=== PATIENT | male | born 1970 | race Caucasian/White ===

== ENCOUNTER 2017-08-27 03:18 | Emergency (ER) | payer MEDICARE, MEDICAID, SELFPAY ==
[2017-08-27 03:19] VITALS: BP 133/90; PULSE 65; RESP 16; TEMP 36.6; O2SAT 95; BMI 33.0
[2017-08-27] MEDS: 0.9% Normal Saline 1,000 ML 1000 ML IV (03:51)
[2017-08-27] MEDS: Ondansetron 4 MG/2 ML Vial IV (03:51)
[2017-08-27] MEDS: Ketorolac 30 MG/ML Syringe IV (03:51)
[2017-08-27 04:05] LABS: Absolute Neutrophil Count 4.9 X10^3/uL (2.0-7.7); Basophil# 0.02 X10^3/uL; Basophil% 0.3 % (0-1); Eosinophil# 0.06 X10^3/uL; Eosinophils% 0.8 % (0-5); Hemoglobin 14.8 g/dl (13.0-16.5); Lymphocyte % 24.6 % (19-41); Mean Corp Hgb Conc 34.4 g/gl (32-36); Mean Corpuscular Volume 81.4 fL (80-94); Mean Platelet Vol. 8.3 fl (6.2-12.0); Monocyte# 0.49 X10^3/uL; Monocyte% 6.7 % (0-10); Neutrophil # 4.94 X10^3/uL (2.7-7.7); Neutrophil % 67.5 % (47-70); Platelet Count 218 K/mm3 (150-450); RBC Distribution Width CV 13.8 % (11.6-14.6); RBC Distribution Width SD 40.5 fl (35.1-43.9); Red Blood Count 5.28 M/mm3 (4.6-6.2); White Blood Count 7.3 K/mm3 (4.4-11.0)
[2017-08-27 04:11] LABS: POSITIVE COUNT NO; POSITIVE DIFFERENTIAL NO; POSITIVE MORPHOLOGY NO
[2017-08-27 04:17] LABS: Anion Gap 9 (5-15); BUN 12 mg/dL (7-18); BUN/Creat Ratio 13.1 RATIO (10-20); Calcium,Total 8.2 mg/dL (8.5-10.1); Chloride 98 mmol/L (98-107); Creatinine, Serum 0.92 mg/dL (0.70-1.30); EST Glomerular Filtration Rate 95 mL/min (>60); Est Glom Filt Rate - Afr Amer 115 mL/min (>60); Estimated Creatinine Clearance 117.89 ml/min; Glucose 129 mg/dL (74-106); Potassium 3.3 mmol/L (3.5-5.1); Sodium Level 135 mmol/L (136-145)
--- NOTE | 2017-08-27 04:17 | ED.VISSUMM ---
- ER Visit Summary Date of Service: 08/27/17 Chief Complaint: Vomiting and diarrhea History of Present Illness: The patient is a [address] Palm. He reports he has vomiting and diarrhea that began 3 days ago. He is vomited approximately 10 times altogether. No blood in his emesis. He has had 6 episodes of diarrhea day. No blood in stools or black tarry stools. He complains of diffuse aching abdominal pain is 8 out of 10 at worst and 3-10 currently. Worsened by nothing, relieved by nothing. Patient denies sick contacts. Has not been camping out of the country. No possible bad food exposure. Does not drink well water. No recent antibiotic use. Physical Examination: Vitals: Stable. Afebrile. General: Well-nourished and well-developed. Head: Normocephalic atraumatic. Neck: Supple, no lymphadenopathy. No JVD. Nontender. Cardiovascular: Regular rate and rhythm. No murmurs. Respiratory: No respiratory distress. Clear to auscultation bilaterally. Abdominal: Soft, mild diffuse tenderness to palpation, nondistended, normal bowel sounds. No guarding, rebound, or peritoneal signs. Back: Nontender. Extremities: Nontender, no edema. Skin: Normal color, no rash. Neurologic: Alert and oriented ?3. Cranial nerves II through XII are intact. Normal strength and sensation. Psych: Normal affect. Test Results: CBC is normal. Chem-7 is remarkable for a sodium of 135, potassium 3.3, glucose of 129, calcium of 8.2. Emergency Department Course and Treatment: Patient had an IV placed. He was given a liter of normal saline. Is given Toradol and Zofran IV. He is rested comfortably while here. He has had no vomiting or diarrhea. Treatment Plan: He will be discharged with Zofran and instructed to follow-up with Dr. Palm in 1-2 days if not improving. Return to the emergency department for any worsening symptoms. Disposition: To home in improved and stable condition. Impression: 1. Vomiting/diarrhea. This note was generated with [employer] dictation software. It may contain incorrect words, spelling, and punctuation that were not noted in review of the chart prior to signing ED Disposition - Plan for ED Patient: Chief Complaint: Nausea/Vomiting/Diarrhea Instructions: ED Vomiting Diarrhea Nonspecific Ad Prescriptions: Ondansetron [Zofran Odt] 4 mg PO Q8H PRN PRN #10 tablet PRN Reason: Nausea Referrals: Fabian Palm MD [Primary Care Provider] - 1-2 Days if not improving
[2017-08-27 04:45] VITALS: BP 120/73; PULSE 73; RESP 16; O2SAT 95
[2017-08-27] MEDS: Ondansetron ODT 4 MG Tablet PO (04:45)
== END 2017-08-27 04:45 | disposition home or self-care (01) ==
LOC: ED 03:43
PROVIDERS: Emergency Provider Emergency Medicine; Family Provider Family Medicine; PCP Family Medicine
DX: R11.10 Vomiting, unspecified (principal); R19.7 Diarrhea, unspecified; I10 Essential (primary) hypertension; E78.00 Pure hypercholesterolemia, unspecified; J44.9 Chronic obstructive pulmonary disease, unspecified; E11.40 Type 2 diabetes mellitus with diabetic neuropathy, unspecified; Z79.84 Long term (current) use of oral hypoglycemic drugs; Z79.899 Other long term (current) drug therapy; Z72.0 Tobacco use
CPT/HCPCS: 80048; 85025; 96361; 96374; 96375; 99284; J7030; A4216; J2405

== ENCOUNTER 2017-09-24 19:37 | Emergency (ER) | payer MEDICARE, MEDICAID, SELFPAY ==
[2017-09-24 19:39] VITALS: BP 122/79; PULSE 73; RESP 18; TEMP 37.2; O2SAT 96; BMI 32.3
--- NOTE | 2017-09-24 22:23 | ED.DCSUM_ITS ---
- ER Visit Summary Date of Service: 09/24/17 Chief Complaint: Epigastric pain History of Present Illness: The patient is a 47 M 2 day history intermittent epigastric pain. Nausea. No vomiting. No diarrhea. No melena or hematochezia. He is on Prilosec for history of GERD had an EGD 4-6 years ago with unclear findings per patient. No urinary symptoms. No fever, chills, sweats. Denies chest pains or shortness of breath. States he has not eaten much due to the symptoms over the past week. Cannot tell me food worsens the symptoms. Saw PCP office 5 days ago was put on Zofran. States it does help his nausea but not his pain. No other complaints. Physical Examination: General: Alert and oriented ?3, no acute distress HEENT: Normocephalic, atraumatic. Moist mucosa membranes Neck: supple, nontender. Cardiovascular: Regular rate and rhythm, no murmurs Respiratory: Normal breath sounds, symmetric, no distress Abdomen: Soft, mild epigastric tenderness, nondistended. Negative Bailey's or McBurney's tenderness. No guarding or rebound Extremities: Nontender, no edema, pulses intact ?4 Neuro: no focal neurological deficits. Test Results: [] Emergency Department Course and Treatment: Patient's vital signs stable, nonsurgical abdomen. History concerns for gastritis. He has no GI bleed symptoms. He was given a GI cocktail with moderate improvement of symptoms. Discussed monitoring for rectal bleeding. He increase his Prilosec to 40 mg twice a day. Carafate will be added. He will call his PCP for follow-up reevaluation. All questions were answered. Return if any worsening symptoms. Treatment Plan: [] Disposition: Discharge Impression: 1. Gastritis This note was generated with [employer] dictation software. It may contain incorrect words, spelling, and punctuation that were not noted in review of the chart prior to signing ED Disposition - Plan for ED Patient: Disposition: Home or Assisted Living Chief Complaint: Chest Other Diagnosis: Gastritis Instructions: ED Gastritis Prescriptions: Sucralfate [Carafate] 1 gm PO 4X/DAY #60 tablet Referrals: Fabian Palm MD [Primary Care Provider] - 3-5 Days Additional Instructions: Increase her Prilosec to 40 mg twice a day. Take Carafate as prescribed. Call your PCP for follow-up reevaluation.
[2017-09-25 00:36] VITALS: BP 137/82; PULSE 77; RESP 18; O2SAT 100
== END 2017-09-25 00:37 | disposition home or self-care (01) ==
PROVIDERS: Emergency Provider Emergency Medicine; Family Provider Family Medicine; PCP Family Medicine
DX: K29.70 Gastritis, unspecified, without bleeding (principal); K21.9 Gastro-esophageal reflux disease without esophagitis; Z72.0 Tobacco use
CPT/HCPCS: 99283

== ENCOUNTER 2018-01-28 19:06 | Emergency (ER) | payer MEDICARE, SELFPAY ==
[2018-01-28 19:06] VITALS: BP 141/75; PULSE 88; RESP 18; TEMP 37; O2SAT 99; BMI 31.6
--- NOTE | 2018-01-28 20:20 | ED.VISSUMM ---
- ER Visit Summary Date of Service: 01/28/18 Chief Complaint: Head injury History of Present Illness: The patient is a 47 M who has a scalp laceration. 2 hours ago he hit his head on a car port. He has sharp pain around that area. No LOC. His tetanus is up-to-date. Physical Examination: Vital signs reviewed. Head exam reveals a 3.5 cm zigzag laceration to the scalp. Bleeding is controlled. His GCS is 15. Neurologic exam normal. Test Results: None performed Emergency Department Course and Treatment: Patient had lidocaine used to anesthetize the area. 6 alie were placed. He will have these out in 7-10 days. Treatment Plan: [] Disposition: Discharge Impression: Scalp laceration, 3.5 cm Table by ED physician This note was generated with [employer] dictation software. It may contain incorrect words, spelling, and punctuation that were not noted in review of the chart prior to signing ED Disposition - Plan for ED Patient: Chief Complaint: Laceration Referrals: Fabian Palm MD [Primary Care Provider] -
--- NOTE | 2018-01-28 20:21 | ED.DEP ---
ED Disposition - Plan for ED Patient: Disposition: Home or Assisted Living Chief Complaint: Laceration Instructions: ED Laceration All Referrals: Fabian Palm MD [Primary Care Provider] -
[2018-01-28 20:56] VITALS: BP 132/60; PULSE 78; RESP 18; O2SAT 99
== END 2018-01-28 20:57 | disposition home or self-care (01) ==
PROVIDERS: Emergency Provider Emergency Medicine; Family Provider Family Medicine; PCP Family Medicine
DX: S01.01XA Laceration without foreign body of scalp, initial encounter (principal); W22.8XXA Striking against or struck by other objects, initial encounter; Y93.9 Activity, unspecified; Y92.9 Unspecified place or not applicable; I10 Essential (primary) hypertension; M10.9 Gout, unspecified; Z79.899 Other long term (current) drug therapy; Z72.0 Tobacco use
CPT/HCPCS: 12002; 99283

== ENCOUNTER 2018-03-16 00:07 | Emergency (ER) | payer MEDICARE, MEDICAID, SELFPAY ==
[2018-03-16 00:10] VITALS: BP 134/95; PULSE 89; RESP 17; TEMP 36.8; O2SAT 95; BMI 31.5
--- NOTE | 2018-03-16 01:22 | ED.DCSUM_ITS ---
- ER Visit Summary Date of Service: 03/16/18 Chief Complaint: Rash lower extremity and face History of Present Illness: The patient is a 47 M presents with rash lower extremity and face starting today. He states he was helping his brother with window insulation. There were plans. Also admits to detergent that were changed recently. No lip or tongue swelling. States mild burning sensation. Denies fever. Denies dyspnea or chest pain. Denies previous similar symptoms in the past. He is a diabetic. No medications taken. Physical Examination: General: Alert and oriented ?3, no acute distress HEENT: Normocephalic, atraumatic. Moist mucosa membranes Neck: supple, nontender. Cardiovascular: Regular rate and rhythm, no murmurs Respiratory: Normal breath sounds, symmetric, no distress Abdomen: Soft, nontender, nondistended Extremities: Nontender, no edema, pulses intact ?4 Neuro: no focal neurological deficits. Skin: Scattered papules lower extremities bilaterally. There is erythema to the face. There is no lip or tongue swelling. No indurations. No drainage. Test Results: [] Emergency Department Course and Treatment: Patient vitals stable, nontoxic. Discussed nonspecific rash at this time however likely allergic reaction. Discussed not contact dermatitis due to symptoms occurring with exposures today from plants. He did change his detergent. Discussed changing back. He started on Benadryl. He has this at home. Continue every 6 hours. Steroids will be held due to history diabetes. He will follow-up with PCP. He will return if any worsening symptoms. Treatment Plan: [] Disposition: Discharge Impression: Allergic dermatitis This note was generated with [employer] dictation software. It may contain incorrect words, spelling, and punctuation that were not noted in review of the chart prior to signing ED Disposition - Plan for ED Patient: Disposition: Home or Assisted Living Chief Complaint: Rash Diagnosis: Allergic dermatitis Instructions: ED Dermatitis Nonspecific Ch Referrals: Fabian Palm MD [Primary Care Provider] - 3-5 Days Additional Instructions: Change your detergent back to previous. Take Benadryl every 6 hours as needed.
[2018-03-16] MEDS: DiphenhydrAMINE 25 MG Capsule 50 MG PO (01:27)
[2018-03-16 01:32] VITALS: PULSE 61; RESP 17; O2SAT 95
== END 2018-03-16 01:37 | disposition home or self-care (01) ==
LOC: ED 01:36
PROVIDERS: Emergency Provider Emergency Medicine; Family Provider Family Medicine; PCP Family Medicine
DX: L23.7 Allergic contact dermatitis due to plants, except food (principal); L23.9 Allergic contact dermatitis, unspecified cause; E11.9 Type 2 diabetes mellitus without complications; I10 Essential (primary) hypertension; J44.9 Chronic obstructive pulmonary disease, unspecified; K21.9 Gastro-esophageal reflux disease without esophagitis; Z79.84 Long term (current) use of oral hypoglycemic drugs; Z79.899 Other long term (current) drug therapy; Z72.0 Tobacco use
CPT/HCPCS: 99283

== ENCOUNTER 2018-03-19 15:35 | Emergency (ER) | payer MEDICARE, MEDICAID, SELFPAY ==
[2018-03-19 15:36] VITALS: BP 125/70; PULSE 83; RESP 18; TEMP 37.1; O2SAT 98; BMI 31.1
[2018-03-19 15:56] LABS: Bacteria 0 SEEN /hpf (None Seen); Mucous, Urine 0 SEEN /hpf (<or=2+); Red Blood Cells-Urine 0 SEEN /hpf (0-5)
[2018-03-19 16:14] LABS: Color, Urine Amber (Yellow); Glucose, Dipstick Normal (Normal); Ketone-Dipstick 5 mg/dl (Negative); Leukocyte Esterase-Dipstick 500 /ul (Negative); Nitrite-Dipstick Negative (Negative); Occult Blood-Urine 10 /ul (Negative); Protein-Dipstick 30 mg/dl (Negative); Urine Clarity Clear (Clear); Urine Urobilinogen 8 mg/dl (Normal)
[2018-03-19 16:24] LABS: Urine Bilirubin Dipstick 3 mg/dL (Negative)
[2018-03-19 16:30] LABS: Squamous Epithelial Cells - UA 0-5 SEEN /hpf (0-5); White Blood Cells 10-25 SEEN /hpf (0-5)
[2018-03-19 20:34] VITALS: BP 111/78; PULSE 64; RESP 18; O2SAT 97
--- NOTE | 2018-03-19 21:00 | ED.VISSUMM ---
- ER Visit Summary Date of Service: 03/19/18 Chief Complaint: Urinary retention History of Present Illness: The patient is a 47 M here for a urinary retention from BPH. Also known uor-[id number] diabetic. Patient states he has had difficulty urinating for last 2 days. Denies gross hematuria. He has had similar symptoms like this before and it is some type of prostate procedure done. Physical Examination: Well-appearing middle-age male. Vital signs are stable afebrile. H EENT exam unremarkable. Neck nontender. Lungs clear to auscultation bilaterally. Heart regular rhythm no murmur. Abdomen soft nondistended normal bowel sounds. No peritoneal signs. Moving all 4 extremities. No edema. Neurologically intact. Test Results: UA showed 10-25 white cells no bacteria no nitrates. A culture will be sent. He will be started on Keflex for possible UTI. Emergency Department Course and Treatment: Nurses placed a 16 [place] Fisher catheter patient had 550 cc of urine out. Treatment Plan: DC with Fisher catheter. Treated with Keflex for possible UTI. Follow-up with either his urologist or local urologist. Disposition: Discharge Impression: Acute urinary retention History of BPH. Rule out UTI This note was generated with [employer] dictation software. It may contain incorrect words, spelling, and punctuation that were not noted in review of the chart prior to signing ED Disposition - Plan for ED Patient: Chief Complaint: Complaint Referrals: Fabian Palm MD [Primary Care Provider] -
--- NOTE | 2018-03-19 21:02 | ED.DEP ---
ED Disposition - Plan for ED Patient: Disposition: Home or Assisted Living Chief Complaint: Complaint Instructions: ED Retention Urinary Male Prescriptions: Cephalexin [Keflex] 500 mg PO Q6 #40 cap Referrals: Hamilton Hidalgo MD [STAFF PHYSICIAN] - As soon as possible Additional Instructions: Follow-up with your clinical clinic urologist or Dr. Maxwell Hidalgo Plenty of water. Keflex for possible UTI but a urine culture was sent and the results should return in 2 days.
[2018-03-19] MEDS: Cephalexin 250 MG Capsule 500 MG PO (21:10)
[2018-03-19 21:16] VITALS: BP 118/63; PULSE 71; RESP 18; O2SAT 99
--- NOTE | 2018-03-19 21:17 | NURSING ---
LEG BAGG APPLIED TO RT LEG. PT VERBALIZE INSTRUCTIONS
== END 2018-03-19 21:17 | disposition home or self-care (01) ==
PROVIDERS: Emergency Provider Emergency Medicine; Family Provider Family Medicine; PCP Family Medicine
DX: N40.1 Benign prostatic hyperplasia with lower urinary tract symptoms (principal); R33.8 Other retention of urine; E11.9 Type 2 diabetes mellitus without complications; Z79.84 Long term (current) use of oral hypoglycemic drugs; Z79.899 Other long term (current) drug therapy; Z72.0 Tobacco use
CPT/HCPCS: 51702; 81001; 87086; 99282

== ENCOUNTER 2018-10-04 15:36 | Emergency (ER) | payer MEDICARE, MEDICAID, SELFPAY ==
[2018-10-04 15:36] VITALS: BP 126/81; PULSE 111; RESP 18; TEMP 36.9; O2SAT 96; BMI 31.9
--- NOTE | 2018-10-04 16:01 | ED.DCSUM_ITS ---
History of Present Illness Chief Complaint: Complaint Detail of Chief Complaint: Dysuria, frequency and suprapubic/LLQ discomfort pain Informant: Patient Onset: Yesterday Context: Sudden Onset Timing: Intermittent Quality: Burning at the end of urination and discomfort lower abdomen Location: Suprapubic/LLQ Current Severity: Mild Maximum Severity: Moderate Worsened by: Urination Relieved by: Nothing Associated Symptoms: Nothing Narrative: Patient is a middle-aged male who presents with incontinence, frequency, urgency since last evening. He also reports discomfort is localized to the suprapubic and left lower quadrant. At one episode that radiated to left flank. He has no history of renal ureterolithiasis. He denies testicular pain. Denies history of hernia. He denies family history of renal/ureterolithiasis. Patient was unaware that there was blood in his urine. Patient has no prior history of blood in his urine. Prior similar symptoms: No Recent Illness/Hospitalization: No - Past Medical History (1) Borderline diabetes mellitus Status: Chronic (2) Chronic back pain Status: Chronic (3) GERD (gastroesophageal reflux disease) Status: Chronic (4) Hypertension Status: Chronic (5) Obesity (BMI 30.0-34.9) Status: Chronic Past Medical History - Allergies and Home Meds Allergies/Adverse Reactions: Allergies cyclobenzaprine HCl [From Flexeril] Allergy (Verified 10/04/18 15:39) Hives dicyclomine HCl [From Bentyl] Allergy (Verified 10/04/18 15:39) Rash duloxetine HCl [From Cymbalta] Allergy (Verified 10/04/18 15:39) Hives naproxen Allergy (Verified 10/04/18 15:39) Hives tramadol HCl [From Ultram] Allergy (Verified 10/04/18 15:39) Rash Primary Care Physician: Fabian Palm MD [Primary Care Provider] - Prior records reviewed: Yes Surgical History: no surgical history Lives: Alone Smoking Status: Light Smoker (<10/day) Alcohol: None - Family History Maternal Family History: Reports: Diabetes, Stroke Paternal Family History: Reports: Unknown Review of Systems General: Denies: Chills, Fever, Malaise, Sweats Eyes: Denies: Visual changes - bilaterally, Diplopia ENT: Denies: Rhinorrhea, Sore throat Cardiovascular: Denies: Chest pain, Palpitations Respiratory: Denies: Dyspnea, Cough, Dyspnea on exertion Gastrointestinal: Denies: Abdominal pain, Nausea, Vomiting, Diarrhea, Melena, Hematochezia Genitourinary: Reports: Dysuria, Frequency Musculoskeletal: Reports: Back pain. Denies: Myalgias, Arthralgias, Neck pain, Swelling, Extremity Pain Skin: Denies: Rash, Wounds Neurological: Denies: Headache, Weakness, Numbness Endocrine: Denies: Polyuria, Polydipsia Allergy: Denies: Uticaria Physical Exam Vital Signs/Narrative: Vital Signs Temp Pulse Resp BP Pulse Ox 10/04/18 15:36 98.5 F 111 H 18 126/81 H 96 Abdomen: Soft, Nondistended, No masses, Tender, Hypoactive bowel sounds, - - [place] suprapubic and left lower quadrant.. Negative for: Normal bowel sounds, Guarding, Rebound tenderness, Hyperactive bowel sounds, Hepatomegaly, Splenomegaly, Mass, Pulsatile mass, Ventral hernia, Inguinal hernia, Umbilical hernia : - - Testes descended bilaterally. No testicular tenderness. There is one shotty left inguinal node noted. There is no evidence of inguinal hernia. Back: Nontender, Normal Inspection. Negative for: CVA tenderness Extremities: Nontender, No edema Skin: Normal color, No rash. Negative for: Cyanosis, Jaundice Neurological: Alert, Oriented x3, Cranial nerves II-XII grossly intact, Normal Strength, Normal Sensation Psychological: - - Affect is flat Diagnostic/Tx/Re-eval Chest X-Ray - ED: 2 View, Read by ED Physician, Normal, Heart, Mediastinum, Bony Structures, No Acute Disease, Chronic Changes Impressions Abdomen/Pelvis CT 10/04/18 16:34 IMPRESSION: The bladder is distended. There is a mildly distended appearance of the urethra at the base of the bladder. Recommend pre and post void imaging with ultrasound when appropriate. There is moderate enlargement of the prostate. Findings are highly suspicious for cystitis. Diverticulosis without radiographic evidence of diverticulitis. There is mild distention of the left upper quadrant small bowel with mild thickening cannot entirely exclude mild enteritis. There is moderate to severe degenerative change of the thoracolumbar spine with multilevel neural foramina narrowing multilevel moderate to severe central stenosis. Electronically Signed: Cristal Fitch MD at 17:28 EDT Tel , Service support , Chest X-Ray 10/04/18 17:29 IMPRESSION: Stable lung markings no visible focal infiltrate. Electronically Signed: Cristal Fitch MD at 17:49 EDT Tel , Service support , 10/04/18 16:34 Abdomen/Pelvis without Cont [CT] Stat 10/04/18 17:29 Chest PA and Lateral [RAD] Stat Laboratory Results 10/04/18 10/04/18 10/04/18 15:45 16:15 16:15 WBC 21.1 H RBC 5.31 Hgb 15.4 Hct 45.0 MCV 84.7 MCH 29.0 MCHC 34.2 RDW 14.1 RDW Differential 43.0 Plt Count 184 MPV 8.7 Immature Gran % (Auto) 0.400 Neut % (Auto) 86.0 H Lymph % (Auto) 7.8 L [place] % (Auto) 5.5 Eos % (Auto) 0.2 Baso % (Auto) 0.1 Absolute Neuts (auto) 18.2 H Absolute Lymphs (auto) 1.65 Total Counted Not Reportable Sodium 136 Potassium 3.4 L Chloride 101 Carbon Dioxide 29.0 Anion Gap 6 BUN 7 Creatinine 0.98 Estim Creat Clear Calc 109.51 Est GFR (MDRD) Af Amer 106 Est GFR (MDRD) Non-Af 88 BUN/Creatinine Ratio 7.2 L Glucose 203 H Calcium 8.5 Urine Color Yellow Urine Clarity Cloudy Urine pH 7.0 Ur Specific Quail 1.005 Urine Protein 30 H Urine Glucose (UA) Normal Urine Ketones Negative Urine Occult Blood 250 H Urine Nitrite Negative Urine Bilirubin Negative Urine Urobilinogen Normal Ur Leukocyte Esterase 500 H Urine RBC 0-5 SEEN Urine WBC >100 SEEN Ur Squamous Epith Cells 0 SEEN Urine Bacteria RARE Urine Mucus 0 SEEN - Medical Decision Making Differential includes urinary tract infection, ureteral stone, diverticular disease. To evaluate patient's symptoms and findings UA, CBC and basic metabolic panel were obtained. Bladder scan was ordered to determine if patient has urinary retention which may cause hematuria. He reports history of benign prostatic hypertrophy even though there is no documentation on prior records. Bladder scan revealed 17 cc after voiding. Suspect patient's symptoms are secondary to obstructing ureteral stone. Will medicate with Zofran and Toradol since there is no contraindication. Chest x-ray was added because I was informed at 1720 the patient had a pulse ox of 88% with good waveform. Chest x-ray was unremarkable. Suspect pulse ox 90% is normal for this patient who has lung problems related to his smoking. Fisher was placed and there is greater than 600 cc of urine. This would explain his frequency and hematuria. He was discharged with leg bag and referred to urology. ED Disposition - Plan for ED Patient: Disposition: Home or Assisted Living Diagnosis: Acute urinary retention, Acute left flank pain, Gross hematuria, Borderline diabetes mellitus, GERD (gastroesophageal reflux disease), Hypertension, Obesity (BMI 30.0-34.9) Instructions: ED Retention Urinary Male Referrals: Fabian Palm MD [Primary Care Provider] - Hamilton Hidalgo MD [STAFF PHYSICIAN] - 3-5 Days
[2018-10-04 16:11] LABS: Mucous, Urine 0 SEEN /hpf (<or=2+); Squamous Epithelial Cells - UA 0 SEEN /hpf (0-5)
[2018-10-04 16:19] LABS: Color, Urine Yellow (Yellow); Glucose, Dipstick Normal (Normal); Ketone-Dipstick Negative (Negative); Leukocyte Esterase-Dipstick 500 /ul (Negative); Nitrite-Dipstick Negative (Negative); Occult Blood-Urine 250 /ul (Negative); Protein-Dipstick 30 mg/dl (Negative); Specific Gravity, Urine 1.005 (1.002-1.030); Urine Bilirubin Dipstick Negative (Negative); Urine Clarity Cloudy (Clear); Urine Urobilinogen Normal (Normal)
[2018-10-04 16:23] LABS: Bacteria RARE /hpf (None Seen); Red Blood Cells-Urine 0-5 SEEN /hpf (0-5); White Blood Cells >100 SEEN /hpf (0-5)
[2018-10-04 16:30] LABS: Absolute Lymphocyte Count 1.65 X10^3/ul (0.83-4.51); Absolute Neutrophil Count 18.2 X10^3/uL (2.0-7.7); Basophil# 0.02 X10^3/uL; Basophil% 0.1 % (0-1); Eosinophil# 0.04 X10^3/uL; Eosinophils% 0.2 % (0-5); Hemoglobin 15.4 g/dl (13.0-16.5); Lymphocyte # 1.65 X10^3/ul (4.0); Lymphocyte % 7.8 % (19-41); Mean Corp Hgb Conc 34.2 g/gl (32-36); Mean Corpuscular Volume 84.7 fL (80-94); Mean Platelet Vol. 8.7 fl (6.2-12.0); Monocyte# 1.17 X10^3/uL; Monocyte% 5.5 % (0-10); Neutrophil # 18.16 X10^3/uL (2.7-7.7); POSITIVE COUNT NO; POSITIVE DIFFERENTIAL NO; POSITIVE MORPHOLOGY NO; Platelet Count 184 K/mm3 (150-450); RBC Distribution Width CV 14.1 % (11.6-14.6); Red Blood Count 5.31 M/mm3 (4.6-6.2); White Blood Count 21.1 K/mm3 (4.4-11.0)
[2018-10-04] MEDS: Morphine 4 MG/ML Syringe IV (16:30)
[2018-10-04] MEDS: Ondansetron 4 MG/2 ML Vial IV (16:30)
--- NOTE | 2018-10-04 16:34 | CT_ITS ---
STUDY: CT ABDOMEN AND PELVIS WITHOUT CONTRAST REASON FOR EXAM: Male, 48 years old. Incontinence, hematuria, flank pain groin pain RADIATION DOSAGE (If Supplied By Facility): CTDIvol = ( 15.24 ) mGy, DLP = ( 818.64 ) mGycm TECHNIQUE: Transaxial images were obtained from the dome of the diaphragm to the symphysis pubis without oral contrast, and without intravenous contrast. Sagittal and coronal images were reconstructed. Individualized dose optimization techniques were used for this CT. COMPARISON: CT scan abdomen and pelvis March 11, 2016 FINDINGS: The visualized lung bases are unremarkable. The visualized portions of the heart are within normal limits. Normal liver. Normal gallbladder and extrahepatic biliary system. Normal spleen. Normal pancreas. Normal bilateral adrenal glands. Normal right kidney. Normal left kidney. There is a small hiatal hernia. Is mildly thick walled appearance of the small bowel in the left upper quadrant. There is moderate stool in the colon. There is diverticulosis without visualized diverticulitis. There is a coiled inflamed stable caliber appearance of the appendix. Normal abdominal aorta. Normal inferior vena cava. There multiple shotty appearing retroperitoneal lymph nodes measuring up to 1.1 cm. The bladder is distended the wall is thickened and mildly hyperdense measuring up to 6 to 7 mm. There is an enlarged appearance of the prostate measuring up to 5 x 5 x 4 cm. There is a small umbilical hernia containing fat. There is multilevel spondylosis. There is a broad disc bulge L4-L5. There is moderate neural foramina narrowing. At L3-L4 there is a broad disc osteophyte protrusion extending over the right side of the neural foramen with severe neural foramina narrowing and moderate central stenosis. At L4-L5 there is a left lateral disc osteophyte protrusion severe neural foramina narrowing moderate to severe central stenosis. At L5-S1 there is disc space narrowing and broad disc osteophyte mild neural foramina narrowing. There is degenerative change of the SI joints. There is ostial right formation in the left hip joint CT/Abdomen/Pelvis without Cont IMPRESSION: The bladder is distended. There is a mildly distended appearance of the urethra at the base of the bladder. Recommend pre and post void imaging with ultrasound when appropriate. There is moderate enlargement of the prostate. Findings are highly suspicious for cystitis. Diverticulosis without radiographic evidence of diverticulitis. There is mild distention of the left upper quadrant small bowel with mild thickening cannot entirely exclude mild enteritis. There is moderate to severe degenerative change of the thoracolumbar spine with multilevel neural foramina narrowing multilevel moderate to severe central stenosis. Electronically Signed: Cristal Fitch MD at 17:28 EDT Tel , Service support ,
[2018-10-04 16:35] LABS: Anion Gap 6 (5-15); BUN 7 mg/dL (7-18); BUN/Creat Ratio 7.2 RATIO (10-20); Calcium,Total 8.5 mg/dL (8.5-10.1); Chloride 101 mmol/L (98-107); Creatinine, Serum 0.98 mg/dL (0.70-1.30); EST Glomerular Filtration Rate 88 mL/min (>60); Est Glom Filt Rate - Afr Amer 106 mL/min (>60); Estimated Creatinine Clearance 109.51 ml/min; Glucose 203 mg/dL (74-106); Potassium 3.4 mmol/L (3.5-5.1); Sodium Level 136 mmol/L (136-145)
[2018-10-04 17:20] VITALS: BP 118/71; PULSE 100; RESP 18; TEMP 36.9; O2SAT 90
[2018-10-04 17:22] VITALS: O2SAT 94
--- NOTE | 2018-10-04 17:29 | RAD_ITS ---
STUDY: X-RAY CHEST REASON FOR EXAM: Male, 48 years old. Hypoxia TECHNIQUE: PA and lateral views of the chest. COMPARISON: Chest x-ray December 30, 2016 FINDINGS: The lung markings appears stable there is no visible focal consolidation. There is no demonstrated pleural abnormality. Normal size heart. Normal mediastinum and arjun. Normal visualized pulmonary arteries. Normal visualized aortic arch and descending thoracic aorta. Normal visualized thoracic spine. Normal visualized ribs, clavicles, and shoulders. There is no demonstrated abnormality of the visualized soft tissue structures of the upper abdomen. There is a coiled catheter overlying the right neck soft tissue. There is a cervical spine fusion. RAD/Chest PA and Lateral IMPRESSION: Stable lung markings no visible focal infiltrate. Electronically Signed: Cristal Fitch MD at 17:49 EDT Tel , Service support ,
[2018-10-04 18:11] VITALS: BP 131/71; PULSE 93; RESP 18; TEMP 37.2; O2SAT 94
[2018-10-04 19:47] VITALS: BP 124/73; PULSE 94; RESP 15; O2SAT 97
== END 2018-10-04 19:49 | disposition home or self-care (01) ==
PROVIDERS: Emergency Provider Emergency Medicine; Family Provider Family Medicine; PCP Family Medicine
DX: R33.9 Retention of urine, unspecified (principal); R10.32 Left lower quadrant pain; R31.0 Gross hematuria; R73.03 Prediabetes; K21.9 Gastro-esophageal reflux disease without esophagitis; I10 Essential (primary) hypertension; E66.9 Obesity, unspecified; F17.200 Nicotine dependence, unspecified, uncomplicated; Z79.84 Long term (current) use of oral hypoglycemic drugs; Z79.899 Other long term (current) drug therapy
CPT/HCPCS: 71046; 74176; 80048; 81001; 85025; 96374; 96375; 99283; A4216; J2405

== ENCOUNTER 2018-10-20 14:46 | Emergency (ER) | payer MEDICARE, MEDICAID, SELFPAY ==
[2018-10-20 14:46] VITALS: BP 126/76; PULSE 72; RESP 16; TEMP 36.6; O2SAT 95; BMI 30.7
--- NOTE | 2018-10-20 15:49 | EKG12_ITS ---
Test Reason : DIZZINESS Blood Pressure : / mmHG Vent. Rate : 059 BPM Atrial Rate : 059 BPM P-R Int : 180 ms QRS Dur : 106 ms QT Int : 424 ms P-R-T Axes : 066 007 016 degrees QTc Int : 419 ms Sinus bradycardia Otherwise normal ECG Confirmed by ROBERTO HOROWITZ, ALEK ([id number]), editor news JUANCHO MARTIN ([id number]) on 10/22/2018 8:01:20 AM Referred By: Confirmed By:ALEK MEJIA MD
--- NOTE | 2018-10-20 15:49 | RAD_ITS ---
STUDY: X-RAY CHEST REASON FOR EXAM: Male, 48 years old. Intermittent dizziness since Sunday TECHNIQUE: Single AP portable view of the chest. COMPARISON: 10/04/2018 FINDINGS: The lungs are clear and expanded. There is no demonstrated pleural abnormality. Normal size heart. Normal mediastinum and arjun. Normal visualized pulmonary arteries. Normal visualized aortic arch and descending thoracic aorta. Fusion hardware of the lower cervical spine partially visualized. Normal visualized ribs, clavicles, and shoulders. There is no demonstrated abnormality of the visualized soft tissue structures of the upper abdomen. RAD/Chest 1 View (Portable) IMPRESSION: Stable, nonacute portable x-ray examination of the chest. Electronically Signed: Jaylon Pederson MD at 16:05 EDT , Service support ,
--- NOTE | 2018-10-20 15:51 | ED.VISSUMM ---
- ER Visit Summary Date of Service: 10/20/18 Chief Complaint: Dizziness History of Present Illness: The patient is a 48 M presenting with dizziness. He states this has been intermittent since Sunday. He states it is worse with standing. He describes as lightheadedness. He denies vertigo. He states 4 days ago he started having diarrhea. No blood in the stool. He states his diarrhea is now starting to improve. He denies fever, chest pain, shortness of breath. Denies syncope. He has had similar episodes in the past. He states at that time he was taken off his amlodipine. He denies other complaints. Physical Examination: Vitals are stable. Patient is afebrile. Alert no acute distress. HEENT exam is unremarkable. Neck is supple. Lungs are clear and equal bilaterally. Heart is regular rate and rhythm. Abdomen is soft nontender nondistended. Extremities are unremarkable. Skin is warm and dry. No focal neurologic deficit. Remainder of exam is unremarkable. Emergency Department Course and Treatment: Patient was given IV fluids. EKG is sinus rate of 59 with no acute ischemic changes. Chest x-ray shows no acute process. With orthostatic vital signs his blood pressure did decrease with standing, his heart rate increased with standing, he was asymptomatic. CBC, chemistries unremarkable other than glucose 71. Patient is tolerating p.o. in the emergency department. He is feeling improved. Advised follow-up with his primary care physician. Advised return to ED if worsening complaints. Disposition: Discharge home Impression: Dizziness, resolved This note was generated with [employer] dictation software. It may contain incorrect words, spelling, and punctuation that were not noted in review of the chart prior to signing ED Disposition - Plan for ED Patient: Referrals: Fabian Palm MD [Primary Care Provider] -
[2018-10-20 16:04] VITALS: BP 110/81; BP 125/86; BP 126/86; PULSE 63; PULSE 65; PULSE 86
[2018-10-20] MEDS: 0.9% Normal Saline 1,000 ML 1000 ML IV (16:12)
[2018-10-20 16:26] LABS: Absolute Lymphocyte Count 1.49 X10^3/ul (0.83-4.51); Absolute Neutrophil Count 5.7 X10^3/uL (2.0-7.7); Basophil# 0.01 X10^3/uL; Basophil% 0.1 % (0-1); Eosinophil# 0.03 X10^3/uL; Eosinophils% 0.4 % (0-5); Hematocrit 45.5 % (40-54); Hemoglobin 15.7 g/dl (13.0-16.5); Lymphocyte # 1.49 X10^3/ul (4.0); Lymphocyte % 19.1 % (19-41); Mean Corp Hgb Conc 34.5 g/gl (32-36); Mean Corpuscular Hgb 28.8 pg (27.0-32.0); Mean Corpuscular Volume 83.3 fL (80-94); Mean Platelet Vol. 8.9 fl (6.2-12.0); Monocyte% 7.7 % (0-10); Neutrophil # 5.65 X10^3/uL (2.7-7.7); Neutrophil % 72.6 % (47-70); POSITIVE COUNT NO; POSITIVE DIFFERENTIAL NO; POSITIVE MORPHOLOGY NO; Platelet Count 224 K/mm3 (150-450); RBC Distribution Width CV 14.6 % (11.6-14.6); Red Blood Count 5.46 M/mm3 (4.6-6.2); White Blood Count 7.8 K/mm3 (4.4-11.0)
[2018-10-20 16:33] LABS: Anion Gap 8 (5-15); BUN 9 mg/dL (7-18); BUN/Creat Ratio 11.6 RATIO (10-20); Chloride 105 mmol/L (98-107); Creatinine, Serum 0.77 mg/dL (0.70-1.30); EST Glomerular Filtration Rate 115 mL/min (>60); Est Glom Filt Rate - Afr Amer 139 mL/min (>60); Estimated Creatinine Clearance 139.37 ml/min; Glucose 71 mg/dL (74-106); Sodium Level 141 mmol/L (136-145)
--- NOTE | 2018-10-20 17:19 | ED.DEP ---
ED Disposition - Plan for ED Patient: Instructions: ED Dizziness [facility] Referrals: Fabian Palm MD [Primary Care Provider] -
[2018-10-20 17:23] VITALS: BP 130/91; PULSE 85; RESP 16; O2SAT 96
== END 2018-10-20 17:33 | disposition home or self-care (01) ==
PROVIDERS: Emergency Provider Emergency Medicine; Family Provider Family Medicine; PCP Family Medicine
DX: R42 Dizziness and giddiness (principal); I10 Essential (primary) hypertension; E11.9 Type 2 diabetes mellitus without complications; M10.9 Gout, unspecified; Z79.84 Long term (current) use of oral hypoglycemic drugs; Z79.899 Other long term (current) drug therapy; Z72.0 Tobacco use
CPT/HCPCS: 71045; 80048; 85025; 93005; 99283

== ENCOUNTER 2019-08-04 09:46 | Day surgery (SDC) | payer MEDICARE, MEDICAID, SELFPAY ==
--- NOTE | 2019-08-03 13:14 | HP.PCM_ITS ---
History and Physical Date of Admission: 08/04/19 Fahad Brock a 48 year old male who presents today to set up surveillance colonoscopy. His PCP is Dr. Palm. ? The patient has COPD and LAKSHMI. He uses CPAP. He also has type 2 diabetes, with peripheral neuropathy. He has HTN. He has a history of anxiety and depression, as well as a history of alcohol and drug abuse. ? The patient was seen by Dr. Gtz for colonoscopy (with MAC) on 04/14/15 for reported clinically significant diarrhea. The procedure report has been reviewed and findings as follows: Impression: ? ? - Diverticulosis in the sigmoid colon. ? - The entire examined colon is normal. Biopsied. ? - One 9 mm polyp in the ascending colon. Resected and ? retrieved. ? - One 8 mm polyp in the sigmoid colon. Resected and ? retrieved. ? - One 6 mm polyp in the rectum. Resected and retrieved. ? FINAL DIAGNOSIS 1. ?Random colon, biopsy (A) - Colonic mucosa without diagnostic abnormality. - No evidence of colitis. 2. ?Ascending colon polyp, biopsy (B) - Multiple fragments of sessile serrated polyp. 3. ?Sigmoid colon polyp, biopsy (C) - Tubular adenoma. 4. ?Rectal polyp, biopsy (D) - Hyperplastic polyp. ? Three year surveillance was recommended by Dr. Gtz. ? ? ? Presenting complaint: The patient reporting a change in bowel habits. He tells me that he can go a week between bowel movements. Vary from hard to soft. He reports rectal bleeding in the form of small clots sometimes as well as on the paper with wiping. ? Reports central abdominal pain. Comes and goes on it's own. haven't pain attention to what causes it. It can awaken him from sleep. ? Taking 40mg omeprazole daily. Reports nausea quite a few times. Smokes cannabis,so we discussed that it can lead to nausea in some patients. No vomiting. No choking on food. ? ? REVIEW OF SYSTEMS: GENERAL: No weight loss, malaise or fevers RESPIRATORY: LAKSHMI - using CPAP. No SOB. CARDIOVASCULAR: Hypertension - fairly good control. No chest pain or TORRES. GI: The patient states that his appetite has been good. He does get hungry. There has been occasionally been nausea, no vomiting. He denies dysphagia and denies odynophagia. There has not been indigestion or heartburn. There has not been regurgitation. Bowel habits have been regular. There has not been diarrhea. There has been constipation. The patient admits to rectal bleeding. There has not been melena. Intermittent generalized abdominal discomfort. MUSCULOSKELETAL: No new or worsening joint pain or swelling, back pain or muscle pain SKIN: No lesions, rash, and itching. Multiple tattoos. PSYCH: Positive for depression and anxiety. On prescriptions and sees counselor. HEMATOLOGY/LYMPHOLOGY Negative for prolonged bleeding, bruising easily or swollen nodes ENDOCRINE: NIDDM. A1C 5.5 09/16/18 NEURO: Positive peripheral neuropathy. No headaches, syncope, paralysis, seizures or tremors All other reviewed and negative other than HPI. ? ? PAST MEDICAL HISTORY PAST MEDICAL HISTORY Diagnosis Date ? Alcohol abuse, in remission ? ? Anxiety ? ? BPH (benign prostatic hyperplasia) ? ? self cath 1 X per day ? Carpal tunnel syndrome, right ? ? Collar bone fracture ? ? 1989 ? COPD (chronic obstructive pulmonary disease) (HCC) ? ? Depression ? ? Gout ? ? H/O drug abuse (HCC) ? ? HTN (hypertension) ? ? LAKSHMI (obstructive sleep apnea) ? ? using CPAP ? Type 2 diabetes mellitus (HCC) ? ? ? PAST SURGICAL HISTORY PAST SURGICAL HISTORY Procedure Laterality Date ? CARPAL TUNNEL ? 2014 ? trigger finger release ? COLONOSCOP W/ OR W/O [facility] SPEC ? 04/14/2015 ? Colonoscopy ? EGD W/O OR W/BRUSH/WASH ? 07/28/2015 ? EGD ? NECK ? 07/16/2014 ? PAST SURGICAL HISTORY OF N/A 08/14/2014 ? Bone spurs removed from neck ? ? FAMILY HISTORY FAMILY HISTORY Problem Relation Age of Onset ? COPD Mother ? ? other (unknown) Father ? ? None Sister ? ? None Brother ? ? Heart Maternal Grandfather ? ? [place] -60's ? Hypertension Maternal Grandfather ? ? Heart Maternal Grandmother ? ? [place] - 60's ? ? CURRENT MEDICATIONS Current Outpatient Medications Medication Sig Dispense Refill ? gabapentin (NEURONTIN) 100 mg capsule Take 1 capsule by mouth four times daily for 180 days. 120 capsule 11 ? albuterol HFA (VENTOLIN HFA) 90 mcg/actuation inhaler INHALE 2 PUFFS BY MOUTH EVERY 4 HOURS NEEDED FOR WHEEZING OR FOR SHORTNESS OF BREATH INSTRUCTED 18 g 10 ? omeprazole (PRILOSEC) 20 mg capsule Take 2 capsules by mouth once daily. 60 capsule 6 ? gabapentin (NEURONTIN) 800 mg tablet Take 1 tablet by mouth four times daily for 90 days. 120 tablet 2 ? tiZANidine (ZANAFLEX) 4 mg tablet TAKE (1) TABLET BY MOUTH EVERY 8 HOURS NEEDED FOR MUSCLE SPASMS 90 tablet 10 ? diphenhydrAMINE (BENADRYL) 25 mg tablet Take 1 tablet by mouth every 6 hours as needed for Itching/Rash. 60 tablet 6 ? sildenafil (VIAGRA) 100 mg tablet Take 1 tablet by mouth as needed. 6 tablet 2 ? tamsulosin ER (FLOMAX) 0.4 mg cap TAKE ONE (1) CAPSULE BY MOUTH EVERY NIGHT AT BEDTIME 90 capsule 3 ? allopurinol (ZYLOPRIM) 100 mg tablet TAKE TWO (2) TABLETS BY MOUTH ONCE DAILY 180 tablet 3 ? metFORMIN (GLUCOPHAGE) 1,000 mg tablet TAKE ONE (1) TABLET BY MOUTH TWICE DAILY WITH MEALS 180 tablet 3 ? buPROPion SR (WELLBUTRIN SR) 150 mg 12 hr tablet Take 1 tablet by mouth once daily. 90 tablet 1 ? atorvastatin (LIPITOR) 40 mg tablet Take 1 tablet by mouth once daily. 30 tablet 11 ? fluticasone (FLONASE) 50 mcg/actuation nasal spray Use 2 Sprays in each nostril once daily. Rinse mouth after use. 16 g 11 ? COMPOUNDED PRESCRIPTION 1 pair Diabetic Shoes ICD-10: E11.9 1 Each 0 ? traZODone (DESYREL) 100 mg tablet Take 1 tablet by mouth three times daily as needed. ? ? ? ondansetron orally disintegrating (ZOFRAN ODT) 4 mg disintegrating tablet TAKE (1) TABLET BY MOUTH EVERY 6 HOURS NEEDED FOR NAUSEA & VOMITING 20 tablet 11 ? atenolol (TENORMIN) 25 mg tablet TAKE 1 TABLET BY MOUTH ONCE DAILY 90 tablet 3 ? blood sugar diagnostic (FREESTYLE LITE STRIPS) test strip Use to test blood sugar daily E11.9 100 Strip 3 ? lancets (FREESTYLE LANCETS) 28 gauge misc Use to test blood sugar one time daily E11.9 100 Each 3 ? ARIPiprazole (ABILIFY) 5 mg tablet Take 1 tablet by mouth once daily. ? 0 ? Blood Pressure Monitor kit Use as directed 1 Kit 0 ? COMPOUNDED PRESCRIPTION Wrist BP cuff DX: Hypertension I10 Use as directed to monitor blood pressure 1 Each 0 ? hydrOXYzine pamoate (VISTARIL) 50 mg capsule Take 50 mg by mouth four times daily as needed. ? ? ? CPAP 1 Each every evening. ? ? ? No current facility-administered medications for this visit. ? ? ? SOCIAL HISTORY: Patient is single. He smokes few cigarretes per day. He reports his alcohol use as none. He smokes cannabis. ? ? PHYSICAL EXAMINATION: Blood pressure 135/88, pulse 94, height 190.5 cm (6' 3), weight 116.6 kg (257 lb). General Appearance: Well appearing, alert, in no acute distress, well-hydrated, well nourished. Skin: Skin color, texture, turgor normal, no suspicious rashes or lesions. Multiple tattoos. Head: Normocephalic, no masses, lesions or abnormalities. Eyes: Anicteric sclera. Oropharynx: Lips, mucosa, and tongue normal, oropharynx normal. Stud in tongue. Neck: Supple, no adenopathy; thyroid symmetric, normal size.. Lungs: lungs clear to auscultation. No wheezing, rhonchi, rales. Heart: RRR without murmur.. Abdomen: Abdomen rotund, non-tender. Bowel sounds normal. No masses, organomegaly. Extremities: No deformities, edema. Peripheral Pulses: Normal. Neurologic: Gait normal. Sensation grossly intact. ? ? Impression: history of polyps 2)diverticulosis ? ? Plan: This patient will be scheduled for a colonoscopy using GoLytely as the prep. This will be with Dr. Villeda, at [facility], with MAC. ? The preparation, as well as the procedure, has been explained in detail. The risks, benefits, anticipated outcomes and possible complications, including failure to complete the endoscopy and perforation, were mentioned. ?I explained the procedure in understandable terms and the patient was given printed material concerning the planned procedure. The patient had the opportunity to ask questions concerning the planned procedure. The patient freely consents to the planned procedure. ? The patient is asked to call with any questions for concerns, or should there be any change in health status between now and the scheduled procedure. ? I have personally interviewed and examined this patient. I have read the information the MA documented in this encounter. I spent 30 minutes in the visit, with more than 50% of the total [id number] time of the visit in counseling / coordination of care. ? Josefa Stone RN DRESSAGE INSTRUCTOR.BILINGUAL RESEARCH INTERVIEWER
[2019-08-04 10:20] VITALS: BP 134/89; PULSE 59; RESP 16; TEMP 37.1; O2SAT 90; BMI 32.1
[2019-08-04] MEDS: Lactated Ringers 1,000 ML 100 ML IV (10:38)
[2019-08-04 10:56] LABS: Bedside Glucose 118 mg/dL (70-110)
[2019-08-04 13:00] VITALS: BP 117/65; BP 134/89; PULSE 68; RESP 16; TEMP 35.9; O2SAT 97
[2019-08-04 13:05] VITALS: BP 111/74; BP 134/89; PULSE 62; RESP 16; O2SAT 99
[2019-08-04 13:10] VITALS: BP 127/78; BP 134/89; PULSE 54; RESP 16; O2SAT 99
[2019-08-04 13:15] VITALS: BP 118/92; BP 134/89; PULSE 57; RESP 16; TEMP 35.9; O2SAT 99
[2019-08-04 13:41] VITALS: BP 134/89
--- NOTE | 2019-08-04 14:19 | OP.COLON_ITS ---
Patient Name: Fahad Brock Procedure Date: 08/04/2019 11:51 AM Date of : 1970 Age: 49 Procedure: Colonoscopy Indications: High risk colon cancer surveillance: Personal history of colonic polyps Providers: Dulec Villeda MD Referring MD: Fabian Palm Medicines: See the Anesthesia note for documentation of the administered medications Patient Profile: Refer to note in patient chart for documentation of history and physical. Last Colonoscopy: 5 years ago. Complications: No immediate complications. Procedure: Pre-Anesthesia Assessment: - see anesthesia note After I obtained informed consent, the scope was passed under direct vision. Throughout the procedure, the patient's blood pressure, pulse, and oxygen saturations were monitored continuously. The colonoscope was introduced through the anus and advanced to the cecum, identified by the appendiceal orifice, IC valve and transillumination. The colonoscopy was performed without difficulty. The patient tolerated the procedure well. The quality of the bowel preparation was poor. Scope In: 12:04:57 PM Scope Withdrawal Time 0 hours 7 minutes 6 seconds Scope Out: 12:55:15 PM Total Procedure Duration Time 0 hours 50 minutes 18 seconds Findings: The perianal and digital rectal examinations were normal. Pertinent negatives include normal sphincter tone. Non-bleeding internal hemorrhoids were found. Impression: - Preparation of the colon was poor. No obvious masses greater than 2 cm seen - Non-bleeding internal hemorrhoids. - No specimens collected. Recommendation: - Repeat colonoscopy within 1 year because the bowel preparation was suboptimal. - Return to primary care physician PRN. - Continue present medications. Procedure Code(s): --- Professional --- G0105, Colorectal cancer screening; colonoscopy on individual at high risk Diagnosis Code(s): --- Professional --- K64.8, Other hemorrhoids Z86.010, Personal history of colonic polyps CPT copyright 2017 [employer]. All rights reserved. The codes documented in this report are preliminary and upon senior maintenance mechanic review may be revised to meet current compliance requirements. MD Dulce Hair MD 08/04/2019 1:00:04 PM This report has been signed electronically. Number of Addenda: 0 Note Initiated On: 08/04/2019 11:51 AM
--- NOTE | 2019-08-04 14:19 | OP.CCLET_ITS ---
08/04/2019 Fabian Palm [address] [place] [address] Re : Colonoscopy procedure for Fahad Mcclellandson Dear Dr. Palm This procedure was performed on Sunday, August 04, 2019. My impressions and recommendations are as follows: Impressions : - Preparation of the colon was poor. No obvious masses greater than 2 cm seen - Non-bleeding internal hemorrhoids. - No specimens collected. Recommendations : - Repeat colonoscopy within 1 year because the bowel preparation was suboptimal. - Return to primary care physician PRN. - Continue present medications. My findings are described in the full procedure note, which is enclosed. If I can be of further assistance, please feel free to contact me at Doctor phone number(s): , Work: . Sincerely, MD Dulce Hair MD 08/04/2019 1:00:04 PM This report has been signed electronically.
== END 2019-08-04 13:43 | disposition home or self-care (01) ==
LOC: EN 09:48 → AC 09:51
PROVIDERS: Family Provider Family Medicine; PCP Family Medicine; Referring Provider Surgery; Visit Provider Surgery
PROC: 0DJD8ZZ Inspection of Lower Intestinal Tract, Via Natural or Artificial Opening Endoscopic (ICD-10-PCS; CPT 45378; principal; 2019-08-04 11:55)
DX: Z12.11 Encounter for screening for malignant neoplasm of colon (principal); Z86.010 Personal history of colon polyps; K64.8 Other hemorrhoids; E11.42 Type 2 diabetes mellitus with diabetic polyneuropathy; I10 Essential (primary) hypertension; G47.33 Obstructive sleep apnea (adult) (pediatric); J44.9 Chronic obstructive pulmonary disease, unspecified; F32.9 Major depressive disorder, single episode, unspecified; F41.9 Anxiety disorder, unspecified; N40.0 Benign prostatic hyperplasia without lower urinary tract symptoms; M10.9 Gout, unspecified; F17.219 Nicotine dependence, cigarettes, with unspecified nicotine-induced disorders; Z79.899 Other long term (current) drug therapy
CPT/HCPCS: G0105; 82962; J7050; J7120; J2405

== ENCOUNTER → 2020-01-01 12:06 | Outpatient (CLI) | payer MEDICARE, MEDICAID, SELFPAY ==
[2020-01-01 13:20] LABS: PSA,Total - Annual Screen 0.29 ng/mL (0.00-4.00)
== END ==
PROVIDERS: PCP Family Medicine; Referring Provider Urology; Visit Provider Urology
DX: Z12.5 Encounter for screening for malignant neoplasm of prostate (principal)
CPT/HCPCS: 36415; 84153; G0103

== ENCOUNTER 2020-08-30 17:28 | Emergency (ER) | payer MEDICARE, MEDICAID, SELFPAY ==
[2020-08-30 17:28] VITALS: BP 149/99; PULSE 98; RESP 14; TEMP 35.5; O2SAT 97; BMI 33.0
--- NOTE | 2020-08-30 17:43 | ED.DCSUM_ITS ---
- ER Visit Summary Date of Service: 08/30/20 Chief Complaint: Upper back pain History of Present Illness: The patient is a [address] Talha Ellsworth. He reports he has left upper back pain that began yesterday. Is a sharp pain is 1010 worsening to 10 currently. Is worsened by bending over or twisting. Taken ibuprofen and aspirin without relief. He denies any radiation to his arm. No numbness or weakness. No chest pain or shortness of breath. Patient denies any trauma. No fall, MVA, or change in activity. Physical Examination: Vitals: Stable. Afebrile. General: Well-nourished and well-developed. Head: Normocephalic atraumatic. Neck: Supple, no lymphadenopathy. No JVD. Nontender. Cardiovascular: Regular rate and rhythm. No murmurs. Respiratory: No respiratory distress. Clear to auscultation bilaterally. Abdominal: Soft, nontender, nondistended, normal bowel sounds. No guarding, rebound, or peritoneal signs. Back: No vertebral tenderness. He has moderate tenderness to palpation just medial to the left scapula. 2+ radial pulse bilaterally. Extremities: Nontender, no edema. Skin: Normal color, no rash. Neurologic: Alert and oriented ?3. Cranial nerves II through XII are intact. Normal strength and sensation. Psych: Normal affect. Emergency Department Course and Treatment: An [facility] report was obtained which was negative. He was given a dose of [place] here. Treatment Plan: Patient will be discharged with symptomatic care. He is instructed to use moist heat to the area. Continue ibuprofen. Use [place] for severe pain. Follow-up his primary care physician in 3 to 5 days if not i mproving. Return to the emergency department for any worsening symptoms. Disposition: To home in improved and stable condition. Impression: 1. Left upper back pain. This note was generated with [employer] dictation software. It may contain incorrect words, spelling, and punctuation that were not noted in review of the chart prior to signing ED Disposition - Plan for ED Patient: Instructions: ED Back Pain (Acute or Chronic) Prescriptions: Hydrocodone Bitart/Apap 5-325 [[place] 5MG-325MG] 1 tablet PO Q4H PRN PRN 2 Days #10 tablet PRN Reason: Pain Referrals: Fabian Palm MD [Primary Care Provider] - 3-5 Days if not improving
[2020-08-30] MEDS: HYDROcodone Bitartrate/Apap 5/325 Tablet PO (17:58)
== END 2020-08-30 18:03 | disposition home or self-care (01) ==
LOC: ED 17:55
PROVIDERS: Emergency Provider Emergency Medicine; PCP Family Medicine
DX: M54.6 Pain in thoracic spine (principal); F17.200 Nicotine dependence, unspecified, uncomplicated; E11.9 Type 2 diabetes mellitus without complications; Z79.84 Long term (current) use of oral hypoglycemic drugs
CPT/HCPCS: 99283

== ENCOUNTER 2020-10-20 10:52 | Day surgery (SDC) | payer MEDICARE, MEDICAID, SELFPAY ==
--- NOTE | 2020-10-17 14:10 | HP.PCM_ITS ---
History and Physical Date of Admission: 10/20/20 HISTORY AND PHYSICAL ? Fahad Brock 1970 ? REFERRING PHYSICIAN: Fabian Palm MD ? CHIEF COMPLAINT: Colonoscopy consult ? HPI: The patient is a 50 year old male referred for surveillance endoscopy due to a personal history of colon polyps. Fahad notes no colon complaints currently. Patient denies any change in bowel habits, weight changes, blood in stools, black tarry stools or abdominal pain. Denies family history of colon issues. He NOTES reflux and heartburn which occur on a regular basis. ? Fahad has undergone prior endoscopy. Most recent colonoscopy 08/04/[address] Dulce Villeda at [facility], scanned records reviewed. He was found to have non-bleeding internal hemorrhoids at that time. Preparation of the colon was poor, limiting visualization. Repeat colonoscopy was recommended in 1 year due to suboptimal bowel prep. ? Patient's past medical history is significant for anxiety, depression, BPH, COPD, past history of alcohol and drug abuse, hypertension, obstructive sleep apnea, type II diabetes mellitus. Patient follows with Dr. Palm for his chronic medical conditions. ? Of note, patient was recently evaluated in primary care for complaints of chest pressure and dyspnea on exertion. He had a stress test completed earlier this week which showed no ischemia, and LVEF was 67%. He still notes same complaints of the pressure and TORRES, has not had further follow-up since testing completed. ? ? PAST MEDICAL HISTORY PAST MEDICAL HISTORY Diagnosis Date ? Alcohol abuse, in remission ? ? Anxiety ? ? BPH (benign prostatic hyperplasia) ? ? self cath 1 X per day ? Carpal tunnel syndrome, right ? ? Collar bone fracture ? ? 1989 ? COPD (chronic obstructive pulmonary disease) (HCC) ? ? Depression ? ? Gout ? ? H/O drug abuse (HCC) ? ? HTN (hypertension) ? ? LAKSHMI (obstructive sleep apnea) ? ? using CPAP ? Type 2 diabetes mellitus (HCC) ? ? ? PAST SURGICAL HISTORY PAST SURGICAL HISTORY Procedure Laterality Date ? CARPAL TUNNEL Bilateral 2014 ? trigger finger release ? COLONOSCOP W/ OR W/O BRSH SPEC ? 04/14/2015 ? Colonoscopy ? COLONOSCOPY SCRN NOT HIGH RISK ? 08/04/2019 ? 1 year recall ? EGD W/O OR W/BRUSH/WASH ? 07/28/2015 ? EGD ? NECK ? 07/16/2014 ? PAST SURGICAL HISTORY OF N/A 08/14/2014 ? Bone spurs removed from neck ? ? ? CURRENT MEDICATIONS Current Outpatient Medications Medication Sig ? diphenhydrAMINE (BENADRYL) 25 mg tablet Take 1 tablet by mouth every 6 hours as needed for Itching/Rash. ? omega-3 acid ethyl esters (LOVAZA) 1 gram capsule Take 2 capsules by mouth twice daily. ? diclofenac sodium (VOLTAREN) 1 % topical gel Apply 2 g to affected area four times daily. ? gabapentin (NEURONTIN) 800 mg tablet Take 1 tablet by mouth four times daily for 180 days. ? gabapentin (NEURONTIN) 100 mg capsule Take 1 capsule by mouth four times daily for 180 days. ? fluticasone (FLONASE) 50 mcg/actuation nasal spray Use 2 Sprays in each nostril once daily. Rinse mouth after use. ? etodolac (LODINE) 400 mg tablet Take 1 tablet by mouth twice daily. ? metFORMIN (GLUCOPHAGE) 1,000 mg tablet TAKE ONE (1) TABLET BY MOUTH TWICE DAILY WITH MEALS ? allopurinol (ZYLOPRIM) 100 mg tablet TAKE TWO (2) TABLETS BY MOUTH ONCE DAILY ? omeprazole (PRILOSEC) 40 mg capsule Take 1 capsule by mouth once daily. ? buPROPion SR (WELLBUTRIN SR) 150 mg 12 hr tablet Take 1 tablet by mouth once daily. ? COMPOUNDED PRESCRIPTION 1 pair Diabetic Shoes ICD-10: E11.9 ? atenolol (TENORMIN) 25 mg tablet TAKE 1 TABLET BY MOUTH ONCE DAILY ? blood sugar diagnostic (FREESTYLE LITE STRIPS) test strip Use to test blood sugar daily E11.9 ? lancets (FREESTYLE LANCETS) 28 gauge misc Use to test blood sugar one time daily E11.9 ? ARIPiprazole (ABILIFY) 5 mg tablet Take 1 tablet by mouth once daily. ? Blood Pressure Monitor kit Use as directed ? COMPOUNDED PRESCRIPTION Wrist BP cuff DX: Hypertension I10 Use as directed to monitor blood pressure ? hydrOXYzine pamoate (VISTARIL) 50 mg capsule Take 50 mg by mouth four times daily as needed. ? tiZANidine (ZANAFLEX) 4 mg tablet TAKE (1) TABLET BY MOUTH EVERY 8 HOURS NEEDED FOR MUSCLE SPASMS ? Vardenafil HCl (LEVITRA) 20 mg tablet Take 1 tablet by mouth as needed. ? tamsulosin ER (FLOMAX) 0.4 mg TAKE ONE (1) CAPSULE BY MOUTH EVERY NIGHT AT BEDTIME ? atorvastatin (LIPITOR) 40 mg tablet Take 1 tablet by mouth once daily. ? albuterol HFA (VENTOLIN HFA) 90 mcg/actuation inhaler INHALE 2 PUFFS BY MOUTH EVERY 4 HOURS NEEDED FOR WHEEZING OR FOR SHORTNESS OF BREATH INSTRUCTED ? traZODone (DESYREL) 100 mg tablet Take 1 tablet by mouth three times daily as needed. ? ondansetron orally disintegrating (ZOFRAN ODT) 4 mg disintegrating tablet TAKE (1) TABLET BY MOUTH EVERY 6 HOURS NEEDED FOR NAUSEA & VOMITING ? CPAP 1 Each every evening. ? No current facility-administered medications for this visit. ? ? ALLERGIES: Bentyl [Dicyclomine Hcl], Cymbalta [Duloxetine], Flexeril [Cyclobe nzaprine Hcl], Mobic [Meloxicam], Naproxen, Seroquel [Quetiapine Fumarate], and Tramadol ? PERSONAL HISTORY: SOCIAL HISTORY Social History ? Tobacco Use ? Smoking status: Current Every Day Smoker ? ? Packs/day: 0.50 ? ? Years: 25.00 ? ? Pack years: 12.50 ? ? Start date: 08/08/1989 ? ? Last attempt to quit: 07/16/2016 ? ? Years since quittin.2 ? Smokeless tobacco: Never Used ? Tobacco comment: trying to quit himself, slowed down Substance Use Topics ? Alcohol use: No ? ? Comment: h/o ETOH abuse, sober past few years as of 04/09/15 ? Drug use: Yes ? ? Frequency: 2.0 times per week ? ? Types: Marijuana ? ? Comment: past. Marijuana, cocaine, crack, meth ? FAMILY HISTORY: FAMILY HISTORY FAMILY HISTORY Problem Relation Age of Onset ? COPD Mother ? ? other (unknown) Father ? ? None Sister ? ? None Brother ? ? Heart Maternal Grandfather ? ? MT -60's ? Hypertension Maternal Grandfather ? ? Heart Maternal Grandmother ? ? MT - 60's ? REVIEW OF SYSTEMS: General: The patient denies fatigue, denies weight loss, NOTES weight gain, denies feeling hot, and denies feelings of cold. Eyes: The patient denies glaucoma, denies eye injury/surgery, wears glasses or contacts. Ear/Nose/Throat: The patient NOTES allergies, denies hayfever, denies ear infections, and denies bloody noses. Cardiovascular: The patient NOTES chest pain, denies heart disease, NOTES high blood pressure,denies cardiac stent, denies prior heart attack, denies irregular heart beat, denies high cholesterol, denies poor circulation, denies heart failure, other cardiac issues, NOTES claudication, denies cold feet, denies peripheral arterial stent. Respiratory: The patient denies tuberculosis, denies pneumonia, denies frequent cough, denies pulmonary embolism, denies shortness of breath, and denies coughing up blood. Gastrointestinal: The patient denies difficulty swallowing, NOTES acid reflux, denies ulcers, denies vomiting, denies jaundice/hepatitis, denies gallbladder problems, denies black or tarry stools, denies hemorrhoids, denies bleeding from rectum, denies diverticulitis, denies constipation, denies diarrhea, denies loss of stool control, and denies hernias. Kidney/Bladder: The patient denies kidney stones, denies urine infections, and denies bloody urine. Skin: The patient denies a history of skin cancer, denies bleeding/changing moles, and NOTES a history of skin rash. Neurologic: The patient denies a history of epilepsy/convulsions, denies headaches, NOTES head/spinal injuries, and denies stroke/TIA. Psychiatric: The patient NOTES psychiatric medications, NOTES depression, and denies voices, NOTES substance abuse. Endocrine: The patient denies thyroid disorders, NOTES diabetes, and denies hormonal problems. Hematologic: The patient denies a history of bruising, denies bleeding, and denies anemia, denies blood clots. Infections: The patient denies a history of measles and mumps, denies rheumatic fever, and denies sexually transmitted diseases. Musculoskeletal: The patient denies back pain/injury, NOTES back problems, NOTES sciatica, NOTES knee/foot trouble, NOTES arthritis, or NOTES gout. ? ? When was patient's last Mammogram screening? N/A ? Last Colonoscopy: 03/30 ? Neftali Walton LPN I have confirmed and edited as necessary, the PFSH and ROS obtained by others. ? PHYSICAL EXAMINATION: ? General: The patient is 50 year old male, well nourished, well hydrated in no acute distress. The patient is oriented to time, place, and person. ? VITALS: Blood pressure 136/82, pulse 89, temperature (!) 35.1 ?C (95.1 ?F), height 188 cm (6' 2), weight 127.3 kg (280 lb 9.6 oz), SpO2 95 %. Body mass index is 36.03 kg/m?. ? HEENT: Normal cephalic, ataumatic, pupils are equally round, sclera are anicteric, mucous membranes are moist, oropharynx is clear. Neck has no masses, asymmetry or lymphadenopathy. ? Respiratory: Clear to auscultation and percussion. Normal respiratory exc ursion and pattern. ? Cardiac: Examination is regular rate and rhythm. Normal S1/S2 ? Abdominal exam: Soft, nontender, with no palpable masses. No hepatosplenomegaly. No palpable hernias. ? Extremities: no clubbing, cyanosis or edema. No adenopathy. ? LABORATORY VALUES: As Noted ? RADIOLOGIC STUDIES: As Noted ? ? Assessment IMPRESSION: encounter for screening colonoscopy, history of colon polyps. History of poor colon prep. Heartburn and GERD complaints-recommend EGD in addition to colonoscopy. Recent cardiac cath ? PLAN: I have reviewed my findings with the surgeon. Will plan for upper and lower endoscopy, pending medical clearance. We discussed the risks and benefits of the planned endoscopy. I have informed the patient that complications can occur including failure to complete the endoscopy and perforation. The patient had the opportunity to ask questions concerning the planned endoscopy. My staff has also explained the procedure to the patient in understandable terms and has given the patient printed material concerning the procedure. The patient freely consents to surgery. ? The patient was offered a surgery/procedure at a [facility] facility. Maldonado sun counseled the patient regarding the risk of exposure to and/or potential harm posed by the COVID-19 virus with having a surgery/procedure at this time versus the risk of? delaying the surgery/procedure. It is not possible to know either the risk of delaying the surgery or procedure or chance of getting an infection with perfect accuracy, but a joint decision was made between the patient and myself?to proceed at this time with endoscopy. ? ? I plan to use Golytely bowel preparation, OK to substitute miralax/dulcolax if this is unavailable. Recommend 2 full days of clear liquid diet, and low residue diet 3 days prior due to history of poor prep at last colonoscopy ? Patient instructed to contact PCP for instructions regarding diabetic medication, which may require adjustment during bowel preparation and/or day of procedure ? ? The patient has medical comorbidities for which we will plan for the procedure to be performed under Monitored Anesthetic Care. ?? ? Diagnoses: (Z12.11) Encounter for screening for malignant neoplasm of colon (primary encounter diagnosis) (Z86.010) History of colonic polyps (F19.11) H/O drug abuse (HCC) (E11.40) Type 2 diabetes mellitus with diabetic neuropathy, without long-term current use of insulin (HCC) (R06.00) Dyspnea on exertion (Z87.898) History of chest pain ? ? Kaylie Isaac PA-C
[2020-10-20] VITALS (7 sets, daily range): BP systolic 102–125; BP diastolic 63–89; PULSE 68–85; RESP 16–20; TEMP 36.1–36.9; O2SAT 94–97; BMI 33.7
--- NOTE | 2020-10-20 | COLBX_PTH ---
PATIENT: ROBER GILMAN LOC: [facility] U#:[id number] AGE/SX: 50/M ROOM: RE10/20/[address]: Dr. Dulce Villeda MD : 1970 BED: DIS: 10/20/2020 SPEC #: [id number] RECD: 10/20/20 14:16 STATUS: MICHAEL REJuanita #: [id number] JASVIR: 10/20/20 00:[address]: Dulce Villeda DEPT: SURGICAL PATHOLOGY RECD BY: Vinod Horan ENTERED: 10/21/20 07:45 SP TYPE: COLON BX OTHR DR: Dr. Fabian Palm MD Tissues: A - Duodenum, NOS B - Gastric mucous membrane C - Gastric mucous membrane Procedures: Special Stain Group II Surgery Specimen Level IV Alcian Blue/PAS (control) HEADER OPERATION: Colonoscopy, EGD ([facility]) PRE-OP DIAGNOSIS: GERD, history of colon polyps TISSUE SUBMITTED: A - Duodenal bulb biopsy, B - Antral biopsy H. pylori and path, C - Biopsy GE junction MICROSCOPIC DIAGNOSIS A. Duodenal bulb, biopsy: Fragments of duodenal mucosa, no pathologic diagnosis. B. Antral biopsy: Mild gastritis. See microscopic description and comment. C. GE junction, biopsy: Fragments of gastroesophageal mucosa with focal intestinal metaplasia (goblet cell metaplasia) consistent with Carey's esophagus. Focal mild chronic inflammation. Negative for dysplasia. See comment. SJ:rg 10/22/2020 COMMENT B. The results of immunohistochemistry for Helicobacter pylori will be reported separately ([id number]). C. Alcian blue/PAS stain with matched control is used in the evaluation of the specimen. MICROSCOPIC DESCRIPTION Slides are reviewed. B. The specimen shows fragments of gastric mucosa with chronic inflammatory cell infiltrates in the lamina propria consisting of lymphocytes and plasma cells, consistent with mild chronic gastritis. Focal mucosal congestion is also noted. GROSS DESCRIPTION A - Received in fixative is one container labeled with the patient's name and designated duodenal bulb. The specimen consists of two irregular fragments of light laguna soft tissue that in aggregate measure 0.5 x 0.3 x 0.1 cm. The specimen is totally submitted in one cassette. B - Received in fixative is one container labeled with the patient's name and designated antral biopsy. The specimen consists of two irregular fragments of light laguna soft tissue that in aggregate measure 0.3 x 0.2 x 0.1 cm. The specimen is totally submitted in one cassette. C - Received in fixative is one container labeled with the patient's name and designated GE junction biopsy. The specimen consists of multiple irregular fragments of light laguna soft tissue that in aggregate measure 1 x 0.3 x 0.1 cm. The specimen is totally submitted in one cassette. / SJ:rg 10/21/20 TC:3 CPT: 76909 x3, 04200
[2020-10-20] MEDS: Lactated Ringers 1,000 ML 100 ML IV (11:25)
--- NOTE | 2020-10-20 12:00 | IMM_PTH ---
PATIENT: ROBER GILMAN LOC: [facility] U#:[id number] AGE/SX: 50/M ROOM: RE10/20/[address]: Dr. Dulce Villeda MD : 1970 BED: DIS: 10/20/2020 SPEC #: [id number] RECD: 10/21/20 09:17 STATUS: MICHAEL REQ #: [id number] JASVIR: 10/20/20 12:[address]: Dulce Villeda DEPT: IMMUNOHISTOCHEMISTRY RECD BY: Allison Gooden ENTERED: 10/21/20 09:18 SP TYPE: IMMUNO OTHR DR: Dr. Fabian Palm MD Tissues: B - Stomach, NOS Procedures: H Pylori (initial) PHYSICIAN & INSTITUTION [place] [id number] SPECIMEN INFORMATION: Tissue Source: B - Antral biopsy Clinical Info: GERD, history of colon polyps Specimen Number: [id number] CPT code: 62767 METHODOLOGY: Deparaffinized sections of prefer/formalin-fixed tissue or PAP/DQ stained slides are incubated with monoclonal/polyclonal antibodies/oligonucleotide probes. Localization is made via biotin free immunoperoxidase method. Appropriate controls are performed and reacted as expected. Results on target cell population are indicated in the following table: RESULTS: ANTIBODY / CLONE RESULT Block B H Pylori (polyclonal) negative These tests were developed and their performance characteristics determined by [facility]. They may not have been cleared or approved by the U.S. Food and Drug Administration. The FDA has determined that such clearance or approval is not necessary. INTERPRETATION: B. Antral biopsy: Negative for Helicobacter pylori organisms. ELIDA:nba 10/22/2020
[2020-10-20 12:35] LABS: Bedside Glucose 148 mg/dL (70-110)
--- NOTE | 2020-10-20 12:47 | OP.CCLET_ITS ---
10/20/2020 Fabian Palm [address] [place] [address] Re : Upper GI endoscopy procedure for Fahad Brock Dear Dr. Palm This procedure was performed on Tuesday, October 20, 2020. My impressions and recommendations are as follows: Impressions : - Normal second portion of the duodenum. Biopsied. - Erythematous mucosa in the antrum. Biopsied. - Z-line irregular. Biopsied. Recommendations : - Await pathology results. - My office will telephone with pathology results in 1-2 weeks - Follow up visit via telemedicine with Kaylie Isaac PA-C to discuss results. Call to set this up, thank you - Continue present medications. My findings are described in the full procedure note, which is enclosed. If I can be of further assistance, please feel free to contact me at Doctor phone number(s): , Work: . Sincerely, MD Dulce Hair MD 10/20/2020 12:47:20 PM This report has been signed electronically.
--- NOTE | 2020-10-20 12:47 | OP.EGD_ITS ---
Patient Name: Fahad Brock Procedure Date: 10/20/2020 11:33 AM Date of : 1970 Age: 50 Procedure: Upper GI endoscopy Indications: Heartburn, Esophageal reflux symptoms that persist despite appropriate therapy Providers: Dulce Villeda MD Medicines: See the Anesthesia note for documentation of the administered medications Patient Profile: Refer to note in patient chart for documentation of history and physical. Complications: No immediate complications. Procedure: Pre-Anesthesia Assessment: - see anesthesia note After obtaining informed consent, the endoscope was passed under direct vision. Throughout the procedure, the patient's blood pressure, pulse, and oxygen saturations were monitored continuously. The Endoscope was introduced through the mouth, and advanced to the second part of duodenum. The upper GI endoscopy was accomplished without difficulty. The patient tolerated the procedure well. Moderate Sedation: The administration of moderate sedation was initiated [Sedation Initiated Time stamp]. Scope In: 11:59:45 AM Scope Out: 12:13:06 PM Total Procedure Duration Time 0 hours 13 minutes 21 seconds Findings: The second portion of the duodenum was normal. Biopsies were taken with a cold forceps for histology. Estimated blood loss was minimal. Diffuse moderately erythematous mucosa without bleeding was found in the gastric antrum. Biopsies were taken with a cold forceps for histology. Estimated blood loss was minimal. The Z-line was irregular. Biopsies were taken with a cold forceps for histology. Verification of patient identification for the specimen was done by the nurse. Impression: - Normal second portion of the duodenum. Biopsied. - Erythematous mucosa in the antrum. Biopsied. - Z-line irregular. Biopsied. Recommendation: - Await pathology results. - My office will telephone with pathology results in 1-2 weeks - Follow up visit via telemedicine with Kaylie Isaac PA-C to discuss results. Call to set this up, thank you - Continue present medications. Procedure Code(s): --- Professional --- 82173, Esophagogastroduodenoscopy, flexible, transoral; with biopsy, single or multiple Diagnosis Code(s): --- Professional --- K31.89, Other diseases of stomach and duodenum K22.8, Other specified diseases of esophagus R12, Heartburn K21.9, Gastro-esophageal reflux disease without esophagitis CPT copyright 2017 [employer]. All rights reserved. The codes documented in this report are preliminary and upon clinical coder review may be revised to meet current compliance requirements. MD Dulce Hair MD 10/20/2020 12:47:20 PM This report has been signed electronically. Number of Addenda: 0 Note Initiated On: 10/20/2020 11:33 AM
--- NOTE | 2020-10-20 12:51 | OP.CCLET_ITS ---
10/20/2020 Fabian Palm [address] [place] [address] Re : Colonoscopy procedure for Fahad Brock Dear Dr. Palm This procedure was performed on Tuesday, October 20, 2020. My impressions and recommendations are as follows: Impressions : - Diverticulosis in the sigmoid colon. - Non-bleeding internal hemorrhoids. - No specimens collected. Recommendations : - Repeat colonoscopy in 5 years for surveillance for history of colon polyps - needs MAC anesthesia. - Return to primary care physician PRN. - Continue present medications. My findings are described in the full procedure note, which is enclosed. If I can be of further assistance, please feel free to contact me at Doctor phone number(s): , Work: . Sincerely, MD Dulce Hair MD 10/20/2020 12:50:54 PM This report has been signed electronically.
--- NOTE | 2020-10-20 12:51 | OP.COLON_ITS ---
Patient Name: Fahad Brock Procedure Date: 10/20/2020 12:14 PM Date of : 1970 Age: 50 Procedure: Colonoscopy Indications: High risk colon cancer surveillance: Personal history of colonic polyps Providers: Dulce Villeda MD Medicines: See the Anesthesia note for documentation of the administered medications Patient Profile: Refer to note in patient chart for documentation of history and physical. Last Colonoscopy: 1 year ago. Complications: No immediate complications. Procedure: Pre-Anesthesia Assessment: - see anesthesia note After I obtained informed consent, the scope was passed under direct vision. Throughout the procedure, the patient's blood pressure, pulse, and oxygen saturations were monitored continuously. The Colonoscope was introduced through the anus and advanced to the cecum, identified by the appendiceal orifice, IC valve and transillumination. The colonoscopy was performed without difficulty. The patient tolerated the procedure well. The quality of the bowel preparation was poor, there was still retained fecal material. Therefore lavage and aspiration was done to clear the fecal material. This took some time. The rios were cleared adequately. Scope In: 12:15:23 PM Scope Withdrawal Time 0 hours 15 minutes 7 seconds Scope Out: 12:41:24 PM Total Procedure Duration Time 0 hours 26 minutes 1 second Findings: The perianal and digital rectal examinations were normal. Multiple small and large-mouthed diverticula were found in the sigmoid colon. Non-bleeding internal hemorrhoids were found. Impression: - Diverticulosis in the sigmoid colon. - Non-bleeding internal hemorrhoids. - No specimens collected. Recommendation: - Repeat colonoscopy in 5 years for surveillance for history of colon polyps - needs MAC anesthesia. - Return to primary care physician PRN. - Continue present medications. Procedure Code(s): --- Professional --- G0105, Colorectal cancer screening; colonoscopy on individual at high risk Diagnosis Code(s): --- Professional --- Z86.010, Personal history of colonic polyps K64.8, Other hemorrhoids K57.30, Diverticulosis of large intestine without perforation or abscess without bleeding CPT copyright 2017 [employer]. All rights reserved. The codes documented in this report are preliminary and upon bar pilot review may be revised to meet current compliance requirements. MD Dulce Hair MD 10/20/2020 12:50:54 PM This report has been signed electronically. Number of Addenda: 0 Note Initiated On: 10/20/2020 12:14 PM
== END 2020-10-20 13:49 | disposition home or self-care (01) ==
LOC: EN 10:54 → AC 10:54
PROVIDERS: PCP Family Medicine; Referring Provider Family Medicine; Visit Provider Surgery
PROC: 0DJD8ZZ Inspection of Lower Intestinal Tract, Via Natural or Artificial Opening Endoscopic (ICD-10-PCS; CPT 45378; principal; 2020-10-20 11:55)
DX: Z12.11 Encounter for screening for malignant neoplasm of colon (principal); K21.9 Gastro-esophageal reflux disease without esophagitis; Z87.19 Personal history of other diseases of the digestive system; N40.0 Benign prostatic hyperplasia without lower urinary tract symptoms; F10.11 Alcohol abuse, in remission; G47.33 Obstructive sleep apnea (adult) (pediatric); J44.9 Chronic obstructive pulmonary disease, unspecified; M10.9 Gout, unspecified; E11.9 Type 2 diabetes mellitus without complications; I10 Essential (primary) hypertension; F41.9 Anxiety disorder, unspecified; F32.9 Major depressive disorder, single episode, unspecified; Z79.899 Other long term (current) drug therapy; Z79.84 Long term (current) use of oral hypoglycemic drugs; F17.200 Nicotine dependence, unspecified, uncomplicated; K22.8 Other specified diseases of esophagus; K31.89 Other diseases of stomach and duodenum
CPT/HCPCS: 43239; G0105; 82962; 87426; 88305; 88313; 88342; C9803; J7120; J2405

== ENCOUNTER 2020-11-30 11:41 | Emergency (ER) | payer MEDICARE, MEDICAID, SELFPAY ==
[2020-10-20 11:33] VITALS: BMI 33.7
[2020-11-30 11:42] VITALS: BP 148/97; PULSE 77; RESP 18; TEMP 36.1; O2SAT 97; BMI 34.7
--- NOTE | 2020-11-30 12:04 | EDS_ITS ---
HPI History of Present Illness Chief Complaint: Upper Extremity Injury Informant: patient Narrative Narrative: Patient is a 50-year-old male with history of GERD, hypertension and diabetes mellitus presenting with right wrist pain. States he is right-hand dominant. The pain has been present for the past 3 days. Is been worsening. It is worse when he tries to lift things or move his wrist/thumb. He feels a slightly swollen. The pain was worsening so he came to emergency room. Patient not tried anything at home for the pain including ibuprofen or Tylenol. He denies any numbness or tingling. He denies any difficulty bending his fingers. No fever or chills. No other complaints at this time. [facility] Medical History Anxiety Depression Diabetes Gout Hyperlipidemia Hypertension Home Medications allopurinol 100 mg PO BIDCM 11/02/14 [History Last Taken 08/03/19] gabapentin 900 mg PO 4X/DAY 11/02/14 [History Last Taken 08/03/19] tamsulosin 0.4 mg PO DAILY 01/01/15 [History Last Taken 08/03/19] albuterol sulfate [Ventolin HFA] 2 puff INHALATION Q4H PRN PRN 06/18/15 [History Last Taken 08/03/19] metformin 1,000 mg PO BID 11/21/15 [History Last Taken 08/03/19] aripiprazole 5 mg PO DAILY 04/09/16 [History Last Taken 08/03/19] trazodone 300 mg PO QHS 03/16/18 [History Last Taken 08/03/19] diphenhydramine HCl 25 mg PO PRN PRN 08/01/19 [History Last Taken 08/03/19] atorvastatin 40 mg PO DAILY 11/30/20 [History Last Taken Unknown] bupropion HCl mg PO DAILY 11/30/20 [History Last Taken Unknown] ibuprofen 600 mg PO Q6H PRN PRN #20 tab 11/30/20 [Rx Last Taken Unknown] pantoprazole [Protonix] 40 mg PO DAILY 11/30/20 [History Last Taken Unknown] Allergy/AdvReac Type Severity Reaction Status Date / Time cyclobenzaprine HCl Allergy Hives Verified 11/30/20 11:43 [From Flexeril] dicyclomine HCl [From Bentyl] Allergy Rash Verified 11/30/20 11:43 duloxetine HCl Allergy Hives Verified 11/30/20 11:43 [From Cymbalta] meloxicam [From Mobic] Allergy Rash Verified 11/30/20 11:43 naproxen Allergy Hives Verified 11/30/20 11:43 tramadol HCl [From Ultram] Allergy Rash Verified 11/30/20 11:43 Surgical History History of neck surgery Social History Smoking Status: Current every day smoker ROS ROS ED Constitutional Constitutional ED: Denies chills, fever(s) or malaise Eyes Eyes: Denies blurry vision or loss of vision ENT ENT ED: Denies rhinorrhea or sore throat Cardiovascular Cardiovascular: Denies chest pain or dizziness Respiratory/Chest Respiratory/Chest: Denies cough or dyspnea Gastrointestinal Gastrointestinal: Denies nausea or vomiting Genitourinary Genitourinary ED: Denies dysuria or hematuria Musculoskeletal Musculoskeletal: Reports other Details: Right wrist and thumb pain ; Denies ar thralgias or myalgias Integumentary Denies abscess, rash or wounds Neurologic Neurologic: Denies focal weakness or headache(s) Psychiatric Psychiatric: Denies anxiety or behavioral changes EXAM Physical Exam Const Vital Signs: 11/30/20 11:42 Temperature 97 F L Temperature Source Temporal Pulse Rate 77 Respiratory Rate 18 Blood Pressure 148/97 H Blood Pressure Mean 114 Pulse Ox 97 Oxygen Delivery Method Room Air Positive well nourished, well developed and no apparent distress General Appearance ED: well developed HEENT Reports normocephalic atraumatic Nose: no nasal discharge General Ear: hearing grossly impaired External Ear: external ears normal Mouth ED: Yes moist mucous membranes abnormal Mouth: moist mucous membranes abnormal Eyes PERRL and EOMs intact bilaterally Neck full ROM and no meningeal signs Chest Wall inspection of chest normal Resp normal respiratory effort and normal air movement Cardio regular rate and regular rhythm GI normal to inspection, nondistended, normoactive bowel sounds Extremity normal capillary refill and no joint enlargement Extremity Narrative: No significant edema noted. No abnormal warmth of the right wrist. Patient does have pain with direct palpation of the base of the thumb and over the dorsal wrist diffusely. Pain with thumbs up motion as well as flexion of the wrist. No swelling or tenderness with range of motion of the fingers. No pinpoint bony tenderness of the distal radius or ulna. Neuro oriented x3 and no focal motor deficits Psych mental status grossly normal and thought process normal Skin no rashes or lesions noted and no wounds MDM MDM MDM Narrative Medical decision making narrative: Patient is evaluated for atraumatic right wrist pain. Is been present for 3 days. His exam is consistent with DeQuervain's tendinitis. Patient initially denied any repetitive movements but after further questioning states he has been lifting up water buckets right before the pain started. As patient is a diabetic and states his blood sugar normally runs around 200 I do not want to use steroids at this time. He does not have any overlying warmth or erythema to have a lower suspicion for gout. Patient be treated with NSAIDs. He states he tolerates ibuprofen even though he is allergic to Naprosyn and meloxicam. He is given first dose in the emergency room. He is referred to orthopedics for further follow-up. Discharge Plan Triage Chief Complaint: Upper Extremity Injury ED Provider: Zoila Wallace Dx/Rx/DC Orders Clinical Impression: Right wrist tendinitis Instructions: ED Tendonitis, ED De Quervain Tenosynovitis Prescriptions: New ibuprofen 600 mg tablet 600 mg PO Q6H PRN PRN (Reason: fever or pain) Qty: 20 RF: 0 No Action gabapentin 400 MG capsule 900 mg PO 4X/DAY RF: 0 allopurinol 100 MG tablet 100 mg PO BIDCM RF: 0 tamsulosin 0.4 MG capsule 0.4 mg PO DAILY RF: 0 albuterol sulfate [Ventolin HFA] 1 INHALER inhaler 2 puff inhalation Q4H PRN PRN (Reason: Wheezing) RF: 0 metformin 500 MG tablet 1,000 mg PO BID RF: 0 aripiprazole 5 MG tablet 5 mg PO DAILY RF: 0 trazodone 300 MG tablet 300 mg PO QHS RF: 0 diphenhydramine HCl 25 MG tablet 25 mg PO PRN PRN (Reason: Allergies) RF: 0 pantoprazole [Protonix] 40 mg Tablet,Delayed Release (Dr/Ec) 40 mg PO DAILY RF: 0 atorvastatin 40 mg Tablet 40 mg PO DAILY RF: 0 bupropion HCl 150 mg Tablet Extended Release 24 Hr PO DAILY RF: 0 Primary Care Provider: Fabian Palm Referrals: Fabian Palm MD [Primary Care Provider] - Bry Uribe DO [STAFF PHYSICIAN] - Disposition Disposition: Home, self care Discharge Date/Time: 11/30/20 12:34
[2020-11-30] MEDS: Ibuprofen 600 MG Tablet PO (12:12)
== END 2020-11-30 12:34 | disposition home or self-care (01) ==
LOC: ED 12:25
PROVIDERS: Emergency Provider Emergency Medicine; PCP Family Medicine
DX: M77.8 Other enthesopathies, not elsewhere classified (principal); F41.9 Anxiety disorder, unspecified; F32.9 Major depressive disorder, single episode, unspecified; E11.9 Type 2 diabetes mellitus without complications; E78.5 Hyperlipidemia, unspecified; I10 Essential (primary) hypertension; F17.200 Nicotine dependence, unspecified, uncomplicated; Z79.84 Long term (current) use of oral hypoglycemic drugs; Z79.899 Other long term (current) drug therapy
CPT/HCPCS: 99283

== ENCOUNTER 2021-07-10 17:23 | Emergency (ER) | payer MEDICARE, MEDICAID, SELFPAY ==
[2021-07-10 17:24] VITALS: BP 153/98; PULSE 97; RESP 16; TEMP 36.3; O2SAT 96; BMI 33.2
--- NOTE | 2021-07-10 17:39 | EDS_ITS ---
HPI History of Present Illness Chief Complaint: General Illness Informant: patient Onset/Context/Timing Onset: Days Context: Gradual Onset Timing: Continuous Current Severity: Mild Maximum Severity: Mild Narrative Narrative: 51-year-old male history of anxiety, depression, diabetes, gout and hypertension. His brother and sister both Covid positive. He states he had rhinorrhea, cough subjective fever and diarrhea last 3 to 4 days. No vomiting. No severe shortness of breath. Prior similar symptoms: No Recent Illness/Hospitalization: No PFSH PFSH Medical History Anxiety Depression Diabetes Gout Hyperlipidemia Hypertension Home Medications allopurinol 100 mg PO BIDCM 11/02/14 [History Last Taken 08/03/19] gabapentin 900 mg PO 4X/DAY 11/02/14 [History Last Taken 08/03/19] tamsulosin 0.4 mg PO DAILY 01/01/15 [History Last Taken 08/03/19] albuterol sulfate [Ventolin HFA] 2 puff INHALATION Q4H PRN PRN 06/18/15 [History Last Taken 08/03/19] metformin 1,000 mg PO BID 11/21/15 [History Last Taken 08/03/19] aripiprazole 5 mg PO DAILY 04/09/16 [History Last Taken 08/03/19] trazodone 300 mg PO QHS 03/16/18 [History Last Taken 08/03/19] diphenhydramine HCl 25 mg PO PRN PRN 08/01/19 [History Last Taken 08/03/19] atorvastatin 40 mg PO DAILY 11/30/20 [History Last Taken Unknown] bupropion HCl mg PO DAILY 11/30/20 [History Last Taken Unknown] ibuprofen 600 mg PO Q6H PRN PRN #20 tab 11/30/20 [Rx Last Taken Unknown] pantoprazole [Protonix] 40 mg PO DAILY 11/30/20 [History Last Taken Unknown] dexamethasone [Decadron] 6 mg PO DAILY 7 Days #7 tab 07/10/21 [Rx Last Taken Unknown] Allergy/AdvReac Type Severity Reaction Status Date / Time cyclobenzaprine HCl Allergy Hives Verified 11/30/20 11:43 [From Flexeril] dicyclomine HCl [From Bentyl] Allergy Rash Verified 11/30/20 11:43 duloxetine HCl Allergy Hives Verified 11/30/20 11:43 [From Cymbalta] meloxicam [From Mobic] Allergy Rash Verified 11/30/20 11:43 naproxen Allergy Hives Verified 11/30/20 11:43 tramadol HCl [From Ultram] Allergy Rash Verified 11/30/20 11:43 Surgical History History of neck surgery Social History Smoking Status: Current every day smoker tobacco type: cigarettes ROS ROS ED ROS Narrative Cough, nausea, diarrhea. Review of Systems ROS Unobtainable: Denies due to encephalopathy Constitutional Constitutional ED: Reports chills, fever(s) and subjective Eyes Eyes: Denies change in vision ENT ENT ED: Denies ear pain Cardiovascular Cardiovascular: Denies chest pain Respiratory/Chest Respiratory/Chest: Reports cough; Denies dyspnea Gastrointestinal Gastrointestinal: Reports diarrhea and nausea; Denies abdominal pain or vomiting Genitourinary Genitourinary ED: Denies dysuria Musculoskeletal Musculoskeletal: Denies myalgias Integumentary Denies rash Neurologic Neurologic: Denies headache(s) Psychiatric Psychiatric: Denies depression Endocrine Endocrinology: Denies polyuria Allergic/Immunologic Allergic/Immunologic ED: Denies urticaria EXAM Physical Exam Narrative Exam Narrative: Right male no acute distress vital signs stable afebrile. Pulse ox 96% on room air no signs of hypoxia. Exam benign. Lungs are clear. He does not look septic or toxic. Const Vital Signs: 07/10/21 17:24 Temperature 97.3 F L Temperature Source Temporal Pulse Rate 97 Respiratory Rate 16 Blood Pressure 153/98 H Blood Pressure Mean 116 Pulse Ox 96 Oxygen Delivery Method Room Air Positive well nourished, well developed and obese; Negative for cachectic, contractures or unkempt General Appearance ED: well developed and NAD; Negative for unkempt, cachectic, contractures, cyanotic, diaphoretic or pallor Nutritional Appearance: obese; Negative for cachectic HEENT Reports moist mucous membranes Negative for trauma or tenderness Eyes PERRL and EOMs intact bilaterally Neck no lymphadenopathy and supple Chest Wall inspection of chest normal and palpation of chest normal Resp normal respiratory effort and clear to auscultation bilaterally Auscultation: Negative for rales, rhonchi or wheezes Cardio regular rate, regular rhythm, S1 normal heart sound, S2 normal heart sound and no murmurs GI normal to inspection, nondistended, normoactive bowel sounds, non-tender, non- distended and no masses Inspection: Negative for abdominal distention Auscultation: normoactive bowel sounds Palpation: soft; Negative for tender, guarding or rebound tenderness present Back/Spine no CVA tenderness General Back: Negative for CVA tenderness Cervical Spine: Negative for cervical spine tenderness Thoracic Spine / Upper Back: Negative for thoracic spinal tenderness Extremity normal to inspection General Extremety ED: Negative for edema or tenderness General Extremity: Negative for edema Neuro oriented x3 Sensorium / Orientation: alert; Negative for orientation impaired, lethargic or stuporous Motor Exam: strength 5/5 throughout Psych mental status grossly normal Appearance: Negative for unkempt Mood & Affect: Negative for depressed or tearful Skin no rashes or lesions noted and no wounds General Skin Exam: Negative for jaundice or pallor MDM MDM MDM Narrative Medical decision making narrative: 51 male with URI symptoms consider Covid versus other etiologies. Chest x-ray and labs are pending. Treated with IV fluids. Repeat exam patient is feeling improved at 7:53 PM. He had I went over his test results. He will be discharged home. Started on Decadron. Watch his blood sugars closely. Referred for outpatient monoclonal therapy. Lab Data Attestation: I reviewed the patient's lab results. Lab results narrative: CBC shows a white count of 4. Hemoglobin 14.9. Electrolytes potassium 3.3 gap is 7 normal BUN and creatinine. Glucose of 149. Chest x-ray unremarkable. Covid rapid antigen positive. Labs: Laboratory Results - last 24 hr 07/10/21 07/10/21 18:03 18:03 WBC 4.8 RBC 5.16 Hgb 14.9 Hct 43.9 MCV 85.1 MCH 28.9 MCHC 33.9 RDW Std Deviation 41.1 RDW Coeff of Maddy 13.1 Plt Count 157 MPV 8.0 Immature Gran % (Auto) 0.400 Neut % (Auto) 71.1 H Lymph % (Auto) 14.9 L [place] % (Auto) 12.8 H Eos % (Auto) 0.4 Baso % (Auto) 0.4 Absolute Neuts (auto) 3.4 Absolute Lymphs (auto) 0.71 L Nucleated RBC % 0 Sodium 136 Potassium 3.3 L Chloride 101 Carbon Dioxide 28.0 Anion Gap 7 BUN 8 Creatinine 0.85 Estim Creat Clear Calc 125.65 Est GFR (MDRD) Af Amer 123 Est GFR (MDRD) Non-Af 101 BUN/Creatinine Ratio 9.4 L Glucose 149 H Calcium 8.8 Radiography Chest X-Ray - ED: 1 View, Read by ED Physician, Read by Radiologist, Normal, Heart, Lungs, Mediastinum, Bony Structures and No Acute Disease Diagnostic Testing: Clinical Impression(s) from Imaging Studies Chest X-Ray 07/10/21 18:02 IMPRESSION: Normal x-ray examination of the chest. Electronically Signed: Enrique Castañeda DO at 19:02 EST Tel [phone], Service support , Discharge Plan Triage Chief Complaint: General Illness ED Provider: Quang Maciel Dx/Rx/DC Orders Clinical Impression: COVID-19, History of diabetes mellitus, Obesity, History of hypertension Instructions: Human Coronaviruses Prescriptions: New dexamethasone [Decadron] 6 mg tablet 6 mg PO DAILY 7 Days Qty: 7 RF: 0 No Action gabapentin 400 MG capsule 900 mg PO 4X/DAY RF: 0 allopurinol 100 MG tablet 100 mg PO BIDCM RF: 0 tamsulosin 0.4 MG capsule 0.4 mg PO DAILY RF: 0 albuterol sulfate [Ventolin HFA] 1 INHALER inhaler 2 puff inhalation Q4H PRN PRN (Reason: Wheezing) RF: 0 metformin 500 MG tablet 1,000 mg PO BID RF: 0 aripiprazole 5 MG tablet 5 mg PO DAILY RF: 0 trazodone 300 MG tablet 300 mg PO QHS RF: 0 diphenhydramine HCl 25 MG tablet 25 mg PO PRN PRN (Reason: Allergies) RF: 0 pantoprazole [Protonix] 40 mg Tablet,Delayed Release (Dr/Ec) 40 mg PO DAILY RF: 0 atorvastatin 40 mg Tablet 40 mg PO DAILY RF: 0 bupropion HCl 150 mg Tablet Extended Release 24 Hr PO DAILY RF: 0 ibuprofen 600 mg tablet 600 mg PO Q6H PRN PRN (Reason: fever or pain) Qty: 20 RF: 0 Primary Care Provider: Fabian Palm Referrals: Fabian Palm MD [Primary Care Provider] - 1 Week if not improving Activity Restrictions/Additional Instructions: Plenty of fluids and rest. Alternate Tylenol and Motrin for fever. And body aches. Daily Decadron. Which is a steroid. Watch your blood sugars closely. I referred you to for outpatient monoclonal antibody therapy. They should call you in the next 1 to 2 days to get that set up and done. Needs to be done within the first 10 days of your symptoms. Disposition Disposition: Home, Self Care
--- NOTE | 2021-07-10 18:02 | RAD_ITS ---
STUDY: X-RAY CHEST REASON FOR EXAM: Male, 51 years old. Cough TECHNIQUE: Frontal view COMPARISON: 10/20/2018. FINDINGS: The lungs are clear and expanded. There is no demonstrated pleural abnormality. Normal size heart. Normal mediastinum and arjun. Normal visualized pulmonary arteries. Normal visualized aortic arch and descending thoracic aorta. Degenerative changes thoracic spine. Surgical fusion at the lower cervical levels. Normal visualized ribs, clavicles, and shoulders. There is no demonstrated abnormality of the visualized soft tissue structures of the upper abdomen. RAD/Chest 1 View (Portable) IMPRESSION: Normal x-ray examination of the chest. Electronically Signed: Enrique Castañeda DO at 19:02 EST Tel [phone], Service support ,
[2021-07-10 18:10] LABS: Absolute Lymphocyte Count 0.71 X10^3/uL (0.83-4.51); Absolute Neutrophil Count 3.4 X10^3/uL (2.0-7.7); Basophil# 0.02 X10^3/uL; Basophil% 0.4 % (0-1); Eosinophil# 0.02 X10^3/uL; Eosinophils% 0.4 % (0-5); Hematocrit 43.9 % (40-54); Hemoglobin 14.9 g/dL (13.0-16.5); Lymphocyte # 0.71 X10^3/ul (0.83-4.51); Lymphocyte % 14.9 % (19-41); Mean Corp Hgb Conc 33.9 g/dL (32-36); Mean Corpuscular Hgb 28.9 pg (27.0-32.0); Mean Corpuscular Volume 85.1 fL (80-94); Monocyte# 0.61 X10^3/uL; Monocyte% 12.8 % (0-10); NRBC Flagged by Analyzer 0 % (0-5); Neutrophil % 71.1 % (47-70); Platelet Count 157 K/mm3 (150-450); RBC Distribution Width CV 13.1 % (11.6-14.6); RBC Distribution Width SD 41.1 fl (35.1-43.9); Red Blood Count 5.16 M/mm3 (4.6-6.2); White Blood Count 4.8 K/mm3 (4.4-11.0)
[2021-07-10] MEDS: 0.9% Normal Saline 1,000 ML 1000 ML IV (18:10)
[2021-07-10 18:23] LABS: Anion Gap 7 (5-15); BUN 8 mg/dL (7-18); BUN/Creat Ratio 9.4 RATIO (10-20); Calcium,Total 8.8 mg/dL (8.5-10.1); Chloride 101 mmol/L (98-107); Creatinine, Serum 0.85 mg/dL (0.70-1.30); EST Glomerular Filtration Rate 101 mL/min (>60); Est Glom Filt Rate - Afr Amer 123 mL/min (>60); Estimated Creatinine Clearance 125.65 ml/min; Glucose 149 mg/dL (74-106); Potassium 3.3 mmol/L (3.5-5.1); Sodium Level 136 mmol/L (136-145)
== END 2021-07-10 20:47 | disposition home or self-care (01) ==
PROVIDERS: Emergency Provider Emergency Medicine; PCP Family Medicine
DX: U07.1 COVID-19 (principal); E66.9 Obesity, unspecified; F17.210 Nicotine dependence, cigarettes, uncomplicated
CPT/HCPCS: 71045; 80048; 85025; 87426; 99282; J7030; A4216

== ENCOUNTER 2021-07-11 12:17 | Outpatient (CLI) | payer MEDICARE, MEDICAID, SELFPAY ==
[2021-07-11 12:32] VITALS: BP 133/93; PULSE 77; RESP 18; TEMP 37; O2SAT 96; BMI 33.2
[2021-07-11] MEDS: 0.9% Saline Lock 10 ML Syringe IV (12:45)
[2021-07-11 13:59] VITALS: BP 131/83; PULSE 76; RESP 16; TEMP 36.9; O2SAT 94
--- NOTE | 2021-07-11 14:10 | NURSING ---
Note that IV was not placed in Left Ankel. It was placed in Left AC.
[2021-07-11 14:55] VITALS: BP 132/92; PULSE 67; RESP 18; TEMP 37.1; O2SAT 96
== END 2021-07-11 15:00 | disposition home or self-care (01) ==
LOC: MS3OUT 12:17 → MS3 12:18
PROVIDERS: PCP Family Medicine; Referring Provider Emergency Medicine; Visit Provider Emergency Medicine
DX: Z23 Encounter for immunization (principal); U07.1 COVID-19
CPT/HCPCS: J7050; M0245; Q0245; A4216

== ENCOUNTER 2021-08-23 22:25 | Emergency (ER) | payer MEDICARE, SELFPAY ==
[2021-08-23 22:25] VITALS: BP 155/99; PULSE 96; RESP 18; TEMP 35.5; O2SAT 100; BMI 33.3
--- NOTE | 2021-08-23 22:42 | ED.VIS.DENTA ---
HPI History of Present Illness Chief Complaint: Dental Informant: patient Onset/Context/Timing Onset: Today Context: Gradual Onset Timing: Continuous Quality: sore Location: left mandibular posterior gum Current Severity: Moderate Maximum Severity: Moderate Worsened by: eating/chewing Associated Symptoms Assocated Symptom - Dental: Negative for fever, jaw swelling or face swelling Narrative Narrative: Gradual onset dental pain that started today. Denies any injury, fevers, other systemic symptoms. [facility] Medical History Anxiety Depression Diabetes Gout Hyperlipidemia Hypertension Home Medications allopurinol 100 mg PO BIDCM 11/02/14 [History Last Taken 08/03/19] gabapentin 900 mg PO 4X/DAY 11/02/14 [History Last Taken 08/03/19] tamsulosin 0.4 mg PO DAILY 01/01/15 [History Last Taken 08/03/19] albuterol sulfate [Ventolin HFA] 2 puff INHALATION Q4H PRN PRN 06/18/15 [History Last Taken 08/03/19] metformin 1,000 mg PO BID 11/21/15 [History Last Taken 08/03/19] aripiprazole 5 mg PO DAILY 04/09/16 [History Last Taken 08/03/19] trazodone 300 mg PO QHS 03/16/18 [History Last Taken 08/03/19] diphenhydramine HCl 25 mg PO PRN PRN 08/01/19 [History Last Taken 08/03/19] atorvastatin 40 mg PO DAILY 11/30/20 [History Last Taken Unknown] bupropion HCl 150 mg PO DAILY 11/30/20 [History Last Taken Unknown] ibuprofen 600 mg PO Q6H PRN PRN #20 tab 11/30/20 [Rx Last Taken Unknown] pantoprazole [Protonix] 40 mg PO DAILY 11/30/20 [History Last Taken Unknown] dexamethasone [Decadron] 6 mg PO DAILY 7 Days #7 tab 07/10/21 [Rx Last Taken Unknown] benztropine 0.5 mg PO BID PRN PRN 07/11/21 [History Last Taken Unknown] amoxicillin 500 mg PO TID #21 tab 08/23/21 [Rx Last Taken Unknown] Allergy/AdvReac Type Severity Reaction Status Date / Time cyclobenzaprine HCl Allergy Hives Verified 11/30/20 11:43 [From Flexeril] dicyclomine HCl [From Bentyl] Allergy Rash Verified 11/30/20 11:43 duloxetine HCl Allergy Hives Verified 11/30/20 11:43 [From Cymbalta] meloxicam [From Mobic] Allergy Rash Verified 11/30/20 11:43 naproxen Allergy Hives Verified 11/30/20 11:43 quetiapine [From Seroquel] Allergy Rash Verified 07/11/21 12:30 tramadol HCl [From Ultram] Allergy Rash Verified 11/30/20 11:43 Surgical History History of neck surgery Social History Smoking Status: Current every day smoker tobacco type: cigarettes ROS ROS ED Constitutional Constitutional ED: Denies chills or fever(s) Eyes Eyes: Denies change in vision or double vision ENT ENT ED: Reports dental pain; Denies sinus pain or throat swelling Cardiovascular Cardiovascular: Denies chest pain or palpitations Respiratory/Chest Respiratory/Chest: Denies cough or dyspnea Integumentary Denies abscess or rash Neurologic Neurologic: Denies headache(s), paresthesias or weakness EXAM Physical Exam Const Vital Signs: 08/23/21 22:25 Temperature 96 F L Temperature Source Temporal Pulse Rate 96 Respiratory Rate 18 Blood Pressure 155/99 H Blood Pressure Mean 117 Pulse Ox 100 Oxygen Delivery Method Room Air Positive well nourished and well developed General Appearance ED: well developed and NAD HEENT HEENT Narrative: Tender medial aspect of the left mandibular gingiva. No palpable abscess or any visible abnormality although this is limited due to patient's tongue which is normal and nontender and not elevated. No trismus. Edentulous along the mandibular row. Face and Sinus: sinuses nontender Throat: posterior oropharynx normal Eyes PERRL and EOMs intact bilaterally Neck no lymphadenopathy and supple Resp normal respiratory effort Neuro oriented x3 and CN's II-XII intact bilaterally Sensorium / Orientation: alert Gait (Neuro): normal gait Psych mental status grossly normal and thought process normal Skin no rashes or lesions noted and no wounds MDM MDM MDM Narrative Medical decision making narrative: Very benign exam. Could be early onset infection, will prescribe him amoxicillin and give him a single ibuprofen here, which she has been prescribed before. Advise follow-up with dentistry. Discharge Plan Triage Chief Complaint: Dental ED Provider: Kobi Kaiser Dx/Rx/DC Orders Clinical Impression: Pain, dental Instructions: ED Dental Pain Prescriptions: New amoxicillin 500 MG tablet 500 mg PO TID Qty: 21 RF: 0 No Action gabapentin 400 MG capsule 900 mg PO 4X/DAY RF: 0 allopurinol 100 MG tablet 100 mg PO BIDCM RF: 0 tamsulosin 0.4 MG capsule 0.4 mg PO DAILY RF: 0 albuterol sulfate [Ventolin HFA] 1 INHALER inhaler 2 puff inhalation Q4H PRN PRN (Reason: Wheezing) RF: 0 metformin 500 MG tablet 1,000 mg PO BID RF: 0 aripiprazole 5 MG tablet 5 mg PO DAILY RF: 0 trazodone 300 MG tablet 300 mg PO QHS RF: 0 diphenhydramine HCl 25 MG tablet 25 mg PO PRN PRN (Reason: Allergies) RF: 0 pantoprazole [Protonix] 40 mg Tablet,Delayed Release (Dr/Ec) 40 mg PO DAILY RF: 0 atorvastatin 40 mg Tablet 40 mg PO DAILY RF: 0 bupropion HCl 150 mg Tablet Extended Release 24 Hr 150 mg PO DAILY RF: 0 ibuprofen 600 mg tablet 600 mg PO Q6H PRN PRN (Reason: fever or pain) Qty: 20 RF: 0 dexamethasone [Decadron] 6 mg tablet 6 mg PO DAILY 7 Days Qty: 7 RF: 0 benztropine 0.5 mg tablet 0.5 mg PO BID PRN PRN (Reason: tremors) RF: 0 Primary Care Provider: Fabian Palm Referrals: Fabian Palm MD [Primary Care Provider] - Dentist,Your [STAFF PHYSICIAN] - 5-7 Days Disposition Disposition: Home, Self Care
[2021-08-23] MEDS: Amoxicillin 250 MG Capsule PO (22:51)
[2021-08-23] MEDS: Ibuprofen 600 MG Tablet PO (22:51)
[2021-08-23] MEDS: AMOXICILLIN 500 MG CAPSULE PO (22:51)
== END 2021-08-23 23:27 | disposition home or self-care (01) ==
PROVIDERS: Emergency Provider Emergency Medicine; PCP Family Medicine; Visit Provider Emergency Medicine
DX: K08.89 Other specified disorders of teeth and supporting structures (principal); F17.210 Nicotine dependence, cigarettes, uncomplicated
CPT/HCPCS: 99283

== ENCOUNTER 2021-09-04 12:44 | Emergency (ER) | payer MEDICARE, SELFPAY ==
[2021-09-04 12:45] VITALS: BP 133/84; PULSE 77; RESP 15; TEMP 36.3; O2SAT 98; BMI 35.5
--- NOTE | 2021-09-04 14:04 | EX.ED.UPPERE ---
HPI History of Present Illness Chief Complaint: Upper Extremity Injury Narrative Narrative: Patient presenting with right wrist and hand pain. He states he was previously diagnosed with de Quervain's tenosynovitis. Patient was previously referred to orthopedics for this. He was prescribed ibuprofen and given a wrist splint. He states he cannot find his splints and could not afford any ibuprofen because he is on disability. He denies any trauma. He does state that he was helping his brother install windows prior to this starting. [facility] Medical History Anxiety Depression Diabetes Gout Hyperlipidemia Hypertension Home Medications allopurinol 100 mg PO BIDCM 11/02/14 [History Last Taken 08/03/19] gabapentin 900 mg PO 4X/DAY 11/02/14 [History Last Taken 08/03/19] tamsulosin 0.4 mg PO DAILY 01/01/15 [History Last Taken 08/03/19] albuterol sulfate [Ventolin HFA] 2 puff INHALATION Q4H PRN PRN 06/18/15 [History Last Taken 08/03/19] metformin 1,000 mg PO BID 11/21/15 [History Last Taken 08/03/19] aripiprazole 5 mg PO DAILY 04/09/16 [History Last Taken 08/03/19] trazodone 300 mg PO QHS 03/16/18 [History Last Taken 08/03/19] diphenhydramine HCl 25 mg PO PRN PRN 08/01/19 [History Last Taken 08/03/19] atorvastatin 40 mg PO DAILY 11/30/20 [History Last Taken Unknown] bupropion HCl 150 mg PO DAILY 11/30/20 [History Last Taken Unknown] ibuprofen 600 mg PO Q6H PRN PRN #20 tab 11/30/20 [Rx Last Taken Unknown] pantoprazole [Protonix] 40 mg PO DAILY 11/30/20 [History Last Taken Unknown] dexamethasone [Decadron] 6 mg PO DAILY 7 Days #7 tab 07/10/21 [Rx Last Taken Unknown] benztropine 0.5 mg PO BID PRN PRN 07/11/21 [History Last Taken Unknown] amoxicillin 500 mg PO TID #21 tab 08/23/21 [Rx Last Taken Unknown] ibuprofen 600 mg PO Q6H PRN PRN #20 tab 09/04/21 [Rx Last Taken Unknown] Allergy/AdvReac Type Severity Reaction Status Date / Time cyclobenzaprine HCl Allergy Hives Verified 09/04/21 12:45 [From Flexeril] dicyclomine HCl [From Bentyl] Allergy Rash Verified 09/04/21 12:45 duloxetine HCl Allergy Hives Verified 09/04/21 12:45 [From Cymbalta] meloxicam [From Mobic] Allergy Rash Verified 09/04/21 12:45 naproxen Allergy Hives Verified 09/04/21 12:45 quetiapine [From Seroquel] Allergy Rash Verified 09/04/21 12:45 tramadol HCl [From Ultram] Allergy Rash Verified 09/04/21 12:45 Family History no significant family his no significant family history Surgical History History of neck surgery Social History Smoking Status: Current every day smoker tobacco type: cigarettes ROS ROS ED Constitutional Constitutional ED: Denies chills or fever(s) Eyes Eyes: Denies blurry vision or change in vision ENT ENT ED: Denies rhinorrhea Cardiovascular Cardiovascular: Denies chest pain or palpitations Respiratory/Chest Respiratory/Chest: Denies cough or dyspnea Gastrointestinal Gastrointestinal: Denies abdominal pain, nausea or vomiting Genitourinary Genitourinary ED: Denies dysuria or hematuria Musculoskeletal Musculoskeletal: Reports other Details: Right wrist pain Neurologic Neurologic: Denies headache(s) or weakness EXAM Physical Exam Const Vital Signs: 09/04/21 12:45 Temperature 97.4 F L Temperature Source Temporal Pulse Rate 77 Respiratory Rate 15 Blood Pressure 133/84 H Blood Pressure Mean 100 Pulse Ox 98 Oxygen Delivery Method Room Air Positive well nourished General Appearance ED: NAD HEENT Reports moist mucous membranes normocephalic Eyes PERRL and EOMs intact bilaterally Resp normal respiratory effort and clear to auscultation bilaterally Cardio regular rate and regular rhythm Extremity Extremity Narrative: Tenderness to palpation to the right wrist. There is limited range of motion. I doubt that this currently is septic. He does have a positive Brian's. No bony tenderness. Neuro oriented x3 and CN's II-XII intact bilaterally Sensorium / Orientation: alert Psych mental status grossly normal Skin Lesions: no lesions Rashes: no rashes MDM MDM MDM Narrative Medical decision making narrative: Patient likely has return of his de Quervain's. He has exact same symptoms and he admits to this. He states he came for a splint and ibuprofen because he cannot afford ibuprofen or splint at home. He is on disability. This was provided for him and he was given a prescription. Patient discharged in stable condition. Impression: 1. De Quervain's tenosynovitis Discharge Plan Triage Chief Complaint: Upper Extremity Injury ED Provider: Justo Rojas Dx/Rx/DC Orders Instructions: De Quervain Tenosynovitis Prescriptions: New ibuprofen 600 mg tablet 600 mg PO Q6H PRN PRN (Reason: pain) Qty: 20 RF: 0 No Action gabapentin 400 MG capsule 900 mg PO 4X/DAY RF: 0 allopurinol 100 MG tablet 100 mg PO BIDCM RF: 0 tamsulosin 0.4 MG capsule 0.4 mg PO DAILY RF: 0 albuterol sulfate [Ventolin HFA] 1 INHALER inhaler 2 puff inhalation Q4H PRN PRN (Reason: Wheezing) RF: 0 metformin 500 MG tablet 1,000 mg PO BID RF: 0 aripiprazole 5 MG tablet 5 mg PO DAILY RF: 0 trazodone 300 MG tablet 300 mg PO QHS RF: 0 diphenhydramine HCl 25 MG tablet 25 mg PO PRN PRN (Reason: Allergies) RF: 0 pantoprazole [Protonix] 40 mg Tablet,Delayed Release (Dr/Ec) 40 mg PO DAILY RF: 0 atorvastatin 40 mg Tablet 40 mg PO DAILY RF: 0 bupropion HCl 150 mg Tablet Extended Release 24 Hr 150 mg PO DAILY RF: 0 ibuprofen 600 mg tablet 600 mg PO Q6H PRN PRN (Reason: fever or pain) Qty: 20 RF: 0 dexamethasone [Decadron] 6 mg tablet 6 mg PO DAILY 7 Days Qty: 7 RF: 0 benztropine 0.5 mg tablet 0.5 mg PO BID PRN PRN (Reason: tremors) RF: 0 amoxicillin 500 MG tablet 500 mg PO TID Qty: 21 RF: 0 Primary Care Provider: Fabian Palm Referrals: Fabian Palm MD [Primary Care Provider] - Disposition Disposition: Home, Self Care Discharge Date/Time: 09/04/21 14:29
== END 2021-09-04 14:29 | disposition home or self-care (01) ==
PROVIDERS: Emergency Provider Student in an Organized Health Care Education/Training Program; PCP Family Medicine; Visit Provider Student in an Organized Health Care Education/Training Program
DX: M65.4 Radial styloid tenosynovitis [de Quervain] (principal); F17.210 Nicotine dependence, cigarettes, uncomplicated
CPT/HCPCS: 99282

== ENCOUNTER 2021-09-07 17:57 | Emergency (ER) | payer MEDICARE, MEDICAID, SELFPAY ==
[2021-09-07 17:57] VITALS: BP 151/96; PULSE 72; RESP 24; TEMP 35.7; O2SAT 98; BMI 35.3
--- NOTE | 2021-09-07 18:35 | EDS_ITS ---
HPI History of Present Illness HPI Narrative: Patient presents with right shoulder pain that began last night. Patient states the pain radiates down his right upper extremity. Patient states his pain is worse with certain movements. Patient admits to some pain into his neck. Patient describes the pain as sharp. Patient admits to some numbness and tingling in his right upper extremity. Patient denies any weakness. Patient states nothing seems to help his pain. Patient states he took ibuprofen last night with no improvement. Chief Complaint: Upper Extremity Injury Informant: patient Onset/Context/Timing Onset: Yesterday Context: Sudden Onset Quality of Pain: Sharp Location: Right shoulder Worsened by: Movements Relieved by: Nothing Associated Symptoms Associated Symptoms: Positive for Parasthesia; Negative for Weakness and Loss of Funtion PFSH [facility] Medical History Anxiety Depression Diabetes Gout Hyperlipidemia Hypertension Home Medications allopurinol 100 mg PO BIDCM 11/02/14 [History Last Taken 08/03/19] gabapentin 900 mg PO 4X/DAY 11/02/14 [History Last Taken 08/03/19] tamsulosin 0.4 mg PO DAILY 01/01/15 [History Last Taken 08/03/19] albuterol sulfate [Ventolin HFA] 2 puff INHALATION Q4H PRN PRN 06/18/15 [History Last Taken 08/03/19] metformin 1,000 mg PO BID 11/21/15 [History Last Taken 08/03/19] aripiprazole 5 mg PO DAILY 04/09/16 [History Last Taken 08/03/19] trazodone 300 mg PO QHS 03/16/18 [History Last Taken 08/03/19] diphenhydramine HCl 25 mg PO PRN PRN 08/01/19 [History Last Taken 08/03/19] atorvastatin 40 mg PO DAILY 11/30/20 [History Last Taken Unknown] bupropion HCl 150 mg PO DAILY 11/30/20 [History Last Taken Unknown] ibuprofen 600 mg PO Q6H PRN PRN #20 tab 11/30/20 [Rx Last Taken Unknown] pantoprazole [Protonix] 40 mg PO DAILY 11/30/20 [History Last Taken Unknown] dexamethasone [Decadron] 6 mg PO DAILY 7 Days #7 tab 07/10/21 [Rx Last Taken Unknown] benztropine 0.5 mg PO BID PRN PRN 07/11/21 [History Last Taken Unknown] amoxicillin 500 mg PO TID #21 tab 08/23/21 [Rx Last Taken Unknown] ibuprofen 600 mg PO Q6H PRN PRN #20 tab 09/04/21 [Rx Last Taken Unknown] hydrocodone-acetaminophen 1 tab PO Q6H PRN PRN 3 Days #10 tablet 09/07/21 [Rx Last Taken Unknown] prednisone 60 mg PO DAILY #15 tablet 09/07/21 [Rx Last Taken Unknown] Allergy/AdvReac Type Severity Reaction Status Date / Time cyclobenzaprine HCl Allergy Hives Verified 09/04/21 12:45 [From Flexeril] dicyclomine HCl [From Bentyl] Allergy Rash Verified 09/04/21 12:45 duloxetine HCl Allergy Hives Verified 09/04/21 12:45 [From Cymbalta] meloxicam [From Mobic] Allergy Rash Verified 09/04/21 12:45 naproxen Allergy Hives Verified 09/04/21 12:45 quetiapine [From Seroquel] Allergy Rash Verified 09/04/21 12:45 tramadol HCl [From Ultram] Allergy Rash Verified 09/04/21 12:45 Family History no significant family his Surgical History History of neck surgery Social History Smoking Status: Current every day smoker tobacco type: cigarettes ROS ROS ED Constitutional Constitutional ED: Denies chills or fever(s) Eyes Eyes: Denies blurry vision or change in vision ENT ENT ED: Denies rhinorrhea or sore throat Cardiovascular Cardiovascular: Denies chest pain or palpitations Respiratory/Chest Respiratory/Chest: Denies cough or dyspnea Gastrointestinal Gastrointestinal: Denies nausea or vomiting Genitourinary Genitourinary ED: Denies dysuria or hematuria Musculoskeletal Musculoskeletal: Reports neck pain; Denies back pain Integumentary Denies abscess or rash Neurologic Neurologic: Reports headache(s); Denies weakness Allergic/Immunologic Allergic/Immunologic ED: Denies mouth swelling or urticaria EXAM Physical Exam Const Vital Signs: 09/07/21 17:57 Temperature 96.2 F L Temperature Source Temporal Pulse Rate 72 Respiratory Rate 24 H Blood Pressure 151/96 H Blood Pressure Mean 114 Pulse Ox 98 Oxygen Delivery Method Room Air Positive well nourished and well developed General Appearance ED: well developed and NAD Neck full ROM Neck Narrative: There is some mild tenderness of the right cervical paraspinal muscles. There is no midline tenderness. There is no bony crepitance or step- off. General: tenderness Extremity Extremity Narrative: There is diffuse tenderness over the right shoulder. Range of motion was limited in all motions of the right shoulder secondary to pain. There is no laxity appreciated. There is no deformity. There is no edema or ecchymosis. Radial pulses are equal bilaterally. Strength is 5/5 in the radial, median, and ulnar areas. There are no sensory deficits noted. Neuro oriented x3, CN's II-XII intact bilaterally, moves all extremities, no focal motor deficits and no sensory deficits noted Sensorium / Orientation: alert Psych mental status grossly normal MDM MDM MDM Narrative Medical decision making narrative: CT scan of the cervical spine was obtained. There is no acute fracture or spondylolisthesis. The cervical fusion is intact. There are some degenerative changes noted. This was interpreted by the radiologist and reviewed by myself. X-rays of the right shoulder were obtained. There are 4 views. On my interpretation, there is no acute fracture or dislocation. There is no soft tissue swelling. Radiologist also interpreted the x-rays and agrees. Patient was advised that this could be neuropathic pain. Patient was given a prescription for a short course of prednisone and a short course of [place]. Patient was instructed use ice to the area. Patient was instructed to follow-up with his primary care physician in 3-5 days. Patient understood and was agreeable with the plan. All questions were answered. Discharge Plan Triage Chief Complaint: Upper Extremity Injury ED Provider: Jose Antonio Cordero Dx/Rx/DC Orders Clinical Impression: Pain in right shoulder Instructions: ED Shoulder Pain, Uncertain Cause Prescriptions: New hydrocodone-acetaminophen [hydrocodone-acetaminophen] 1 TABLET tablet 1 tab PO Q6H PRN PRN (Reason: Pain) 3 Days Qty: 10 RF: 0 prednisone 20 MG tablet 60 mg PO DAILY Qty: 15 RF: 0 No Action gabapentin 400 MG capsule 900 mg PO 4X/DAY RF: 0 allopurinol 100 MG tablet 100 mg PO BIDCM RF: 0 tamsulosin 0.4 MG capsule 0.4 mg PO DAILY RF: 0 albuterol sulfate [Ventolin HFA] 1 INHALER inhaler 2 puff inhalation Q4H PRN PRN (Reason: Wheezing) RF: 0 metformin 500 MG tablet 1,000 mg PO BID RF: 0 aripiprazole 5 MG tablet 5 mg PO DAILY RF: 0 trazodone 300 MG tablet 300 mg PO QHS RF: 0 diphenhydramine HCl 25 MG tablet 25 mg PO PRN PRN (Reason: Allergies) RF: 0 pantoprazole [Protonix] 40 mg Tablet,Delayed Release (Dr/Ec) 40 mg PO DAILY RF: 0 atorvastatin 40 mg Tablet 40 mg PO DAILY RF: 0 bupropion HCl 150 mg Tablet Extended Release 24 Hr 150 mg PO DAILY RF: 0 ibuprofen 600 mg tablet 600 mg PO Q6H PRN PRN (Reason: fever or pain) Qty: 20 RF: 0 dexamethasone [Decadron] 6 mg tablet 6 mg PO DAILY 7 Days Qty: 7 RF: 0 benztropine 0.5 mg tablet 0.5 mg PO BID PRN PRN (Reason: tremors) RF: 0 amoxicillin 500 MG tablet 500 mg PO TID Qty: 21 RF: 0 ibuprofen 600 mg tablet 600 mg PO Q6H PRN PRN (Reason: pain) Qty: 20 RF: 0 Primary Care Provider: Fabian Palm Referrals: Fabian Palm MD [Primary Care Provider] - 3-5 Days Disposition Disposition: Home, Self Care
--- NOTE | 2021-09-07 18:41 | CT_ITS ---
EXAM: CT SPINE - CERVICAL WITHOUT IV REASON FOR EXAM: Male, 51 years old. NECK PAIN Injury Individualized dose optimization techniques were used for this CT. TECHNIQUE: Multiplanar images were obtained of the cervical spine. IV contrast was not utilized. COMPARISON: None. FINDINGS: The vertebral bodies do maintain their height. The odontoid process is intact. There is no anterolisthesis or fracture. No pre-vertebral soft tissue swelling is seen. The intravertebral disc height is lost. There are scattered lymph nodes in the neck. There are degenerative changes of the osseous structures. There is bilateral facet arthropathy. There are scattered levels of foraminal stenosis. There are vascular calcifications. There is mild straightening of the normal cervical lordosis. This can suggest neck strain. Anterior fusion plate at C5-6 and C6-7. Interbody fusion material noted. CT/Spine Cervical without Contras IMPRESSION: Degenerative changes of the cervical spine. There is mild straightening of the normal cervical lordosis. This can suggest neck strain. Electronically Signed: Stephan Dean MD at 19:58 EST ,
--- NOTE | 2021-09-07 18:50 | RAD_ITS ---
STUDY: XR Shoulder Min 2 Views REASON FOR EXAM: Male, 51 years old. PAIN TECHNIQUE: XR Shoulder Min 2 Views COMPARISON: None. FINDINGS: Normal glenohumeral articulation. Normal acromioclavicular joint. Normal acromion. Normal humeral head and visualized proximal humerus. The soft tissue structures are unremarkable. Normal visualized pulmonary apex. RAD/Shoulder min 2 Views IMPRESSION: There are no acute findings of the shoulder. Electronically Signed: Stephan Dean MD at 19:35 EST ,
[2021-09-07 21:26] VITALS: PULSE 82; RESP 15; O2SAT 98
== END 2021-09-07 21:44 | disposition home or self-care (01) ==
PROVIDERS: Emergency Provider Emergency Medicine; PCP Family Medicine; Visit Provider Emergency Medicine
DX: M25.511 Pain in right shoulder (principal); F17.210 Nicotine dependence, cigarettes, uncomplicated
CPT/HCPCS: 72125; 73030; 99282

== ENCOUNTER 2021-10-30 20:55 | Emergency (ER) | payer MEDICARE, MEDICAID, SELFPAY ==
[2021-10-30 20:57] VITALS: BP 131/88; PULSE 97; RESP 18; TEMP 37; O2SAT 98; BMI 34.5
--- NOTE | 2021-10-30 21:28 | ED.VIS.LOWEX ---
HPI History of Present Illness HPI Narrative: Patient presents with left foot redness and swelling that has been getting worse since yesterday. Patient noted a small blister on the medial aspect of his left great toe. Patient states he used toenail clippers to remove this. Patient states that last night he noted some redness in his left great toe. Patient states that today when he woke up he noted redness going over the dorsum of his left foot into his ankle. Patient states it is now starting to spread up his left lower leg. Patient denies any fevers or chills. Patient describes his pain as sharp. Patient states nothing makes it better nothing makes it worse. Patient admits to some tingling in his left foot. Patient is unsure of his last tetanus. Chief Complaint: Wound Informant: patient Onset/Context/Timing Onset: Yesterday Context: Gradual Onset Timing: Continuous Quality of Pain: Sharp Location: Left foot Worsened by: Nothing Relieved by: Nothing Associated Symptoms Associated Symptoms: Positive for Parasthesia; Negative for Weakness and Loss of Funtion Narrative Tetanus Immunization: Unknown PFSH [facility] Medical History Anxiety Depression Diabetes Gout Hyperlipidemia Hypertension Home Medications allopurinol 100 mg PO BIDCM 11/02/14 [History Last Taken 08/03/19] gabapentin 900 mg PO 4X/DAY 11/02/14 [History Last Taken 08/03/19] tamsulosin 0.4 mg PO DAILY 01/01/15 [History Last Taken 08/03/19] albuterol sulfate [Ventolin HFA] 2 puff INHALATION Q4H PRN PRN 06/18/15 [History Last Taken 08/03/19] metformin 1,000 mg PO BID 11/21/15 [History Last Taken 08/03/19] aripiprazole 5 mg PO DAILY 04/09/16 [History Last Taken 08/03/19] trazodone 300 mg PO QHS 03/16/18 [History Last Taken 08/03/19] diphenhydramine HCl 25 mg PO PRN PRN 08/01/19 [History Last Taken 08/03/19] atorvastatin 40 mg PO DAILY 11/30/20 [History Last Taken Unknown] bupropion HCl 150 mg PO DAILY 11/30/20 [History Last Taken Unknown] benztropine 0.5 mg PO BID PRN PRN 07/11/21 [History Last Taken Unknown] ibuprofen 600 mg PO Q6H PRN PRN #20 tab 09/04/21 [Rx Last Taken Unknown] cephalexin 500 mg PO Q6 #40 capsule 10/30/21 [Rx Last Taken Unknown] sulfamethoxazole-trimethoprim 1 tab PO BID #20 tablet 10/30/21 [Rx Last Taken Unknown] Allergy/AdvReac Type Severity Reaction Status Date / Time cyclobenzaprine HCl Allergy Hives Verified 10/30/21 21:00 [From Flexeril] dicyclomine HCl [From Bentyl] Allergy Rash Verified 10/30/21 21:00 duloxetine HCl Allergy Hives Verified 10/30/21 21:00 [From Cymbalta] meloxicam [From Mobic] Allergy Rash Verified 10/30/21 21:00 naproxen Allergy Hives Verified 10/30/21 21:00 quetiapine [From Seroquel] Allergy Rash Verified 10/30/21 21:00 tramadol HCl [From Ultram] Allergy Rash Verified 10/30/21 21:00 Family History no significant family his Surgical History History of neck surgery Social History Smoking Status: Current every day smoker tobacco type: cigarettes ROS ROS ED Constitutional Constitutional ED: Denies chills or fever(s) Eyes Eyes: Denies blurry vision or change in vision ENT ENT ED: Denies rhinorrhea or sore throat Cardiovascular Cardiovascular: Denies chest pain or palpitations Respiratory/Chest Respiratory/Chest: Denies cough or dyspnea Gastrointestinal Gastrointestinal: Denies nausea or vomiting Genitourinary Genitourinary ED: Denies dysuria or hematuria Musculoskeletal Musculoskeletal: Denies back pain or neck pain Integumentary Denies abscess or rash Neurologic Neurologic: Denies headache(s) or weakness Allergic/Immunologic Allergic/Immunologic ED: Denies mouth swelling or urticaria EXAM Physical Exam Const Vital Signs: 10/30/21 20:57 Temperature 98.6 F Temperature Source Temporal Pulse Rate 97 Respiratory Rate 18 Blood Pressure 131/88 H Blood Pressure Mean 102 Pulse Ox 98 Oxygen Delivery Method Room Air Positive well nourished and well developed General Appearance ED: well developed and NAD HEENT Reports moist mucous membranes Neck full ROM Extremity Extremity Narrative: There is tenderness with mild erythema and warmth over the dorsal aspect of the left great toe and left foot. There is lymphangitic streaking in the left lower leg. There is no abscess formation. There is no discharge or drainage. There is a superficial ulceration over the tip of the distal phalanx of the left great toe. There is no bleeding noted. Sensation to refill was less than 2 seconds in all digits. Neuro oriented x3, CN's II-XII intact bilaterally, moves all extremities and no sensory deficits noted Sensorium / Orientation: alert Motor Exam: strength 5/5 throughout MDM MDM MDM Narrative Medical decision making narrative: Patient was given IV fluids. Patient was given a dose of Unasyn here. CBC was within normal limits. Basic metabolic profile shows a slightly elevated glucose of 177. Lactate was slightly elevated 2.5. Patient is on Metformin which may falsely elevate this. X-rays of the left foot were obtained. There are 3 views. On my interpretation, there is no acute fracture or dislocation. There is no evidence of osteomyelitis or gas formation. Patient feels better on reevaluation. With normal vital signs and no other criteria for sepsis, I do not feel the patient needs to be admitted to the hospital. Patient was given a prescription for Keflex and Bactrim. Patient was instructed to follow-up with his primary care physician in 3 to 5 days. Patient was instructed to return if the red streaking goes up to his thigh. Patient understands and is agreeable with the plan. All questions were answered. Lab Data Labs: Laboratory Results - last 24 hr 10/30/21 10/30/21 10/30/21 21:45 21:45 21:45 WBC 9.1 RBC 4.90 Hgb 14.8 Hct 42.7 MCV 87.1 MCH 30.2 MCHC 34.7 RDW Std Deviation 44.2 H RDW Coeff of Maddy 13.8 Plt Count 195 MPV 8.9 Immature Gran % (Auto) 0.400 Neut % (Auto) 64.1 Lymph % (Auto) 26.8 [place] % (Auto) 6.9 Eos % (Auto) 1.5 Baso % (Auto) 0.3 Absolute Neuts (auto) 5.8 Absolute Lymphs (auto) 2.43 Nucleated RBC % 0 Sodium 140 Potassium 3.4 L Chloride 108 H Carbon Dioxide 25.0 Anion Gap 7 BUN 7 Creatinine 1.12 Estim Creat Clear Calc 95.36 Est GFR (MDRD) Af Amer 90 Est GFR (MDRD) Non-Af 74 BUN/Creatinine Ratio 6.2 L Glucose 177 H Lactic Acid 2.5 H* Calcium 8.5 Discharge Plan Triage Chief Complaint: Wound ED Provider: Jose Antonio Cordero Dx/Rx/DC Orders Clinical Impression: Cellulitis of left foot, Lymphangitis of lower extremity Instructions: ED Cellulitis, ED Lymphangitis Prescriptions: New sulfamethoxazole-trimethoprim [sulfamethoxazole-trimethoprim] 1 TABLET tablet 1 tab PO BID Qty: 20 RF: 0 cephalexin [cephalexin] 500 MG capsule 500 mg PO Q6 Qty: 40 RF: 0 No Action gabapentin 400 MG capsule 900 mg PO 4X/DAY RF: 0 allopurinol 100 MG tablet 100 mg PO BIDCM RF: 0 tamsulosin 0.4 MG capsule 0.4 mg PO DAILY RF: 0 albuterol sulfate [Ventolin HFA] 1 INHALER inhaler 2 puff inhalation Q4H PRN PRN (Reason: Wheezing) RF: 0 metformin 500 MG tablet 1,000 mg PO BID RF: 0 aripiprazole 5 MG tablet 5 mg PO DAILY RF: 0 trazodone 300 MG tablet 300 mg PO QHS RF: 0 diphenhydramine HCl 25 MG tablet 25 mg PO PRN PRN (Reason: Allergies) RF: 0 atorvastatin 40 mg Tablet 40 mg PO DAILY RF: 0 bupropion HCl 150 mg Tablet Extended Release 24 Hr 150 mg PO DAILY RF: 0 benztropine 0.5 mg tablet 0.5 mg PO BID PRN PRN (Reason: tremors) RF: 0 ibuprofen 600 mg tablet 600 mg PO Q6H PRN PRN (Reason: pain) Qty: 20 RF: 0 Primary Care Provider: Fabian Palm Referrals: Fabian Palm MD [Primary Care Provider] - 3-5 Days Disposition Disposition: Home, Self Care
--- NOTE | 2021-10-30 21:32 | RAD_ITS ---
STUDY: X-RAY - LEFT FOOT CLINICAL: Male, 51 years old. Injury/Pain TECHNIQUE: 3 view(s) of the foot. COMPARISON: None. FINDINGS: Normal talus, calcaneus, and tarsal bones. Normal visualized subtalar, talonavicular, calcaneocuboid, tarsal and tarsometatarsal articulations. Normal metatarsi. Normal metatarsophalangeal joint of the great toe. Normal tibial and fibular sesamoid bones. Normal interphalangeal joint of the great toe. Normal phalanges of the great toe. Normal second through fifth metatarsophalangeal joints. Normal interphalangeal joints and phalanges of the lesser toes. The soft tissue structures are unremarkable. RAD/Foot min 3 Views IMPRESSION: Normal x-ray examination of the foot. Electronically Signed: Enrique Castañeda DO at 23:41 EDT Reading Location ID and State: [facility] / [place] Tel [phone], Service support ,
[2021-10-30 22:04] LABS: Absolute Lymphocyte Count 2.43 X10^3/uL (0.83-4.51); Absolute Neutrophil Count 5.8 X10^3/uL (2.0-7.7); Basophil# 0.03 X10^3/uL; Basophil% 0.3 % (0-1); Eosinophil# 0.14 X10^3/uL; Eosinophils% 1.5 % (0-5); Hematocrit 42.7 % (40-54); Hemoglobin 14.8 g/dL (13.0-16.5); Lymphocyte # 2.43 X10^3/ul (0.83-4.51); Lymphocyte % 26.8 % (19-41); Mean Corp Hgb Conc 34.7 g/dL (32-36); Mean Corpuscular Hgb 30.2 pg (27.0-32.0); Mean Corpuscular Volume 87.1 fL (80-94); Mean Platelet Vol. 8.9 fl (6.2-12.0); Monocyte# 0.63 X10^3/uL; Monocyte% 6.9 % (0-10); NRBC Flagged by Analyzer 0 % (0-5); Neutrophil % 64.1 % (47-70); Platelet Count 195 K/mm3 (150-450); RBC Distribution Width CV 13.8 % (11.6-14.6); RBC Distribution Width SD 44.2 fl (35.1-43.9); White Blood Count 9.1 K/mm3 (4.4-11.0)
[2021-10-30 22:12] LABS: Anion Gap 7 (5-15); BUN 7 mg/dL (7-18); BUN/Creat Ratio 6.2 RATIO (10-20); Calcium,Total 8.5 mg/dL (8.5-10.1); Chloride 108 mmol/L (98-107); Creatinine, Serum 1.12 mg/dL (0.70-1.30); EST Glomerular Filtration Rate 74 mL/min (>60); Est Glom Filt Rate - Afr Amer 90 mL/min (>60); Estimated Creatinine Clearance 95.36 ml/min; Glucose 177 mg/dL (74-106); Potassium 3.4 mmol/L (3.5-5.1); Sodium Level 140 mmol/L (136-145)
[2021-10-30 22:37] LABS: Lactic Acid 2.5 mmol/L (0.4-1.9)
[2021-10-30] MEDS: 0.9% Normal Saline 1,000 ML 1000 ML IV (23:34)
[2021-10-31 00:35] VITALS: BP 123/79; PULSE 82; RESP 16; TEMP 37.1; O2SAT 95
[2021-10-31 01:54] LABS: Reflex Lactate? Y
== END 2021-10-31 00:36 | disposition home or self-care (01) ==
PROVIDERS: Emergency Provider Emergency Medicine; PCP Family Medicine; Visit Provider Emergency Medicine
DX: L03.116 Cellulitis of left lower limb (principal); E11.9 Type 2 diabetes mellitus without complications; Z79.84 Long term (current) use of oral hypoglycemic drugs; E78.5 Hyperlipidemia, unspecified; F17.210 Nicotine dependence, cigarettes, uncomplicated; I10 Essential (primary) hypertension; F41.9 Anxiety disorder, unspecified; F32.A Depression, unspecified; Z79.899 Other long term (current) drug therapy
CPT/HCPCS: 73630; 80048; 83605; 85025; 87040; 96365; 99283; J7030; A4216; J0295

== ENCOUNTER 2021-11-28 22:21 | Emergency (ER) | payer MEDICARE, MEDICAID, SELFPAY ==
[2021-11-28 22:21] VITALS: BP 150/87; PULSE 81; RESP 15; TEMP 36.3; O2SAT 97; BMI 33.7
--- NOTE | 2021-11-28 22:49 | EKG12_ITS ---
Test Reason : SOB Blood Pressure : / mmHG Vent. Rate : 072 BPM Atrial Rate : 072 BPM P-R Int : 192 ms QRS Dur : 116 ms QT Int : 384 ms P-R-T Axes : 002 001 031 degrees QTc Int : 420 ms Normal sinus rhythm Normal ECG Confirmed by SHU HOROWITZ, SCOT ([id number]), editorial writer JUANCHO MARTIN ([id number]) on 11/30/2021 10:41:38 AM Referred By: VANDANA Confirmed By:SCOT IRELAND MD
--- NOTE | 2021-11-28 22:50 | EX.ED.VIS.UR ---
HPI HPI - URI History of Present Illness Chief Complaint: Cough Informant: patient Narrative Narrative: Patient is a 51-year-old male with history of tobacco use and COPD as well as obstructive sleep apnea presenting with upper respiratory symptoms as well as cough. Patient states he has had nasal congestion, headache, sore throat, cough and chest tightness for the past 3 days. He states he has chest pain when he coughs and points to his bottom anterior ribs on both sides. He notes his brothers had similar symptoms and was diagnosed with viral bronchitis. Patient denies any history of hospitalizations due to his breathing or pneumonia. States today he had an episode of vomiting after is particularly severe coughing fit. He does have an inhaler at home that he uses as needed. ROS ROS ED Constitutional Constitutional ED: Denies chills, fever(s) or sweats ENT ENT ED: Reports rhinorrhea and sore throat; Denies ear pain Cardiovascular Cardiovascular: Reports chest pain; Denies palpitations Respiratory/Chest Respiratory/Chest: Reports cough; Denies dyspnea or dyspnea on exertion Gastrointestinal Gastrointestinal: Reports vomiting; Denies abdominal pain, diarrhea or nausea Genitourinary Genitourinary ED: Denies dysuria Musculoskeletal Musculoskeletal: Denies arthralgias or myalgias Integumentary Denies rash Neurologic Neurologic: Reports headache(s); Denies paresthesias or weakness Psychiatric Psychiatric: Denies depression [facility] Medical History Anxiety Depression Diabetes Gout Hyperlipidemia Hypertension Home Medications allopurinol 100 mg PO BIDCM 11/02/14 [History Last Taken 08/03/19] gabapentin 900 mg PO 4X/DAY 11/02/14 [History Last Taken 08/03/19] tamsulosin 0.4 mg PO DAILY 01/01/15 [History Last Taken 08/03/19] albuterol sulfate [Ventolin HFA] 2 puff INHALATION Q4H PRN PRN 06/18/15 [History Last Taken 08/03/19] metformin 1,000 mg PO BID 11/21/15 [History Last Taken 08/03/19] aripiprazole 5 mg PO DAILY 04/09/16 [History Last Taken 08/03/19] trazodone 300 mg PO QHS 03/16/18 [History Last Taken 08/03/19] diphenhydramine HCl 25 mg PO PRN PRN 08/01/19 [History Last Taken 08/03/19] atorvastatin 40 mg PO DAILY 11/30/20 [History Last Taken Unknown] bupropion HCl 150 mg PO DAILY 11/30/20 [History Last Taken Unknown] benztropine 0.5 mg PO BID PRN PRN 07/11/21 [History Last Taken Unknown] ibuprofen 600 mg PO Q6H PRN PRN #20 tab 09/04/21 [Rx Last Taken Unknown] cephalexin 500 mg PO Q6 #40 capsule 10/30/21 [Rx Last Taken Unknown] sulfamethoxazole-trimethoprim 1 tab PO BID #20 tablet 10/30/21 [Rx Last Taken Unknown] codeine-guaifenesin [Guaifenesin AC] 5 ml PO Q6H PRN #118 ml 11/29/21 [Rx Last Taken Unknown] Allergy/AdvReac Type Severity Reaction Status Date / Time cyclobenzaprine HCl Allergy Hives Verified 10/30/21 21:00 [From Flexeril] dicyclomine HCl [From Bentyl] Allergy Rash Verified 10/30/21 21:00 duloxetine HCl Allergy Hives Verified 10/30/21 21:00 [From Cymbalta] meloxicam [From Mobic] Allergy Rash Verified 10/30/21 21:00 naproxen Allergy Hives Verified 10/30/21 21:00 quetiapine [From Seroquel] Allergy Rash Verified 10/30/21 21:00 tramadol HCl [From Ultram] Allergy Rash Verified 10/30/21 21:00 Surgical History History of neck surgery Social History Smoking Status: Current every day smoker tobacco type: cigarettes EXAM Physical Exam Const Vital Signs: 11/28/21 22:21 11/28/21 22:39 Temperature 97.4 F L Temperature Source Temporal Pulse Rate 81 Respiratory Rate 15 Respiratory Effort Short of Breath Respiratory Depth Normal Blood Pressure 150/87 H Blood Pressure Mean 108 Pulse Ox 97 Oxygen Delivery Method Room Air Positive well nourished and well developed General Appearance ED: well developed and NAD HEENT Reports moist mucous membranes normocephalic and atraumatic External Ear: external ears normal Tympanic Membrane ED: Yes TM's normal bilaterally Throat: posterior oropharynx normal Eyes PERRL and EOMs intact bilaterally Neck supple and no meningeal signs General: lymphadenopathy posterior cervical (right) Resp normal respiratory effort and clear to auscultation bilaterally Auscultation: Negative for rhonchi, wheezes or diminished lung sounds Cardio no murmurs Rate: regular rate Rhythm: regular rhythm GI non-tender and non-distended Palpation: soft Back/Spine no CVA tenderness Neuro oriented x3 and CN's II-XII intact bilaterally Sensorium / Orientation: alert Motor Exam: Negative for general weakness Psych mental status grossly normal Skin Lesions: no lesions Rashes: no rashes MDM MDM MDM Narrative Medical decision making narrative: Patient evaluated for 3 days of cough, congestion, sore throat and other viral symptoms. He appears nontoxic and in no acute distress. He is not hypoxic. Vital signs are significant for mild hypertension which she does have a history of. He is not having any wheezing or significant cough while I evaluate him and on reevaluation. Given that he is complaining of some chest discomfort that is been constant for 3 days I did obtain an EKG which was normal. I suspect his discomfort is associated with coughing and muscle skeletal in nature and not ACS. Chest x-ray does not show any acute infiltrate. COVID/flu swab are negative. Patient will be discharged home to follow-up with primary care doctor. Is given a prescription for Robitussin-AC to help with his cough. Counseled on return precautions. Patient verbalizes agreement and understanding with this plan. Radiography Chest X-Ray - ED: 2 View, Read by ED Physician, Read by Radiologist and No Acute Disease Diagnostic Testing: Clinical Impression(s) from Imaging Studies Chest X-Ray 11/28/21 23:00 IMPRESSION: Normal x-ray examination of the chest. Electronically Signed: Gilbert Kinney MD at 23:24 EDT , Rhythm Strip Rhythm Strip: Sinus Rhythm Rate: 72 Ectopy: None EKG Initial EKG: Attestation: I personally reviewed and interpreted this EKG as follows: Interpretation: Sinus Rhythm Comments: Normal sinus rhythm rate 72 Normal axis Normal intervals Normal ST segments Discharge Plan Triage Chief Complaint: Cough ED Provider: Zoila Wallace Dx/Rx/DC Orders Clinical Impression: Bronchitis, URI (upper respiratory infection) Instructions: ED Bronchitis, No Antibiotic (Adult) Prescriptions: New codeine-guaifenesin [Guaifenesin AC] 10-100 mg/5 mL liquid 5 ml PO Q6H PRN (Reason: cough) Qty: 118 RF: 0 No Action gabapentin 400 MG capsule 900 mg PO 4X/DAY RF: 0 allopurinol 100 MG tablet 100 mg PO BIDCM RF: 0 tamsulosin 0.4 MG capsule 0.4 mg PO DAILY RF: 0 albuterol sulfate [Ventolin HFA] 1 INHALER inhaler 2 puff inhalation Q4H PRN PRN (Reason: Wheezing) RF: 0 metformin 500 MG tablet 1,000 mg PO BID RF: 0 aripiprazole 5 MG tablet 5 mg PO DAILY RF: 0 trazodone 300 MG tablet 300 mg PO QHS RF: 0 diphenhydramine HCl 25 MG tablet 25 mg PO PRN PRN (Reason: Allergies) RF: 0 atorvastatin 40 mg Tablet 40 mg PO DAILY RF: 0 bupropion HCl 150 mg Tablet Extended Release 24 Hr 150 mg PO DAILY RF: 0 benztropine 0.5 mg tablet 0.5 mg PO BID PRN PRN (Reason: tremors) RF: 0 ibuprofen 600 mg tablet 600 mg PO Q6H PRN PRN (Reason: pain) Qty: 20 RF: 0 sulfamethoxazole-trimethoprim [sulfamethoxazole-trimethoprim] 1 TABLET tablet 1 tab PO BID Qty: 20 RF: 0 cephalexin [cephalexin] 500 MG capsule 500 mg PO Q6 Qty: 40 RF: 0 Primary Care Provider: Franklin Rodríguez Referrals: Franklin Rodríguez MD [Primary Care Provider] - Disposition Disposition: Home, Self Care
--- NOTE | 2021-11-28 23:00 | RAD_ITS ---
STUDY: X-RAY CHEST REASON FOR EXAM: Male, 51 years old. cough TECHNIQUE: PA and lateral COMPARISON: None. FINDINGS: The lungs are clear and expanded. There is no demonstrated pleural abnormality. Normal size heart. Normal mediastinum and arjun. Normal visualized pulmonary arteries. Normal visualized aortic arch and descending thoracic aorta. Normal visualized thoracic spine. Normal visualized ribs, clavicles, and shoulders. There is no demonstrated abnormality of the visualized soft tissue structures of the upper abdomen. RAD/Chest PA and Lateral IMPRESSION: Normal x-ray examination of the chest. Electronically Signed: Gilbert Kinney MD at 23:24 EDT ,
== END 2021-11-29 00:13 | disposition home or self-care (01) ==
PROVIDERS: Emergency Provider Emergency Medicine; PCP Family Medicine; Visit Provider Emergency Medicine
DX: J40 Bronchitis, not specified as acute or chronic (principal); J06.9 Acute upper respiratory infection, unspecified; G47.33 Obstructive sleep apnea (adult) (pediatric); F17.210 Nicotine dependence, cigarettes, uncomplicated
CPT/HCPCS: 71046; 87428; 93005; 99282

== ENCOUNTER 2022-01-16 17:37 | Emergency (ER) | payer MEDICARE, MEDICAID, SELFPAY ==
[2022-01-16 17:37] VITALS: BP 163/102; PULSE 87; RESP 16; TEMP 36.8; O2SAT 95; BMI 33.7
--- NOTE | 2022-01-16 17:45 | EX.ED.VIS.EY ---
HPI History of Present Illness Chief Complaint: Eye Problem Detail of Chief Complaint: Drainage from eyes Informant: patient Onset/Context/Timing Location: Bilateral Eyes Onset: Today Context: Sudden Onset Timing: Continuous Current Severity: Moderate Maximum Severity: Moderate Worsened by: Photophobia Relieved by: Nothing Associated Symptoms Associated Symptoms - Eyes: Burning, Crusting, Drainage, Foreign body sensation, Itching, Matting, Photophobia and Redness History of injury: No Visual correction: None Narrative Narrative: Patient is a 51-year-old male who presents because this morning he noted drainage from both eyes. His eyelashes were matted shut on the left. There is a large glob of drainage noted laterally. He does report photophobia. He denies history of glaucoma. He denies history of diabetes. He denies history of ill contact. He denies change in vision. He denies double vision. He has no other complaints Prior similar symptoms: No Recent Illness/Hospitalization: No PFSH PFSH Medical History Anxiety Depression Diabetes Gout Hyperlipidemia Hypertension Home Medications allopurinol 100 mg tablet 100 mg PO BIDCM 11/02/14 [History Last Taken 08/03/19] gabapentin 400 mg capsule 900 mg PO 4X/DAY 11/02/14 [History Last Taken 08/03/19] tamsulosin 0.4 mg capsule 0.4 mg PO DAILY 01/01/15 [History Last Taken 08/03/19] albuterol sulfate 90 mcg/actuation aerosol inhaler (Ventolin HFA) 2 puff inhalation Q4H PRN PRN Wheezing 06/18/15 [History Last Taken 08/03/19] metformin 500 mg tablet 1,000 mg PO BID 11/21/15 [History Last Taken 08/03/19] aripiprazole 5 mg tablet 5 mg PO DAILY 04/09/16 [History Last Taken 08/03/19] trazodone 300 mg tablet 300 mg PO QHS 03/16/18 [History Last Taken 08/03/19] diphenhydramine HCl 25 mg tablet 25 mg PO PRN PRN Allergies 08/01/19 [History Last Taken 08/03/19] atorvastatin 40 mg tablet 40 mg PO DAILY 11/30/20 [History Last Taken Unknown] bupropion HCl 150 mg 24 hr tablet, extended release 150 mg PO DAILY 11/30/20 [History Last Taken Unknown] benztropine 0.5 mg tablet 0.5 mg PO BID PRN PRN tremors 07/11/21 [History Last Taken Unknown] ibuprofen 600 mg tablet 600 mg PO Q6H PRN PRN pain #20 tabs 09/04/21 [Rx Last Taken Unknown] cephalexin 500 mg capsule 500 mg PO Q6 #40 CAPSULES 10/30/21 [Rx Last Taken Unknown] sulfamethoxazole 800 mg-trimethoprim 160 mg tablet 1 tab PO BID #20 TABLETS 10/30/21 [Rx Last Taken Unknown] codeine 10 mg-guaifenesin 100 mg/5 mL oral liquid (Guaifenesin AC) 5 ml PO Q6H PRN cough #118 mL 11/29/21 [Rx Last Taken Unknown] Allergy/AdvReac Type Severity Reaction Status Date / Time cyclobenzaprine HCl Allergy Hives Verified 10/30/21 21:00 [From Flexeril] dicyclomine HCl [From Bentyl] Allergy Rash Verified 10/30/21 21:00 duloxetine HCl Allergy Hives Verified 10/30/21 21:00 [From Cymbalta] meloxicam [From Mobic] Allergy Rash Verified 10/30/21 21:00 naproxen Allergy Hives Verified 10/30/21 21:00 quetiapine [From Seroquel] Allergy Rash Verified 10/30/21 21:00 tramadol HCl [From Ultram] Allergy Rash Verified 10/30/21 21:00 Surgical History History of neck surgery Social History (Updated 01/16/22 @ 17:[address] Samuel Johnson MD) household members: none Smoking Status: Current every day smoker tobacco type: cigarettes substance use type: does not use ROS ROS ED Constitutional Constitutional ED: Denies chills, fever(s), subjective, sweats or weight loss Eyes Eyes: Reports other Details: Per HPI ; Denies blurry vision, change in vision or diplopia ENT ENT ED: Reports other Details: Denies facial redness or swelling. ; Denies ear pain, rhinorrhea or sore throat Neurologic Neurologic: Denies headache(s), paresthesias or weakness Allergic/Immunologic Allergic/Immunologic ED: Denies mouth swelling, tongue swelling or urticaria EXAM Physical Exam Const Vital Signs: 01/16/22 17:37 01/16/22 17:37 Temperature 98.3 F 98.3 F Temperature Source Temporal Temporal Pulse Rate 87 87 Respiratory Rate 16 16 Blood Pressure 163/102 H 163/102 H Blood Pressure Mean 122 122 Pulse Ox 95 95 Oxygen Delivery Method Room Air Room Air Positive well nourished, well developed and obese; Negative for cachectic, contractures or unkempt General Appearance ED: well developed and NAD; Negative for unkempt, cachectic or contractures Nutritional Appearance: obese; Negative for cachectic HEENT HEENT Narrative: Ears normal. There is no facial cellulitis. atraumatic Nose: external nose normal and nares normal Eyes Eyes Narrative: Patient has swelling of the upper lids bilateral. There is no dry of the lash, lacrimal apparatus or lower lid. Conjunctive is injected bilaterally. Conjunctive is more injected on the left. There is thick purulent drainage noted on the left. Pupils equal round reactive to light. Extraocular muscles are intact. There is no pain with movement. There is no nystagmus. There is no APD. There is no preauricular lymphadenopathy. There is no evidence of preseptal cellulitis. Neck no lymphadenopathy, supple and no JVD Resp normal respiratory effort Cardio regular rate and regular rhythm Neuro oriented x3, CN's II-XII intact bilaterally and moves all extremities Psych Psych Narrative: Affect is flat Appearance: Negative for unkempt Skin no wounds Lesions: no lesions Rashes: no rashes MDM MDM MDM Narrative Medical decision making narrative: Patient has bilateral conjunctivitis with purulent drainage. He was treated with ciprofloxacin. Drops were placed in both eyes prior to discharge and Bille was dispensed. History and physical consistent with conjunctivitis. There is no concern for preseptal cellulitis, glaucoma etc. Discharge Plan Triage Chief Complaint: Eye Problem ED Provider: Samuel Johnson Dx/Rx/DC Orders Clinical Impression: Acute conjunctivitis of both eyes Instructions: ED Conjunctivitis, Bacterial Prescriptions: No Action gabapentin 400 MG capsule 900 mg PO 4X/DAY Label Comments: Neuropathy/pinched nerve allopurinol 100 MG tablet 100 mg PO BIDCM Label Comments: gout tamsulosin 0.4 MG capsule 0.4 mg PO DAILY Label Comments: urine flow albuterol sulfate [Ventolin HFA] 1 INHALER inhaler 2 puff inhalation Q4H PRN PRN (Reason: Wheezing) Label Comments: sob,wheezing metformin 500 MG tablet 1,000 mg PO BID Label Comments: Take 1 tablet by mouth twice daily with meals. DIABETES aripiprazole 5 MG tablet 5 mg PO DAILY trazodone 300 MG tablet 300 mg PO QHS diphenhydramine HCl 25 MG tablet 25 mg PO PRN PRN (Reason: Allergies) atorvastatin 40 mg Tablet 40 mg PO DAILY bupropion HCl 150 mg Tablet Extended Release 24 Hr 150 mg PO DAILY benztropine 0.5 mg tablet 0.5 mg PO BID PRN PRN (Reason: tremors) Label Comments: Take 1 (ONE) Tablet By Oral Route 2 (TWO) times per day NEEDED ibuprofen 600 mg tablet 600 mg PO Q6H PRN PRN (Reason: pain) Qty: 20 0RF sulfamethoxazole-trimethoprim [sulfamethoxazole-trimethoprim] 1 TABLET tablet 1 tab PO BID Qty: 20 0RF cephalexin [cephalexin] 500 MG capsule 500 mg PO Q6 Qty: 40 0RF codeine-guaifenesin [Guaifenesin AC] 10-100 mg/5 mL liquid 5 ml PO Q6H PRN (Reason: cough) Qty: 118 0RF Primary Care Provider: Franklin Rodríguez Referrals: Glenn Arnett MD [STAFF PHYSICIAN] - 3-5 Days Franklin Rodríguez MD [Primary Care Provider] - Activity Restrictions/Additional Instructions: Instill 1 drop every 2-4 hours for the next 5 to 7 days. Disposition Disposition: Home, Self Care
[2022-01-16] MEDS: Ciprofloxacin 0.3% 2.5ml Bottle 2 DRP EACH EYE (17:55)
== END 2022-01-16 18:02 | disposition home or self-care (01) ==
LOC: ED 17:58
PROVIDERS: Emergency Provider Emergency Medicine; PCP Family Medicine; Visit Provider Emergency Medicine
DX: H10.33 Unspecified acute conjunctivitis, bilateral (principal); F17.210 Nicotine dependence, cigarettes, uncomplicated
CPT/HCPCS: 99283

== ENCOUNTER 2022-07-23 14:49 | Emergency (ER) | payer MEDICARE, MEDICAID, SELFPAY ==
[2022-07-23 14:50] VITALS: BP 135/88; PULSE 81; RESP 18; TEMP 36.6; O2SAT 98; BMI 31.5
--- NOTE | 2022-07-23 15:16 | CT_ITS ---
EXAM: CT ABDOMEN AND PELVIS WITH INTRAVENOUS CONTRAST CLINICAL INDICATION: abd and left flank pain TECHNIQUE: Helically acquired images were obtained of the abdomen and pelvis with intravenous contrast. This CT exam was performed using one or more of the following dose reduction techniques: automated exposure control, adjustment of the mA and/or kV according to patient size, and/or use of iterative reconstruction technique. This report was created using [employer] report generation technology. CONTRAST: IV 100mL Isovue-300 COMPARISON: CT Abdomen Pelvis dated 10/04/2018 FINDINGS: LOWER THORAX: Mild patchy airspace opacification within the lingula and right middle and lower lobes atelectasis or pneumonia. Minimal right pleural effusion. ABDOMEN: LIVER: Normal. Homogeneous. No focal mass. GALLBLADDER AND BILE DUCTS: There is mild pericholecystic fluid or edema raises possibility of acute cholecystitis. No intra- or extrahepatic biliary ductal dilation. PANCREAS: Normal. No focal cystic or solid mass. SPLEEN: Stable mild splenomegaly. ADRENALS: Normal. No nodules. KIDNEYS AND URETERS: No evidence of urinary tract stone disease. Normal renal size and position. No hydronephrosis. STOMACH AND BOWEL: Diverticulosis of the colon noted without evidence of acute diverticulitis. PELVIS: APPENDIX: Appendix is visualized and normal in appearance. BLADDER: Normal. REPRODUCTIVE: Unremarkable as visualized. No mass. ABDOMEN and PELVIS: INTRAPERITONEAL SPACE: Normal. No ascites or other fluid collection. No free air. BONES/JOINTS: Hypertrophic changes noted along the margins of both hips raises the possibility of impingement. Multilevel vertebral body osteophytosis. No suspicious lytic or blastic abnormality. SOFT TISSUES: Normal. No discrete abdominal or pelvic wall hernia. VASCULATURE: Normal. Abdominal aorta is non-dilated. LYMPH NODES: Normal. No enlarged lymph nodes. CT/Abdomen/Pelvis W IV Cont ONLY IMPRESSION: 1. Bibasilar parenchymal densities consistent with focal pneumonia and/or atelectasis. 2. Pericholecystic fluid of uncertain significance. 3. Stable mild splenomegaly. 4. Diverticulosis coli. Electronically Signed: Raymundo Pyle MD at 16:49 EST Reading Location ID and State: [address] [place] [address] Tel , Service support ,
--- NOTE | 2022-07-23 15:17 | EDS_ITS ---
HPI History of Present Illness Chief Complaint: General Illness Detail of Chief Complaint: Bleeding from right ear. Abdominal and left flank pain Informant: patient Onset/Context/Timing Onset: Days Context: Gradual Onset Timing: Continuous Current Severity: Mild Maximum Severity: Mild Narrative Narrative: 52-year-old male history of anxiety, depression, diabetes and hypertension. He is on no blood thinners. He has she has 2 complaints first complaint he was cleaning his ear today and noticed blood from his right ear canal. Denies any fever. Denies any recent ear discomfort. Denies any change in his hearing. He has never had this happen before. Next complaint is left flank and diffuse abdominal pain. Been since . He denies any nausea or vomiting. He had 1 episode of loose stools today. He has had no prior abdominal surgeries. Denies any dysuria or hematuria. No abdominal trauma. Prior similar symptoms: No Recent Illness/Hospitalization: No PFSH PFSH Medical History Anxiety Depression Diabetes Gout Hyperlipidemia Hypertension Smoker Home Medications allopurinol 100 mg tablet 100 mg PO BIDCM 11/02/14 [History Last Taken 08/03/19] gabapentin 400 mg capsule 900 mg PO 4X/DAY 11/02/14 [History Last Taken 08/03/19] tamsulosin 0.4 mg capsule 0.4 mg PO DAILY 01/01/15 [History Last Taken 08/03/19] albuterol sulfate 90 mcg/actuation aerosol inhaler (Ventolin HFA) 2 puff inhalation Q4H PRN PRN Wheezing 06/18/15 [History Last Taken 08/03/19] metformin 500 mg tablet 1,000 mg PO BID 11/21/15 [History Last Taken 08/03/19] aripiprazole 5 mg tablet 5 mg PO DAILY 04/09/16 [History Last Taken 08/03/19] trazodone 300 mg tablet 300 mg PO QHS 03/16/18 [History Last Taken 08/03/19] diphenhydramine HCl 25 mg tablet 25 mg PO PRN PRN Allergies 08/01/19 [History Last Taken 08/03/19] atorvastatin 40 mg tablet 40 mg PO DAILY 11/30/20 [History Last Taken Unknown] bupropion HCl 150 mg 24 hr tablet, extended release 150 mg PO DAILY 11/30/20 [History Last Taken Unknown] benztropine 0.5 mg tablet 0.5 mg PO BID PRN PRN tremors 07/11/21 [History Last Taken Unknown] ibuprofen 600 mg tablet 600 mg PO Q6H PRN PRN pain #20 tabs 09/04/21 [Rx Last Taken Unknown] cephalexin 500 mg capsule 500 mg PO Q6 #40 CAPSULES 10/30/21 [Rx Last Taken Unknown] sulfamethoxazole 800 mg-trimethoprim 160 mg tablet 1 tab PO BID #20 TABLETS 10/30/21 [Rx Last Taken Unknown] codeine 10 mg-guaifenesin 100 mg/5 mL oral liquid (Guaifenesin AC) 5 ml PO Q6H PRN cough #118 mL 11/29/21 [Rx Last Taken Unknown] Allergy/AdvReac Type Severity Reaction Status Date / Time cyclobenzaprine HCl Allergy Hives Verified 07/23/22 14:51 [From Flexeril] dicyclomine HCl [From Bentyl] Allergy Rash Verified 07/23/22 14:51 duloxetine HCl Allergy Hives Verified 07/23/22 14:51 [From Cymbalta] meloxicam [From Mobic] Allergy Rash Verified 07/23/22 14:51 naproxen Allergy Hives Verified 07/23/22 14:51 quetiapine [From Seroquel] Allergy Rash Verified 07/23/22 14:51 tramadol HCl [From Ultram] Allergy Rash Verified 07/23/22 14:51 Surgical History History of neck surgery Social History household members: none Smoking Status: Current every day smoker tobacco type: cigarettes substance use type: does not use ROS ROS ED ROS Narrative Bleeding from right ear canal. Left flank and abdominal pain. Constitutional Constitutional ED: Denies chills or fever(s) Eyes Eyes: Denies blurry vision ENT ENT ED: Denies ear pain, rhinorrhea or sore throat Cardiovascular Cardiovascular: Denies chest pain Respiratory/Chest Respiratory/Chest: Denies cough or dyspnea Gastrointestinal Gastrointestinal: Reports abdominal pain; Denies constipation, diarrhea, melena, nausea or vomiting Genitourinary Genitourinary ED: Denies dysuria or hematuria Musculoskeletal Musculoskeletal: Reports other Details: Left flank pain ; Denies arthralgias Integumentary Denies abscess Neurologic Neurologic: Denies headache(s) Psychiatric Psychiatric: Denies anxiety Endocrine Endocrinology: Denies cold intolerance or heat intolerance Hematologic/Lymphatic Hematologic/Lymphatic: Reports none Allergic/Immunologic Allergic/Immunologic ED: Denies mouth swelling or tongue swelling EXAM Physical Exam Narrative Exam Narrative: 52-year-old old male. No acute distress. Vital signs stable afebrile. H EENT exam unremarkable except right ear canal there is blood at 6:00. The eardrum appears normal there is no obvious perforation or hemotympanum. I do not see where the blood is coming from along the bottom of the canal. No infection. Posterior pharynx normal. Pierced tongue. Neck nontender no lymphadenopathy. Lungs clear to auscultation. Heart regular rhythm rate about 80 no murmur. Chest were nontender. Abdomen soft minimal tenderness. No rebound, guarding rigidity. No hernia or mass. No pulsatile mass. No specific right upper or right lower quadrant tenderness. No signs of trauma. Back nontender. No flank tenderness. Moving all 4 extremities. Neurovascular intact. Neurologically is awake and alert with no focal motor deficits. Const Vital Signs: 07/23/22 14:50 07/23/22 15:00 07/23/22 16:21 Temperature 97.8 F Temperature Source Temporal Pulse Rate 81 79 Respiratory Rate 18 15 Respiratory Effort Normal Respiratory Pattern Normal Blood Pressure 135/88 H 142/85 H Blood Pressure Mean 103 104 Pulse Ox 98 99 Oxygen Delivery Method Room Air Room Air Positive well nourished, well developed and obese; Negative for cachectic, contractures or unkempt General Appearance ED: well developed and NAD; Negative for unkempt, cachectic, contractures, cyanotic or diaphoretic Nutritional Appearance: obese; Negative for cachectic HEENT Reports moist mucous membranes; Denies dry mucous membranes Negative for trauma or tenderness Mouth ED: No dry mucous membranes Mouth: No dry mucous membranes Eyes PERRL and EOMs intact bilaterally General Eye ED: Negative for pale conjunctiva, scleral icterus or other Neck no lymphadenopathy, supple and no JVD Chest Wall inspection of chest normal and palpation of chest normal Chest: Negative for other Resp normal respiratory effort and clear to auscultation bilaterally Effort and Inspection: Negative for retractions Auscultation: Negative for rales, rhonchi or wheezes Cardio regular rate, regular rhythm, S1 normal heart sound, S2 normal heart sound and no murmurs Rate: Negative for bradycardia or tachycardic Rhythm: Negative for abnormal rhythm GI normal to inspection, nondistended, normoactive bowel sounds, non-distended and no masses; Negative for non-tender Inspection: Negative for abdominal distention Auscultation: normoactive bowel sounds Palpation: soft and tender; Negative for guarding, splenomegaly, mass or rebound tenderness present Back/Spine no CVA tenderness General Back: Negative for CVA tenderness Cervical Spine: Negative for cervical spine tenderness Thoracic Spine / Upper Back: Negative for thoracic spinal tenderness Lumbar Spine / Lower Back: Negative for lumbar spinal tenderness Extremity normal to inspection General Extremety ED: Negative for edema or tenderness General Extremity: Negative for edema Neuro oriented x3 and CN's II-XII intact bilaterally Sensorium / Orientation: alert; Negative for orientation impaired, lethargic or stuporous Motor Exam: strength 5/5 throughout Psych mental status grossly normal Appearance: Negative for unkempt Attitude: No agitated Mood & Affect: Negative for depressed, anxious or tearful Skin no rashes or lesions noted and no wounds Lesions: No lesion noted Rashes: No rashes noted Trauma: Negative for abrasion Wounds: Negative for wounds noted MDM MDM MDM Narrative Medical decision making narrative: 52-year-old male with 2 complaints pain from his right ear most likely from trauma from a Q-tip. The TM appears normal without infection or perforation. Second plane is left flank and abdominal pain. He is got no history of kidney stones clinically does not look like he has a kidney stone. Said very minimal abdominal pain. CAT scan labs and urinalysis are being obtained. He did not need anything for pain. He is having no nausea or vomiting. Repeat exam at 5:27 PM patient doing well. We went over his lab results and CAT scan. I explained he may have a specific cause for his flank pain. It may be musculoskeletal. I rechecked his right ear there is no worsening of the bleeding. I think it is from an abrasion to the canal that he caused with the Q-tip. There is no signs of infection or eardrum rupture. Lab Data Attestation: I reviewed the patient's lab results. Lab results narrative: CBC normal. White count of 6.5. H&H of 14.6 and 43. Platelets 201. Electrolytes normal. Gap of 5. Normal BUN and creatinine at 10 and 0.8. Liver enzymes are normal. Lipase is normal at 250. Glucose is 278 he is diabetic. Urinalysis negative except for positive nitrites. Rare bacteria. Labs: Laboratory Results - last 24 hr 07/23/22 07/23/22 07/23/22 15:25 15:25 16:50 WBC 6.5 RBC 4.96 Hgb 14.6 Hct 43.5 MCV 87.7 MCH 29.4 MCHC 33.6 RDW Std Deviation 45.3 H RDW Coeff of Maddy 14.0 Plt Count 201 MPV 8.2 Immature Gran % (Auto) 0.500 Neut % (Auto) 70.1 H Lymph % (Auto) 18.9 L [place] % (Auto) 8.8 Eos % (Auto) 1.4 Baso % (Auto) 0.3 Absolute Neuts (auto) 4.6 Absolute Lymphs (auto) 1.23 Nucleated RBC % 0 Sodium 136 Potassium 3.9 Chloride 103 Carbon Dioxide 28.0 Anion Gap 5 BUN 10 Creatinine 0.88 Estim Creat Clear Calc 120.03 Est GFR (MDRD) Af Amer 117 Est GFR (MDRD) Non-Af 97 BUN/Creatinine Ratio 11.3 Glucose 278 H Calcium 9.0 Total Bilirubin 0.50 AST 14 L ALT 29 Alkaline Phosphatase 84 Total Protein 7.2 Albumin 3.5 Globulin 3.7 Albumin/Globulin Ratio 0.9 Lipase 250 Urine Color Yellow Urine Clarity Sl. Cloudy Urine pH 7.0 Ur Specific [place] 1.010 Urine Protein 30 H Urine Glucose (UA) 250 H Urine Ketones Negative Urine Occult Blood Negative Urine Nitrite Positive H Urine Bilirubin 3 H Urine Urobilinogen 8 H Ur Leukocyte Esterase 500 H Urine RBC 0-5 SEEN Urine WBC 0-5 SEEN Ur Squamous Epith Cells 0-5 SEEN Urine Bacteria RARE Urine Mucus 0 SEEN Radiography Diagnostic Testing: Clinical Impression(s) from Imaging Studies Abdomen/Pelvis CT 07/23/22 15:16 IMPRESSION: 1. Bibasilar parenchymal densities consistent with focal pneumonia and/or atelectasis. 2. Pericholecystic fluid of uncertain significance. 3. Stable mild splenomegaly. 4. Diverticulosis coli. Electronically Signed: Raymundo Pyle MD at 16:49 EST Reading Location ID and State: [facility] / [place] Tel , Service support , Discharge Plan Triage Chief Complaint: General Illness ED Provider: Quang Maciel Dx/Rx/DC Orders Clinical Impression: Acute left flank pain, Bleeding from right ear, History of diabetes mellitus Instructions: Abdominal Pain Prescriptions: No Action gabapentin 400 MG capsule 900 mg PO 4X/DAY Label Comments: Neuropathy/pinched nerve allopurinol 100 MG tablet 100 mg PO BIDCM Label Comments: gout tamsulosin 0.4 MG capsule 0.4 mg PO DAILY Label Comments: urine flow albuterol sulfate [Ventolin HFA] 1 INHALER inhaler 2 puff inhalation Q4H PRN PRN (Reason: Wheezing) Label Comments: sob,wheezing metformin 500 MG tablet 1,000 mg PO BID Label Comments: Take 1 tablet by mouth twice daily with meals. DIABETES aripiprazole 5 MG tablet 5 mg PO DAILY trazodone 300 MG tablet 300 mg PO QHS diphenhydramine HCl 25 MG tablet 25 mg PO PRN PRN (Reason: Allergies) atorvastatin 40 mg Tablet 40 mg PO DAILY bupropion HCl 150 mg Tablet Extended Release 24 Hr 150 mg PO DAILY benztropine 0.5 mg tablet 0.5 mg PO BID PRN PRN (Reason: tremors) Label Comments: Take 1 (ONE) Tablet By Oral Route 2 (TWO) times per day NEEDED ibuprofen 600 mg tablet 600 mg PO Q6H PRN PRN (Reason: pain) Qty: 20 0RF sulfamethoxazole-trimethoprim [sulfamethoxazole-trimethoprim] 1 TABLET tablet 1 tab PO BID Qty: 20 0RF cephalexin [cephalexin] 500 MG capsule 500 mg PO Q6 Qty: 40 0RF codeine-guaifenesin [Guaifenesin AC] 10-100 mg/5 mL liquid 5 ml PO Q6H PRN (Reason: cough) Qty: 118 0RF Primary Care Provider: Franklin Rodríguez Referrals: Franklin Rodríguez MD [Primary Care Provider] - 3-5 Days if not improving Activity Restrictions/Additional Instructions: No cause for your left flank pain. Your CAT scan and labs are unremarkable. The bleeding from your right ear is probably from an abrasion you cause in the ear canal from the Q-tip. Leave it alone the next few days that should improve. Disposition Disposition: Home, Self Care
[2022-07-23 15:38] LABS: Absolute Lymphocyte Count 1.23 X10^3/uL (0.83-4.51); Absolute Neutrophil Count 4.6 X10^3/uL (2.0-7.7); Basophil# 0.02 X10^3/uL; Basophil% 0.3 % (0-1); Eosinophil# 0.09 X10^3/uL; Eosinophils% 1.4 % (0-5); Hematocrit 43.5 % (40-54); Hemoglobin 14.6 g/dL (13.0-16.5); Lymphocyte # 1.23 X10^3/ul (0.83-4.51); Lymphocyte % 18.9 % (19-41); Mean Corp Hgb Conc 33.6 g/dL (32-36); Mean Corpuscular Hgb 29.4 pg (27.0-32.0); Mean Corpuscular Volume 87.7 fL (80-94); Mean Platelet Vol. 8.2 fl (6.2-12.0); Monocyte# 0.57 X10^3/uL; Monocyte% 8.8 % (0-10); NRBC Flagged by Analyzer 0 % (0-5); Neutrophil # 4.56 X10^3/uL (2.7-7.7); Neutrophil % 70.1 % (47-70); Platelet Count 201 K/mm3 (150-450); RBC Distribution Width SD 45.3 fl (35.1-43.9); Red Blood Count 4.96 M/mm3 (4.6-6.2); White Blood Count 6.5 K/mm3 (4.4-11.0)
[2022-07-23 15:56] LABS: ALB/GLOB Ratio 0.9 RATIO (0.9-2.4); AST(SGOT) 14 U/L (15-37); Alanine Aminotransfer ALT/SGPT 29 U/L (16-61); Albumin, Serum 3.5 g/dL (3.2-5.0); Alkaline Phosphatase 84 U/L (45-117); Anion Gap 5 (5-15); BUN 10 mg/dL (7-18); BUN/Creat Ratio 11.3 RATIO (10-20); Chloride 103 mmol/L (98-107); Creatinine, Serum 0.88 mg/dL (0.70-1.30); EST Glomerular Filtration Rate 97 mL/min (>60); Est Glom Filt Rate - Afr Amer 117 mL/min (>60); Estimated Creatinine Clearance 120.03 ml/min; Globulin 3.7 g/dL (2.2-4.2); Glucose 278 mg/dL (74-106); Lipase 250 U/L (73-393); Potassium 3.9 mmol/L (3.5-5.1); Protein, Total 7.2 g/dL (6.4-8.2); Sodium Level 136 mmol/L (136-145)
[2022-07-23 16:21] VITALS: BP 142/85; PULSE 79; RESP 15; O2SAT 99
[2022-07-23 16:57] LABS: Mucous, Urine 0 SEEN /hpf (<or=2+)
[2022-07-23 17:03] LABS: Color, Urine Yellow (Yellow); Glucose, Dipstick 250 mg/dl (Normal); Ketone-Dipstick Negative (Negative); Leukocyte Esterase-Dipstick 500 /ul (Negative); Nitrite-Dipstick Positive (Negative); Occult Blood-Urine Negative /ul (Negative); Protein-Dipstick 30 mg/dl (Negative); Urine Clarity Sl. Cloudy (Clear); Urine Urobilinogen 8 mg/dl (Normal)
[2022-07-23 17:05] LABS: Urine Bilirubin Dipstick 3 mg/dL (Negative)
[2022-07-23 17:16] LABS: Red Blood Cells-Urine 0-5 SEEN /hpf (0-5); Squamous Epithelial Cells - UA 0-5 SEEN /hpf (0-5); White Blood Cells 0-5 SEEN /hpf (0-5)
[2022-07-23 17:17] LABS: Bacteria RARE /hpf (None Seen)
[2022-07-23 17:38] VITALS: BP 157/81; PULSE 84; RESP 15; O2SAT 99
== END 2022-07-23 17:39 | disposition home or self-care (01) ==
PROVIDERS: Emergency Provider Emergency Medicine; PCP Family Medicine; Visit Provider Emergency Medicine
DX: R10.9 Unspecified abdominal pain (principal); H92.21 Otorrhagia, right ear; F17.210 Nicotine dependence, cigarettes, uncomplicated; E66.9 Obesity, unspecified
CPT/HCPCS: 74177; 80053; 81001; 83690; 85025; 99283; Q9967; A4216

== ENCOUNTER 2022-08-15 19:00 | Emergency (ER) | payer MEDICARE, MEDICAID, SELFPAY ==
[2022-08-15 19:01] VITALS: BP 134/86; PULSE 88; RESP 16; TEMP 36; O2SAT 98; BMI 31.8
--- NOTE | 2022-08-15 19:10 | RAD_ITS ---
EXAM: XR LEFT SHOULDER COMPLETE, 2 OR MORE VIEWS CLINICAL INDICATION: pain TECHNIQUE: Two or more views of the left shoulder. This report was created using [employer] report generation technology. COMPARISON: 05/18/2014 FINDINGS: BONES/JOINTS: There is chronic elevation of the distal clavicle above the acromion which may represent an acromial clavicular joint separation. There is also a bony fragment inferior to the distal clavicle that measures 2.6 x 1.5 cm possibly representing sequela from old trauma. No acute fracture. Normal alignment. No sclerotic or destructive changes observed. SOFT TISSUES: Unremarkable. No soft tissue swelling or gas. No radiopaque foreign body. 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 There is also a bony fragment inferior to the distal clavicle possibly the sequela from old trauma. There has been no change from the reference exam. If indicated further evaluation with MRI may be beneficial. Electronically Signed: Tam Grubbs MD at 19:25 EST ,
--- NOTE | 2022-08-15 21:21 | EDS_ITS ---
HPI History of Present Illness Chief Complaint: Upper Extremity Injury Detail of Chief Complaint: Posterior left neck pain, shoulder pain and upper back pain Informant: patient Occured/Mechanism Comment: There is no history of trauma. There is no history of lifting pushing anything heavy. Onset/Context/Timing Onset: Days Context: Sudden Onset Timing: Intermittent Quality of Pain: Aching Location: Posterior left neck, trapezius, scapula and shoulder Current Severity: Mild Maximum Severity: Moderate Worsened by: Certain movements and palpation Relieved by: Nothing Associated Symptoms Associated Symptoms: Negative for Parasthesia, Weakness or Loss of Funtion Narrative Narrative: Stephani is a 52-year-old male with history of GERD, hypertension, diabetes not know what his last A1c level is. He states he does not believe he has kidney dysfunction. He denies paresthesia, anesthesia or motor weakness. He denies headache. He denies cardiac or respiratory symptoms. He denies rash. Tetanus Immunization: Unknown Prior similar symptoms: No Recent Illness/Hospitalization: No PFSH PFSH Medical History Anxiety Depression Diabetes Gout Hyperlipidemia Hypertension Smoker Home Medications allopurinol 100 mg tablet 100 mg PO BIDCM 11/02/14 [History Last Taken 08/03/19] gabapentin 400 mg capsule 900 mg PO 4X/DAY 11/02/14 [History Last Taken 08/03/19] tamsulosin 0.4 mg capsule 0.4 mg PO DAILY 01/01/15 [History Last Taken 08/03/19] albuterol sulfate 90 mcg/actuation aerosol inhaler (Ventolin HFA) 2 puff inhalation Q4H PRN PRN Wheezing 06/18/15 [History Last Taken 08/03/19] metformin 500 mg tablet 1,000 mg PO BID 11/21/15 [History Last Taken 08/03/19] aripiprazole 5 mg tablet 5 mg PO DAILY 04/09/16 [History Last Taken 08/03/19] trazodone 300 mg tablet 300 mg PO QHS 03/16/18 [History Last Taken 08/03/19] diphenhydramine HCl 25 mg tablet 25 mg PO PRN PRN Allergies 08/01/19 [History Last Taken 08/03/19] atorvastatin 40 mg tablet 40 mg PO DAILY 11/30/20 [History Last Taken Unknown] bupropion HCl 150 mg 24 hr tablet, extended release 150 mg PO DAILY 11/30/20 [History Last Taken Unknown] benztropine 0.5 mg tablet 0.5 mg PO BID PRN PRN tremors 07/11/21 [History Last Taken Unknown] ibuprofen 600 mg tablet 600 mg PO Q6H PRN PRN pain #20 tabs 09/04/21 [Rx Last Taken Unknown] cephalexin 500 mg capsule 500 mg PO Q6 #40 CAPSULES 10/30/21 [Rx Last Taken Unknown] sulfamethoxazole 800 mg-trimethoprim 160 mg tablet 1 tab PO BID #20 TABLETS 10/30/21 [Rx Last Taken Unknown] codeine 10 mg-guaifenesin 100 mg/5 mL oral liquid (Guaifenesin AC) 5 ml PO Q6H PRN cough #118 mL 11/29/21 [Rx Last Taken Unknown] Allergy/AdvReac Type Severity Reaction Status Date / Time cyclobenzaprine HCl Allergy Hives Verified 08/15/22 19:01 [From Flexeril] dicyclomine HCl [From Bentyl] Allergy Rash Verified 08/15/22 19:01 duloxetine HCl Allergy Hives Verified 08/15/22 19:01 [From Cymbalta] meloxicam [From Mobic] Allergy Rash Verified 08/15/22 19:01 naproxen Allergy Hives Verified 08/15/22 19:01 quetiapine [From Seroquel] Allergy Rash Verified 08/15/22 19:01 tramadol HCl [From Ultram] Allergy Rash Verified 08/15/22 19:01 Surgical History History of neck surgery Social History household members: none Smoking Status: Current every day smoker tobacco type: cigarettes substance use type: does not use ROS ROS ED Constitutional Constitutional ED: Denies chills, fever(s), subjective, sweats or weight loss Eyes Eyes: Denies blurry vision, change in vision or diplopia ENT ENT ED: Denies ear pain, rhinorrhea or sore throat Cardiovascular Cardiovascular: Denies chest pain, orthopnea, palpitations, paroxysmal nocturnal dyspnea or racing heartbeat Respiratory/Chest Respiratory/Chest: Denies cough, dyspnea, dyspnea on exertion, orthopnea or paroxysmal nocturnal dyspnea Musculoskeletal Musculoskeletal: Reports back pain and neck pain; Denies myalgias Integumentary Denies rash Neurologic Neurologic: Denies paresthesias or weakness Hematologic/Lymphatic Hematologic/Lymphatic: Denies easy bleeding or easy bruising EXAM Physical Exam Const Vital Signs: 08/15/22 19:01 Temperature 96.8 F L Temperature Source Temporal Pulse Rate 88 Respiratory Rate 16 Blood Pressure 134/86 H Blood Pressure Mean 102 Pulse Ox 98 Oxygen Delivery Method Room Air Positive well nourished, well developed, obese and unkempt Constitutional Narrative: I entered the room patient was typing something onto his smart phone. General Appearance ED: unkempt, well developed and NAD; Negative for cyanotic or diaphoretic Nutritional Appearance: obese HEENT Reports moist mucous membranes normocephalic and atraumatic Eyes PERRL and EOMs intact bilaterally Neck full ROM and supple Neck Narrative: There is pain palpation left paracervical area. There is pain ovation over the left trapezius, left shoulder and left scapular region. Certain movement causes him pain as well. He has limited range of motion because of discomfort of his neck and left shoulder. Chest Wall inspection of chest normal and palpation of chest normal Resp normal respiratory effort and clear to auscultation bilaterally Cardio regular rate, regular rhythm, S1 normal heart sound, S2 normal heart sound and no murmurs Back/Spine no CVA tenderness Back/Spine Narrative: He has pain over the left paracervical, trapezius and shoulder region. Cervical Spine: Negative for cervical spine tenderness Thoracic Spine / Upper Back: Negative for thoracic spinal tenderness Extremity normal to inspection and full ROM Extremity Narrative: Axillary, median, radial and ulnar function intact. Radial pulses palpable and symmetric. Neuro oriented x3, CN's II-XII intact bilaterally, moves all extremities, no focal motor deficits and no sensory deficits noted Sensorium / Orientation: alert Psych Appearance: unkempt Skin Skin Narrative: Patient has no dermatologic lesions. He has no hypersensitivity. There is no concern for herpes varicella-zoster. General Skin Exam: Negative for petechiae Lesions: no lesions Rashes: no rashes Trauma: no lacerations or abrasions MDM MDM MDM Narrative Medical decision making narrative: X-ray was obtained per protocol. Patient's history and physicals consistent with musculoskeletal pain. Prior records indicates that patient has fairly good control of his diabetes. He has normal renal function as of basic metabolic panel obtained 1 to 2 weeks ago. There is no history of ulcers. Therefore we will treat with ice, short course of NSAIDs and follow-up with his primary care physician. Three-view x-ray of the shoulder reveals a prior injury to the left AC joint. There is arthritic changes. There is no other abnormalities noted. Patient does not have point tenderness over his AC joint. 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 There is also a bony fragment inferior to the distal clavicle possibly the sequela from old trauma. There has been no change from the reference exam. If indicated further evaluation with MRI may be beneficial. Electronically Signed: Tam Grubbs MD at 19:25 EST Reading Location ID and State: [address] [place] [address] Tel , Service support , Discharge Plan Triage Chief Complaint: Upper Extremity Injury ED Provider: Samuel Johnson Dx/Rx/DC Orders Clinical Impression: Pain of left shoulder region, GERD (gastroesophageal reflux disease), Hypertension, Posterior neck pain, Type 2 diabetes mellitus Instructions: ED Myalgias Prescriptions: No Action gabapentin 400 MG capsule 900 mg PO 4X/DAY Label Comments: Neuropathy/pinched nerve allopurinol 100 MG tablet 100 mg PO BIDCM Label Comments: gout tamsulosin 0.4 MG capsule 0.4 mg PO DAILY Label Comments: urine flow albuterol sulfate [Ventolin HFA] 1 INHALER inhaler 2 puff inhalation Q4H PRN PRN (Reason: Wheezing) Label Comments: sob,wheezing metformin 500 MG tablet 1,000 mg PO BID Label Comments: Take 1 tablet by mouth twice daily with meals. DIABETES aripiprazole 5 MG tablet 5 mg PO DAILY trazodone 300 MG tablet 300 mg PO QHS diphenhydramine HCl 25 MG tablet 25 mg PO PRN PRN (Reason: Allergies) atorvastatin 40 mg Tablet 40 mg PO DAILY bupropion HCl 150 mg Tablet Extended Release 24 Hr 150 mg PO DAILY benztropine 0.5 mg tablet 0.5 mg PO BID PRN PRN (Reason: tremors) Label Comments: Take 1 (ONE) Tablet By Oral Route 2 (TWO) times per day NEEDED ibuprofen 600 mg tablet 600 mg PO Q6H PRN PRN (Reason: pain) Qty: 20 0RF sulfamethoxazole-trimethoprim [sulfamethoxazole-trimethoprim] 1 TABLET tablet 1 tab PO BID Qty: 20 0RF cephalexin [cephalexin] 500 MG capsule 500 mg PO Q6 Qty: 40 0RF codeine-guaifenesin [Guaifenesin AC] 10-100 mg/5 mL liquid 5 ml PO Q6H PRN (Reason: cough) Qty: 118 0RF Primary Care Provider: Fabian Palm Referrals: Fabian Palm MD [Primary Care Provider] - 3-5 Days if not improving Activity Restrictions/Additional Instructions: Take your meloxicam as prescribed. Apply ice 6-10 times a day Avoid activity that causes you pain If you are not better in 3 to [address] Palm Disposition Disposition: Home, Self Care
== END 2022-08-15 21:38 | disposition home or self-care (01) ==
PROVIDERS: Emergency Provider Emergency Medicine; PCP Family Medicine; Visit Provider Emergency Medicine
DX: M25.512 Pain in left shoulder (principal); E11.9 Type 2 diabetes mellitus without complications; K21.9 Gastro-esophageal reflux disease without esophagitis; I10 Essential (primary) hypertension; M54.2 Cervicalgia; F17.210 Nicotine dependence, cigarettes, uncomplicated
CPT/HCPCS: 73030; 99282

== ENCOUNTER 2022-10-12 17:34 | Emergency (ER) | payer MEDICARE, MEDICAID, SELFPAY ==
[2022-10-12 17:36] VITALS: BP 120/88; PULSE 75; RESP 14; TEMP 36.6; O2SAT 96; BMI 32.2
--- NOTE | 2022-10-12 18:32 | EX.ED.DYSGE1 ---
HPI History of Present Illness Chief Complaint: Diarrhea Detail of Chief Complaint: Cough and diarrhea Informant: patient Narrative Narrative: Patient presents the emergency department with complaint of a cough that started several days ago. Patient also states that he had 1 day of diarrhea but that that is now resolved. Cough is mostly nonproductive. He denies fever. He denies sick contacts. He denies sore throat or body aches. Patient denies abdominal pain. Patient does have his sleep apnea and uses a sleep apnea machine. PFSH PFSH Medical History Anxiety Barretts esophagus Depression Diabetes Gout Hyperlipidemia Hypertension Sleep apnea Smoker Home Medications allopurinol 100 mg tablet 100 mg PO BIDCM 11/02/14 [History Last Taken 08/03/19] gabapentin 400 mg capsule 900 mg PO 4X/DAY 11/02/14 [History Last Taken 08/03/19] tamsulosin 0.4 mg capsule 0.4 mg PO DAILY 01/01/15 [History Last Taken 08/03/19] albuterol sulfate 90 mcg/actuation aerosol inhaler (Ventolin HFA) 2 puff inhalation Q4H PRN PRN Wheezing 06/18/15 [History Last Taken 08/03/19] metformin 500 mg tablet 1,000 mg PO BID 11/21/15 [History Last Taken 08/03/19] aripiprazole 5 mg tablet 5 mg PO DAILY 04/09/16 [History Last Taken 08/03/19] trazodone 300 mg tablet 300 mg PO QHS 03/16/18 [History Last Taken 08/03/19] diphenhydramine HCl 25 mg tablet 25 mg PO PRN PRN Allergies 08/01/19 [History Last Taken 08/03/19] atorvastatin 40 mg tablet 40 mg PO DAILY 11/30/20 [History Last Taken Unknown] bupropion HCl 150 mg 24 hr tablet, extended release 150 mg PO DAILY 11/30/20 [History Last Taken Unknown] benztropine 0.5 mg tablet 0.5 mg PO BID PRN PRN tremors 07/11/21 [History Last Taken Unknown] ibuprofen 600 mg tablet 600 mg PO Q6H PRN PRN pain #20 tabs 09/04/21 [Rx Last Taken Unknown] cephalexin 500 mg capsule 500 mg PO Q6 #40 CAPSULES 10/30/21 [Rx Last Taken Unknown] sulfamethoxazole 800 mg-trimethoprim 160 mg tablet 1 tab PO BID #20 TABLETS 10/30/21 [Rx Last Taken Unknown] codeine 10 mg-guaifenesin 100 mg/5 mL oral liquid (Guaifenesin AC) 5 ml PO Q6H PRN cough #118 mL 11/29/21 [Rx Last Taken Unknown] benzonatate 200 mg capsule 200 mg PO TID PRN cough #20 caps 10/12/22 [Rx Last Taken Unknown] Allergy/AdvReac Type Severity Reaction Status Date / Time cyclobenzaprine HCl Allergy Hives Verified 10/12/22 17:36 [From Flexeril] dicyclomine HCl [From Bentyl] Allergy Rash Verified 10/12/22 17:36 duloxetine HCl Allergy Hives Verified 10/12/22 17:36 [From Cymbalta] meloxicam [From Mobic] Allergy Rash Verified 10/12/22 17:36 naproxen Allergy Hives Verified 10/12/22 17:36 quetiapine [From Seroquel] Allergy Rash Verified 10/12/22 17:36 tramadol HCl [From Ultram] Allergy Rash Verified 10/12/22 17:36 Surgical History (Updated 10/12/22 @ 18:34 by Claudia Angel) History of eyelid surgery History of neck surgery Social History household members: none Smoking Status: Current every day smoker tobacco type: cigarettes substance use type: does not use ROS ROS ED Review of Systems ROS Unobtainable: other Constitutional Constitutional ED: Reports lethargy; Denies chills, fever(s), sweats or weight loss Eyes Eyes: Denies blurry vision, change in vision or diplopia ENT ENT ED: Denies rhinorrhea or sore throat Cardiovascular Cardiovascular: Denies chest pain, orthopnea or racing heartbeat Respiratory/Chest Respiratory/Chest: Reports cough; Denies dyspnea, dyspnea on exertion, orthopnea or sputum Gastrointestinal Gastrointestinal: Reports diarrhea; Denies abdominal pain, nausea or vomiting Genitourinary Genitourinary ED: Denies dysuria, hematuria or urinary frequency Musculoskeletal Musculoskeletal: Denies arthralgias, back pain, myalgias or neck pain Integumentary Denies abscess, Abrasions or rash Neurologic Neurologic: Denies headache(s) or weakness Psychiatric Psychiatric: Denies anxiety, depression or suicidal thoughts Endocrine Endocrinology: Denies polydipsia, polyphagia or polyuria Hematologic/Lymphatic Hematologic/Lymphatic: Denies easy bleeding, easy bruising or lymphadenopathy Allergic/Immunologic Allergic/Immunologic ED: Denies mouth swelling, tongue swelling or urticaria EXAM Physical Exam Const Vital Signs: 10/12/22 17:36 10/12/22 18:36 Temperature 98 F Temperature Source Temporal Pulse Rate 75 77 Respiratory Rate 14 18 Blood Pressure 120/88 H 127/73 H Blood Pressure Mean 98 91 Pulse Ox 96 95 Oxygen Delivery Method Room Air Room Air Positive well nourished and well developed General Appearance ED: well developed and NAD HEENT Reports TM's clear and moist mucous membranes normocephalic and atraumatic; Negative for trauma or tenderness Tympanic Membrane ED: Yes TM's clear Eyes PERRL and EOMs intact bilaterally General Eye ED: Negative for pale conjunctiva or scleral icterus Neck no lymphadenopathy, supple and no JVD General: Negative for tenderness Chest Wall inspection of chest normal and palpation of chest normal Chest: Negative for tenderness Resp normal respiratory effort and clear to auscultation bilaterally Effort and Inspection: Negative for respiratory distress or pain with movement Auscultation: Negative for rhonchi, wheezes or diminished lung sounds Cardio regular rate, regular rhythm, S1 normal heart sound, S2 normal heart sound and no murmurs Peripheral Pulses: pulses 2+ throughout GI normal to inspection, nondistended, normoactive bowel sounds, soft to palpation, non-tender, non-distended and no masses Back/Spine no CVA tenderness and no thoracic nor lumbar tenderness Extremity normal to inspection General Extremety ED: Negative for edema General Extremity: Negative for edema Neuro oriented x3, CN's II-XII intact bilaterally, no sensory deficits noted and gait normal Sensorium / Orientation: awake, alert, oriented to person, oriented to place and oriented to time Motor Exam: strength 5/5 throughout and strength abnormal Psych mental status grossly normal Skin no rashes or lesions noted and no wounds MDM MDM MDM Narrative Medical decision making narrative: Patient had a rapid COVID test and flu test that were both negative. 1 view chest x-ray obtained was negative for acute disease process. Given his symptomatology I suspect likely viral etiology. Patient looks well. Not hypoxic. Will treat symptomatically and write a prescription for Tessalon Perles. Patient to follow-up with primary care physician within next 5 to 7 days. He is advised to return if increasing shortness of breath or condition should worsen anyway. Radiography Diagnostic Testing: Clinical Impression(s) from Imaging Studies Chest X-Ray 10/12/22 18:48 IMPRESSION: 1. No evidence of acute cardiopulmonary process Electronically Signed: Kip Marroquin MD at 18:59 EDT , 1 view chest x-ray obtained interpreted by myself showed no evidence of infiltrate or pneumothorax or acute disease process. Radiology in agreement. Discharge Plan Triage Chief Complaint: Diarrhea ED Provider: Opal Singh Dx/Rx/DC Orders Clinical Impression: Viral URI Instructions: ED URI, Viral, No Abx (Adult) Prescriptions: New benzonatate 200 mg capsule 200 mg PO TID PRN (Reason: cough) Qty: 20 0RF No Action gabapentin 400 MG capsule 900 mg PO 4X/DAY Label Comments: Neuropathy/pinched nerve allopurinol 100 MG tablet 100 mg PO BIDCM Label Comments: gout tamsulosin 0.4 MG capsule 0.4 mg PO DAILY Label Comments: urine flow albuterol sulfate [Ventolin HFA] 1 INHALER inhaler 2 puff inhalation Q4H PRN PRN (Reason: Wheezing) Label Comments: sob,wheezing metformin 500 MG tablet 1,000 mg PO BID Label Comments: Take 1 tablet by mouth twice daily with meals. DIABETES aripiprazole 5 MG tablet 5 mg PO DAILY trazodone 300 MG tablet 300 mg PO QHS diphenhydramine HCl 25 MG tablet 25 mg PO PRN PRN (Reason: Allergies) atorvastatin 40 mg Tablet 40 mg PO DAILY bupropion HCl 150 mg Tablet Extended Release 24 Hr 150 mg PO DAILY benztropine 0.5 mg tablet 0.5 mg PO BID PRN PRN (Reason: tremors) Label Comments: Take 1 (ONE) Tablet By Oral Route 2 (TWO) times per day NEEDED ibuprofen 600 mg tablet 600 mg PO Q6H PRN PRN (Reason: pain) Qty: 20 0RF sulfamethoxazole-trimethoprim [sulfamethoxazole-trimethoprim] 1 TABLET tablet 1 tab PO BID Qty: 20 0RF cephalexin [cephalexin] 500 MG capsule 500 mg PO Q6 Qty: 40 0RF codeine-guaifenesin [Guaifenesin AC] 10-100 mg/5 mL liquid 5 ml PO Q6H PRN (Reason: cough) Qty: 118 0RF Primary Care Provider: Fabian Palm Referrals: Fabian Palm MD [[facility]] - 5-7 Days Disposition Disposition: Home, Self Care
[2022-10-12 18:36] VITALS: BP 127/73; PULSE 77; RESP 18; O2SAT 95
--- NOTE | 2022-10-12 18:48 | RAD_ITS ---
INDICATION: dyspnea EXAMINATION/TECHNIQUE: X-RAY - XR Chest 1 View COMPARISON: 06/30/2021, lateral chest radiograph of 11/28/2021, PA view not available on the day. FINDINGS: LIFE-SUPPORT AND LINES: 1. None HEART AND VESSELS: The cardiac silhouette, pulmonary vasculature have normal appearance. No evidence of congestive failure. LUNGS AND PLEURAL SPACES: Lungs are clear. No focal infiltrate, consolidation or effusions. No evidence of pneumothorax. No pulmonary mass is noted. MEDIASTINUM AND HILAR REGIONS: No masses adenopathy noted. No areas of calcification. Visualized upper airway is normal in position. BONY ELEMENTS: No acute bony changes noted. Postoperative changes involving the lower cervical spine. RAD/Chest 1 View (Portable) IMPRESSION: 1. No evidence of acute cardiopulmonary process Electronically Signed: Kip Marroquin MD at 18:59 EDT ,
[2022-10-12 19:59] VITALS: BP 108/67; PULSE 77; RESP 16; O2SAT 94
== END 2022-10-12 20:00 | disposition home or self-care (01) ==
PROVIDERS: Emergency Provider Emergency Medicine; PCP Family Medicine; Visit Provider Emergency Medicine
DX: J06.9 Acute upper respiratory infection, unspecified (principal); G47.30 Sleep apnea, unspecified; F17.210 Nicotine dependence, cigarettes, uncomplicated
CPT/HCPCS: 71045; 87428; 99282

== ENCOUNTER 2022-12-25 09:55 | Emergency (ER) | payer MEDICARE, MEDICAID, SELFPAY ==
[2022-12-25 09:56] VITALS: BP 124/86; PULSE 78; RESP 14; TEMP 36.3; O2SAT 100; BMI 32.1
--- NOTE | 2022-12-25 10:24 | EDS_ITS ---
HPI History of Present Illness Chief Complaint: Wound Narrative Narrative: 52-year-old male past medical history of diabetes presents with blister on his right foot between his first and second digit that ruptured. He states that he went fishing the other day, almost 2 days ago and was walking, and when he took off his shoe and sock, noticed a blister on the bottom of his foot between his first and second digit on his right foot. He denies any fevers or chills, no nausea or vomiting, no previous diabetic foot ulcers. He states he does not get his feet checked regularly. This morning, the blister popped, and was draining clear fluid. He presents for evaluation of the blister on his right foot. PFSH PFSH Medical History Anxiety Barretts esophagus Depression Diabetes Gout Hyperlipidemia Hypertension Sleep apnea Smoker Home Medications allopurinol 100 mg tablet 100 mg PO BIDCM 11/02/14 [History Last Taken 08/03/19] gabapentin 400 mg capsule 900 mg PO 4X/DAY 11/02/14 [History Last Taken 08/03/19] tamsulosin 0.4 mg capsule 0.4 mg PO DAILY 01/01/15 [History Last Taken 08/03/19] albuterol sulfate 90 mcg/actuation aerosol inhaler (Ventolin HFA) 2 puff inh alation Q4H PRN PRN Wheezing 06/18/15 [History Last Taken 08/03/19] metformin 500 mg tablet 1,000 mg PO BID 11/21/15 [History Last Taken 08/03/19] aripiprazole 5 mg tablet 5 mg PO DAILY 04/09/16 [History Last Taken 08/03/19] trazodone 300 mg tablet 300 mg PO QHS 03/16/18 [History Last Taken 08/03/19] diphenhydramine HCl 25 mg tablet 25 mg PO PRN PRN Allergies 08/01/19 [History Last Taken 08/03/19] atorvastatin 40 mg tablet 40 mg PO DAILY 11/30/20 [History Last Taken Unknown] bupropion HCl 150 mg 24 hr tablet, extended release 150 mg PO DAILY 11/30/20 [History Last Taken Unknown] benztropine 0.5 mg tablet 0.5 mg PO BID PRN PRN tremors 07/11/21 [History Last Taken Unknown] ibuprofen 600 mg tablet 600 mg PO Q6H PRN PRN pain #20 tabs 09/04/21 [Rx Last Taken Unknown] cephalexin 500 mg capsule 500 mg PO Q6 #40 CAPSULES 10/30/21 [Rx Last Taken Unknown] sulfamethoxazole 800 mg-trimethoprim 160 mg tablet 1 tab PO BID #20 TABLETS 10/30/21 [Rx Last Taken Unknown] codeine 10 mg-guaifenesin 100 mg/5 mL oral liquid (Guaifenesin AC) 5 ml PO Q6H PRN cough #118 mL 11/29/21 [Rx Last Taken Unknown] benzonatate 200 mg capsule 200 mg PO TID PRN cough #20 caps 10/12/22 [Rx Last Taken Unknown] amoxicillin 875 mg-potassium clavulanate 125 mg tablet 1 tab PO BID #14 tabs 12/25/22 [Rx Last Taken Unknown] Allergy/AdvReac Type Severity Reaction Status Date / Time cyclobenzaprine HCl Allergy Hives Verified 12/25/22 09:57 [From Flexeril] dicyclomine HCl [From Bentyl] Allergy Rash Verified 12/25/22 09:57 duloxetine HCl Allergy Hives Verified 12/25/22 09:57 [From Cymbalta] meloxicam [From Mobic] Allergy Rash Verified 12/25/22 09:57 naproxen Allergy Hives Verified 12/25/22 09:57 quetiapine [From Seroquel] Allergy Rash Verified 12/25/22 09:57 tramadol HCl [From Ultram] Allergy Rash Verified 12/25/22 09:57 Surgical History History of eyelid surgery History of neck surgery Social History household members: none Smoking Status: Current every day smoker tobacco type: cigarettes substance use type: does not use ROS ROS ED ROS Narrative Constitutional: No fever, no chills. HEENT: No sore throat. No neck pain. No loss of vision. No rhinorrhea. Cardiovascular: No chest pain. No palpitations. No pedal edema. Respiratory: No cough, no shortness of breath. Abdominal: No abdominal pain. No nausea. No vomiting. Genitourinary: No dysuria. No hematuria. Musculoskeletal: No myalgias. No arthralgias. Neurologic: No headaches. No dizziness. No lightheadedness. Skin: No rash. No change in color. Blister on plantar aspect of right foot between first and second digit. Now draining clear fluid. Psychiatric: No depression. No anxiety. EXAM Physical Exam Narrative Exam Narrative: Afebrile. Vital signs noted. HEENT: Normocephalic. Atraumatic. PERRL, EOMI. Neck soft and supple. No point tenderness or step off. Cardiovascular: Regular rate and rhythm. No murmurs, rubs, or gallops appreciated. Respiratory: No tachypnea. Lungs clear to auscultation bilaterally. Gastrointestinal: Abdomen soft, nontender, with normoactive bowel sounds. No rebound or guarding. Neurological: Awake. Alert. Nonfocal, nonlateralizing. Skin: No rash. Normal color. No pallor. Positive blister on plantar aspect between first and second digit of right foot, no purulent drainage, no erythema, no lymphangitis. Palpable dorsalis pedis pulse. Musculoskeletal: No pedal edema. Full range of motion extremities. Const Vital Signs: 12/25/22 09:56 Temperature 97.4 F L Temperature Source Temporal Pulse Rate 78 Respiratory Rate 14 Blood Pressure 124/86 H Blood Pressure Mean 98 Pulse Ox 100 Oxygen Delivery Method Room Air MDM MDM MDM Narrative Medical decision making narrative: Patient is afebrile here. He is not tachycardic. I do not have concern for sepsis. Additionally, I do feel that this is a simple blister that has ruptured, that is not infected. I do not feel that laboratory work or imaging is indicated. I will put him on antibiotics for prophylaxis as he is a diabetic. He will follow-up with his primary care provider, but he states he does not get diabetic foot checks regularly by podiatry so he was referred to the on-call physician, Dr. Bry Dupont for a wound check in the next 2 days. I wrote a prescription for Augmentin to take over the next week, twice a day, and he was given his first dose here in the emergency department. He was to return with signs of infection including fever, increased redness or purulent drainage, new or worsening symptoms. I feel he can be discharged safely home and that he does not require observation or admission at this time. Disposition is discharged home in stable condition. Discharge Plan Triage Chief Complaint: Wound ED Provider: Nick Gage Dx/Rx/DC Orders Clinical Impression: Blister of right foot without infection, History of diabetes mellitus Instructions: ED Blister (Adult) Prescriptions: New amoxicillin-pot clavulanate 875-125 mg tablet 1 tab PO BID Qty: 14 0RF No Action gabapentin 400 MG capsule 900 mg PO 4X/DAY Label Comments: Neuropathy/pinched nerve allopurinol 100 MG tablet 100 mg PO BIDCM Label Comments: gout tamsulosin 0.4 MG capsule 0.4 mg PO DAILY Label Comments: urine flow albuterol sulfate [Ventolin HFA] 1 INHALER inhaler 2 puff inhalation Q4H PRN PRN (Reason: Wheezing) Label Comments: sob,wheezing metformin 500 MG tablet 1,000 mg PO BID Label Comments: Take 1 tablet by mouth twice daily with meals. DIABETES aripiprazole 5 MG tablet 5 mg PO DAILY trazodone 300 MG tablet 300 mg PO QHS diphenhydramine HCl 25 MG tablet 25 mg PO PRN PRN (Reason: Allergies) atorvastatin 40 mg Tablet 40 mg PO DAILY bupropion HCl 150 mg Tablet Extended Release 24 Hr 150 mg PO DAILY benztropine 0.5 mg tablet 0.5 mg PO BID PRN PRN (Reason: tremors) Label Comments: Take 1 (ONE) Tablet By Oral Route 2 (TWO) times per day NEEDED ibuprofen 600 mg tablet 600 mg PO Q6H PRN PRN (Reason: pain) Qty: 20 0RF sulfamethoxazole-trimethoprim [sulfamethoxazole-trimethoprim] 1 TABLET tablet 1 tab PO BID Qty: 20 0RF cephalexin [cephalexin] 500 MG capsule 500 mg PO Q6 Qty: 40 0RF codeine-guaifenesin [Guaifenesin AC] 10-100 mg/5 mL liquid 5 ml PO Q6H PRN (Reason: cough) Qty: 118 0RF benzonatate 200 mg capsule 200 mg PO TID PRN (Reason: cough) Qty: 20 0RF Primary Care Provider: Fabian Palm Referrals: Fabian Palm MD [Primary Care Provider] - As soon as possible Bry Dupont DPM [Med Staff - Active Staff] - 2 Days for wound check Disposition Disposition: Home, Self Care
[2022-12-25] MEDS: Amox/Clavulanate 875 MG Tablet PO (10:27)
== END 2022-12-25 10:32 | disposition home or self-care (01) ==
PROVIDERS: Emergency Provider Emergency Medicine; PCP Family Medicine; Visit Provider Emergency Medicine
DX: S90.829A Blister (nonthermal), unspecified foot, initial encounter (principal); F17.210 Nicotine dependence, cigarettes, uncomplicated; G47.30 Sleep apnea, unspecified; Y93.01 Activity, walking, marching and hiking
CPT/HCPCS: 99283

== ENCOUNTER 2023-01-27 11:41 | Emergency (ER) | payer MEDICARE, MEDICAID, SELFPAY ==
[2023-01-27 11:42] VITALS: BP 133/87; PULSE 87; RESP 14; TEMP 36.5; O2SAT 98; BMI 32.5
--- NOTE | 2023-01-27 11:52 | EDS_ITS ---
HPI <DEVEN Cummings - Last Filed: 01/27/23 13:43> History of Present Illness Chief Complaint: Chest Other Narrative Narrative: 52-year-old male presents with a lump on his left lower rib cage that he noticed 2 days ago. It is uncomfortable but not painful. He denies injury. He has no chest pain, shortness of breath, or upper respiratory symptoms. He also wants evaluated for blisters on his right foot. He states that occurred a month ago and he was on a week of antibiotics and is scheduled to see a field crops harvest machine operator, Dr. Dupont on 02/09. The blisters popped a while ago but the skin has not gone back to normal which concerned him. No drainage. He has type 2 diabetes. PFS <DEVEN Cummings - Last Filed: 01/27/23 13:43> [facility] Medical History Anxiety Barretts esophagus Depression Diabetes Gout Hyperlipidemia Hypertension Sleep apnea Smoker Home Medications allopurinol 100 mg tablet 100 mg PO BIDCM 11/02/14 [History Last Taken 08/03/19] gabapentin 400 mg capsule 900 mg PO 4X/DAY 11/02/14 [History Last Taken 08/03/19] tamsulosin 0.4 mg capsule 0.4 mg PO DAILY 01/01/15 [History Last Taken 08/03/19] albuterol sulfate 90 mcg/actuation aerosol inhaler (Ventolin HFA) 2 puff inhalation Q4H PRN PRN Wheezing 06/18/15 [History Last Taken 08/03/19] metformin 500 mg tablet 1,000 mg PO BID 11/21/15 [History Last Taken 08/03/19] aripiprazole 5 mg tablet 5 mg PO DAILY 04/09/16 [History Last Taken 08/03/19] trazodone 300 mg tablet 300 mg PO QHS 03/16/18 [History Last Taken 08/03/19] diphenhydramine HCl 25 mg tablet 25 mg PO PRN PRN Allergies 08/01/19 [History Last Taken 08/03/19] atorvastatin 40 mg tablet 40 mg PO DAILY 11/30/20 [History Last Taken Unknown] bupropion HCl 150 mg 24 hr tablet, extended release 150 mg PO DAILY 11/30/20 [History Last Taken Unknown] benztropine 0.5 mg tablet 0.5 mg PO BID PRN PRN tremors 07/11/21 [History Last Taken Unknown] ibuprofen 600 mg tablet 600 mg PO Q6H PRN PRN pain #20 tabs 09/04/21 [Rx Last Taken Unknown] cephalexin 500 mg capsule 500 mg PO Q6 #40 CAPSULES 10/30/21 [Rx Last Taken Unknown] sulfamethoxazole 800 mg-trimethoprim 160 mg tablet 1 tab PO BID #20 TABLETS 10/30/21 [Rx Last Taken Unknown] codeine 10 mg-guaifenesin 100 mg/5 mL oral liquid (Guaifenesin AC) 5 ml PO Q6H PRN cough #118 mL 11/29/21 [Rx Last Taken Unknown] benzonatate 200 mg capsule 200 mg PO TID PRN cough #20 caps 10/12/22 [Rx Last Taken Unknown] amoxicillin 875 mg-potassium clavulanate 125 mg tablet 1 tab PO BID #14 tabs 12/25/22 [Rx Last Taken Unknown] Allergy/AdvReac Type Severity Reaction Status Date / Time cyclobenzaprine HCl Allergy Hives Verified 01/27/23 11:43 [From Flexeril] dicyclomine HCl [From Bentyl] Allergy Rash Verified 01/27/23 11:43 duloxetine HCl Allergy Hives Verified 01/27/23 11:43 [From Cymbalta] meloxicam [From Mobic] Allergy Rash Verified 01/27/23 11:43 naproxen Allergy Hives Verified 01/27/23 11:43 quetiapine [From Seroquel] Allergy Rash Verified 01/27/23 11:43 tramadol HCl [From Ultram] Allergy Rash Verified 01/27/23 11:43 Surgical History History of eyelid surgery History of neck surgery Social History household members: none Smoking Status: Current every day smoker tobacco type: cigarettes substance use type: does not use ROS <DEVEN Cummings - Last Filed: 01/27/23 13:43> ROS ED ROS Narrative Constitutional: Negative for fever, chills, malaise. CVS: Negative for palpitations, chest pain, syncope. Respiratory: Negative for shortness of breath, cough. GI: Negative for abdominal pain, nausea, vomiting. Skin: Negative for rash, abscess, or wound. Musc: Negative for joint pain, swelling, trauma. EXAM <DEVEN Cummings - Last Filed: 01/27/23 13:43> Physical Exam Narrative Exam Narrative: CONST: Patient sitting in no acute distress. EYES: Normal inspection. NECK: Normal inspection. RESP: No respiratory distress, CTAB. Patient indicates left lower anterior rib cage is area of discomfort but I cannot feel any palpable lump or deformity. Skin appears normal. CVS: Regular rate and rhythm, no murmur, no gallop. ABD: Soft and nontender, no guarding or rebound, nondistended, no hepatosplenomegaly. SKIN: Color normal, no rash, warm, dry, intact. EXTREMITIES: Normal appearance, no pedal edema. NEURO: Oriented x4. PSYCH: Normal affect. Const Vital Signs: 01/27/23 11:42 01/27/23 12:41 Temperature 97.7 F L Temperature Source Temporal Pulse Rate 87 Respiratory Rate 14 Respiratory Pattern Normal Blood Pressure 133/87 H Blood Pressure Mean 102 Pulse Ox 98 Oxygen Delivery Method Room Air <Dr. Quang Maciel MD - Last Filed: 01/27/23 14:05> Physical Exam Const Vital Signs: 01/27/23 11:42 01/27/23 12:41 Temperature 97.7 F L Temperature Source Temporal Pulse Rate 87 Respiratory Rate 14 Respiratory Pattern Normal Blood Pressure 133/87 H Blood Pressure Mean 102 Pulse Ox 98 Oxygen Delivery Method Room Air MDM <DEVEN Cummings - Last Filed: 01/27/23 13:43> [facility] Narrative Medical decision making narrative: Patient felt a lump in his left lower rib cage. I cannot appreciate this on exam and he has normal heart and lung sounds and no abdominal tenderness. No signs of zoster or skin changes. CXR shows no acute process. He also wanted me to evaluate the blisters on the sole of his right foot. The skin is dry and callused and there is no active blisters. No redness or signs of infection. Neurovascularly intact. He has follow-up with podiatry in 1 week you can reevaluate and at this point there is no indication for antibiotics. He was discharged in stable condition. Radiography Diagnostic Testing: Clinical Impression(s) from Imaging Studies Chest X-Ray 01/27/23 12:39 IMPRESSION: No radiographic evidence of acute cardiopulmonary disease. Electronically Signed: Miller Dubose MD at 12:56 EDT , ED attending interpretation of 2-view chest x-ray shows normal heart size, no acute infiltrate, edema, or effusion. <Dr. Quang Maciel MD - Last Filed: 01/27/23 14:05> MDM MDM Narrative Medical decision making narrative: Patient felt a lump in his left lower rib cage. I cannot appreciate this on exam and he has normal heart and lung sounds and no abdominal tenderness. No signs of zoster or skin changes. CXR shows no acute process. He also wanted me to evaluate the blisters on the sole of his right foot. The skin is dry and callused and there is no active blisters. No redness or signs of infection. Neurovascularly intact. He has follow-up with podiatry in 1 week you can reevaluate and at this point there is no indication for antibiotics. He was discharged in stable condition. I have personally performed a face to face assessment of the patient and have reviewed the RAMIRO Note. I performed a substantive portion of the visit including all aspects of the following. My rodriguez findings include: History is 52-year-old male says he feels a lump in his left lower rib cage. Denies any fall or trauma. No pain. Also has recurrent blisters on his feet. Exam is [well-appearing 52-year-old. Vital signs stable afebrile. Pulse ox 90% on room air. HEENT exam unremarkable. Lungs clear. Heart regular rhythm no murmur. Chest wall shows me the left lower rib cage is nontender. There is no crepitance or subcu air. There is no bruising. I do not feel any abnormality in his rib cage. There is no lump. No mass. Abdomen soft nontender. Moving all 4 extremities. Nontender no edema. Dried blisters that have ruptured on the bottom of his feet.] Medical Decision Making [chest x-ray was obtained was unremarkable. No abnormality seen on the rib cage.] Other additions or changes: [None] Radiography Chest X-Ray - ED: 2 View, Read by ED Physician, Read by Radiologist, Heart, Lungs, Mediastinum, Bony Structures, No Acute Disease and Chronic Changes Diagnostic Testing: Clinical Impression(s) from Imaging Studies Chest X-Ray 01/27/23 12:39 IMPRESSION: No radiographic evidence of acute cardiopulmonary disease. Electronically Signed: Miller Dubose MD at 12:56 EDT , Discharge Plan Triage Chief Complaint: Chest Other ED Midlevel Provider: Dayana Minaya ED Provider: Quang Maciel Dx/Rx/DC Orders Clinical Impression: Callus of foot Prescriptions: No Action gabapentin 400 MG capsule 900 mg PO 4X/DAY Patient Comments: Neuropathy/pinched nerve allopurinol 100 MG tablet 100 mg PO BIDCM Patient Comments: gout tamsulosin 0.4 MG capsule 0.4 mg PO DAILY Patient Comments: urine flow albuterol sulfate [Ventolin HFA] 1 INHALER inhaler 2 puff inhalation Q4H PRN PRN (Reason: Wheezing) Patient Comments: sob,wheezing metformin 500 MG tablet 1,000 mg PO BID Patient Comments: Take 1 tablet by mouth twice daily with meals. DIABETES aripiprazole 5 MG tablet 5 mg PO DAILY trazodone 300 MG tablet 300 mg PO QHS diphenhydramine HCl 25 MG tablet 25 mg PO PRN PRN (Reason: Allergies) atorvastatin 40 mg Tablet 40 mg PO DAILY bupropion HCl 150 mg Tablet Extended Release 24 Hr 150 mg PO DAILY benztropine 0.5 mg tablet 0.5 mg PO BID PRN PRN (Reason: tremors) Patient Comments: Take 1 (ONE) Tablet By Oral Route 2 (TWO) times per day NEEDED ibuprofen 600 mg tablet 600 mg PO Q6H PRN PRN (Reason: pain) Qty: 20 0RF sulfamethoxazole-trimethoprim [sulfamethoxazole-trimethoprim] 1 TABLET tablet 1 tab PO BID Qty: 20 0RF cephalexin [cephalexin] 500 MG capsule 500 mg PO Q6 Qty: 40 0RF codeine-guaifenesin [Guaifenesin AC] 10-100 mg/5 mL liquid 5 ml PO Q6H PRN (Reason: cough) Qty: 118 0RF benzonatate 200 mg capsule 200 mg PO TID PRN (Reason: cough) Qty: 20 0RF amoxicillin-pot clavulanate 875-125 mg tablet 1 tab PO BID Qty: 14 0RF Primary Care Provider: Fabian Palm Referrals: Fabian Palm MD [Primary Care Provider] - Activity Restrictions/Additional Instructions: Please follow-up with the field crops harvest machine operator for your foot but the dry skin and blisters do not look infected Disposition Disposition: Home, Self Care Discharge Date/Time: 01/27/23 13:47
--- NOTE | 2023-01-27 12:39 | RAD_ITS ---
INDICATION: rib pain EXAMINATION/TECHNIQUE: X-RAY - XR Chest 2 Views COMPARISON: 10/02/2022. FINDINGS: LINES/DEVICES: None. LUNGS: No consolidation, edema or effusion. No pneumothorax. MEDIASTINUM AND CARDIOVASCULAR STRUCTURES: Cardiac silhouette not enlarged. Central airways and mediastinal contour are unremarkable. BONES AND SOFT TISSUES: Unremarkable. RAD/Chest PA and Lateral IMPRESSION: No radiographic evidence of acute cardiopulmonary disease. Electronically Signed: Miller Dubose MD at 12:56 EDT ,
== END 2023-01-27 13:47 | disposition home or self-care (01) ==
PROVIDERS: Emergency Provider Emergency Medicine; PCP Family Medicine; Visit Provider Emergency Medicine
DX: L84 Corns and callosities (principal); F17.210 Nicotine dependence, cigarettes, uncomplicated; G47.30 Sleep apnea, unspecified
CPT/HCPCS: 71046; 99282

== ENCOUNTER 2023-05-06 19:07 | Emergency (ER) | payer MEDICARE, MEDICAID, SELFPAY ==
[2023-05-06 19:07] VITALS: BP 147/89; PULSE 101; RESP 15; TEMP 36.1; O2SAT 99; BMI 33.1
--- NOTE | 2023-05-06 19:28 | EDS_ITS ---
HPI History of Present Illness Chief Complaint: Rash Detail of Chief Complaint: Rash today. Itching. Informant: patient Onset/Context/Timing Onset: Today Context: Gradual Onset Timing: Continuous Current Severity: Mild Maximum Severity: Mild Narrative Narrative: 52-year-old male history of diabetes and hypertension. States developed rash today after fishing. Says on his arms chest and face. It does itch. He denies any trouble breathing. No wheezing. No tongue or lip swelling. He is on no new medications nor has he been on any recent antibiotics. He denies any recent illness. Prior similar symptoms: No Recent Illness/Hospitalization: No PFSH PFSH Medical History Anxiety Barretts esophagus Depression Diabetes Gout Hyperlipidemia Hypertension Sleep apnea Smoker Home Medications allopurinol 100 mg tablet 100 mg PO BIDCM 11/02/14 [History Last Taken 08/03/19] gabapentin 400 mg capsule 900 mg PO 4X/DAY 11/02/14 [History Last Taken 08/03/19] tamsulosin 0.4 mg capsule 0.4 mg PO DAILY 01/01/15 [History Last Taken 08/03/19] albuterol sulfate 90 mcg/actuation aerosol inhaler (Ventolin HFA) 2 puff inhalation Q4H PRN PRN Wheezing 06/18/15 [History Last Taken 08/03/19] metformin 500 mg tablet 1,000 mg PO BID 11/21/15 [History Last Taken 08/03/19] aripiprazole 5 mg tablet 5 mg PO DAILY 04/09/16 [History Last Taken 08/03/19] trazodone 300 mg tablet 300 mg PO QHS 03/16/18 [History Last Taken 08/03/19] diphenhydramine HCl 25 mg tablet 25 mg PO PRN PRN Allergies 08/01/19 [History Last Taken 08/03/19] atorvastatin 40 mg tablet 40 mg PO DAILY 11/30/20 [History Last Taken Unknown] bupropion HCl 150 mg 24 hr tablet, extended release 150 mg PO DAILY 11/30/20 [History Last Taken Unknown] benztropine 0.5 mg tablet 0.5 mg PO BID PRN PRN tremors 07/11/21 [History Last Taken Unknown] prednisone 20 mg tablet 40 mg (2 x 20 mg) PO DAILY 7 days #14 tabs 05/06/23 [Rx Last Taken Unknown] Allergy/AdvReac Type Severity Reaction Status Date / Time cyclobenzaprine HCl Allergy Hives Verified 05/06/23 19:10 [From Flexeril] dicyclomine HCl [From Bentyl] Allergy Rash Verified 05/06/23 19:10 duloxetine HCl Allergy Hives Verified 05/06/23 19:10 [From Cymbalta] meloxicam [From Mobic] Allergy Rash Verified 05/06/23 19:10 naproxen Allergy Hives Verified 05/06/23 19:10 quetiapine [From Seroquel] Allergy Rash Verified 05/06/23 19:10 tramadol HCl [From Ultram] Allergy Rash Verified 05/06/23 19:10 Surgical History History of eyelid surgery History of neck surgery Social History household members: none Smoking Status: Current every day smoker tobacco type: cigarettes substance use type: does not use ROS ROS ED ROS Narrative No recent illness. Review of Systems ROS Unobtainable: Denies due to encephalopathy Constitutional Constitutional ED: Denies chills or fever(s) Eyes Eyes: Denies blurry vision ENT ENT ED: Denies ear pain Cardiovascular Cardiovascular: Denies chest pain Respiratory/Chest Respiratory/Chest: Reports cough; Denies dyspnea Gastrointestinal Gastrointestinal: Denies abdominal pain, constipation, nausea or vomiting Genitourinary Genitourinary ED: Denies dysuria or hematuria Musculoskeletal Musculoskeletal: Denies arthralgias Integumentary Reports rash; Denies abscess Neurologic Neurologic: Denies headache(s) Psychiatric Psychiatric: Denies anxiety Endocrine Endocrinology: Denies cold intolerance Hematologic/Lymphatic Hematologic/Lymphatic: Reports none Allergic/Immunologic Allergic/Immunologic ED: Denies mouth swelling, tongue swelling, urticaria or other EXAM Physical Exam Narrative Exam Narrative: 52-year-old male no acute distress. Vital signs stable afebrile. H EENT exam unremarkable except he does have a rash on his face it is red and blanches. There is no bruising. There is no sloughing of skin. Neck nontender. Lungs are clear. Heart regular rhythm. Chest wall is a mild red rash again that blan ches. Abdomen soft nontender. Moving all 4 extremities. Both upper extremities he has the same red rash. Back nontender. Neurologically is awake and alert with no focal motor deficits. Rashes consistent with allergic reaction. Const Vital Signs: 05/06/23 19:07 Temperature 96.9 F L Temperature Source Temporal Pulse Rate 101 H Respiratory Rate 15 Blood Pressure 147/89 H Blood Pressure Mean 108 Pulse Ox 99 Oxygen Delivery Method Room Air Positive well nourished and well developed; Negative for cachectic, contractures or unkempt General Appearance ED: well developed and NAD; Negative for unkempt, cachectic, contractures, cyanotic or diaphoretic Nutritional Appearance: Negative for cachectic HEENT Reports moist mucous membranes Negative for trauma or tenderness Eyes PERRL and EOMs intact bilaterally General Eye ED: Negative for pale conjunctiva or scleral icterus Neck no lymphadenopathy, supple and no JVD General: Negative for tenderness Lymph Lymphatic: Negative for other Chest Wall inspection of chest normal and palpation of chest normal Chest: Negative for other Resp normal respiratory effort and clear to auscultation bilaterally Effort and Inspection: Negative for retractions Auscultation: Negative for rales, rhonchi or wheezes Cardio regular rate, regular rhythm, S1 normal heart sound, S2 normal heart sound and no murmurs Rate: Negative for bradycardia or tachycardic Rhythm: Negative for abnormal rhythm GI normal to inspection, nondistended, normoactive bowel sounds, non-tender, non- distended and no masses Inspection: Negative for abdominal distention Auscultation: normoactive bowel sounds Palpation: soft; Negative for tender or guarding Back/Spine no CVA tenderness General Back: Negative for CVA tenderness Cervical Spine: Negative for cervical spine tenderness Thoracic Spine / Upper Back: Negative for thoracic spinal tenderness or paraspinal muscle tenderness Lumbar Spine / Lower Back: Negative for lumbar spinal tenderness Extremity normal to inspection General Extremety ED: Negative for edema or tenderness General Extremity: Negative for edema Neuro oriented x3 and CN's II-XII intact bilaterally Sensorium / Orientation: alert; Negative for orientation impaired, lethargic or stuporous Motor Exam: strength 5/5 throughout Psych mental status grossly normal Appearance: Negative for unkempt Attitude: No agitated Mood & Affect: Negative for depressed, anxious or tearful Skin No no rashes or lesions noted, no wounds and skin turgor normal Rashes: rashes noted Trauma: Negative for abrasion Wounds: Negative for wounds noted MDM MDM MDM Narrative Medical decision making narrative: 52-year-old diabetic male with a rash is consistent with allergic reaction. It is red, it blanches. He has itching with it. He will be started on prednisone 40 mg a day for the next 7 days. He may stop it early if the rash resolves. We did check his blood sugar and is 198. He was instructed to watch his sugars closely. Discharge Plan Triage Chief Complaint: Rash ED Provider: Quang Maciel Dx/Rx/DC Orders Clinical Impression: Rash, Allergic reaction Instructions: ED General Allergic Reactions Prescriptions: New prednisone 20 mg tablet 40 mg PO DAILY 7 Days Qty: 14 0RF No Action gabapentin 400 MG capsule 900 mg PO 4X/DAY Patient Comments: Neuropathy/pinched nerve allopurinol 100 MG tablet 100 mg PO BIDCM Patient Comments: gout tamsulosin 0.4 MG capsule 0.4 mg PO DAILY Patient Comments: urine flow albuterol sulfate [Ventolin HFA] 1 INHALER inhaler 2 puff inhalation Q4H PRN PRN (Reason: Wheezing) Patient Comments: sob,wheezing metformin 500 MG tablet 1,000 mg PO BID Patient Comments: Take 1 tablet by mouth twice daily with meals. DIABETES aripiprazole 5 MG tablet 5 mg PO DAILY trazodone 300 MG tablet 300 mg PO QHS diphenhydramine HCl 25 MG tablet 25 mg PO PRN PRN (Reason: Allergies) atorvastatin 40 mg Tablet 40 mg PO DAILY bupropion HCl 150 mg Tablet Extended Release 24 Hr 150 mg PO DAILY benztropine 0.5 mg tablet 0.5 mg PO BID PRN PRN (Reason: tremors) Patient Comments: Take 1 (ONE) Tablet By Oral Route 2 (TWO) times per day NEEDED Primary Care Provider: Fabian Palm Referrals: Fabian Palm MD [Primary Care Provider] - 1 Week if not improving Activity Restrictions/Additional Instructions: The rash appears to be allergic reaction. The prednisone should resolve the rash. You may see difference in 48 hours. If not improving or getting worse this needs to be reevaluated. Take the prednisone 40 mg once a day around lunch for the next 7 days. If the rash completely goes away you can stop the prednisone early. The prednisone may increase your blood sugars watch them closely. Disposition Disposition: Home, Self Care
[2023-05-06] MEDS: predniSONE 20 MG Tablet 40 MG PO (19:32)
[2023-05-06 19:41] LABS: Bedside Glucose 198 mg/dL (74-106)
== END 2023-05-06 19:35 | disposition home or self-care (01) ==
PROVIDERS: Emergency Provider Emergency Medicine; PCP Family Medicine; Visit Provider Emergency Medicine
DX: R21 Rash and other nonspecific skin eruption (principal); E11.9 Type 2 diabetes mellitus without complications; T78.40XA Allergy, unspecified, initial encounter; I10 Essential (primary) hypertension; E78.5 Hyperlipidemia, unspecified; F17.210 Nicotine dependence, cigarettes, uncomplicated; G47.30 Sleep apnea, unspecified; F32.A Depression, unspecified; F41.9 Anxiety disorder, unspecified; Z79.899 Other long term (current) drug therapy; Z79.84 Long term (current) use of oral hypoglycemic drugs; X58.XXXA Exposure to other specified factors, initial encounter
CPT/HCPCS: 82962; 99282

== ENCOUNTER 2023-05-08 04:59 | Emergency (ER) | payer MEDICARE, MEDICAID, SELFPAY ==
[2023-05-08 05:01] VITALS: BP 143/86; PULSE 87; RESP 18; TEMP 37.2; O2SAT 94; BMI 32.4
[2023-05-08 05:05] VITALS: BP 143/86; PULSE 88; RESP 16; TEMP 37.2; O2SAT 94
--- NOTE | 2023-05-08 05:21 | CT_ITS ---
EXAM: CT ABDOMEN AND PELVIS WITH INTRAVENOUS CONTRAST CLINICAL INDICATION: abdominal pain bleeding TECHNIQUE: Helically acquired images were obtained of the abdomen and pelvis with intravenous contrast. This CT exam was performed using one or more of the following dose reduction techniques: automated exposure control, adjustment of the mA and/or kV according to patient size, and/or use of iterative reconstruction technique. CONTRAST: IV 100mL Isovue-370 RADIATION DOSE: CTDIvol = 16.27 mGy, DLP = 1194.02 mGy-cm. COMPARISON: July 23, 2022. FINDINGS: LOWER THORAX: Unremarkable. Lung bases are clear. No cardiomegaly. No significant pericardial effusion. ABDOMEN: LIVER: Mild low-attenuation liver, elongated at 22 cm craniocaudal. GALLBLADDER AND BILE DUCTS: Slightly prominent 9 mm proximal common duct, tapering to 6 mm distally, similar. No calcified gallstones. No gallbladder distention or wall edema. PANCREAS: Unremarkable. No focal cystic or solid mass. SPLEEN: Mild-moderate splenomegaly, 18 cm craniocaudal. ADRENALS: Unremarkable. No nodules. KIDNEYS AND URETERS: Unremarkable. Normal renal size and position. No hydronephrosis. STOMACH AND BOWEL: Mild intense mucosal enhancement in the distal body of the stomach and antrum, possibly due to gastritis. Mildly thick-walled duodenum. Mildly prominent gas small bowel loops. Moderate gas and stool in much of the colon. Moderate diverticulosis, especially in the proximal to mid sigmoid colon. No evidence of significant acute diverticulitis. No evidence of active GI bleeding on portal venous phase exam. Patent but prominently distended main portal vein, roughly 2.3 cm. PELVIS: APPENDIX: No evidence of acute appendicitis. BLADDER: Minimally distended urinary bladder. REPRODUCTIVE: Unremarkable as visualized. No mass. ABDOMEN and PELVIS: INTRAPERITONEAL SPACE: Unremarkable. No ascites or other fluid collection. No free air. BONES/JOINTS: Mild multilevel spondylosis of the thoracic and lumbar spine, vacuum disc at L5-S1, annular disc bulges. Degenerative changes of the hips, mildly greater on the left. No suspicious lytic or blastic abnormality. SOFT TISSUES: Mild fat-containing inguinal hernias, greater on the left. VASCULATURE: See above. LYMPH NODES: Similar appearance of mildly prominent retroperitoneal lymph nodes at the level of the upper abdomen and posterior mediastinum. CT/Abdomen/Pelvis W IV Cont ONLY IMPRESSION: 1. Hepatosplenomegaly and fatty liver. Prominent but patent main portal vein, correlate with risk factors for portal hypertension. Small suspected recanalized left umbilical vein, presumably due to portal hypertension. 2. Prominent mucosal enhancement of distal stomach and duodenum, suspected gastroduodenitis. No perforated ulcer. 3. Similar appearance of multiple mildly prominent retroperitoneal and posterior mediastinal nodes. 4. Mildly prominent gas filled small bowel. Diverticulosis without evidence of significant acute diverticulitis. Normal appendix. Cannot completely exclude minimal colitis or diverticular inflammation of proximal to mid sigmoid, it is incompletely distended. Electronically Signed: Lachelle Gupta MD at 6:32 EDT ,
--- NOTE | 2023-05-08 05:22 | EX.ED.DYSGE1 ---
HPI History of Present Illness Chief Complaint: GI Bleed Informant: patient and EMS Narrative Narrative: 52-year-old male presenting to the emergency room with abdominal pain and rectal bleeding. Patient states that around 4:00 this morning he was awoken from sleep with a sudden urge to defecate. In the span of 1 hour he had 3 episodes of a small amount of stool with bright red blood and clots. Patient states he had a normal bowel movement yesterday. In 2020 I see he had a colonoscopy with Dr. Villeda. This demonstrated internal hemorrhoids that were not bleeding as well as sigmoid diverticulosis.He states that this morning it felt like he was having a severe cramp prior to the bowel movement. No history of AAA repair. He denies any black or tarry stools recently. He is not on any blood thinners. No fever. He states this is not happened to him before. PFSH PFSH Medical History Anxiety Barretts esophagus Depression Diabetes Gout Hyperlipidemia Hypertension Sleep apnea Smoker Home Medications allopurinol 100 mg tablet 100 mg PO BIDCM 11/02/14 [History Last Taken 08/03/19] gabapentin 400 mg capsule 900 mg PO 4X/DAY 11/02/14 [History Last Taken 08/03/19] tamsulosin 0.4 mg capsule 0.4 mg PO DAILY 01/01/15 [History Last Taken 08/03/19] albuterol sulfate 90 mcg/actuation aerosol inhaler (Ventolin HFA) 2 puff inhalation Q4H PRN PRN Wheezing 06/18/15 [History Last Taken 08/03/19] metformin 500 mg tablet 1,000 mg PO BID 11/21/15 [History Last Taken 08/03/19] aripiprazole 5 mg tablet 5 mg PO DAILY 04/09/16 [History Last Taken 08/03/19] trazodone 300 mg tablet 300 mg PO QHS 03/16/18 [History Last Taken 08/03/19] diphenhydramine HCl 25 mg tablet 25 mg PO PRN PRN Allergies 08/01/19 [History Last Taken 08/03/19] atorvastatin 40 mg tablet 40 mg PO DAILY 11/30/20 [History Last Taken Unknown] bupropion HCl 150 mg 24 hr tablet, extended release 150 mg PO DAILY 11/30/20 [History Last Taken Unknown] benztropine 0.5 mg tablet 0.5 mg PO BID PRN PRN tremors 07/11/21 [History Last Taken Unknown] prednisone 20 mg tablet 40 mg (2 x 20 mg) PO DAILY 7 days #14 tabs 05/06/23 [Rx Last Taken Unknown] pantoprazole 40 mg tablet,delayed release (Protonix) 40 mg PO DAILY #14 tabs 05/08/23 [Rx Last Taken Unknown] Allergy/AdvReac Type Severity Reaction Status Date / Time cyclobenzaprine HCl Allergy Hives Verified 05/08/23 05:04 [From Flexeril] dicyclomine HCl [From Bentyl] Allergy Rash Verified 05/08/23 05:04 duloxetine HCl Allergy Hives Verified 05/08/23 05:04 [From Cymbalta] meloxicam [From Mobic] Allergy Rash Verified 05/08/23 05:04 naproxen Allergy Hives Verified 05/08/23 05:04 quetiapine [From Seroquel] Allergy Rash Verified 05/08/23 05:04 tramadol HCl [From Ultram] Allergy Rash Verified 05/08/23 05:04 Surgical History History of eyelid surgery History of neck surgery Social History household members: none Smoking Status: Current every day smoker tobacco type: cigarettes substance use type: does not use ROS ROS ED ROS Narrative No syncope Constitutional Constitutional ED: Denies chills, fever(s) or weight loss Eyes Eyes: Denies change in vision or diplopia ENT ENT ED: Denies ear pain, rhinorrhea or sore throat Cardiovascular Cardiovascular: Denies chest pain, orthopnea, palpitations or racing heartbeat Respiratory/Chest Respiratory/Chest: Denies cough, dyspnea or orthopnea Gastrointestinal Gastrointestinal: Reports abdominal pain and other Details: Bright red blood per rectum ; Denies diarrhea, melena, nausea or vomiting Genitourinary Genitourinary ED: Denies dysuria, hematuria or urinary frequency Musculoskeletal Musculoskeletal: Denies arthralgias or myalgias Integumentary Denies abscess or rash Neurologic Neurologic: Denies headache(s) or weakness Psychiatric Psychiatric: Denies anxiety, depression, suicidal ideation or suicidal thoughts Endocrine Endocrinology: Denies polydipsia, polyphagia or polyuria Allergic/Immunologic Allergic/Immunologic ED: Denies mouth swelling, tongue swelling or urticaria EXAM Physical Exam Const Vital Signs: 05/08/23 05:01 05/08/23 05:05 Temperature 98.9 F 98.9 F Temperature Source Temporal Temporal Pulse Rate 87 88 Respiratory Rate 18 16 Blood Pressure 143/86 H 143/86 H Blood Pressure Mean 105 105 Pulse Ox 94 94 Oxygen Delivery Method Room Air Room Air Positive well nourished and well developed General Appearance ED: well developed HEENT Reports normocephalic, head/scalp atraumatic and moist mucous membranes Eyes PERRL and EOMs intact bilaterally Neck no lymphadenopathy, supple and no JVD Resp normal respiratory effort and clear to auscultation bilaterally Cardio regular rate, regular rhythm and no murmurs GI normal to inspection, nondistended, normoactive bowel sounds and non-tender Palpation: soft Back/Spine no CVA tenderness and normal ROM Extremity normal to inspection General Extremety ED: Negative for edema General Extremity: Negative for edema Neuro oriented x3 and CN's II-XII intact bilaterally Sensorium / Orientation: alert Motor Exam: strength 5/5 throughout Psych mental status grossly normal Mood & Affect: Negative for depressed or tearful Skin no rashes or lesions noted and no wounds MDM MDM MDM Narrative Medical decision making narrative: Patient white count is 11.1 with a hemoglobin of 14.9. BMP showed a glucose of 191. CT of the abdomen pelvis was obtained which showed diverticulosis. Please see the radiologist read for additional details. Patient was observed. He did have a small bowel movement with some bright red blood during his ED course of 2 hours. This was mild in nature. Patient's abdominal exam continues to be nonsurgical. He appears clinically stable. He was advised that while we cannot determine the exact source of his bleeding he appears stable not needed transfusion with normal vital signs. I am going place him on Protonix. This from the CT findings of the stomach and duodenum in addition to his upper abdominal symptoms with eating/EGD findings from a few years ago. Patient was advised that his bleeding may return and get worse and he would require admission. He was advised that if it does not get worse that he will most likely need to follow-up with his primary care doctor to talk about repeat EGD and colonoscopy. Lab Data Attestation: I reviewed the patient's lab results. Labs: Laboratory Results - last 24 hr 05/08/23 05:05 WBC 11.1 H RBC 5.18 Hgb 14.9 Hct 43.8 MCV 84.6 MCH 28.8 MCHC 34.0 RDW Std Deviation 41.2 RDW Coeff of Maddy 13.3 Plt Count 179 MPV 8.7 Immature Gran % (Auto) 0.500 Neut % (Auto) 81.9 H Lymph % (Auto) 12.6 L [place] % (Auto) 4.8 Eos % (Auto) 0.0 Baso % (Auto) 0.2 Absolute Neuts (auto) 9.1 H Absolute Lymphs (auto) 1.40 Nucleated RBC % 0 Sodium 137 Potassium 3.6 Chloride 103 Carbon Dioxide 28.0 Anion Gap 6 BUN 18 Creatinine 0.99 Estim Creat Clear Calc 106.69 Est GFR (MDRD) Af Amer 103 Est GFR (MDRD) Non-Af 85 BUN/Creatinine Ratio 18.2 Glucose 191 H Calcium 8.9 Radiography Diagnostic Testing: Clinical Impression(s) from Imaging Studies Abdomen/Pelvis CT 05/08/23 05:21 IMPRESSION: 1. Hepatosplenomegaly and fatty liver. Prominent but patent main portal vein, correlate with risk factors for portal hypertension. Small suspected recanalized left umbilical vein, presumably due to portal hypertension. 2. Prominent mucosal enhancement of distal stomach and duodenum, suspected gastroduodenitis. No perforated ulcer. 3. Similar appearance of multiple mildly prominent retroperitoneal and posterior mediastinal nodes. 4. Mildly prominent gas filled small bowel. Diverticulosis without evidence of significant acute diverticulitis. Normal appendix. Cannot completely exclude minimal colitis or diverticular inflammation of proximal to mid sigmoid, it is incompletely distended. Electronically Signed: Lachelle Gupta MD at 6:32 EDT , Discharge Plan Triage Chief Complaint: GI Bleed ED Provider: Tony Byrne Dx/Rx/DC Orders Clinical Impression: Acute GI bleeding, Abdominal pain Instructions: Abdominal Pain, ED Lower GI Bleeding (Stable) Prescriptions: New pantoprazole [Protonix] 40 mg tablet,delayed release (DR/EC) 40 mg PO DAILY Qty: 14 0RF No Action gabapentin 400 MG capsule 900 mg PO 4X/DAY Patient Comments: Neuropathy/pinched nerve allopurinol 100 MG tablet 100 mg PO BIDCM Patient Comments: gout tamsulosin 0.4 MG capsule 0.4 mg PO DAILY Patient Comments: urine flow albuterol sulfate [Ventolin HFA] 1 INHALER inhaler 2 puff inhalation Q4H PRN PRN (Reason: Wheezing) Patient Comments: sob,wheezing metformin 500 MG tablet 1,000 mg PO BID Patient Comments: Take 1 tablet by mouth twice daily with meals. DIABETES aripiprazole 5 MG tablet 5 mg PO DAILY trazodone 300 MG tablet 300 mg PO QHS diphenhydramine HCl 25 MG tablet 25 mg PO PRN PRN (Reason: Allergies) atorvastatin 40 mg Tablet 40 mg PO DAILY bupropion HCl 150 mg Tablet Extended Release 24 Hr 150 mg PO DAILY benztropine 0.5 mg tablet 0.5 mg PO BID PRN PRN (Reason: tremors) Patient Comments: Take 1 (ONE) Tablet By Oral Route 2 (TWO) times per day NEEDED prednisone 20 mg tablet 40 mg PO DAILY 7 Days Qty: 14 0RF Primary Care Provider: Fabian Palm Referrals: Fabian Palm MD [Primary Care Provider] - As soon as possible Disposition Disposition: Home, Self Care
[2023-05-08 05:36] LABS: Absolute Neutrophil Count 9.1 X10^3/uL (2.0-7.7); Basophil# 0.02 X10^3/uL; Basophil% 0.2 % (0-1); Hematocrit 43.8 % (40-54); Hemoglobin 14.9 g/dL (13.0-16.5); Lymphocyte % 12.6 % (19-41); Mean Corpuscular Hgb 28.8 pg (27.0-32.0); Mean Corpuscular Volume 84.6 fL (80-94); Mean Platelet Vol. 8.7 fl (6.2-12.0); Monocyte# 0.53 X10^3/uL; Monocyte% 4.8 % (0-10); NRBC Flagged by Analyzer 0 % (0-5); Neutrophil # 9.07 X10^3/uL (2.7-7.7); Neutrophil % 81.9 % (47-70); Platelet Count 179 K/mm3 (150-450); RBC Distribution Width CV 13.3 % (11.6-14.6); RBC Distribution Width SD 41.2 fl (35.1-43.9); Red Blood Count 5.18 M/mm3 (4.6-6.2); White Blood Count 11.1 K/mm3 (4.4-11.0)
[2023-05-08 05:49] LABS: Anion Gap 6 (5-15); BUN 18 mg/dL (7-18); BUN/Creat Ratio 18.2 RATIO (10-20); Calcium,Total 8.9 mg/dL (8.5-10.1); Chloride 103 mmol/L (98-107); Creatinine, Serum 0.99 mg/dL (0.70-1.30); EST Glomerular Filtration Rate 85 mL/min (>60); Est Glom Filt Rate - Afr Amer 103 mL/min (>60); Estimated Creatinine Clearance 106.69 ml/min; Glucose 191 mg/dL (74-106); Potassium 3.6 mmol/L (3.5-5.1); Sodium Level 137 mmol/L (136-145)
[2023-05-08 07:00] VITALS: BP 130/79; PULSE 78; RESP 16; O2SAT 97
== END 2023-05-08 07:07 | disposition home or self-care (01) ==
PROVIDERS: Emergency Provider Emergency Medicine; PCP Family Medicine; Visit Provider Emergency Medicine
DX: K92.2 Gastrointestinal hemorrhage, unspecified (principal); E11.9 Type 2 diabetes mellitus without complications; R10.9 Unspecified abdominal pain; E78.5 Hyperlipidemia, unspecified; F17.210 Nicotine dependence, cigarettes, uncomplicated; I10 Essential (primary) hypertension; G47.30 Sleep apnea, unspecified; F41.9 Anxiety disorder, unspecified; F32.A Depression, unspecified; Z79.899 Other long term (current) drug therapy; Z79.84 Long term (current) use of oral hypoglycemic drugs
CPT/HCPCS: 74177; 80048; 85025; 99284; Q9967; A4216

== ENCOUNTER 2023-05-14 18:44 | Emergency (ER) | payer MEDICARE, MEDICAID, SELFPAY ==
[2023-05-14 18:45] VITALS: BP 173/8; PULSE 89; RESP 16; TEMP 38.6; O2SAT 97; BMI 33.6
--- NOTE | 2023-05-14 19:19 | EX.ED.VIS.UR ---
HPI HPI - URI History of Present Illness Chief Complaint: Cold Sx Informant: patient Narrative Narrative: 52-year-old patient living at the [facility] with a little less than 24 hours worth of subjective fever, nonproductive cough, sore throat, nasal congestion. No dyspnea. No hemoptysis. No chest pain. No earache. Was seen here few days ago with abdominal pain and vomiting, he states that is still there but improving. ROS ROS ED Constitutional Constitutional ED: Reports fever(s) and subjective ENT ENT ED: Reports nasal congestion, rhinorrhea and sore throat; Denies ear pain Cardiovascular Cardiovascular: Denies chest pain or palpitations Respiratory/Chest Respiratory/Chest: Reports cough; Denies dyspnea Gastrointestinal Gastrointestinal: Reports abdominal pain, nausea and vomiting; Denies diarrhea Genitourinary Genitourinary ED: Denies dysuria or hematuria Musculoskeletal Musculoskeletal: Denies myalgias or neck pain Integumentary Denies abscess or rash Neurologic Neurologic: Denies headache(s), paresthesias or weakness Psychiatric Psychiatric: Denies depression or suicidal thoughts Endocrine Endocrinology: Denies polydipsia or polyuria PFSH PFSH Medical History Anxiety Barretts esophagus Depression Diabetes Gout Hyperlipidemia Hypertension Sleep apnea Smoker Home Medications allopurinol 100 mg tablet 100 mg PO BIDCM 11/02/14 [History Last Taken 08/03/19] gabapentin 400 mg capsule 900 mg PO 4X/DAY 11/02/14 [History Last Taken 08/03/19] tamsulosin 0.4 mg capsule 0.4 mg PO DAILY 01/01/15 [History Last Taken 08/03/19] albuterol sulfate 90 mcg/actuation aerosol inhaler (Ventolin HFA) 2 puff inhalation Q4H PRN PRN Wheezing 06/18/15 [History Last Taken 08/03/19] metformin 500 mg tablet 1,000 mg PO BID 11/21/15 [History Last Taken 08/03/19] aripiprazole 5 mg tablet 5 mg PO DAILY 04/09/16 [History Last Taken 08/03/19] trazodone 300 mg tablet 300 mg PO QHS 03/16/18 [History Last Taken 08/03/19] diphenhydramine HCl 25 mg tablet 25 mg PO PRN PRN Allergies 08/01/19 [History Last Taken 08/03/19] atorvastatin 40 mg tablet 40 mg PO DAILY 11/30/20 [History Last Taken Unknown] bupropion HCl 150 mg 24 hr tablet, extended release 150 mg PO DAILY 11/30/20 [History Last Taken Unknown] benztropine 0.5 mg tablet 0.5 mg PO BID PRN PRN tremors 07/11/21 [History Last Taken Unknown] prednisone 20 mg tablet 40 mg (2 x 20 mg) PO DAILY 7 days #14 tabs 05/06/23 [Rx Last Taken Unknown] pantoprazole 40 mg tablet,delayed release (Protonix) 40 mg PO DAILY #14 tabs 05/08/23 [Rx Last Taken Unknown] Allergy/AdvReac Type Severity Reaction Status Date / Time cyclobenzaprine HCl Allergy Hives Verified 05/14/23 18:48 [From Flexeril] dicyclomine HCl [From Bentyl] Allergy Rash Verified 05/14/23 18:48 duloxetine HCl Allergy Hives Verified 05/14/23 18:48 [From Cymbalta] meloxicam [From Mobic] Allergy Rash Verified 05/14/23 18:48 naproxen Allergy Hives Verified 05/14/23 18:48 quetiapine [From Seroquel] Allergy Rash Verified 05/14/23 18:48 tramadol HCl [From Ultram] Allergy Rash Verified 05/14/23 18:48 Surgical History History of eyelid surgery History of neck surgery Social History household members: none Smoking Status: Current every day smoker tobacco type: cigarettes substance use type: does not use EXAM Physical Exam Const Vital Signs: 05/14/23 18:45 05/14/23 18:51 Temperature 101.4 F H Temperature Source Oral Pulse Rate 89 Respiratory Rate 16 Respiratory Effort Normal Non-Labored Respiratory Pattern Normal Blood Pressure 173/8 H Blood Pressure Mean 63 Pulse Ox 97 Oxygen Delivery Method Room Air Positive well nourished and well developed General Appearance ED: well developed and NAD HEENT Reports moist mucous membranes normocephalic and atraumatic Throat: Negative for posterior oropharynx abnormal Eyes PERRL and EOMs intact bilaterally Neck no lymphadenopathy, supple and no meningeal signs Resp normal respiratory effort and clear to auscultation bilaterally Cardio no murmurs Rate: regular rate Rhythm: regular rhythm GI non-tender and non-distended Inspection: Negative for abdominal distention Auscultation: normoactive bowel sounds Back/Spine no CVA tenderness and normal ROM Extremity normal to inspection and full ROM Neuro oriented x3, CN's II-XII intact bilaterally and no sensory deficits noted Sensorium / Orientation: alert Motor Exam: strength 5/5 throughout Psych Psych Narrative: Flat affect Skin Lesions: no lesions Rashes: no rashes MDM MDM MDM Narrative Medical decision making narrative: Patient's fever and headache were treated with Tylenol, his COVID swab came back positive. He was given that information, he does not have any criteria at this time to need antivirals and his oxygenation is excellent. 1 view chest x-ray normal my interpretation, radiology in agreement. Supportive care advised given appropriate discharge instructions. Radiography Chest X-Ray - ED: 1 View, Read by ED Physician, No Acute Disease and No Infiltrates Diagnostic Testing: Clinical Impression(s) from Imaging Studies Chest X-Ray 05/14/23 19:40 IMPRESSION: No acute cardiopulmonary disease. Electronically Signed: Natacha Ramirez MD at 20:14 EDT Reading Location ID and State: Replaced by [facility] / [place] , Service support , Discharge Plan Triage Chief Complaint: Cold Sx ED Provider: Kobi Kaiser Dx/Rx/DC Orders Clinical Impression: COVID-19 Instructions: Coronavirus Disease 2019 (COVID-19): Caring for Yourself or Others Prescriptions: No Action gabapentin 400 MG capsule 900 mg PO 4X/DAY Patient Comments: Neuropathy/pinched nerve allopurinol 100 MG tablet 100 mg PO BIDCM Patient Comments: gout tamsulosin 0.4 MG capsule 0.4 mg PO DAILY Patient Comments: urine flow albuterol sulfate [Ventolin HFA] 1 INHALER inhaler 2 puff inhalation Q4H PRN PRN (Reason: Wheezing) Patient Comments: sob,wheezing metformin 500 MG tablet 1,000 mg PO BID Patient Comments: Take 1 tablet by mouth twice daily with meals. DIABETES aripiprazole 5 MG tablet 5 mg PO DAILY trazodone 300 MG tablet 300 mg PO QHS diphenhydramine HCl 25 MG tablet 25 mg PO PRN PRN (Reason: Allergies) atorvastatin 40 mg Tablet 40 mg PO DAILY bupropion HCl 150 mg Tablet Extended Release 24 Hr 150 mg PO DAILY benztropine 0.5 mg tablet 0.5 mg PO BID PRN PRN (Reason: tremors) Patient Comments: Take 1 (ONE) Tablet By Oral Route 2 (TWO) times per day NEEDED pantoprazole [Protonix] 40 mg tablet,delayed release (DR/EC) 40 mg PO DAILY Qty: 14 0RF prednisone 20 mg tablet 40 mg PO DAILY 7 Days Qty: 14 0RF Primary Care Provider: Fabian Palm Referrals: Fabian Palm MD [Primary Care Provider] - As Needed Activity Restrictions/Additional Instructions: Try to get a home portable pulse oximeter and closely watch your oxygen levels periodically. If you stay below 90% for more than a minute or so, and/or you are feeling like your breathing is getting worse, return to the emergency department for further evaluation. Currently, CDC recommendations state that you should stay home through day 5 of symptoms, then as long as symptoms are improving, if you need to go to work or somewhere else you may for days 6-10 as long as you are wearing a mask the entire time. If you are feeling better after day 10 you may resume life is normal. Disposition Disposition: Home, Self Care
[2023-05-14] MEDS: Acetaminophen 500 MG Tablet 1000 MG PO (19:37)
[2023-05-14] MEDS: guaiFENesin Dm 10 ML UDC PO (19:38)
--- NOTE | 2023-05-14 19:40 | RAD_ITS ---
STUDY: X-RAY CHEST REASON FOR EXAM: Male, 52 years old. cough fever TECHNIQUE: Single AP portable view of the chest. COMPARISON: 01/27/2023 FINDINGS: The lungs are clear and expanded. There is no demonstrated pleural abnormality. Normal size heart. Normal mediastinum and arjun. Normal visualized pulmonary arteries. There is atherosclerotic calcification of the aortic arch with tortuosity. There are diffuse degenerative changes of the visualized thoracic spine. Status post anterior fusion of the lower cervical spine. Normal visualized ribs, clavicles, and shoulders. There is no demonstrated abnormality of the visualized soft tissue structures of the upper abdomen. RAD/Chest 1 View (Portable) IMPRESSION: No acute cardiopulmonary disease. Electronically Signed: Natacha Ramirez MD at 20:14 EDT ,
== END 2023-05-14 20:50 | disposition home or self-care (01) ==
PROVIDERS: Emergency Provider Emergency Medicine; PCP Family Medicine; Visit Provider Emergency Medicine
DX: U07.1 COVID-19 (principal); E78.5 Hyperlipidemia, unspecified; F17.210 Nicotine dependence, cigarettes, uncomplicated; G47.30 Sleep apnea, unspecified; Z79.899 Other long term (current) drug therapy
CPT/HCPCS: 71045; 87428; 87807; 99284

== ENCOUNTER 2023-07-11 19:16 | Emergency (ER) | payer MEDICARE, MEDICAID, SELFPAY ==
[2023-07-11 19:16] VITALS: BP 141/79; PULSE 83; RESP 20; TEMP 36.3; O2SAT 98; BMI 34.7
--- NOTE | 2023-07-11 20:40 | EDS_ITS ---
HPI History of Present Illness Chief Complaint: Back Detail of Chief Complaint: Patient chronic back pain this past Sunday Informant: patient Onset/Context/Timing Onset: Days Context: Sudden Onset Injury: - (Nothing that he can recall) Timing: Continuous Quality: Dull and Aching Location: Lumbar Current Severity: Mild Maximum Severity: Severe Worsened by: improves with Movement, Ambulation, Bending and Lifting Relieved by: Nothing Associated Symptoms Associated Symptoms: - (Patient denies saddle paresthesia or anesthesia. Patient denies foot drop. Patient denies buckling of his knees going up or down steps. Patient denies recent dental procedure or any type of surgical procedure. Patient has been taking Tylenol with no improvement since he has allergy to multiple N); Negative for Numbness, Tingling, Radiation to Right Leg, Radiation to Left Leg, Fever, Abdominal Pain, Dysuria, Unable to Ambulate, Unable to Transfer, Urinary Retention, Urinary Incontinence, Constipation or Fecal Incontinence Narrative Narrative: Patient is a 53-year-old male with history of chronic back pain due to degenerative disc disease. He denies bowel bladder dysfunction. He denies radicular pain. [place] foot drop. Has buckling of his knees going up or down steps. He denies saddle paresthesia or anesthesia. He denies history of trauma. He denies weight loss or weight gain. He denies night sweats. He denies history of cancer. He denies rash. Prior similar symptoms: Yes Recent Illness/Hospitalization: No PFSH PFSH Medical History Anxiety Barretts esophagus Depression Diabetes Gout Hyperlipidemia Hypertension Sleep apnea Smoker Home Medications allopurinol 100 mg tablet 100 mg PO BIDCM 11/02/14 [History Last Taken 08/03/19] gabapentin 400 mg capsule 900 mg PO 4X/DAY 11/02/14 [History Last Taken 08/03/19] tamsulosin 0.4 mg capsule 0.4 mg PO DAILY 01/01/15 [History Last Taken 08/03/19] albuterol sulfate 90 mcg/actuation aerosol inhaler (Ventolin HFA) 2 puff inhalation Q4H PRN PRN Wheezing 06/18/15 [History Last Taken 08/03/19] metformin 500 mg tablet 1,000 mg PO BID 11/21/15 [History Last Taken 08/03/19] aripiprazole 5 mg tablet 5 mg PO DAILY 04/09/16 [History Last Taken 08/03/19] trazodone 300 mg tablet 300 mg PO QHS 03/16/18 [History Last Taken 08/03/19] diphenhydramine HCl 25 mg tablet 25 mg PO PRN PRN Allergies 08/01/19 [History Last Taken 08/03/19] atorvastatin 40 mg tablet 40 mg PO DAILY 11/30/20 [History Last Taken Unknown] bupropion HCl 150 mg 24 hr tablet, extended release 150 mg PO DAILY 11/30/20 [History Last Taken Unknown] benztropine 0.5 mg tablet 0.5 mg PO BID PRN PRN tremors 07/11/21 [History Last Taken Unknown] prednisone 20 mg tablet 40 mg (2 x 20 mg) PO DAILY 7 days #14 tabs 05/06/23 [Rx Last Taken Unknown] pantoprazole 40 mg tablet,delayed release (Protonix) 40 mg PO DAILY #14 tabs 05/08/23 [Rx Last Taken Unknown] hydrocodone-acetaminophen 5-325mg 5mg-325mg 1 tab PO Q6H PRN PRN Pain 3 days #10 TABLETS 07/11/23 [Rx Last Taken Unknown] Allergy/AdvReac Type Severity Reaction Status Date / Time cyclobenzaprine HCl Allergy Hives Verified 07/11/23 19:18 [From Flexeril] dicyclomine HCl [From Bentyl] Allergy Rash Verified 07/11/23 19:18 duloxetine HCl Allergy Hives Verified 07/11/23 19:18 [From Cymbalta] meloxicam [From Mobic] Allergy Rash Verified 07/11/23 19:18 naproxen Allergy Hives Verified 07/11/23 19:18 quetiapine [From Seroquel] Allergy Rash Verified 07/11/23 19:18 tramadol HCl [From Ultram] Allergy Rash Verified 07/11/23 19:18 Surgical History History of eyelid surgery History of neck surgery Social History household members: none Smoking Status: Current every day smoker tobacco type: cigarettes substance use type: does not use ROS ROS ED Constitutional Constitutional ED: Denies chills, fever(s), subjective or sweats ENT ENT ED: Denies ear pain, rhinorrhea or sore throat Cardiovascular Cardiovascular: Denies chest pain, orthopnea or palpitations Respiratory/Chest Respiratory/Chest: Denies dyspnea, dyspnea on exertion or orthopnea Gastrointestinal Gastrointestinal: Denies abdominal pain, constipation, diarrhea, nausea or vomiting Genitourinary Genitourinary ED: Denies dysuria, hematuria or urinary frequency Musculoskeletal Musculoskeletal: Reports back pain; Denies arthralgias, myalgias or neck pain Integumentary Denies rash Neurologic Neurologic: Denies headache(s), paresthesias or weakness EXAM Physical Exam Const Vital Signs: 07/11/23 19:16 Temperature 97.4 F L Temperature Source Temporal Pulse Rate 83 Respiratory Rate 20 H Blood Pressure 141/79 H Blood Pressure Mean 99 Pulse Ox 98 Oxygen Delivery Method Room Air Positive well nourished and well developed General Appearance ED: well developed and NAD; Negative for pallor HEENT Reports moist mucous membranes HEENT Narrative: Head is atraumatic and normocephalic. Ears normal. Nares patent. Sclera and conjunctive are slightly injected. Eyes PERRL and EOMs intact bilaterally General Eye ED: Negative for pale conjunctiva or scleral icterus Neck no lymphadenopathy, supple and no JVD Resp normal respiratory effort and clear to auscultation bilaterally Cardio regular rate, regular rhythm, S1 normal heart sound, S2 normal heart sound and no murmurs GI normal to inspection, nondistended, normoactive bowel sounds, soft to palpation, non-tender, non-distended and no masses Back/Spine normal to inspection; Negative for no thoracic nor lumbar tenderness Back/Spine Narrative: Patella and ankle reflex are 2+. EHLs intact. 5/5 strength plantar dorsiflexion of the foot. Normal sensation over L3-S1. Normal perianal sensation. Palpation lower back causes him pain. Movement causes him pain in his lower back. PT pulses palpable bilateral and symmetric. Cervical Spine: Negative for cervical spine tenderness Thoracic Spine / Upper Back: paraspinal muscle tenderness Lumbar Spine / Lower Back: ROM limited and straight leg raise negative bilaterally Neuro oriented x3 and no sensory deficits noted Sensorium / Orientation: alert Deep Tendon Reflexes: Rt Patellar (L4): 2+, Lt Patellar (L4): 2+, Rt Ankle (S1): 2+ and Lt Ankle (S1): 2+ Deep Tendon Reflexes Back: Rt Patellar (L4): 2+, Lt Patellar (L4): 2+, Rt Ankle (S1): 2+ and Lt Ankle (S1): 2+ Plantar Reflex: Downgoing: bilateral Psych mental status grossly normal Skin no rashes or lesions noted General Skin Exam: Negative for jaundice or pallor MDM MDM MDM Narrative Medical decision making narrative: With history of degenerative disc disease and allergies to NSAIDs he was treated with open analgesic. Since there is no history of trauma weight loss fever chills imaging was not obtained nor was any blood work. Patient was medicated in the Emergency Department discharged with prescription for opiate analgesia. Prior records were obtained and patient's had no prior surgery on his back. And he has confirmed allergy to NSAIDs with hives. Discharge Plan Triage Chief Complaint: Back ED Provider: Samuel Johnson Dx/Rx/DC Orders Clinical Impression: Acute bilateral low back pain, Borderline diabetes mellitus, Obesity (BMI 30.0- 34.9), GERD (gastroesophageal reflux disease), Hypertension Instructions: ED Back and Neck Pain, General Prescriptions: New hydrocodone-acetaminophen [hydrocodone-acetaminophen] 5-325 mg tablet 1 tab PO Q6H PRN PRN (Reason: Pain) 3 Days Qty: 10 0RF No Action gabapentin 400 MG capsule 900 mg PO 4X/DAY Patient Comments: Neuropathy/pinched nerve allopurinol 100 MG tablet 100 mg PO BIDCM Patient Comments: gout tamsulosin 0.4 MG capsule 0.4 mg PO DAILY Patient Comments: urine flow albuterol sulfate [Ventolin HFA] 1 INHALER inhaler 2 puff inhalation Q4H PRN PRN (Reason: Wheezing) Patient Comments: sob,wheezing metformin 500 MG tablet 1,000 mg PO BID Patient Comments: Take 1 tablet by mouth twice daily with meals. DIABETES aripiprazole 5 MG tablet 5 mg PO DAILY trazodone 300 MG tablet 300 mg PO QHS diphenhydramine HCl 25 MG tablet 25 mg PO PRN PRN (Reason: Allergies) atorvastatin 40 mg Tablet 40 mg PO DAILY bupropion HCl 150 mg Tablet Extended Release 24 Hr 150 mg PO DAILY benztropine 0.5 mg tablet 0.5 mg PO BID PRN PRN (Reason: tremors) Patient Comments: Take 1 (ONE) Tablet By Oral Route 2 (TWO) times per day NEEDED pantoprazole [Protonix] 40 mg tablet,delayed release (DR/EC) 40 mg PO DAILY Qty: 14 0RF prednisone 20 mg tablet 40 mg PO DAILY 7 Days Qty: 14 0RF Primary Care Provider: Fabian Palm Referrals: Fabian Palm MD [Primary Care Provider] - 3-5 Days if not improving Disposition Disposition: Home, Self Care
[2023-07-11] MEDS: HYDROcodone Bitartrate/Apap 5/325 Tablet PO (21:25)
[2023-07-11 21:27] VITALS: BP 141/79; PULSE 83; RESP 18; O2SAT 98
== END 2023-07-11 21:39 | disposition home or self-care (01) ==
LOC: ED 20:49
PROVIDERS: Emergency Provider Emergency Medicine; PCP Family Medicine; Visit Provider Emergency Medicine
DX: M54.50 Low back pain, unspecified (principal); I10 Essential (primary) hypertension; R73.03 Prediabetes; K21.9 Gastro-esophageal reflux disease without esophagitis; E66.9 Obesity, unspecified; F17.210 Nicotine dependence, cigarettes, uncomplicated; G47.30 Sleep apnea, unspecified
CPT/HCPCS: 99282

== ENCOUNTER 2024-01-25 11:28 | Emergency (ER) | payer MEDICARE, MEDICAID, SELFPAY ==
[2024-01-25 11:29] VITALS: BP 131/98; PULSE 76; RESP 16; TEMP 36; O2SAT 100; BMI 31.9
--- NOTE | 2024-01-25 11:41 | EDS_ITS ---
HPI History of Present Illness Chief Complaint: Upper Extremity Injury Detail of Chief Complaint: Left upper back pain Informant: patient Narrative Narrative: Patient presents to the emergency department complaint of left upper back pain that started 4 days ago. He denies any injury. Patient states pain is worse with certain movements. It is not pleuritic. He denies chest pain or shortness of breath. He has not had pain like this before. He has been taken ibuprofen without relief. He is right-hand dominant. Patient rates his pain a 10 out of 10. PFSH PFSH Medical History Anxiety Barretts esophagus Depression Diabetes Gout Hyperlipidemia Hypertension Sleep apnea Smoker Home Medications ?Medication ?Instructions ?Recorded ?Last Taken ?Type allopurinol 100 mg tablet 100 mg PO BIDCM 11/02/14 08/03/19 History gabapentin 400 mg capsule 900 mg PO 4X/DAY 11/02/14 08/03/19 History tamsulosin 0.4 mg capsule 0.4 mg PO DAILY 01/01/15 08/03/19 History albuterol sulfate 90 mcg/actuation 2 puff inhalation Q4H PRN PRN 06/18/15 08/03/19 History aerosol inhaler (Ventolin HFA) Wheezing metformin 500 mg tablet 1,000 mg PO BID 11/21/15 08/03/19 History aripiprazole 5 mg tablet 5 mg PO DAILY 04/09/16 08/03/19 History trazodone 300 mg tablet 300 mg PO QHS 03/16/18 08/03/19 History diphenhydramine HCl 25 mg tablet 25 mg PO PRN PRN Allergies 08/01/19 08/03/19 History atorvastatin 40 mg tablet 40 mg PO DAILY 11/30/20 Unknown History bupropion HCl 150 mg 24 hr tablet, 150 mg PO DAILY 11/30/20 Unknown History extended release benztropine 0.5 mg tablet 0.5 mg PO BID PRN PRN tremors 07/11/21 Unknown History pantoprazole 40 mg tablet,delayed 40 mg PO DAILY #14 tabs 05/08/23 Unknown Rx release (Protonix) hydrocodone-acetaminophen 5-325mg 1 tab PO Q4H PRN PRN Pain 2 days 01/25/24 Unknown Rx 5mg-325mg #14 TABLETS orphenadrine citrate 100 mg 100 mg PO BID #14 tabs 01/25/24 Unknown Rx tablet,extended release Allergy/AdvReac Type Severity Reaction Status Date / Time cyclobenzaprine HCl (From Allergy Hives Verified 01/25/24 11:30 Flexeril) dicyclomine HCl (From Bentyl) Allergy Rash Verified 01/25/24 11:30 duloxetine HCl (From Allergy Hives Verified 01/25/24 11:30 Cymbalta) meloxicam (From Mobic) Allergy Rash Verified 01/25/24 11:30 naproxen Allergy Hives Verified 01/25/24 11:30 quetiapine (From Seroquel) Allergy Rash Verified 01/25/24 11:30 tramadol HCl (From Ultram) Allergy Rash Verified 01/25/24 11:30 Surgical History History of eyelid surgery History of neck surgery Social History household members: none Smoking Status: Current every day smoker tobacco type: cigarettes substance use type: does not use ROS ROS ED Review of Systems ROS Unobtainable: other Constitutional Constitutional ED: Reports lethargy; Denies chills, fever(s), sweats or weight loss Eyes Eyes: Denies blurry vision, change in vision or diplopia ENT ENT ED: Denies rhinorrhea or sore throat Cardiovascular Cardiovascular: Denies chest pain, orthopnea or racing heartbeat Respiratory/Chest Respiratory/Chest: Denies cough, dyspnea, dyspnea on exertion, orthopnea or sputum Gastrointestinal Gastrointestinal: Denies abdominal pain, diarrhea, nausea or vomiting Genitourinary Genitourinary ED: Denies dysuria, hematuria or urinary frequency Musculoskeletal Musculoskeletal: Reports back pain; Denies arthralgias, myalgias or neck pain Integumentary Denies abscess, Abrasions or rash Neurologic Neurologic: Denies headache(s) or weakness Psychiatric Psychiatric: Denies anxiety, depression or suicidal thoughts Endocrine Endocrinology: Denies polydipsia, polyphagia or polyuria Hematologic/Lymphatic Hematologic/Lymphatic: Denies easy bleeding, easy bruising or lymphadenopathy Allergic/Immunologic Allergic/Immunologic ED: Denies mouth swelling, tongue swelling or urticaria EXAM Physical Exam Const Vital Signs: 01/25/24 11:29 Temperature 96.8 F L Temperature Source Temporal Pulse Rate 76 Respiratory Rate 16 Blood Pressure 131/98 H Blood Pressure Mean 109 Pulse Ox 100 Oxygen Delivery Method Room Air Positive well nourished and well developed General Appearance ED: well developed and NAD HEENT Reports TM's clear and moist mucous membranes normocephalic and atraumatic; Negative for trauma or tenderness Tympanic Membrane ED: Yes TM's clear Eyes PERRL and EOMs intact bilaterally General Eye ED: Negative for pale conjunctiva or scleral icterus Neck no lymphadenopathy, supple and no JVD General: Negative for tenderness Chest Wall inspection of chest normal and palpation of chest normal Chest: Negative for tenderness Resp normal respiratory effort and clear to auscultation bilaterally Effort and Inspection: Negative for respiratory distress or pain with movement Auscultation: Negative for rhonchi, wheezes or diminished lung sounds Cardio regular rate, regular rhythm, S1 normal heart sound, S2 normal heart sound and no murmurs Peripheral Pulses: pulses 2+ throughout GI normal to inspection, nondistended, normoactive bowel sounds, soft to palpation, non-tender, non-distended and no masses Back/Spine no CVA tenderness and no thoracic nor lumbar tenderness Back/Spine Narrative: Patient has tenderness palpation over the left upper thoracic paraspinal muscula ture between the scapula and the spine that seems to reproduce his pain. No rashes noted here. He has no tenderness of the thoracic spine or the scapula. He has no tenderness palpation the glenohumeral joint and range of motion is normal here. Extremity normal to inspection General Extremety ED: Negative for edema General Extremity: Negative for edema Neuro oriented x3, CN's II-XII intact bilaterally, no sensory deficits noted and gait normal Sensorium / Orientation: awake, alert, oriented to person, oriented to place and oriented to time Motor Exam: strength 5/5 throughout and strength abnormal Psych mental status grossly normal Skin no rashes or lesions noted and no wounds MDM MDM MDM Narrative Medical decision making narrative: Patient presents with left upper back pain without trauma. Clinically looks well. He is not complain of chest pain or shortness of breath or pleuritic symptoms. No significant PE risk factors. At this point I do not feel any imaging is indicated as he has had no trauma. Will start him on muscle relaxer and a few [place] for pain. Recommended that he follow-up with his primary care physician within the next 3 to 5 days. Discharge Plan Triage Chief Complaint: Upper Extremity Injury ED Provider: Opal Singh Dx/Rx/DC Orders Clinical Impression: Back pain Instructions: ED Back and Neck Pain, General Prescriptions: New hydrocodone-acetaminophen 5-325 mg tablet 1 tab PO Q4H PRN PRN (Reason: Pain) 2 Days Qty: 14 0RF orphenadrine citrate 100 mg tablet extended release 100 mg PO BID Qty: 14 0RF No Action gabapentin 400 MG capsule 900 mg PO 4X/DAY Patient Comments: Neuropathy/pinched nerve allopurinol 100 MG tablet 100 mg PO BIDCM Patient Comments: gout tamsulosin 0.4 MG capsule 0.4 mg PO DAILY Patient Comments: urine flow albuterol sulfate [Ventolin HFA] 1 INHALER inhaler 2 puff inhalation Q4H PRN PRN (Reason: Wheezing) Patient Comments: sob,wheezing metformin 500 MG tablet 1,000 mg PO BID Patient Comments: Take 1 tablet by mouth twice daily with meals. DIABETES aripiprazole 5 MG tablet 5 mg PO DAILY trazodone 300 MG tablet 300 mg PO QHS diphenhydramine HCl 25 MG tablet 25 mg PO PRN PRN (Reason: Allergies) atorvastatin 40 mg Tablet 40 mg PO DAILY bupropion HCl 150 mg Tablet Extended Release 24 Hr 150 mg PO DAILY benztropine 0.5 mg tablet 0.5 mg PO BID PRN PRN (Reason: tremors) Patient Comments: Take 1 (ONE) Tablet By Oral Route 2 (TWO) times per day NEEDED pantoprazole [Protonix] 40 mg tablet,delayed release (DR/EC) 40 mg PO DAILY Qty: 14 0RF Primary Care Provider: Fabian Palm Referrals: Fabian Palm MD [Primary Care Provider] - 3-5 Days Print Language: [place] Disposition Disposition: Home, Self Care
== END 2024-01-25 12:00 | disposition home or self-care (01) ==
LOC: ED 11:57
PROVIDERS: Emergency Provider Emergency Medicine; PCP Family Medicine; Visit Provider Emergency Medicine
DX: M54.9 Dorsalgia, unspecified (principal); E11.9 Type 2 diabetes mellitus without complications; F17.210 Nicotine dependence, cigarettes, uncomplicated; F41.9 Anxiety disorder, unspecified; F32.A Depression, unspecified; G47.30 Sleep apnea, unspecified; Z79.51 Long term (current) use of inhaled steroids; Z79.899 Other long term (current) drug therapy; Z79.84 Long term (current) use of oral hypoglycemic drugs
CPT/HCPCS: 99282

== ENCOUNTER 2024-02-18 19:24 | Emergency (ER) | payer MEDICARE, SELFPAY ==
[2024-02-18 19:25] VITALS: BP 154/85; PULSE 81; RESP 14; TEMP 37; O2SAT 98; BMI 31.7
[2024-02-18 19:27] VITALS: BP 149/86; PULSE 81; RESP 16; TEMP 36.4; O2SAT 98
--- NOTE | 2024-02-18 19:57 | EX.ED.DYSGE1 ---
HPI History of Present Illness Chief Complaint: Dental Detail of Chief Complaint: Dental pain that patient localized to the right and left TMJ joint Informant: patient Onset/Context/Timing Onset: Days Context: Sudden Onset Timing: Continuous Quality: Pain Location: Right and left TMJ Current Severity: Mild Maximum Severity: Moderate Worsened by: Opening closing his mouth Relieved by: Nothing Associated Symptoms Associated Symptoms: Nothing Narrative Narrative: Patient is a 53-year-old male with history of type 2 diabetes, hypertension, obstructive sleep apnea with a BMI of 31.7 who presents with by lateral dental pain. When asked to localize the pain he points to the right and left TMJ. Chewing and opening closes mouth exacerbates the pain. He has taken aspirin with no significant improvement or relief. He has no other complaints Prior similar symptoms: No Recent Illness/Hospitalization: No [facility] Medical History Sleep apnea Barretts esophagus Smoker Gout Anxiety Depression Diabetes Hypertension Hyperlipidemia Home Medications ?Medication ?Instructions ?Recorded ?Last Taken ?Type allopurinol 100 mg tablet 100 mg PO BIDCM 11/02/14 08/03/19 History gabapentin 400 mg capsule 900 mg PO 4X/DAY 11/02/14 08/03/19 History tamsulosin 0.4 mg capsule 0.4 mg PO DAILY 01/01/15 08/03/19 History albuterol sulfate 90 mcg/actuation 2 puff inhalation Q4H PRN PRN 06/18/15 08/03/19 History aerosol inhaler (Ventolin HFA) Wheezing metformin 500 mg tablet 1,000 mg PO BID 11/21/15 08/03/19 History aripiprazole 5 mg tablet 5 mg PO DAILY 04/09/16 08/03/19 History trazodone 300 mg tablet 300 mg PO QHS 03/16/18 08/03/19 History diphenhydramine HCl 25 mg tablet 25 mg PO PRN PRN Allergies 08/01/19 08/03/19 History atorvastatin 40 mg tablet 40 mg PO DAILY 11/30/20 Unknown History bupropion HCl 150 mg 24 hr tablet, 150 mg PO DAILY 11/30/20 Unknown History extended release benztropine 0.5 mg tablet 0.5 mg PO BID PRN PRN tremors 07/11/21 Unknown History pantoprazole 40 mg tablet,delayed 40 mg PO DAILY #14 tabs 05/08/23 Unknown Rx release (Protonix) hydrocodone-acetaminophen 5-325mg 1 tab PO Q4H PRN PRN Pain 2 days 01/25/24 Unknown Rx 5mg-325mg #14 TABLETS orphenadrine citrate 100 mg 100 mg PO BID #14 tabs 01/25/24 Unknown Rx tablet,extended release oxycodone-acetaminophen 5 mg-325 1 tab PO Q6H PRN PRN Pain 3 days 02/18/24 Unknown Rx mg tablet #12 TABLETS Allergy/AdvReac Type Severity Reaction Status Date / Time cyclobenzaprine HCl (From Allergy Hives Verified 02/18/24 19:25 Flexeril) dicyclomine HCl (From Bentyl) Allergy Rash Verified 02/18/24 19:25 duloxetine HCl (From Allergy Hives Verified 02/18/24 19:25 Cymbalta) meloxicam (From Mobic) Allergy Rash Verified 02/18/24 19:25 naproxen Allergy Hives Verified 02/18/24 19:25 quetiapine (From Seroquel) Allergy Rash Verified 02/18/24 19:25 tramadol HCl (From Ultram) Allergy Rash Verified 02/18/24 19:25 Surgical History History of eyelid surgery History of neck surgery Social History household members: none Smoking Status: Current every day smoker tobacco type: cigarettes substance use type: does not use ROS ROS ED Constitutional Constitutional ED: Denies chills, fever(s) or subjective Eyes Eyes: Denies blurry vision or change in vision ENT ENT ED: Reports other Details: Detailed HPI narrative ; Denies ear pain, rhinorrhea or sore throat Gastrointestinal Gastrointestinal: Denies nausea or vomiting Genitourinary Genitourinary ED: Reports other Details: Denies history of kidney dysfunction. ; Denies dysuria, hematuria or urinary frequency Musculoskeletal Musculoskeletal: Denies arthralgias or myalgias Integumentary Denies rash Neurologic Neurologic: Denies headache(s) EXAM Physical Exam Const Vital Signs: 02/18/24 19:25 02/18/24 19:27 Temperature 98.6 F 97.6 F L Temperature Source Temporal Temporal Pulse Rate 81 81 Respiratory Rate 14 16 Blood Pressure 154/85 H 149/86 H Blood Pressure Mean 108 107 Pulse Ox 98 98 Oxygen Delivery Method Room Air Room Air Positive well nourished and well developed Constitutional Narrative: Patient was asleep when entered the room. Patient had to be shaken to awake. His pulse ox was 85%. He does acknowledge he has obstructive sleep apnea. General Appearance ED: well developed and NAD; Negative for pallor HEENT Reports moist mucous membranes HEENT Narrative: Patient had all of his teeth extracted several years ago. He does not know the name of the dentist that extracted his teeth. He denies change in voice. He denies drooling. He denies inability to open or close his mouth completely. He has pain over the right and left TMJ when asked to open and close his mouth. There is no significant click appreciated. There may have been a slight click on the right. Eyes Negative for PERRL or EOMs intact bilaterally Neck no lymphadenopathy, supple and no JVD Resp normal respiratory effort and clear to auscultation bilaterally Cardio regular rate, regular rhythm, S1 normal heart sound, S2 normal heart sound and no murmurs Extremity normal to inspection Neuro oriented x3 and CN's II-XII intact bilaterally Sensorium / Orientation: alert Psych mental status grossly normal Skin no rashes or lesions noted, no wounds and skin turgor normal General Skin Exam: Negative for jaundice or pallor MDM MDM MDM Narrative Medical decision making narrative: Palpation of the gums reveals no abnormality. There is no facial swelling, erythema or warmth. There is no evidence of a peridental abscess. Posterior pharynx is normal. Patient's history and physical is consistent with TMJ syndrome. He is last creatinine was normal with a estimated GFR of 81 on April 2023. However he has history of Carey's esophagitis reluctant to treat with NSAIDs in light of the fact that his hypertension, diabetes and Carey's esophagitis. Prednisone would be a acceptable alternative however he is diabetic and this may cause hyperglycemia. In light of this we will place on short course of opiate analgesia and he needs to follow-up with an oral surgeon/dentist. History & Record Review Additional record(s) reviewed:: Prior outpatient record ([facility] to [facility] from [facility] Prior ED visit and Prior labs Discharge Plan Triage Chief Complaint: Dental ED Provider: Johnson,Samuel Dx/Rx/DC Orders Clinical Impression: TMJ syndrome, Obesity (BMI 30.0-34.9), Hypertension, Type 2 diabetes mellitus, Obstructive sleep apnea of adult, Hypoxia Instructions: ED TMJ Syndrome Prescriptions: New oxycodone-acetaminophen 5-325 mg tablet 1 tab PO Q6H PRN PRN (Reason: Pain) 3 Days Qty: 12 0RF No Action gabapentin 400 MG capsule 900 mg PO 4X/DAY Patient Comments: Neuropathy/pinched nerve allopurinol 100 MG tablet 100 mg PO BIDCM Patient Comments: gout tamsulosin 0.4 MG capsule 0.4 mg PO DAILY Patient Comments: urine flow albuterol sulfate [Ventolin HFA] 1 INHALER inhaler 2 puff inhalation Q4H PRN PRN (Reason: Wheezing) Patient Comments: sob,wheezing metformin 500 MG tablet 1,000 mg PO BID Patient Comments: Take 1 tablet by mouth twice daily with meals. DIABETES aripiprazole 5 MG tablet 5 mg PO DAILY trazodone 300 MG tablet 300 mg PO QHS diphenhydramine HCl 25 MG tablet 25 mg PO PRN PRN (Reason: Allergies) atorvastatin 40 mg Tablet 40 mg PO DAILY bupropion HCl 150 mg Tablet Extended Release 24 Hr 150 mg PO DAILY benztropine 0.5 mg tablet 0.5 mg PO BID PRN PRN (Reason: tremors) Patient Comments: Take 1 (ONE) Tablet By Oral Route 2 (TWO) times per day NEEDED pantoprazole [Protonix] 40 mg tablet,delayed release (DR/EC) 40 mg PO DAILY Qty: 14 0RF hydrocodone-acetaminophen 5-325 mg tablet 1 tab PO Q4H PRN PRN (Reason: Pain) 2 Days Qty: 14 0RF orphenadrine citrate 100 mg tablet extended release 100 mg PO BID Qty: 14 0RF Primary Care Provider: Fabian Palm Referrals: Fabian Palm MD [Primary Care Provider] - Activity Restrictions/Additional Instructions: 1. You will need to follow-up with an oral surgeon or dentist for proper imaging and evaluation 2. You will need to follow-up with Dr. Talha Ellsworth for pain management until you are able to be seen by an oral surgeon or dentist Print Language: Mexican Disposition Disposition: Home, Self Care
[2024-02-18 20:09] VITALS: BP 147/86; PULSE 65; RESP 18; TEMP 36.4; O2SAT 93
== END 2024-02-18 20:13 | disposition home or self-care (01) ==
PROVIDERS: Emergency Provider Emergency Medicine; PCP Family Medicine; Visit Provider Emergency Medicine
DX: M26.603 Bilateral temporomandibular joint disorder, unspecified (principal); E11.9 Type 2 diabetes mellitus without complications; I10 Essential (primary) hypertension; E78.5 Hyperlipidemia, unspecified; K22.70 Barrett's esophagus without dysplasia; R09.02 Hypoxemia; G47.33 Obstructive sleep apnea (adult) (pediatric); F32.A Depression, unspecified; F41.9 Anxiety disorder, unspecified; E66.9 Obesity, unspecified; Z68.31 Body mass index [BMI] 31.0-31.9, adult; Z79.84 Long term (current) use of oral hypoglycemic drugs; Z79.899 Other long term (current) drug therapy; F17.210 Nicotine dependence, cigarettes, uncomplicated
CPT/HCPCS: 99282

== ENCOUNTER 2024-03-07 14:49 | Emergency (ER) | payer MEDICARE, MEDICAID, SELFPAY ==
[2024-03-07 14:50] VITALS: BP 143/82; PULSE 108; RESP 16; TEMP 36.7; O2SAT 97; BMI 30.4
--- NOTE | 2024-03-07 15:10 | CT_ITS ---
EXAM: CT ABDOMEN AND PELVIS WITH INTRAVENOUS CONTRAST CLINICAL INDICATION: epigastric pain, low back pain TECHNIQUE: Helically acquired images were obtained of the abdomen and pelvis with intravenous contrast. This CT exam was performed using one or more of the following dose reduction techniques: automated exposure control, adjustment of the mA and/or kV according to patient size, and/or use of iterative reconstruction technique. CONTRAST: IV 100mL Isovue-370 RADIATION DOSE: CTDIvol = 16.08 mGy, DLP = 1200.01 mGy-cm COMPARISON: 03/11/2016 FINDINGS: LOWER THORAX: Unremarkable. Lung bases are clear. No cardiomegaly. No significant pericardial effusion. ABDOMEN: LIVER: There is hepatomegaly. No liver mass. GALLBLADDER AND BILE DUCTS: Unremarkable. No calcified gallstones. No gallbladder distention or wall edema. No intra- or extrahepatic biliary ductal dilation. PANCREAS: Unremarkable. No focal cystic or solid mass. SPLEEN: There is splenomegaly with greatest dimension of 19 cm, significantly worse than prior exam. ADRENALS: Unremarkable. No nodules. KIDNEYS AND URETERS: Unremarkable. Normal renal size and position. No hydronephrosis. STOMACH AND BOWEL: Evaluation of the GI tract is limited by absence of oral contrast. Cannot exclude stomach wall thickening. No dilated loops of bowel or evidence for obstruction. Cannot exclude segmental thickening of the rios of the small or large bowel. Cannot exclude enteritis or colitis. Moderate diffuse fecal retention. Diverticulosis without definite diverticulitis. Appendix within normal limits. PELVIS: APPENDIX: No evidence of acute appendicitis. BLADDER: Nondistended bladder. REPRODUCTIVE: Unremarkable as visualized. No mass. ABDOMEN and PELVIS: INTRAPERITONEAL SPACE: Unremarkable. No ascites or other fluid collection. No free air. BONES/JOINTS: Degenerative changes throughout the spine, similar to prior exam. No suspicious lytic or blastic abnormality. SOFT TISSUES: Unremarkable. No discrete abdominal or pelvic wall hernia. VASCULATURE: Unremarkable. Abdominal aorta is non-dilated. LYMPH NODES: Unremarkable. No enlarged lymph nodes. CT/Abdomen/Pelvis W IV Cont ONLY IMPRESSION: 1. Hepatosplenomegaly. 2. No other definite acute or significant abnormality seen. Electronically Signed: Bi Colon MD at 17:07 EDT ,
--- NOTE | 2024-03-07 15:17 | EDS_ITS ---
HPI History of Present Illness Chief Complaint: Other, Pain/Inj Narrative Narrative: Patient is a 53-year-old male with past medical history of sleep apnea, Carey's esophagus, chronic low back pain, depression, diabetes, hypertension, hyperlipidemia who presented to the emergency department chief complaint of low back pain. He states that his back has been bothering him for a few days now and notes that things were not improving he states that he followed up in the outpatient setting with his primary care physician/nurse practitioner who ordered blood work he states that he is unsure of what they ordered and what these results were. He states that he had further testing done today and notes that he went [place] the post office and when he walked he had worsening pain prompting him to walk here for further evaluation management. He states that he took ibuprofen prior to his arrival here for pain control and states that this did not help. Patient denies any trauma or picking up anything heavy. He states that he has back pain radiating to both of his legs bilaterally and he has bicep pain bilaterally in the upper extremities. [facility] Medical History Sleep apnea Barretts esophagus Smoker Gout Anxiety Depression Diabetes Hypertension Hyperlipidemia Home Medications ?Medication ?Instructions ?Recorded ?Last Taken ?Type allopurinol 100 mg tablet 100 mg PO BIDCM 11/02/14 08/03/19 History gabapentin 400 mg capsule 900 mg PO 4X/DAY 11/02/14 08/03/19 History tamsulosin 0.4 mg capsule 0.4 mg PO DAILY 01/01/15 08/03/19 History albuterol sulfate 90 mcg/actuation 2 puff inhalation Q4H PRN PRN 06/18/15 08/03/19 History aerosol inhaler (Ventolin HFA) Wheezing metformin 500 mg tablet 1,000 mg PO BID 11/21/15 08/03/19 History aripiprazole 5 mg tablet 5 mg PO DAILY 04/09/16 08/03/19 History trazodone 300 mg tablet 300 mg PO QHS 03/16/18 08/03/19 History diphenhydramine HCl 25 mg tablet 25 mg PO PRN PRN Allergies 08/01/19 08/03/19 History atorvastatin 40 mg tablet 40 mg PO DAILY 11/30/20 Unknown History bupropion HCl 150 mg 24 hr tablet, 150 mg PO DAILY 11/30/20 Unknown History extended release benztropine 0.5 mg tablet 0.5 mg PO BID PRN PRN tremors 07/11/21 Unknown History pantoprazole 40 mg tablet,delayed 40 mg PO DAILY #14 tabs 05/08/23 Unknown Rx release (Protonix) hydrocodone-acetaminophen 5-325mg 1 tab PO Q4H PRN PRN Pain 2 days 01/25/24 Unknown Rx 5mg-325mg #14 TABLETS orphenadrine citrate 100 mg 100 mg PO BID #14 tabs 01/25/24 Unknown Rx tablet,extended release oxycodone-acetaminophen 5 mg-325 1 tab PO Q6H PRN PRN Pain 3 days 02/18/24 Unknown Rx mg tablet #12 TABLETS Allergy/AdvReac Type Severity Reaction Status Date / Time cyclobenzaprine HCl (From Allergy Hives Verified 03/07/24 14:52 Flexeril) dicyclomine HCl (From Bentyl) Allergy Rash Verified 03/07/24 14:52 duloxetine HCl (From Allergy Hives Verified 03/07/24 14:52 Cymbalta) meloxicam (From Mobic) Allergy Rash Verified 03/07/24 14:52 naproxen Allergy Hives Verified 03/07/24 14:52 quetiapine (From Seroquel) Allergy Rash Verified 03/07/24 14:52 tramadol HCl (From Ultram) Allergy Rash Verified 03/07/24 14:52 Surgical History History of eyelid surgery History of neck surgery Social History household members: none Smoking Status: Current every day smoker tobacco type: cigarettes substance use type: does not use ROS ROS ED ROS Narrative Constitutional: Denies any fevers, chills, headaches, lightheadedness, dizziness Eyes: Denies change in vision double vision blurry vision Cardiovascular: Denies chest pain or palpitations Respiratory: Denies coughing wheezing shortness of breath Abdomen: Denies abdominal pain nausea vomiting diarrhea denies any difficulty having bowel movements or loss of bowel function : Denies any painful induration, hematuria, polyuria denies any difficulty urinating Neurological: Complains of shooting pain down his both legs bilaterally from his back denies any numbness, weakness, tingling Musculoskeletal: Complains of low back pain he states he has chronic back pain as noted above Skin: States that he has a chronic rash that will come and go on his face this has been going on for a significant mount time EXAM Physical Exam Narrative Exam Narrative: general: Patient was lying in bed rest comfortably did not appear to be in acute distress Head: Atraumatic, normocephalic Eyes: PERRL bilaterally, EOMI bilaterally, no conjunctival injection noted Neck: Soft, supple, trachea midline, no pain to palpation midline cervical spine patient has full range of motion of his neck without any pain Cardiovascular: Patient was mildly tachycardic with a regular rhythm no murmurs gallops rubs are noted Respiratory: Clear to auscultation bilaterally no rales rhonchi or wheeze noted Abdomen: Soft, patient has some mild tenderness palpation in the epigastric region of his abdomen no rebound or guarding on exam, bowel sounds present x 4 Musculoskeletal: No midline tenderness palpation of the thoracic lumbar spine patient has tenderness palpation bilaterally over his quadratus lumborum regions Extremities: +5/5 strength noted in the bilateral upper and lower extremities, no pedal edema on exam, radial pulses +2/4 in the bilateral upper extremities Neurological: Patient following commands knew that he was at [facility] year is 2023. Sensation grossly intact. No saddle anesthesia noted on exam Skin: Warm, dry, patient has a rash across the bridge of his nose and underneath his eyes bilaterally he states that this been there for a significant mount time this is not new he states that he is unsure what this is from. No petechia no purpura no sloughing of skin noted is blanching in nature Const Vital Signs: 03/07/24 14:50 03/07/24 15:46 03/07/24 16:49 Temperature 98.1 F Temperature Source Temporal Pulse Rate 108 H 92 Respiratory Rate 16 16 Respiratory Pattern Normal Blood Pressure 143/82 H 108/69 Blood Pressure Mean 102 82 Pulse Ox 97 94 Oxygen Delivery Method Room Air Room Air 03/07/24 18:00 Temperature Temperature Source Pulse Rate 64 Respiratory Rate 18 Respiratory Pattern Blood Pressure 132/78 H Blood Pressure Mean 96 Pulse Ox 98 Oxygen Delivery Method Room Air MDM MDM MDM Narrative Medical decision making narrative: Patient is a 53-year-old male who presented to the Emergency Department chief complaint of low back pain. Patient will have a workup performed here on the differential diagnose includes but limited to musculoskeletal strain, urolithiasis, UTI, pyelonephritis, compression fracture, AAA, ACS. Once workup is obtained reviewed he will be reevaluated. Patient be given IV fluids and Tylenol. Patient CBC reviewed was largely unremarkable with no evidence leukocytosis white blood count normal at 9.9, hemoglobin stable 14.4, platelet count normal at 202. Patient sodium normal at 140, potassium normal at 3.6, creatinine normal at 0.98. Patient's AST and ALT were normal at 3737 respectively, troponin normal at 4, urinalysis did not reveal any evidence of infection. Patient CT abdomen pelvis with IV contrast was reviewed and showed hepatosplenomegaly no other definitive acute or significant abnormality. On reevaluation the patient he states that he is feeling better he would like to go home at this point time. Patient was encouraged to follow-up with his primary care physician outpatient setting. He is encouraged to continue Tylenol ibuprofen [id number] for pain control. He was encouraged to take it easy for the next 2 days and advance activity as tolerated. He was encouraged return to worsening symptoms or other concerns. All question concerns answered he is discharged home in stable condition. Lab Data Labs: Laboratory Results - last 24 hr 03/07/24 03/07/24 15:41 17:31 WBC 9.9 RBC 4.98 Hgb 14.4 Hct 41.8 MCV 83.9 MCH 28.9 MCHC 34.4 RDW Std Deviation 43.9 RDW Coeff of Maddy 14.4 Plt Count 202 MPV 8.9 Immature Gran % (Auto) 0.500 Neut % (Auto) 74.0 H Lymph % (Auto) 15.7 L Sampson % (Auto) 8.9 Eos % (Auto) 0.7 Baso % (Auto) 0.2 Absolute Neuts (auto) 7.3 Absolute Lymphs (auto) 1.55 Nucleated RBC % 0 Sodium 140 Potassium 3.6 Chloride 106 Carbon Dioxide 25.0 Anion Gap 9 BUN 17 Creatinine 0.98 Estim Creat Clear Calc 119.58 Est GFR (MDRD) Af Amer 104 Est GFR (MDRD) Non-Af 86 BUN/Creatinine Ratio 17.4 Glucose 129 H Calcium 9.5 Total Bilirubin 1.00 AST 37 ALT 37 Alkaline Phosphatase 74 Troponin I High Sens 4 Total Protein 7.9 Albumin 4.1 Globulin 3.8 Albumin/Globulin Ratio 1.1 Lipase 57 Urine Color Yellow Urine Clarity Clear Urine pH 5.0 Ur Specific [place] 1.015 Urine Protein 30 H Urine Glucose (UA) Normal Urine Ketones 5 H Urine Occult Blood 10 H Urine Nitrite Negative Urine Bilirubin 6 H Urine Urobilinogen 4 H Ur Leukocyte Esterase 25 H Urine RBC 0 SEEN Urine WBC 0-5 SEEN Ur Squamous Epith Cells 0 SEEN Urine Bacteria 0 SEEN Urine Mucus 0 SEEN Radiography Diagnostic Testing: Clinical Impression(s) from Imaging Studies Abdomen/Pelvis CT 03/07/24 15:10 IMPRESSION: 1. Hepatosplenomegaly. 2. No other definite acute or significant abnormality seen. Electronically Signed: Bi Colon MD at 17:07 EDT , Discharge Plan Triage Chief Complaint: Other, Pain/Inj ED Provider: Nico Tran Dx/Rx/DC Orders Clinical Impression: Back pain Prescriptions: No Action gabapentin 400 MG capsule 900 mg PO 4X/DAY Patient Comments: Neuropathy/pinched nerve allopurinol 100 MG tablet 100 mg PO BIDCM Patient Comments: gout tamsulosin 0.4 MG capsule 0.4 mg PO DAILY Patient Comments: urine flow albuterol sulfate [Ventolin HFA] 1 INHALER inhaler 2 puff inhalation Q4H PRN PRN (Reason: Wheezing) Patient Comments: sob,wheezing metformin 500 MG tablet 1,000 mg PO BID Patient Comments: Take 1 tablet by mouth twice daily with meals. DIABETES aripiprazole 5 MG tablet 5 mg PO DAILY trazodone 300 MG tablet 300 mg PO QHS diphenhydramine HCl 25 MG tablet 25 mg PO PRN PRN (Reason: Allergies) atorvastatin 40 mg Tablet 40 mg PO DAILY bupropion HCl 150 mg Tablet Extended Release 24 Hr 150 mg PO DAILY benztropine 0.5 mg tablet 0.5 mg PO BID PRN PRN (Reason: tremors) Patient Comments: Take 1 (ONE) Tablet By Oral Route 2 (TWO) times per day NEEDED pantoprazole [Protonix] 40 mg tablet,delayed release (DR/EC) 40 mg PO DAILY Qty: 14 0RF hydrocodone-acetaminophen 5-325 mg tablet 1 tab PO Q4H PRN PRN (Reason: Pain) 2 Days Qty: 14 0RF orphenadrine citrate 100 mg tablet extended release 100 mg PO BID Qty: 14 0RF oxycodone-acetaminophen 5-325 mg tablet 1 tab PO Q6H PRN PRN (Reason: Pain) 3 Days Qty: 12 0RF Primary Care Provider: Fabian Palm Referrals: Fabian Palm MD [Primary Care Provider] - Activity Restrictions/Additional Instructions: Rotate Tylenol ibuprofen [id number] for pain control. Take it easy the next few days and advance activity as tolerated. Follow with your primary care physician. Return for worsening symptoms or any other concerns. Print Language: Upper Sorbian Disposition Disposition: Home, Self Care
[2024-03-07] MEDS: Acetaminophen 500 MG Tablet 1000 MG PO (15:42)
[2024-03-07] MEDS: 0.9% Normal Saline (1000mL) 1,000 ML 999 ML IV (15:43)
[2024-03-07 15:51] LABS: Absolute Lymphocyte Count 1.55 X10^3/uL (0.83-4.51); Absolute Neutrophil Count 7.3 X10^3/uL (2.0-7.7); Basophil# 0.02 X10^3/uL; Basophil% 0.2 % (0-1); Eosinophil# 0.07 X10^3/uL; Eosinophils% 0.7 % (0-5); Hematocrit 41.8 % (40-54); Hemoglobin 14.4 g/dL (13.0-16.5); Lymphocyte # 1.55 X10^3/ul (0.83-4.51); Lymphocyte % 15.7 % (19-41); Mean Corp Hgb Conc 34.4 g/dL (32-36); Mean Corpuscular Hgb 28.9 pg (27.0-32.0); Mean Corpuscular Volume 83.9 fL (80-94); Mean Platelet Vol. 8.9 fl (6.2-12.0); Monocyte# 0.88 X10^3/uL; Monocyte% 8.9 % (0-10); NRBC Flagged by Analyzer 0 % (0-5); Neutrophil # 7.31 X10^3/uL (2.7-7.7); Platelet Count 202 K/mm3 (150-450); RBC Distribution Width CV 14.4 % (11.6-14.6); RBC Distribution Width SD 43.9 fl (35.1-43.9); Red Blood Count 4.98 M/mm3 (4.6-6.2); White Blood Count 9.9 K/mm3 (4.4-11.0)
[2024-03-07 16:07] LABS: ALB/GLOB Ratio 1.1 RATIO (0.9-2.4); AST(SGOT) 37 U/L (15-37); Alanine Aminotransfer ALT/SGPT 37 U/L (16-61); Albumin, Serum 4.1 g/dL (3.2-5.0); Alkaline Phosphatase 74 U/L (45-117); Anion Gap 9 (5-15); BUN 17 mg/dL (7-18); BUN/Creat Ratio 17.4 RATIO (10-20); Calcium,Total 9.5 mg/dL (8.5-10.1); Chloride 106 mmol/L (98-107); Creatinine, Serum 0.98 mg/dL (0.70-1.30); EST Glomerular Filtration Rate 86 mL/min (>60); Est Glom Filt Rate - Afr Amer 104 mL/min (>60); Estimated Creatinine Clearance 119.58 ml/min; Globulin 3.8 g/dL (2.2-4.2); Glucose 129 mg/dL (74-106); Lipase 57 U/L (13-75); Potassium 3.6 mmol/L (3.5-5.1); Protein, Total 7.9 g/dL (6.4-8.2); Sodium Level 140 mmol/L (136-145); Troponin-I HS 4 pg/mL (3.0-78.0)
[2024-03-07 16:49] VITALS: BP 108/69; PULSE 92; RESP 16; O2SAT 94
[2024-03-07 17:35] LABS: Bacteria 0 SEEN /hpf (None Seen); Mucous, Urine 0 SEEN /hpf (<or=2+); Red Blood Cells-Urine 0 SEEN /hpf (0-5); Squamous Epithelial Cells - UA 0 SEEN /hpf (0-5)
[2024-03-07 17:45] LABS: Color, Urine Yellow (Yellow); Glucose, Dipstick Normal (Normal); Ketone-Dipstick 5 mg/dl (Negative); Leukocyte Esterase-Dipstick 25 /ul (Negative); Nitrite-Dipstick Negative (Negative); Occult Blood-Urine 10 /ul (Negative); Protein-Dipstick 30 mg/dl (Negative); Specific Gravity, Urine 1.015 (1.002-1.030); Urine Clarity Clear (Clear); Urine Urobilinogen 4 mg/dl (Normal)
[2024-03-07 17:50] LABS: Urine Bilirubin Dipstick 6 mg/dL (Negative)
[2024-03-07 18:00] VITALS: BP 132/78; PULSE 64; RESP 18; O2SAT 98
[2024-03-07 18:12] LABS: White Blood Cells 0-5 SEEN /hpf (0-5)
[2024-03-07 18:37] VITALS: BP 120/63; PULSE 94; RESP 16; TEMP 36.4; O2SAT 98
== END 2024-03-07 18:39 | disposition home or self-care (01) ==
PROVIDERS: Emergency Provider Emergency Medicine; PCP Family Medicine; Visit Provider Emergency Medicine
DX: M54.50 Low back pain, unspecified (principal); E11.9 Type 2 diabetes mellitus without complications; F17.210 Nicotine dependence, cigarettes, uncomplicated; G47.30 Sleep apnea, unspecified
CPT/HCPCS: 74177; 80053; 81001; 83690; 84484; 85025; 93005; 96360; 96361; 99283; J7030; J7050; Q9967; A4216

== ENCOUNTER 2024-03-27 10:43 | Emergency (ER) | payer MEDICARE, MEDICAID, SELFPAY ==
[2024-03-27 10:43] VITALS: BP 142/90; PULSE 72; RESP 16; TEMP 36.6; O2SAT 98; BMI 31.1
--- NOTE | 2024-03-27 11:01 | CT_ITS ---
STUDY: CT ABDOMEN AND PELVIS WITH CONTRAST REASON FOR EXAM: Male, 53 years old. Left side abd pain. Hypertension. RADIATION DOSAGE (If Supplied By Facility): CTDIvol = ( 16.16 ) mGy, DLP = ( 1206.42 ) mGycm TECHNIQUE: Transaxial images were obtained from the dome of the diaphragm to the symphysis pubis without oral contrast. IV 100mL Isovue-300 was administered. Sagittal and coronal images were reconstructed. Individualized dose optimization techniques were used for this CT. COMPARISON: Comparison is made with prior study March 07, 2024. FINDINGS: Stable increased linear markings in the medial aspect of the right middle lobe. The visualized portions of the heart are within normal limits. Normal liver. Normal gallbladder and extrahepatic biliary system. Normal spleen. Normal pancreas. Normal bilateral adrenal glands. Normal right kidney. Normal left kidney. Retroaortic left renal vein. Normal visualized stomach. Normal small intestine. There are multiple colonic diverticula consistent with diverticulosis. There is evidence of a mural thickening and inflammatory changes seen along the descending colon suggestive of a colitis. There is evidence of a diverticula suggestive of localized diverticulitis. Normal abdominal aorta. Normal inferior vena cava. Normal retroperitoneum. Diffuse bladder wall thickening. Normal abdominal wall. There are diffuse degenerative changes of the visualized lumbar spine. CT/Abdomen/Pelvis W IV Cont ONLY IMPRESSION: Findings suggestive of colitis involving the descending colon with diverticulitis. Diffuse sigmoid diverticulosis. Diffuse bladder wall thickening. Electronically Signed: Iván Blevins MD at 12:10 EDT ,
--- NOTE | 2024-03-27 11:02 | ED.VIS.GI ---
HPI HPI - GI History of Present Illness Chief Complaint: Abd Pain Informant: patient Narrative Narrative: Generalized abdominal pain starting last evening persisted up at night. Nausea without vomiting. Normal bowel movement yesterday. No abdominal surgeries in the past. Reports had similar symptoms in the past however cannot recall was diagnosed with. Denies history of diverticulitis. Colonoscopy 1 to [address] Villeda, he reports had polypectomies that were benign. Denies fever chills or sweats. History of hypertension, diabetes, hyperlipidemia. Denies any kidney injury. Allergy to naproxen and meloxicam causing rash and hives. Prior similar symptoms: Yes PFSH PFS Medical History Sleep apnea Barretts esophagus Smoker Gout Anxiety Depression Diabetes Hypertension Hyperlipidemia Home Medications ?Medication ?Instructions ?Recorded ?Last Taken ?Type allopurinol 100 mg tablet 100 mg PO BIDCM 11/02/14 08/03/19 History gabapentin 400 mg capsule 900 mg PO 4X/DAY 11/02/14 08/03/19 History tamsulosin 0.4 mg capsule 0.4 mg PO DAILY 01/01/15 08/03/19 History albuterol sulfate 90 mcg/actuation 2 puff inhalation Q4H PRN PRN 06/18/15 08/03/19 History aerosol inhaler (Ventolin HFA) Wheezing metformin 500 mg tablet 1,000 mg PO BID 11/21/15 08/03/19 History aripiprazole 5 mg tablet 5 mg PO DAILY 04/09/16 08/03/19 History trazodone 300 mg tablet 300 mg PO QHS 03/16/18 08/03/19 History diphenhydramine HCl 25 mg tablet 25 mg PO PRN PRN Allergies 08/01/19 08/03/19 History atorvastatin 40 mg tablet 40 mg PO DAILY 11/30/20 Unknown History bupropion HCl 150 mg 24 hr tablet, 150 mg PO DAILY 11/30/20 Unknown History extended release benztropine 0.5 mg tablet 0.5 mg PO BID PRN PRN tremors 07/11/21 Unknown History pantoprazole 40 mg tablet,delayed 40 mg PO DAILY #14 tabs 05/08/23 Unknown Rx release (Protonix) hydrocodone-acetaminophen 5-325mg 1 tab PO Q4H PRN PRN Pain 2 days 01/25/24 Unknown Rx 5mg-325mg #14 TABLETS orphenadrine citrate 100 mg 100 mg PO BID #14 tabs 01/25/24 Unknown Rx tablet,extended release cefdinir 300 mg capsule 300 mg PO Q12H #14 caps 03/27/24 Unknown Rx hydrocodone-acetaminophen 5-325mg 1 tab PO Q6H PRN PRN Pain 3 days 03/27/24 Unknown Rx 5mg-325mg #12 TABLETS metronidazole 500 mg tablet 500 mg PO Q8H #20 tabs 03/27/24 Unknown Rx ondansetron 4 mg disintegrating 4 mg PO Q8H PRN PRN Nausea #10 tabs 03/27/24 Unknown Rx tablet Allergy/AdvReac Type Severity Reaction Status Date / Time cyclobenzaprine HCl (From Allergy Hives Verified 03/27/24 10:44 Flexeril) dicyclomine HCl (From Bentyl) Allergy Rash Verified 03/27/24 10:44 duloxetine HCl (From Allergy Hives Verified 03/27/24 10:44 Cymbalta) meloxicam (From Mobic) Allergy Rash Verified 03/27/24 10:44 naproxen Allergy Hives Verified 03/27/24 10:44 quetiapine (From Seroquel) Allergy Rash Verified 03/27/24 10:44 tramadol HCl (From Ultram) Allergy Rash Verified 03/27/24 10:44 Surgical History History of eyelid surgery History of neck surgery Social History household members: none Smoking Status: Current every day smoker tobacco type: cigarettes substance use type: does not use ROS ROS ED Constitutional Constitutional ED: Denies chills, fever(s) or sweats Eyes Eyes: Denies change in vision ENT ENT ED: Denies dysphagia or sore throat Cardiovascular Cardiovascular: Denies chest pain, leg edema, palpitations or racing heartbeat Respiratory/Chest Respiratory/Chest: Denies cough, dyspnea or dyspnea on exertion Gastrointestinal Gastrointestinal: Reports abdominal pain and nausea; Denies diarrhea or vomiting Genitourinary Genitourinary ED: Denies dysuria, hematuria or urinary frequency Musculoskeletal Musculoskeletal: Denies back pain, extremity pain or neck pain Integumentary Denies rash or wounds Neurologic Neurologic: Denies headache(s), paresthesias or weakness EXAM Physical Exam Const Vital Signs: 03/27/24 10:43 03/27/24 12:43 03/27/24 12:47 Temperature 98 F 98.1 F Temperature Source Temporal Pulse Rate 72 81 81 Respiratory Rate 16 16 16 Blood Pressure 142/90 H 144/90 H 144/90 H Blood Pressure Mean 107 108 108 Pulse Ox 98 96 Oxygen Delivery Method Room Air Positive well nourished and well developed General Appearance ED: well developed and NAD HEENT Reports moist mucous membranes normocephalic and atraumatic Eyes EOMs intact bilaterally and conjunctivae normal General Eye ED: Yes normal appearance of both eyes Neck no lymphadenopathy and supple General: Negative for tenderness Chest Wall Chest: Negative for tenderness Resp normal respiratory effort and normal air movement Effort and Inspection: symmetric chest movement; Negative for respiratory distress Cardio regular rate, regular rhythm and no murmurs Peripheral Pulses: pulses 2+ throughout GI GI Narrative: Tender to palpation in the left side and left lower quadrant. Negative Bailey's or McBurney's tenderness. Palpation: Negative for guarding or rebound tenderness present Back/Spine no CVA tenderness Extremity normal to inspection General Extremety ED: Negative for edema or tenderness General Extremity: Negative for edema Neuro oriented x3 and no sensory deficits noted Sensorium / Orientation: awake and alert Skin no rashes or lesions noted and no wounds MDM MDM MDM Narrative Medical decision making narrative: Interventions / MDM: Differential diagnosis: Diverticulitis, colitis, Diagnosis considered but do not suspect: Kidney stone however CT negative. My EKG interpretation: N/A Imaging independently reviewed and interpreted by myself: CT abdomen pelvis IV contrast: Inflammatory changes and thickening of the descending colon. No perforations. No abscess bladder was also read by radiology. External documents reviewed: N/A Test considered but not ordered:N/A ED course: Progressive left-sided abdominal pain since last evening. Initially reported generalized. Nontoxic. Will check abdominal labs urine fluids Zofran and morphine ordered. CT scan abdomen and pelvis IV contrast ordered for further evaluation. Labs white count 12.2. Creatinine 0.92. Lipase normal liver enzymes normal urine notes leukocytes and 1+ mucus. No urinary symptoms. CT scan confirms a descending colon colitis. Pain was under control. On reevaluation abdomen is soft. Started on cefdinir and Flagyl. He does not drink alcohol discussed avoiding alcohol products. Sophia Eng sent for pain control. Discussed return precautions. Otherwise he will follow-up with his surgery team as an outpatient. All questions were answered. Patient Re-evaluation: stable Disposition discussed with patient/family/significant other: Case discussed with consulting clinician: N/A This note was generated with [employer] dictation software. It may contain incorrect words, spelling, and punctuation that were not noted in checking the note before signing. Lab Data Attestation: I reviewed the patient's lab results. Labs: Laboratory Results - last 24 hr 03/27/24 03/27/24 11:15 11:38 WBC 12.2 H RBC 4.98 Hgb 14.4 Hct 42.0 MCV 84.3 MCH 28.9 MCHC 34.3 RDW Std Deviation 43.3 RDW Coeff of Maddy 14.1 Plt Count 208 MPV 8.7 Immature Gran % (Auto) 0.300 Neut % (Auto) 77.7 H Lymph % (Auto) 13.7 L [place] % (Auto) 7.6 Eos % (Auto) 0.5 Baso % (Auto) 0.2 Absolute Neuts (auto) 9.5 H Absolute Lymphs (auto) 1.68 Nucleated RBC % 0 Sodium 138 Potassium 3.4 L Chloride 103 Carbon Dioxide 27.0 Anion Gap 8 BUN 12 Creatinine 0.92 Estim Creat Clear Calc 128.90 Est GFR (MDRD) Af Amer 111 Est GFR (MDRD) Non-Af 92 BUN/Creatinine Ratio 13.1 Glucose 196 H Calcium 9.8 Total Bilirubin 0.90 AST 16 ALT 21 Alkaline Phosphatase 92 Total Protein 8.0 Albumin 3.8 Globulin 4.2 Albumin/Globulin Ratio 0.9 Lipase 57 Urine Color Yellow Urine Clarity Clear Urine pH 5.0 Ur Specific [place] 1.025 Urine Protein 30 H Urine Glucose (UA) Normal Urine Ketones Negative Urine Occult Blood 10 H Urine Nitrite Negative Urine Bilirubin 6 H Urine Urobilinogen 4 H Ur Leukocyte Esterase 25 H Urine RBC 0 SEEN Urine WBC 0-5 SEEN Ur Squamous Epith Cells 0-5 SEEN Urine Bacteria 0 SEEN Urine Mucus 1+ Radiography Diagnostic Testing: Clinical Impression(s) from Imaging Studies Abdomen/Pelvis CT 03/27/24 11:01 IMPRESSION: Findings suggestive of colitis involving the descending colon with diverticulitis. Diffuse sigmoid diverticulosis. Diffuse bladder wall thickening. Electronically Signed: Iván Blevins MD at 12:10 EDT , Discharge Plan Triage Chief Complaint: Abd Pain ED Provider: Kevyn Rodriguez Dx/Rx/DC Orders Clinical Impression: Colitis, Abdominal pain Instructions: Abdominal Pain, ED Understanding Colitis Prescriptions: New hydrocodone-acetaminophen 5-325 mg tablet 1 tab PO Q6H PRN PRN (Reason: Pain) 3 Days Qty: 12 0RF cefdinir 300 mg capsule 300 mg PO Q12H Qty: 14 0RF metronidazole 500 mg tablet 500 mg PO Q8H Qty: 20 0RF ondansetron 4 mg tablet,disintegrating 4 mg PO Q8H PRN PRN (Reason: Nausea) Qty: 10 0RF No Action gabapentin 400 MG capsule 900 mg PO 4X/DAY Patient Comments: Neuropathy/pinched nerve allopurinol 100 MG tablet 100 mg PO BIDCM Patient Comments: gout tamsulosin 0.4 MG capsule 0.4 mg PO DAILY Patient Comments: urine flow albuterol sulfate [Ventolin HFA] 1 INHALER inhaler 2 puff inhalation Q4H PRN PRN (Reason: Wheezing) Patient Comments: sob,wheezing metformin 500 MG tablet 1,000 mg PO BID Patient Comments: Take 1 tablet by mouth twice daily with meals. DIABETES aripiprazole 5 MG tablet 5 mg PO DAILY trazodone 300 MG tablet 300 mg PO QHS diphenhydramine HCl 25 MG tablet 25 mg PO PRN PRN (Reason: Allergies) atorvastatin 40 mg Tablet 40 mg PO DAILY bupropion HCl 150 mg Tablet Extended Release 24 Hr 150 mg PO DAILY benztropine 0.5 mg tablet 0.5 mg PO BID PRN PRN (Reason: tremors) Patient Comments: Take 1 (ONE) Tablet By Oral Route 2 (TWO) times per day NEEDED pantoprazole [Protonix] 40 mg tablet,delayed release (DR/EC) 40 mg PO DAILY Qty: 14 0RF hydrocodone-acetaminophen 5-325 mg tablet 1 tab PO Q4H PRN PRN (Reason: Pain) 2 Days Qty: 14 0RF orphenadrine citrate 100 mg tablet extended release 100 mg PO BID Qty: 14 0RF Primary Care Provider: Fabian Palm Referrals: Dulce Villeda MD [Med Staff - Active Staff] - 1-2 Weeks Fabian Palm MD [Primary Care Provider] - 1-2 Weeks Activity Restrictions/Additional Instructions: CT finding of ascending colon colitis uncomplicated. Take and finish antibiotic as prescribed. Avoid alcohol. Use nausea and pain medicine as needed. Follow-up with your doctors. If symptoms worsen not controlled with medications, return to the ED for reevaluation. Print Language: Swedish Disposition Disposition: Home, Self Care Discharge Date/Time: 03/27/24 12:48
[2024-03-27 11:23] LABS: Absolute Lymphocyte Count 1.68 X10^3/uL (0.83-4.51); Absolute Neutrophil Count 9.5 X10^3/uL (2.0-7.7); Basophil# 0.02 X10^3/uL; Basophil% 0.2 % (0-1); Eosinophil# 0.06 X10^3/uL; Eosinophils% 0.5 % (0-5); Hemoglobin 14.4 g/dL (13.0-16.5); Lymphocyte # 1.68 X10^3/ul (0.83-4.51); Lymphocyte % 13.7 % (19-41); Mean Corp Hgb Conc 34.3 g/dL (32-36); Mean Corpuscular Hgb 28.9 pg (27.0-32.0); Mean Corpuscular Volume 84.3 fL (80-94); Mean Platelet Vol. 8.7 fl (6.2-12.0); Monocyte# 0.93 X10^3/uL; Monocyte% 7.6 % (0-10); NRBC Flagged by Analyzer 0 % (0-5); Neutrophil # 9.51 X10^3/uL (2.7-7.7); Neutrophil % 77.7 % (47-70); Platelet Count 208 K/mm3 (150-450); RBC Distribution Width CV 14.1 % (11.6-14.6); RBC Distribution Width SD 43.3 fl (35.1-43.9); Red Blood Count 4.98 M/mm3 (4.6-6.2); White Blood Count 12.2 K/mm3 (4.4-11.0)
[2024-03-27] MEDS: Ondansetron 4 MG/2 ML Vial IV (11:33)
[2024-03-27] MEDS: 0.9% Normal Saline (1000mL) 1,000 ML 999 ML IV (11:33)
[2024-03-27] MEDS: Morphine 4 MG/ML Syringe IV (11:33)
[2024-03-27 11:39] LABS: ALB/GLOB Ratio 0.9 RATIO (0.9-2.4); AST(SGOT) 16 U/L (15-37); Alanine Aminotransfer ALT/SGPT 21 U/L (16-61); Albumin, Serum 3.8 g/dL (3.2-5.0); Alkaline Phosphatase 92 U/L (45-117); Anion Gap 8 (5-15); BUN 12 mg/dL (7-18); BUN/Creat Ratio 13.1 RATIO (10-20); Calcium,Total 9.8 mg/dL (8.5-10.1); Chloride 103 mmol/L (98-107); Creatinine, Serum 0.92 mg/dL (0.70-1.30); EST Glomerular Filtration Rate 92 mL/min (>60); Est Glom Filt Rate - Afr Amer 111 mL/min (>60); Globulin 4.2 g/dL (2.2-4.2); Glucose 196 mg/dL (74-106); Lipase 57 U/L (13-75); Potassium 3.4 mmol/L (3.5-5.1); Sodium Level 138 mmol/L (136-145)
[2024-03-27 11:42] LABS: Bacteria 0 SEEN /hpf (None Seen); Red Blood Cells-Urine 0 SEEN /hpf (0-5)
[2024-03-27 11:52] LABS: Color, Urine Yellow (Yellow); Glucose, Dipstick Normal (Normal); Ketone-Dipstick Negative (Negative); Leukocyte Esterase-Dipstick 25 /ul (Negative); Nitrite-Dipstick Negative (Negative); Occult Blood-Urine 10 /ul (Negative); Protein-Dipstick 30 mg/dl (Negative); Specific Gravity, Urine 1.025 (1.002-1.030); Urine Clarity Clear (Clear); Urine Urobilinogen 4 mg/dl (Normal)
[2024-03-27 11:57] LABS: Urine Bilirubin Dipstick 6 mg/dL (Negative)
[2024-03-27 11:59] LABS: Mucous, Urine 1+ /hpf (<or=2+); White Blood Cells 0-5 SEEN /hpf (0-5)
[2024-03-27 12:00] LABS: Squamous Epithelial Cells - UA 0-5 SEEN /hpf (0-5)
[2024-03-27 12:43] VITALS: BP 144/90; PULSE 81; RESP 16
[2024-03-27] MEDS: Cefdinir 300 MG Capsule PO (12:45)
[2024-03-27] MEDS: metroNIDAZOLE 500 MG Tablet PO (12:45)
[2024-03-27 12:47] VITALS: BP 144/90; PULSE 81; RESP 16; TEMP 36.7; O2SAT 96
== END 2024-03-27 12:48 | disposition home or self-care (01) ==
PROVIDERS: Emergency Provider Emergency Medicine; PCP Family Medicine; Visit Provider Emergency Medicine
DX: K52.9 Noninfective gastroenteritis and colitis, unspecified (principal); E11.9 Type 2 diabetes mellitus without complications; I10 Essential (primary) hypertension; E78.5 Hyperlipidemia, unspecified; F17.210 Nicotine dependence, cigarettes, uncomplicated; Z79.84 Long term (current) use of oral hypoglycemic drugs; Z79.899 Other long term (current) drug therapy
CPT/HCPCS: 74177; 80053; 81001; 83690; 85025; 96361; 96374; 99284; J7030; Q9967; A4216; J2405

== ENCOUNTER 2024-04-19 18:12 | Emergency (ER) | payer MEDICARE, MEDICAID, SELFPAY ==
[2024-04-19 18:13] VITALS: BP 120/81; PULSE 83; RESP 16; TEMP 36.5; O2SAT 99; BMI 32.5
[2024-04-19 18:15] VITALS: BP 120/81; PULSE 83; RESP 16; TEMP 36.5; O2SAT 99
--- NOTE | 2024-04-19 18:21 | RAD_ITS ---
STUDY: X-RAY RIGHT FOOT, 3 forefoot, attention second toe. REASON FOR EXAM: Male, 53 years old. Infection with ulceration medially, second toe TECHNIQUE: 3 view(s) of the forefoot were obtained. COMPARISON: Right foot x-ray dated May 11, 2015 FINDINGS: No visualized subcutaneous air or cortical erosion or periostitis or intramedullary lucency to indicate osteomyelitis. No visualized foreign bodies. Normal visualized metatarsus. Normal metatarsophalangeal (M.T.P) joint. Normal interphalangeal joints. Normal phalanges and interphalangeal joints. There is no demonstrated fracture. The soft tissue structures are unremarkable. RAD/Toe(s) Min 2 Views IMPRESSION: Negative x-ray of the toe. Electronically Signed: Bigg Bonner MD at 20:11 EDT ,
--- NOTE | 2024-04-19 18:23 | EDS_ITS ---
HPI History of Present Illness Chief Complaint: Wound Check Detail of Chief Complaint: Concern for infected right second toe Informant: patient Onset/Context/Timing Onset: Days (2 to 3 days ago) Context: Sudden Onset Timing: Continuous Quality: Redness and swelling of the right second toe Location: Right second toe Current Severity: Mild Maximum Severity: Mild Worsened by: Patient was unaware that he has a ulcer medial aspect of the second toe Relieved by: Nothing Associated Symptoms Associated Symptoms: Blood sugars higher than normal Narrative Narrative: Patient is a 53-year-old male with history of type 2 diabetes on metformin and hypertension who presents because of infected right second toe. He is never seen podiatry. He denies fever, chills night sweats. He denies a traumatic fever, heart murmur SBE or being immune suppressed. He denies symptoms of claudication. He denies headache, visual, ocular auditory symptoms. He denies dysuria, frequency, urgency or hematuria. He denies polyuria or polydipsia. He states his blood sugars normally run between 60-1 20. Today it was greater than 200. Patient has allergy to NSAIDs. He is not allergic to any antibiotic. Prior similar symptoms: No Recent Illness/Hospitalization: No [facility] Medical History Sleep apnea Barretts esophagus Smoker Gout Anxiety Depression Diabetes Hypertension Hyperlipidemia Home Medications ?Medication ?Instructions ?Recorded ?Last Taken ?Type allopurinol 100 mg tablet 100 mg PO BIDCM 11/02/14 08/03/19 History gabapentin 400 mg capsule 900 mg PO 4X/DAY 11/02/14 08/03/19 History tamsulosin 0.4 mg capsule 0.4 mg PO DAILY 01/01/15 08/03/19 History albuterol sulfate 90 mcg/actuation 2 puff inhalation Q4H PRN PRN 06/18/15 08/03/19 History aerosol inhaler (Ventolin HFA) Wheezing metformin 500 mg tablet 1,000 mg PO BID 11/21/15 08/03/19 History aripiprazole 5 mg tablet 5 mg PO DAILY 04/09/16 08/03/19 History trazodone 300 mg tablet 300 mg PO QHS 03/16/18 08/03/19 History diphenhydramine HCl 25 mg tablet 25 mg PO PRN PRN Allergies 08/01/19 08/03/19 History atorvastatin 40 mg tablet 40 mg PO DAILY 11/30/20 Unknown History bupropion HCl 150 mg 24 hr tablet, 150 mg PO DAILY 11/30/20 Unknown History extended release benztropine 0.5 mg tablet 0.5 mg PO BID PRN PRN tremors 07/11/21 Unknown History pantoprazole 40 mg tablet,delayed 40 mg PO DAILY #14 tabs 05/08/23 Unknown Rx release (Protonix) hydrocodone-acetaminophen 5-325mg 1 tab PO Q4H PRN PRN Pain 2 days 01/25/24 Unk nown Rx 5mg-325mg #14 TABLETS orphenadrine citrate 100 mg 100 mg PO BID #14 tabs 01/25/24 Unknown Rx tablet,extended release cefdinir 300 mg capsule 300 mg PO Q12H #14 caps 03/27/24 Unknown Rx hydrocodone-acetaminophen 5-325mg 1 tab PO Q6H PRN PRN Pain 3 days 03/27/24 Unknown Rx 5mg-325mg #12 TABLETS metronidazole 500 mg tablet 500 mg PO Q8H #20 tabs 03/27/24 Unknown Rx ondansetron 4 mg disintegrating 4 mg PO Q8H PRN PRN Nausea #10 tabs 03/27/24 Unknown Rx tablet cephalexin 500 mg capsule 500 mg PO Q6 #28 CAPSULES 04/19/24 Unknown Rx sulfamethoxazole 800 1 tab PO BID #14 TABLETS 04/19/24 Unknown Rx mg-trimethoprim 160 mg tablet Allergy/AdvReac Type Severity Reaction Status Date / Time cyclobenzaprine HCl (From Allergy Hives Verified 04/19/24 18:13 Flexeril) dicyclomine HCl (From Bentyl) Allergy Rash Verified 04/19/24 18:13 duloxetine HCl (From Allergy Hives Verified 04/19/24 18:13 Cymbalta) meloxicam (From Mobic) Allergy Rash Verified 04/19/24 18:13 naproxen Allergy Hives Verified 04/19/24 18:13 quetiapine (From Seroquel) Allergy Rash Verified 04/19/24 18:13 tramadol HCl (From Ultram) Allergy Rash Verified 04/19/24 18:13 Surgical History History of eyelid surgery History of neck surgery Social History household members: none Smoking Status: Light Smoker (<10/day) substance use type: does not use ROS ROS ED Constitutional Constitutional ED: Denies chills, fever(s), subjective or sweats Eyes Eyes: Denies blurry vision or change in vision Cardiovascular Cardiovascular: Denies chest pain or palpitations Respiratory/Chest Respiratory/Chest: Denies cough, dyspnea or dyspnea on exertion Gastrointestinal Gastrointestinal: Denies abdominal pain, nausea or vomiting Genitourinary Genitourinary ED: Denies urinary frequency Musculoskeletal Musculoskeletal: Denies arthralgias, back pain or myalgias Integumentary Reports rash Neurologic Neurologic: Denies weakness Hematologic/Lymphatic Hematologic/Lymphatic: Reports systems reviewed and no addt'l complaints, except as documented EXAM Physical Exam Const Vital Signs: 04/19/24 18:13 04/19/24 18:15 Temperature 97.7 F L 97.7 F L Temperature Source Oral Oral Pulse Rate 83 83 Respiratory Rate 16 16 Blood Pressure 120/81 H 120/81 H Blood Pressure Mean 94 94 Pulse Ox 99 99 Oxygen Delivery Method Room Air Room Air Positive well nourished and well developed General Appearance ED: well developed and NAD; Negative for cyanotic, diaphoretic or pallor HEENT Reports moist mucous membranes HEENT Narrative: Head is atraumatic normocephalic. Ears normal. Eyes PERRL and EOMs intact bilaterally General Eye ED: Negative for pale conjunctiva or scleral icterus Neck no lymphadenopathy, supple and no JVD Resp normal respiratory effort and clear to auscultation bilaterally Cardio regular rate, regular rhythm, S1 normal heart sound, S2 normal heart sound and no murmurs Extremity Negative for normal to inspection Extremity Narrative: The second toe is slightly swollen there is erythema there is also erythema on the dorsum of the foot. This was outlined with skin marker. DP PT pulse are 2+ and palpable. Patient does have hair on his toes. There is no lymphangitis. There is no popliteal lymphadenopathy. There is an ulcer on the medial side. This is down to fat. The skin is also macerated. Neuro oriented x3, CN's II-XII intact bilaterally and no sensory deficits noted Sensorium / Orientation: alert Psych mental status grossly normal Skin No no rashes or lesions noted, No no wounds and skin turgor normal Skin Narrative: Cellulitis toe and foot. General Skin Exam: Negative for jaundice or pallor MDM MDM MDM Narrative Medical decision making narrative: Patient has a foot infection with an ulcer second toe. Will obtain appropriate markers I E CBC, BMP ESR CRP as well as x-ray. If patient is a candidate for outpatient will contact Dr. Spivey who is on for foot and ankle. If he requires admission will contact hospitalist. Lactate was not obtained since he is not febrile tachycardic or tachypneic. BMP was obtained to assess blood sugar CO2 anion gap since he is diabetic and reports that his blood sugars are higher than normal. CBC to assess white count differential. Lab Data Attestation: I reviewed the patient's lab results. Lab results narrative: CBC is remarkable for mild anemia with normal indices. [facility]etence metabolic panel is marked for glucose of 163 with a normal CO2 anion gap. C-reactive protein is 55. Sed rate is normal. Labs: Laboratory Results - last 24 hr 04/19/24 18:29 WBC 9.7 RBC 4.34 L Hgb 12.6 L Hct 38.4 L MCV 88.5 MCH 29.0 MCHC 32.8 RDW Std Deviation 44.1 H RDW Coeff of Maddy 13.6 Plt Count 215 MPV 9.0 Immature Gran % (Auto) 0.500 Neut % (Auto) 68.1 Lymph % (Auto) 20.9 [place] % (Auto) 8.2 Eos % (Auto) 2.1 Baso % (Auto) 0.2 Absolute Neuts (auto) 6.6 Absolute Lymphs (auto) 2.02 Nucleated RBC % 0 ESR 10 Sodium 137 Potassium 3.8 Chloride 105 Carbon Dioxide 25.0 Anion Gap 6 BUN 14 Creatinine 0.94 Estim Creat Clear Calc 128.70 Est GFR (MDRD) Af Amer 109 Est GFR (MDRD) Non-Af 90 BUN/Creatinine Ratio 15.0 Glucose 163 H Calcium 9.0 Total Bilirubin 0.30 AST 30 ALT 39 Alkaline Phosphatase 93 C-React Prot Ext Range 55.10 H Total Protein 7.1 Albumin 3.3 Globulin 3.8 Albumin/Globulin Ratio 0.9 Radiography Chest X-Ray - ED: Read by ED Physician (Three-view x-ray of the right second toe reveals slight soft tissue swelling. There is no evidence of osteomyelitis, foreign body or any other acute abnormality.) Management Discussion w/another healthcare provider: Nail Puller (Dr. Spivey who is on for foot and ankle.) Treatment and Re-Evaluation :: Spoke with Dr. Spivey. He would like dry dressing, nonweightbearing and call office on Sunday to be seen first part of the week. Discharge Plan Triage Chief Complaint: Wound Check ED Provider: Samuel Johnson Dx/Rx/DC Orders Clinical Impression: Cellulitis of second toe of right foot, Hypertension, Ulcer of right second toe with fat layer exposed, Hyperglycemia due to type 2 diabetes mellitus Instructions: ED Cellulitis, ED Simple Pressure Injury Prescriptions: New sulfamethoxazole-trimethoprim 800-160 mg tablet 1 tab PO BID Qty: 14 0RF cephalexin 500 mg capsule 500 mg PO Q6 Qty: 28 0RF No Action gabapentin 400 MG capsule 900 mg PO 4X/DAY Patient Comments: Neuropathy/pinched nerve allopurinol 100 MG tablet 100 mg PO BIDCM Patient Comments: gout tamsulosin 0.4 MG capsule 0.4 mg PO DAILY Patient Comments: urine flow albuterol sulfate [Ventolin HFA] 1 INHALER inhaler 2 puff inhalation Q4H PRN PRN (Reason: Wheezing) Patient Comments: sob,wheezing metformin 500 MG tablet 1,000 mg PO BID Patient Comments: Take 1 tablet by mouth twice daily with meals. DIABETES aripiprazole 5 MG tablet 5 mg PO DAILY trazodone 300 MG tablet 300 mg PO QHS diphenhydramine HCl 25 MG tablet 25 mg PO PRN PRN (Reason: Allergies) atorvastatin 40 mg Tablet 40 mg PO DAILY bupropion HCl 150 mg Tablet Extended Release 24 Hr 150 mg PO DAILY benztropine 0.5 mg tablet 0.5 mg PO BID PRN PRN (Reason: tremors) Patient Comments: Take 1 (ONE) Tablet By Oral Route 2 (TWO) times per day NEEDED pantoprazole [Protonix] 40 mg tablet,delayed release (DR/EC) 40 mg PO DAILY Qty: 14 0RF hydrocodone-acetaminophen 5-325 mg tablet 1 tab PO Q6H PRN PRN (Reason: Pain) 3 Days Qty: 12 0RF cefdinir 300 mg capsule 300 mg PO Q12H Qty: 14 0RF metronidazole 500 mg tablet 500 mg PO Q8H Qty: 20 0RF ondansetron 4 mg tablet,disintegrating 4 mg PO Q8H PRN PRN (Reason: Nausea) Qty: 10 0RF hydrocodone-acetaminophen 5-325 mg tablet 1 tab PO Q4H PRN PRN (Reason: Pain) 2 Days Qty: 14 0RF orphenadrine citrate 100 mg tablet extended release 100 mg PO BID Qty: 14 0RF Primary Care Provider: Fabian Palm Referrals: Mark Spivey DPM [Med Staff - Active Staff] - As soon as possible Fabian Palm MD [Primary Care Provider] - Activity Restrictions/Additional Instructions: 1. Do not bear any weight on your right foot, use crutches 2. Take antibiotics until gone 3. Return if you have a temperature greater than 100, shaking chills, colored drainage from your toe. Print Language: [place] Disposition Disposition: Home, Self Care
[2024-04-19 18:42] LABS: Absolute Lymphocyte Count 2.02 X10^3/uL (0.83-4.51); Absolute Neutrophil Count 6.6 X10^3/uL (2.0-7.7); Basophil# 0.02 X10^3/uL; Basophil% 0.2 % (0-1); Eosinophils% 2.1 % (0-5); Hematocrit 38.4 % (40-54); Hemoglobin 12.6 g/dL (13.0-16.5); Lymphocyte # 2.02 X10^3/ul (0.83-4.51); Lymphocyte % 20.9 % (19-41); Mean Corp Hgb Conc 32.8 g/dL (32-36); Mean Corpuscular Volume 88.5 fL (80-94); Monocyte# 0.79 X10^3/uL; Monocyte% 8.2 % (0-10); NRBC Flagged by Analyzer 0 % (0-5); Neutrophil # 6.58 X10^3/uL (2.7-7.7); Neutrophil % 68.1 % (47-70); Platelet Count 215 K/mm3 (150-450); RBC Distribution Width CV 13.6 % (11.6-14.6); RBC Distribution Width SD 44.1 fl (35.1-43.9); Red Blood Count 4.34 M/mm3 (4.6-6.2); White Blood Count 9.7 K/mm3 (4.4-11.0)
[2024-04-19 18:59] LABS: ALB/GLOB Ratio 0.9 RATIO (0.9-2.4); AST(SGOT) 30 U/L (15-37); Alanine Aminotransfer ALT/SGPT 39 U/L (16-61); Albumin, Serum 3.3 g/dL (3.2-5.0); Alkaline Phosphatase 93 U/L (45-117); Anion Gap 6 (5-15); BUN 14 mg/dL (7-18); Chloride 105 mmol/L (98-107); Creatinine, Serum 0.94 mg/dL (0.70-1.30); EST Glomerular Filtration Rate 90 mL/min (>60); Est Glom Filt Rate - Afr Amer 109 mL/min (>60); Globulin 3.8 g/dL (2.2-4.2); Glucose 163 mg/dL (74-106); Potassium 3.8 mmol/L (3.5-5.1); Protein, Total 7.1 g/dL (6.4-8.2); Sodium Level 137 mmol/L (136-145)
[2024-04-19 19:03] LABS: Erythrocyte Sedimentation Rate 10 mm/hr (0-20)
[2024-04-19 19:15] VITALS: BP 125/80; PULSE 79; RESP 16; TEMP 36.8; O2SAT 95
[2024-04-19] MEDS: Smz/Tmp Ds Tablet 1 TABLET PO (19:30)
[2024-04-19] MEDS: Cephalexin 500 MG Capsule PO (19:30)
--- NOTE | 2024-04-19 19:31 | ED.RN ---
Doctor Johnson notified, order for crutches and non-weight bearing on right foot d/t wound, but affected right arm d/t surgery and sling. provider response, Give patient crutches and instruct him to use just one on the non-affected side. He will have to put some weight on affected foot until follow-consult
== END 2024-04-19 19:40 | disposition home or self-care (01) ==
PROVIDERS: Emergency Provider Emergency Medicine; PCP Family Medicine; Visit Provider Emergency Medicine
DX: E11.621 Type 2 diabetes mellitus with foot ulcer (principal); L97.512 Non-pressure chronic ulcer of other part of right foot with fat layer exposed; E11.65 Type 2 diabetes mellitus with hyperglycemia; Z79.84 Long term (current) use of oral hypoglycemic drugs; I10 Essential (primary) hypertension; L03.031 Cellulitis of right toe; F17.200 Nicotine dependence, unspecified, uncomplicated; E78.5 Hyperlipidemia, unspecified; M10.9 Gout, unspecified; Z79.899 Other long term (current) drug therapy; F32.A Depression, unspecified
CPT/HCPCS: 73660; 80053; 85025; 85652; 86140; 99285; A4216

== ENCOUNTER 2024-06-11 22:04 | Emergency (ER) | payer MEDICARE, MEDICAID, SELFPAY ==
[2024-06-11 22:04] VITALS: BP 147/89; PULSE 101; RESP 18; TEMP 36.9; O2SAT 99; BMI 32.3
--- NOTE | 2024-06-11 22:29 | RAD_ITS ---
EXAM: XR LUMBOSACRAL SPINE, 4 OR 5 VIEWS CLINICAL INDICATION: pain no injury TECHNIQUE: Frontal, lateral and bilateral oblique views of the lumbar spine. COMPARISON: 09/07/2021 FINDINGS: VERTEBRAE: Multilevel endplate osteophytosis and facet arthrosis. Retrolisthesis of L3 upon L4 secondary to facet arthrosis. Preservation of the normal lumbar lordosis. No fracture or spondylolysis. DISC SPACES: Multilevel intervertebral disc height loss. GASTROINTESTINAL TRACT: Normal as visualized. Included bowel gas pattern is non-obstructive. RAD/L/S Spine Min 4 Views IMPRESSION: Multilevel degenerative changes. No acute osseous findings. Electronically Signed: Sidney Hurst DO at 23:00 EST ,
--- NOTE | 2024-06-11 22:29 | RAD_ITS ---
EXAM: XR RIGHT SHOULDER COMPLETE, 2 OR MORE VIEWS CLINICAL INDICATION: shoulder pain, no injury TECHNIQUE: Two or more views of the right shoulder. COMPARISON: 09/07/2021 FINDINGS: BONES/JOINTS: Glenohumeral joint and acromioclavicular joint arthrosis. Status post biceps tenodesis. No acute fracture. No subluxation. Normal alignment. No sclerotic or destructive changes observed. SOFT TISSUES: No significant abnormality. No soft tissue swelling or gas. No radiopaque foreign body. RAD/Shoulder min 2 Views IMPRESSION: 1. Status post biceps tenodesis. 2. Glenohumeral joint and acromioclavicular joint arthrosis. No acute osseous findings. Electronically Signed: Sidney Hurst DO at 23:13 EST ,
--- NOTE | 2024-06-11 22:33 | EX.ED.DYSGE1 ---
HPI History of Present Illness Chief Complaint: Back Narrative Narrative: Patient is a 53-year-old male past medical history of LAKSHMI, anxiety, depression, diabetes, hypertension, lipidemia who presents to the emergency department chief complaint of right shoulder pain and low back pain. Patient states that his low back pain has been going on for a significant time and states that periodically the pain will radiate down his leg all the way to his foot. Patient states that he has not picked up anything heavy or had any inciting event. Patient also complains of right shoulder pain denies any injury. Patient states that back in March he had his rotator cuff repaired as well as bone spur and arthritis taken care of. He states that he was post follow-up with his orthopedic surgeon yesterday however he missed his appointment. He states that he took ibuprofen and Tylenol yesterday and today did not help the pain much which prompted him here for further evaluation management. Patient denies any history of IV drug use, states that he does smoke and denies any alcohol use. [facility] Medical History Sleep apnea Barretts esophagus Smoker Gout Anxiety Depression Diabetes Hypertension Hyperlipidemia Home Medications ?Medication ?Instructions ?Recorded ?Last Taken ?Type allopurinol 100 mg tablet 100 mg PO BIDCM 11/02/14 08/03/19 History gabapentin 400 mg capsule 900 mg PO 4X/DAY 11/02/14 08/03/19 History tamsulosin 0.4 mg capsule 0.4 mg PO DAILY 01/01/15 08/03/19 History albuterol sulfate 90 mcg/actuation 2 puff inhalation Q4H PRN PRN 06/18/15 08/03/19 History aerosol inhaler (Ventolin HFA) Wheezing metformin 500 mg tablet 1,000 mg PO BID 11/21/15 08/03/19 History aripiprazole 5 mg tablet 5 mg PO DAILY 04/09/16 08/03/19 History trazodone 300 mg tablet 300 mg PO QHS 03/16/18 08/03/19 History diphenhydramine HCl 25 mg tablet 25 mg PO PRN PRN Allergies 08/01/19 08/03/19 History atorvastatin 40 mg tablet 40 mg PO DAILY 11/30/20 Unknown History bupropion HCl 150 mg 24 hr tablet, 150 mg PO DAILY 11/30/20 Unknown History extended release benztropine 0.5 mg tablet 0.5 mg PO BID PRN PRN tremors 07/11/21 Unknown History pantoprazole 40 mg tablet,delayed 40 mg PO DAILY #14 tabs 05/08/23 Unknown Rx release (Protonix) hydrocodone-acetaminophen 5-325mg 1 tab PO Q4H PRN PRN Pain 2 days 01/25/24 Unknown Rx 5mg-325mg #14 TABLETS orphenadrine citrate 100 mg 100 mg PO BID #14 tabs 01/25/24 Unknown Rx tablet,extended release cefdinir 300 mg capsule 300 mg PO Q12H #14 caps 03/27/24 Unknown Rx hydrocodone-acetaminophen 5-325mg 1 tab PO Q6H PRN PRN Pain 3 days 03/27/24 Unknown Rx 5mg-325mg #12 TABLETS metronidazole 500 mg tablet 500 mg PO Q8H #20 tabs 03/27/24 Unknown Rx ondansetron 4 mg disintegrating 4 mg PO Q8H PRN PRN Nausea #10 tabs 03/27/24 Unknown Rx tablet cephalexin 500 mg capsule 500 mg PO Q6 #28 CAPSULES 04/19/24 Unknown Rx sulfamethoxazole 800 1 tab PO BID #14 TABLETS 04/19/24 Unknown Rx mg-trimethoprim 160 mg tablet tizanidine 2 mg capsule (Zanaflex) 2 mg PO TID PRN muscle spasticity 06/11/24 Unknown Rx #9 caps Allergy/AdvReac Type Severity Reaction Status Date / Time cyclobenzaprine HCl (From Allergy Hives Verified 06/11/24 22:05 Flexeril) dicyclomine HCl (From Bentyl) Allergy Rash Verified 06/11/24 22:05 duloxetine HCl (From Allergy Hives Verified 06/11/24 22:05 Cymbalta) meloxicam (From Mobic) Allergy Rash Verified 06/11/24 22:05 naproxen Allergy Hives Verified 06/11/24 22:05 quetiapine (From Seroquel) Allergy Rash Verified 06/11/24 22:05 tramadol HCl (From Ultram) Allergy Rash Verified 06/11/24 22:05 Family History no significant family his Surgical History History of eyelid surgery History of neck surgery Social History household members: none Smoking Status: Light Smoker (<10/day) substance use type: does not use ROS ROS ED ROS Narrative Constitutional: Denies any fevers, chills, headaches, lightness, dizziness Eyes: Denies changes double vision blurry vision Cardiovascular: Denies chest pain Respiratory: Denies coughing wheezing shortness of breath Abdomen: Denies nausea vomit diarrhea : Denies any difficulty urinating states that he is urinating normally for himself Neurological: Denies any numbness, weakness, tingling Musculoskeletal: Complains of low back pain as noted above as well as right shoulder pain as noted above Skin: Denies any rashes or lesions EXAM Physical Exam Narrative Exam Narrative: General: Patient lying in bed rest comfortably did not appear to be in acute distress Head: Atraumatic, normocephalic Eyes: PERRL bilateral, EOMI bladder, no conjunctival injection noted Neck: Soft, supple, trachea midline, no tenderness palpation the midline of the cervical spine patient is full range of motion of his neck without any pain no concern for meningitis Cardiovascular: Regular rate and rhythm no murmurs gallops rubs noted Respiratory: Clear to auscultation bilaterally no rales rhonchi or wheezes noted Abdomen: Soft, nondistended, nontender to palpation, bowel sounds present x 4 Musculoskeletal: No tenderness to palpation in the midline of the thoracolumbar spine no step-offs or deformities noted. Patient does have some tenderness palpation over the left quadratus lumborum region Extremities: +5/5 strength noted in the bilateral upper and lower extremities, radial pulses +2/4 the bilateral extremities, Neurological: Patient following commands knew that he was at [facility] years 2023. No saddle anesthesia noted sensation grossly intact when compared bilaterally Skin: Warm, dry, intact no rashes or lesions noted Const Vital Signs: 06/11/24 22:04 Temperature 98.4 F Temperature Source Oral Pulse Rate 101 H Respiratory Rate 18 Blood Pressure 147/89 H Blood Pressure Mean 108 Pulse Ox 99 Oxygen Delivery Method Room Air MDM MDM MDM Narrative Medical decision making narrative: Patient is a 53-year-old male who presented to the emergency department the chief complaint of right shoulder pain and lower back pain. On the differential diagnose includes but limited to sciatica, compression fracture, adhesive capsulitis, proximal humerus fracture although do feel this less likely as he has no inciting event. Patient will be given IM Toradol and states that he takes ibuprofen on a regular basis without any difficulty. Patient tolerated Toradol without any complications. Patient's x-ray of his shoulder showed status post biceps tendinosis glenohumeral joint and acromioclavicular joint arthrosis no acute osseous findings. This was reviewed by myself and by radiology. Patient's lumbar x-ray was reviewed by myself and read by radiology which showed multilevel degenerative changes no acute osseous findings noted. On reevaluation the patient he is feeling better he would like to go home at this point time. Patient's EKG was reviewed as well which showed sinus rhythm with a rate of 88 bpm this was independently reviewed by myself as well. Patient is requesting a prescription for muscle relaxer be sent to his pharmacy which this was done. Patient states that he has tolerated Zanaflex in the past without any difficulty. I did consult with the pharmacist here at the hospital as there was an alert for the allopurinol interaction and states that if this is a short course and he does not have underlying heart issues this should be tolerated for a few days. I will prescribe 3 days worth of Zanaflex. He was advised to rotate Tylenol and ibuprofen [id number]. He is advised to follow-up with his primary care physician outpatient setting and return with worsening symptoms or other concerns. Patient is agreeable this plan all question concerns answered he was discharged home in stable condition. Radiography Diagnostic Testing: Clinical Impression(s) from Imaging Studies Lumbar Spine X-Ray 06/11/24 22:29 IMPRESSION: Multilevel degenerative changes. No acute osseous findings. Electronically Signed: Sidney Hurst DO at 23:00 EST , Shoulder X-Ray 06/11/24 22:29 IMPRESSION: 1. Status post biceps tenodesis. 2. Glenohumeral joint and acromioclavicular joint arthrosis. No acute osseous findings. Electronically Signed: Sidney Hurst DO at 23:13 EST , Discharge Plan Triage Chief Complaint: Back ED Provider: Nico Tran Dx/Rx/DC Orders Clinical Impression: Pain in right shoulder, Low back pain Instructions: Back Exercises: Side Stretch Prescriptions: New tizanidine [Zanaflex] 2 mg capsule 2 mg PO TID PRN (Reason: muscle spasticity) Qty: 9 0RF No Action gabapentin 400 MG capsule 900 mg PO 4X/DAY Patient Comments: Neuropathy/pinched nerve allopurinol 100 MG tablet 100 mg PO BIDCM Patient Comments: gout tamsulosin 0.4 MG capsule 0.4 mg PO DAILY Patient Comments: urine flow albuterol sulfate [Ventolin HFA] 1 INHALER inhaler 2 puff inhalation Q4H PRN PRN (Reason: Wheezing) Patient Comments: sob,wheezing metformin 500 MG tablet 1,000 mg PO BID Patient Comments: Take 1 tablet by mouth twice daily with meals. DIABETES aripiprazole 5 MG tablet 5 mg PO DAILY trazodone 300 MG tablet 300 mg PO QHS diphenhydramine HCl 25 MG tablet 25 mg PO PRN PRN (Reason: Allergies) atorvastatin 40 mg Tablet 40 mg PO DAILY bupropion HCl 150 mg Tablet Extended Release 24 Hr 150 mg PO DAILY benztropine 0.5 mg tablet 0.5 mg PO BID PRN PRN (Reason: tremors) Patient Comments: Take 1 (ONE) Tablet By Oral Route 2 (TWO) times per day NEEDED pantoprazole [Protonix] 40 mg tablet,delayed release (DR/EC) 40 mg PO DAILY Qty: 14 0RF hydrocodone-acetaminophen 5-325 mg tablet 1 tab PO Q6H PRN PRN (Reason: Pain) 3 Days Qty: 12 0RF cefdinir 300 mg capsule 300 mg PO Q12H Qty: 14 0RF metronidazole 500 mg tablet 500 mg PO Q8H Qty: 20 0RF ondansetron 4 mg tablet,disintegrating 4 mg PO Q8H PRN PRN (Reason: Nausea) Qty: 10 0RF sulfamethoxazole-trimethoprim 800-160 mg tablet 1 tab PO BID Qty: 14 0RF cephalexin 500 mg capsule 500 mg PO Q6 Qty: 28 0RF hydrocodone-acetaminophen 5-325 mg tablet 1 tab PO Q4H PRN PRN (Reason: Pain) 2 Days Qty: 14 0RF orphenadrine citrate 100 mg tablet extended release 100 mg PO BID Qty: 14 0RF Primary Care Provider: Fabina Palm Referrals: Fabian Palm MD [Primary Care Provider] - Activity Restrictions/Additional Instructions: Do not operate anything under the influence of the muscle relaxer. Return with worsening symptoms or other concerns. Follow-up with your primary care physician and your orthopedic surgeon outpatient setting. Rotate Tylenol and ibuprofen [id number] as we discussed here for pain control. Print Language: Turkmen Disposition Disposition: Home, Self Care
[2024-06-11] MEDS: Ketorolac 15 MG/ML Vial IM (22:47)
[2024-06-11 23:28] VITALS: BP 155/92; PULSE 61; RESP 18; TEMP 36.9; O2SAT 96
== END 2024-06-11 23:33 | disposition home or self-care (01) ==
PROVIDERS: Emergency Provider Emergency Medicine; PCP Family Medicine; Visit Provider Emergency Medicine
DX: M25.511 Pain in right shoulder (principal); E11.9 Type 2 diabetes mellitus without complications; M19.011 Primary osteoarthritis, right shoulder; I10 Essential (primary) hypertension; F41.9 Anxiety disorder, unspecified; F32.A Depression, unspecified; E78.5 Hyperlipidemia, unspecified; M10.9 Gout, unspecified; M54.50 Low back pain, unspecified; G47.33 Obstructive sleep apnea (adult) (pediatric); F17.200 Nicotine dependence, unspecified, uncomplicated; Z79.84 Long term (current) use of oral hypoglycemic drugs; Z79.899 Other long term (current) drug therapy
CPT/HCPCS: 72110; 73030; 93005; 96372; 99282

== ENCOUNTER 2024-07-10 13:20 | Emergency (ER) | payer MEDICARE, MEDICAID, SELFPAY ==
[2024-07-10 13:21] VITALS: BP 150/91; PULSE 101; RESP 20; TEMP 36.6; O2SAT 94; BMI 32.5
--- NOTE | 2024-07-10 14:05 | EX.ED.DYSGE1 ---
HPI <DEVEN Back - Last Filed: 07/10/24 19:55> History of Present Illness Chief Complaint: Nausea/Vomiting/Diarrhea Narrative Narrative: Patient presenting today due to nausea, vomiting, and diarrhea that started early this morning. He reports multiple episodes of loose stool and vomiting. He denies sick contacts. He denies fevers, chills, melena, hematochezia, and hematemesis. He reports generalized abdominal discomfort. He denies any previous abdominal surgeries. He has a PMH of anxiety, depression, asthma, COPD, HTN, T2DM, and gout. PFSH <DEVEN Back - Last Filed: 07/10/24 19:55> [facility] Medical History Sleep apnea Barretts esophagus Smoker Gout Anxiety Depression Diabetes Hypertension Hyperlipidemia Home Medications ?Medication ?Instructions ?Recorded ?Last Taken ?Type allopurinol 100 mg tablet 100 mg PO BIDCM 11/02/14 08/03/19 History gabapentin 400 mg capsule 900 mg PO 4X/DAY 11/02/14 08/03/19 History tamsulosin 0.4 mg capsule 0.4 mg PO DAILY 01/01/15 08/03/19 History albuterol sulfate 90 mcg/actuation 2 puff inhalation Q4H PRN PRN 06/18/15 08/03/19 History aerosol inhaler (Ventolin HFA) Wheezing metformin 500 mg tablet 1,000 mg PO BID 11/21/15 08/03/19 History aripiprazole 5 mg tablet 5 mg PO DAILY 04/09/16 08/03/19 History trazodone 300 mg tablet 300 mg PO QHS 03/16/18 08/03/19 History diphenhydramine HCl 25 mg tablet 25 mg PO PRN PRN Allergies 08/01/19 08/03/19 History atorvastatin 40 mg tablet 40 mg PO DAILY 11/30/20 Unknown History bupropion HCl 150 mg 24 hr tablet, 150 mg PO DAILY 11/30/20 Unknown History extended release benztropine 0.5 mg tablet 0.5 mg PO BID PRN PRN tremors 07/11/21 Unknown History pantoprazole 40 mg tablet,delayed 40 mg PO DAILY #14 tabs 05/08/23 Unknown Rx release (Protonix) hydrocodone-acetaminophen 5-325mg 1 tab PO Q4H PRN PRN Pain 2 days 01/25/24 Unknown Rx 5mg-325mg #14 TABLETS orphenadrine citrate 100 mg 100 mg PO BID #14 tabs 01/25/24 Unknown Rx tablet,extended release cefdinir 300 mg capsule 300 mg PO Q12H #14 caps 03/27/24 Unknown Rx hydrocodone-acetaminophen 5-325mg 1 tab PO Q6H PRN PRN Pain 3 days 03/27/24 Unknown Rx 5mg-325mg #12 TABLETS metronidazole 500 mg tablet 500 mg PO Q8H #20 tabs 03/27/24 Unknown Rx ondansetron 4 mg disintegrating 4 mg PO Q8H PRN PRN Nausea #10 tabs 03/27/24 Unknown Rx tablet cephalexin 500 mg capsule 500 mg PO Q6 #28 CAPSULES 04/19/24 Unknown Rx sulfamethoxazole 800 1 tab PO BID #14 TABLETS 04/19/24 Unknown Rx mg-trimethoprim 160 mg tablet tizanidine 2 mg capsule (Zanaflex) 2 mg PO TID PRN muscle spasticity 06/11/24 Unknown Rx #9 caps amoxicillin 875 mg-potassium 1 tab PO BID #13 tabs 07/10/24 Unknown Rx clavulanate 125 mg tablet ondansetron 4 mg disintegrating 4 mg PO Q8H PRN PRN Nausea #10 tabs 07/10/24 Unknown Rx tablet Allergy/AdvReac Type Severity Reaction Status Date / Time cyclobenzaprine HCl (From Allergy Hives Verified 06/11/24 22:05 Flexeril) dicyclomine HCl (From Bentyl) Allergy Rash Verified 06/11/24 22:05 duloxetine HCl (From Allergy Hives Verified 06/11/24 22:05 Cymbalta) meloxicam (From Mobic) Allergy Rash Verified 06/11/24 22:05 naproxen Allergy Hives Verified 06/11/24 22:05 quetiapine (From Seroquel) Allergy Rash Verified 06/11/24 22:05 tramadol HCl (From Ultram) Allergy Rash Verified 06/11/24 22:05 Surgical History History of eyelid surgery History of neck surgery Social History household members: none Smoking Status: Light Smoker (<10/day) substance use type: does not use ROS <DEVEN Back - Last Filed: 07/10/24 19:55> ROS ED Constitutional Constitutional ED: Denies chills or fever(s) Cardiovascular Cardiovascular: Denies chest pain Respiratory/Chest Respiratory/Chest: Denies cough or dyspnea Gastrointestinal Gastrointestinal: Reports abdominal pain, diarrhea, nausea and vomiting; Denies constipation or melena Genitourinary Genitourinary ED: Denies dysuria, hematuria or urinary urgency Musculoskeletal Musculoskeletal: Denies arthralgias or myalgias Integumentary Denies rash Neurologic Neurologic: Denies weakness EXAM <DEVEN Back - Last Filed: 07/10/24 19:55> Physical Exam Const Vital Signs: 07/10/24 13:21 07/10/24 15:38 07/10/24 16:46 Temperature 98 F 97.3 F L 98.2 F Temperature Source Oral Oral Pulse Rate 101 H 86 89 Respiratory Rate 20 H 15 18 Blood Pressure 150/91 H 150/87 H 150/87 H Blood Pressure Mean 110 108 108 Pulse Ox 94 96 98 Oxygen Delivery Method Room Air Room Air Positive well nourished, well developed and no apparent distress General Appearance ED: well developed HEENT Reports normocephalic and head/scalp atraumatic Mouth ED: Yes moist mucous membranes normal Eyes PERRL and EOMs intact bilaterally Neck full ROM and supple Chest Wall inspection of chest normal Resp normal respiratory effort and clear to auscultation bilaterally Cardio regular rate and regular rhythm GI soft to palpation, non-distended and no masses GI Narrative: Minimal generalized abdominal tenderness to palpation without rigidity or guarding. Back/Spine normal ROM and normal to inspection Extremity normal to inspection and full ROM Neuro oriented x3, CN's II-XII intact bilaterally, moves all extremities, no focal motor deficits and no sensory deficits noted Sensorium / Orientation: awake and alert Psych mental status grossly normal and thought process normal Skin no rashes or lesions noted and no wounds <Dr. Kevyn Rodriguez DO - Last Filed: 07/10/24 22:28> Physical Exam Const Vital Signs: 07/10/24 13:21 07/10/24 15:38 07/10/24 16:46 Temperature 98 F 97.3 F L 98.2 F Temperature Source Oral Oral Pulse Rate 101 H 86 89 Respiratory Rate 20 H 15 18 Blood Pressure 150/91 H 150/87 H 150/87 H Blood Pressure Mean 110 108 108 Pulse Ox 94 96 98 Oxygen Delivery Method Room Air Room Air [facility] <DEVEN Back - Last Filed: 07/10/24 19:55> [facility] Narrative Medical decision making narrative: Patient presenting today with abdominal pain, nausea, vomiting, and diarrhea that started early this morning. He is nontoxic-appearing and in no acute distress. He has generalized abdominal tenderness on exam. Patient given IV fluids and Zofran. CBC shows a WBC of 15.6, sodium is 135, BUN 22, aside from this no DI, no transaminitis, lipase mildly elevated at 80. CT scan of the abdomen and pelvis obtained to assess for appendicitis, bowel obstruction, and diverticulitis. Gastroenteritis also on the differential. CT scan shows acute descending and sigmoid colon diverticulitis, no focal fluid collection. He will be started on Augmentin with first dose here. I will also give him a prescription for Zofran. I recommended he follow-up with his PCP, I have also given him a referral for GI. He will be given dietary modification instructions. He will be discharged home in stable condition. Lab Data Attestation: I reviewed the patient's lab results. Labs: Laboratory Results - last 24 hr 07/10/24 14:00 WBC 15.6 H RBC 5.60 Hgb 16.1 Hct 47.7 MCV 85.2 MCH 28.8 MCHC 33.8 RDW Std Deviation 43.9 RDW Coeff of Amddy 14.3 Plt Count 194 MPV 8.6 Immature Gran % (Auto) 0.500 Neut % (Auto) 91.9 H Lymph % (Auto) 2.1 L Jay % (Auto) 5.1 Eos % (Auto) 0.2 Baso % (Auto) 0.2 Absolute Neuts (auto) 14.3 H Absolute Lymphs (auto) 0.33 L Nucleated RBC % 0 Sodium 135 L Potassium 4.1 Chloride 104 Carbon Dioxide 24.0 Anion Gap 7 BUN 22 H Creatinine 1.11 Estim Creat Clear Calc 107.93 Est GFR (MDRD) Af Amer 90 Est GFR (MDRD) Non-Af 74 BUN/Creatinine Ratio 19.8 Glucose 295 H Calcium 8.9 Total Bilirubin 0.70 AST 15 ALT 28 Alkaline Phosphatase 97 Total Protein 7.8 Albumin 3.8 Globulin 4.0 Albumin/Globulin Ratio 1.0 Lipase 80 H Radiography Diagnostic Testing: Clinical Impression(s) from Imaging Studies Abdomen/Pelvis CT 07/10/24 15:01 IMPRESSION: Acute descending and sigmoid colon diverticulitis. No focal fluid collection or free air. Electronically Signed: David Fairchild MD at 16:11 EST , <Dr. Kevyn Rodriguez, DO - Last Filed: 07/10/24 22:28> [facility] Narrative Medical decision making narrative: Patient presenting today with abdominal pain, nausea, vomiting, and diarrhea that started early this morning. He is nontoxic-appearing and in no acute distress. He has generalized abdominal tenderness on exam. Patient given IV fluids and Zofran. CBC shows a WBC of 15.6, sodium is 135, BUN 22, aside from this no DI, no transaminitis, lipase mildly elevated at 80. CT scan of the abdomen and pelvis obtained to assess for appendicitis, bowel obstruction, and diverticulitis. Gastroenteritis also on the differential. CT scan shows acute descending and sigmoid colon diverticulitis, no focal fluid collection. He will be started on Augmentin with first dose here. I will also give him a prescription for Zofran. I recommended he follow-up with his PCP, I have also given him a referral for GI. He will be given dietary modification instructions. He will be discharged home in stable condition. Attending note: I have personally performed a face to face assessment of the patient and have reviewed the RAMIRO note. I personally made/approved the management plan and take responsibility for the patient management. I performed a substantive portion of the visit including all aspects of the following. My rodriguez findings include: Left upper abdominal pain nausea vomiting diarrhea since this morning. No bloody stools or emesis. No fevers. No abdominal surgery history. Exam is tenderness more left side abdomen epigastric region. No guarding or rebound. Nontoxic. Abdominal labs ordered white count 15.6 slightly elevated lipase of 80. Liver enzymes are normal. Creatinine 1.11. CT scan concerns for descending colon and sigmoid colitis. There is no abscess or ruptures. He started on Augmentin. Outpatient follow-up given. Lab Data Labs: Laboratory Results - last 24 hr 07/10/24 14:00 WBC 15.6 H RBC 5.60 Hgb 16.1 Hct 47.7 MCV 85.2 MCH 28.8 MCHC 33.8 RDW Std Deviation 43.9 RDW Coeff of Maddy 14.3 Plt Count 194 MPV 8.6 Immature Gran % (Auto) 0.500 Neut % (Auto) 91.9 H Lymph % (Auto) 2.1 L Jay % (Auto) 5.1 Eos % (Auto) 0.2 Baso % (Auto) 0.2 Absolute Neuts (auto) 14.3 H Absolute Lymphs (auto) 0.33 L Nucleated RBC % 0 Sodium 135 L Potassium 4.1 Chloride 104 Carbon Dioxide 24.0 Anion Gap 7 BUN 22 H Creatinine 1.11 Estim Creat Clear Calc 107.93 Est GFR (MDRD) Af Amer 90 Est GFR (MDRD) Non-Af 74 BUN/Creatinine Ratio 19.8 Glucose 295 H Calcium 8.9 Total Bilirubin 0.70 AST 15 ALT 28 Alkaline Phosphatase 97 Total Protein 7.8 Albumin 3.8 Globulin 4.0 Albumin/Globulin Ratio 1.0 Lipase 80 H Radiography Diagnostic Testing: Clinical Impression(s) from Imaging Studies Abdomen/Pelvis CT 07/10/24 15:01 IMPRESSION: Acute descending and sigmoid colon diverticulitis. No focal fluid collection or free air. Electronically Signed: David Fairchild MD at 16:11 EST , Discharge Plan Triage Chief Complaint: Nausea/Vomiting/Diarrhea ED Midlevel Provider: Pinky Hernadez ED Provider: Kevyn Rodriguez Dx/Rx/DC Orders Clinical Impression: Diverticulitis Instructions: Diverticulitis Dc Prescriptions: New amoxicillin-pot clavulanate 875-125 mg tablet 1 tab PO BID Qty: 13 0RF ondansetron 4 mg tablet,disintegrating 4 mg PO Q8H PRN PRN (Reason: Nausea) Qty: 10 0RF No Action gabapentin 400 MG capsule 900 mg PO 4X/DAY Patient Comments: Neuropathy/pinched nerve allopurinol 100 MG tablet 100 mg PO BIDCM Patient Comments: gout tamsulosin 0.4 MG capsule 0.4 mg PO DAILY Patient Comments: urine flow albuterol sulfate [Ventolin HFA] 1 INHALER inhaler 2 puff inhalation Q4H PRN PRN (Reason: Wheezing) Patient Comments: sob,wheezing metformin 500 MG tablet 1,000 mg PO BID Patient Comments: Take 1 tablet by mouth twice daily with meals. DIABETES aripiprazole 5 MG tablet 5 mg PO DAILY trazodone 300 MG tablet 300 mg PO QHS diphenhydramine HCl 25 MG tablet 25 mg PO PRN PRN (Reason: Allergies) atorvastatin 40 mg Tablet 40 mg PO DAILY bupropion HCl 150 mg Tablet Extended Release 24 Hr 150 mg PO DAILY benztropine 0.5 mg tablet 0.5 mg PO BID PRN PRN (Reason: tremors) Patient Comments: Take 1 (ONE) Tablet By Oral Route 2 (TWO) times per day NEEDED pantoprazole [Protonix] 40 mg tablet,delayed release (DR/EC) 40 mg PO DAILY Qty: 14 0RF hydrocodone-acetaminophen 5-325 mg tablet 1 tab PO Q6H PRN PRN (Reason: Pain) 3 Days Qty: 12 0RF cefdinir 300 mg capsule 300 mg PO Q12H Qty: 14 0RF metronidazole 500 mg tablet 500 mg PO Q8H Qty: 20 0RF ondansetron 4 mg tablet,disintegrating 4 mg PO Q8H PRN PRN (Reason: Nausea) Qty: 10 0RF sulfamethoxazole-trimethoprim 800-160 mg tablet 1 tab PO BID Qty: 14 0RF cephalexin 500 mg capsule 500 mg PO Q6 Qty: 28 0RF hydrocodone-acetaminophen 5-325 mg tablet 1 tab PO Q4H PRN PRN (Reason: Pain) 2 Days Qty: 14 0RF orphenadrine citrate 100 mg tablet extended release 100 mg PO BID Qty: 14 0RF tizanidine [Zanaflex] 2 mg capsule 2 mg PO TID PRN (Reason: muscle spasticity) Qty: 9 0RF Primary Care Provider: Fabian Palm Referrals: Fabian Palm MD [Primary Care Provider] - 5-7 Days Friend,DO Blake [Med Staff - Active Staff] - 1 Week Activity Restrictions/Additional Instructions: Follow-up with your PCP and GI. Return for any worsening symptoms. Print Language: Croatian Disposition Disposition: Home, Self Care Discharge Date/Time: 07/10/24 16:48
[2024-07-10 14:09] LABS: Absolute Lymphocyte Count 0.33 X10^3/uL (0.83-4.51); Absolute Neutrophil Count 14.3 X10^3/uL (2.0-7.7); Basophil# 0.03 X10^3/uL; Basophil% 0.2 % (0-1); Eosinophil# 0.03 X10^3/uL; Eosinophils% 0.2 % (0-5); Hematocrit 47.7 % (40-54); Hemoglobin 16.1 g/dL (13.0-16.5); Lymphocyte # 0.33 X10^3/ul (0.83-4.51); Lymphocyte % 2.1 % (19-41); Mean Corp Hgb Conc 33.8 g/dL (32-36); Mean Corpuscular Hgb 28.8 pg (27.0-32.0); Mean Corpuscular Volume 85.2 fL (80-94); Mean Platelet Vol. 8.6 fl (6.2-12.0); Monocyte% 5.1 % (0-10); NRBC Flagged by Analyzer 0 % (0-5); Neutrophil # 14.28 X10^3/uL (2.7-7.7); Neutrophil % 91.9 % (47-70); POSITIVE DIFFERENTIAL YES; Platelet Count 194 K/mm3 (150-450); RBC Distribution Width CV 14.3 % (11.6-14.6); RBC Distribution Width SD 43.9 fl (35.1-43.9); White Blood Count 15.6 K/mm3 (4.4-11.0)
[2024-07-10 14:21] LABS: AST(SGOT) 15 U/L (15-37); Alanine Aminotransfer ALT/SGPT 28 U/L (16-61); Albumin, Serum 3.8 g/dL (3.2-5.0); Alkaline Phosphatase 97 U/L (45-117); Anion Gap 7 (5-15); BUN 22 mg/dL (7-18); BUN/Creat Ratio 19.8 RATIO (10-20); Calcium,Total 8.9 mg/dL (8.5-10.1); Chloride 104 mmol/L (98-107); Creatinine, Serum 1.11 mg/dL (0.70-1.30); EST Glomerular Filtration Rate 74 mL/min (>60); Est Glom Filt Rate - Afr Amer 90 mL/min (>60); Estimated Creatinine Clearance 107.93 ml/min; Glucose 295 mg/dL (74-106); Lipase 80 U/L (13-75); Potassium 4.1 mmol/L (3.5-5.1); Protein, Total 7.8 g/dL (6.4-8.2); Sodium Level 135 mmol/L (136-145)
[2024-07-10] MEDS: Ondansetron 4 MG/2 ML Vial IV (14:22)
[2024-07-10] MEDS: 0.9% Normal Saline (1000mL) 1,000 ML 999 ML IV (14:22)
--- NOTE | 2024-07-10 15:01 | CT_ITS ---
INDICATION: left sided abdominal pain EXAMINATION: CT Abdomen And Pelvis W/ Contrast Injection TECHNIQUE: Helically acquired images were obtained of the abdomen and pelvis after IV contrast. A radiation dose optimization technique was used for this scan. IV Contrast dosage and agent: IV 100mL Isovue-370 Oral contrast: None. COMPARISON: 03/27/2024. FINDINGS: Visualized lung bases: Unremarkable Liver: Unremarkable Gallbladder: Unremarkable Spleen: Unremarkable Pancreas: Unremarkable Adrenal Glands: Unremarkable Kidneys: Unremarkable Vasculature: Unremarkable GI Tract: Scattered colonic diverticula. There is mild circumferential wall thickening of the descending and sigmoid colon with minimal surrounding fat stranding. No focal fluid collection or free air. Lymphadenopathy: None Peritoneum: No ascites. Bladder: Unremarkable Reproductive organs: Unremarkable Bones/Soft tissues: No suspicious osseous or soft tissue lesions CT/Abdomen/Pelvis W IV Cont ONLY IMPRESSION: Acute descending and sigmoid colon diverticulitis. No focal fluid collection or free air. Electronically Signed: David Fairchild MD at 16:11 EST ,
[2024-07-10] MEDS: Famotidine 20 MG Tablet PO (15:32)
[2024-07-10 15:38] VITALS: BP 150/87; PULSE 86; RESP 15; TEMP 36.3; O2SAT 96
[2024-07-10] MEDS: Amox/Clavulanate 875 MG Tablet PO (16:45)
[2024-07-10 16:46] VITALS: BP 150/87; PULSE 89; RESP 18; TEMP 36.8; O2SAT 98
== END 2024-07-10 16:48 | disposition home or self-care (01) ==
PROVIDERS: Physician Assistant; Emergency Provider Emergency Medicine; PCP Family Medicine; Visit Provider Emergency Medicine
DX: K57.32 Diverticulitis of large intestine without perforation or abscess without bleeding (principal); J44.9 Chronic obstructive pulmonary disease, unspecified; E11.9 Type 2 diabetes mellitus without complications; I10 Essential (primary) hypertension; F41.9 Anxiety disorder, unspecified; M10.9 Gout, unspecified; F32.A Depression, unspecified; G47.30 Sleep apnea, unspecified; F17.200 Nicotine dependence, unspecified, uncomplicated; Z87.19 Personal history of other diseases of the digestive system; Z79.84 Long term (current) use of oral hypoglycemic drugs; Z79.899 Other long term (current) drug therapy
CPT/HCPCS: 74177; 80053; 83690; 85025; 96361; 96374; 99285; Q9967; J2405

== ENCOUNTER 2024-07-19 19:55 | Emergency (ER) | payer MEDICAID, MEDICARE, SELFPAY ==
[2024-07-19 19:59] VITALS: BP 124/87; PULSE 98; RESP 21; TEMP 37.1; O2SAT 94; BMI 32.5
[2024-07-19 20:02] VITALS: BP 124/87; PULSE 97; RESP 21; TEMP 37.1; O2SAT 93
--- NOTE | 2024-07-19 20:10 | EKG12_ITS ---
Test Reason : CP Blood Pressure : */* mmHG Vent. Rate : 96 BPM Atrial Rate : 96 BPM P-R Int : 172 ms QRS Dur : 110 ms QT Int : 358 ms P-R-T Axes : -4 -13 56 degrees QTcB Int : 452 ms Normal sinus rhythm Incomplete right bundle branch block Borderline ECG Confirmed by ROBERTO HOROWITZ, ALEK ([id number]), newspaper editor CECY SHER ([id number]) on 07/21/2024 7:57:37 AM Referred By: Confirmed By: ALEK MEJIA MD
--- NOTE | 2024-07-19 20:27 | CT_ITS ---
STUDY: CT ABDOMEN AND PELVIS WITH CONTRAST REASON FOR EXAM: Male, 54 years old. Constipation, abdominal pain, RADIATION DOSAGE (If Supplied By Facility): CTDIvol = ( 15.6 ) mGy, DLP = ( 1183.13 ) mGycm TECHNIQUE: Transaxial images were obtained from the dome of the diaphragm to the symphysis pubis without oral contrast. IV 75mL Isovue-370 was administered. Sagittal and coronal images were reconstructed. Individualized dose optimization techniques were used for this CT. COMPARISON: July 10, 2024 FINDINGS: The visualized lung bases are unremarkable. Heart size is normal. There is minor coronary artery calcification Normal liver. Normal gallbladder and extrahepatic biliary system. Normal spleen. Normal pancreas. Normal bilateral adrenal glands. Normal right kidney. Normal left kidney. Mild thickening of the rugal folds in the gastric fundus which may be consistent with gastritis. Mild nonspecific ileus with diffuse fecal retention in the colon.. Mild diverticular disease of the colon without evidence for acute diverticulitis. There is no evidence for acute appendicitis Minor atherosclerotic change of the aorta without evidence for aneurysm. Normal inferior vena cava. Normal retroperitoneum. Normal urinary bladder. Normal abdominal wall. Lumbar spine demonstrates degenerative changes CT/Abdomen/Pelvis W IV Cont ONLY IMPRESSION: Findings which may be consistent with nonspecific gastritis.. No evidence for small bowel obstruction or other acute abnormality Electronically Signed: Glenn Luong MD at 21:59 EST ,
--- NOTE | 2024-07-19 20:35 | RAD_ITS ---
STUDY: X-RAY CHEST REASON FOR EXAM: Male, 54 years old. chest pain TECHNIQUE: AP portable COMPARISON: May 14, 2023 FINDINGS: Mild chronic interstitial thickening in the right lower lobe. There is no demonstrated pleural abnormality. Normal size heart. Normal mediastinum and arjun. Normal visualized pulmonary arteries. Normal visualized aortic arch and descending thoracic aorta. Dorsal spine demonstrates degenerative change. Normal visualized ribs, clavicles, and shoulders. Postop change status post cervical fusion There is no demonstrated abnormality of the visualized soft tissue structures of the upper abdomen. RAD/Chest 1 View (Portable) IMPRESSION: No acute cardiopulmonary pathology. Electronically Signed: Glenn Luong MD at 21:39 EST ,
[2024-07-19 20:36] LABS: Absolute Lymphocyte Count 2.03 X10^3/uL (0.83-4.51); Absolute Neutrophil Count 5.1 X10^3/uL (2.0-7.7); Basophil# 0.01 X10^3/uL; Basophil% 0.1 % (0-1); Eosinophils% 1.3 % (0-5); Hematocrit 43.9 % (40-54); Hemoglobin 14.8 g/dL (13.0-16.5); Lymphocyte # 2.03 X10^3/ul (0.83-4.51); Lymphocyte % 25.5 % (19-41); Mean Corp Hgb Conc 33.7 g/dL (32-36); Mean Corpuscular Hgb 28.6 pg (27.0-32.0); Mean Corpuscular Volume 84.9 fL (80-94); Mean Platelet Vol. 8.4 fl (6.2-12.0); Monocyte# 0.69 X10^3/uL; Monocyte% 8.7 % (0-10); NRBC Flagged by Analyzer 0 % (0-5); Neutrophil # 5.09 X10^3/uL (2.7-7.7); Platelet Count 241 K/mm3 (150-450); RBC Distribution Width CV 14.6 % (11.6-14.6); RBC Distribution Width SD 45.4 fl (35.1-43.9); Red Blood Count 5.17 M/mm3 (4.6-6.2)
--- NOTE | 2024-07-19 20:45 | EX.ED.DYSGE1 ---
HPI History of Present Illness Chief Complaint: Chest Pain Narrative Narrative: 54-year-old male past medical history of diabetes presents via EMS with cough and shortness of breath since yesterday. He also states he had chest pain. He states that he was coughing and he felt tightness in his chest on the left side, like a knot of the muscle. It then happened on the right side today. He states he associates this with shortness of breath at times and a cough. Additionally, while he denies any fever or chills, he relates history that he has to strain to urinate, and that he is unable to have a bowel movement. Additionally, he states that he noticed that today his penis and scrotum are red. He denies any penile discharge. No purulent drainage from the area. [facility] Medical History Sleep apnea Barretts esophagus Smoker Gout Anxiety Depression Diabetes Hypertension Hyperlipidemia Home Medications ?Medication ?Instructions ?Recorded ?Last Taken ?Type allopurinol 100 mg tablet 100 mg PO BIDCM 11/02/14 08/03/19 History tamsulosin 0.4 mg capsule 0.4 mg PO DAILY 01/01/15 08/03/19 History albuterol sulfate 90 mcg/actuation 2 puff inhalation Q4H PRN PRN 06/18/15 08/03/19 History aerosol inhaler (Ventolin HFA) Wheezing trazodone 300 mg tablet 300 mg PO QHS 03/16/18 08/03/19 History diphenhydramine HCl 25 mg tablet 25 mg PO PRN PRN Allergies 08/01/19 08/03/19 History atorvastatin 40 mg tablet 40 mg PO DAILY 11/30/20 Unknown History benztropine 0.5 mg tablet 0.5 mg PO BID PRN PRN tremors 07/11/21 Unknown History pantoprazole 40 mg tablet,delayed 40 mg PO DAILY #14 tabs 05/08/23 Unknown Rx release (Protonix) tizanidine 2 mg capsule (Zanaflex) 2 mg PO TID PRN muscle spasticity 06/11/24 Unknown Rx #9 caps ondansetron 4 mg disintegrating 4 mg PO Q8H PRN PRN Nausea #10 tabs 07/10/24 Unknown Rx tablet budesonide-formoterol HFA 80 2 puff inhalation BID 07/19/24 Unknown History mcg-4.5 mcg/actuation aerosol inhaler (Symbicort) bupropion HCl 300 mg 24 hr tablet, 300 mg PO DAILY 07/19/24 Unknown History extended release fluticasone propionate 50 2 spray intranasal DAILY 07/19/24 Unknown History mcg/actuation nasal spray,suspension gabapentin 100 mg capsule 100 mg PO 4X/DAY 07/19/24 Unknown History gabapentin 800 mg tablet 800 mg PO 4X/DAY 07/19/24 Unknown History glipizide 2.5 mg tablet, extended 2.5 mg PO DAILY 07/19/24 Unknown History release 24 hr metformin 1,000 mg tablet 1,000 mg PO BID 07/19/24 Unknown History nystatin 100,000 unit/gram topical 1 applic topical BID #30 grams 07/19/24 Unknown Rx cream Allergy/AdvReac Type Severity Reaction Status Date / Time cyclobenzaprine HCl (From Allergy Hives Verified 07/19/24 19:59 Flexeril) dicyclomine HCl (From Bentyl) Allergy Rash Verified 07/19/24 19:59 duloxetine HCl (From Allergy Hives Verified 07/19/24 19:59 Cymbalta) meloxicam (From Mobic) Allergy Rash Verified 07/19/24 19:59 naproxen Allergy Hives Verified 07/19/24 19:59 quetiapine (From Seroquel) Allergy Rash Verified 07/19/24 19:59 tramadol HCl (From Ultram) Allergy Rash Verified 07/19/24 19:59 Surgical History History of eyelid surgery History of neck surgery Social History household members: none Smoking Status: Heavy Smoker (>10/day) substance use type: does not use ROS ROS ED ROS Narrative Constitutional: No fever, no chills. HEENT: No sore throat. No neck pain. No loss of vision. No rhinorrhea. Cardiovascular: Positive chest pain. No palpitations. No pedal edema. Respiratory: Occasional cough, positive shortness of breath. Abdominal: Positive abdominal pain. No nausea. No vomiting. Unable to have a bowel movement. Genitourinary: No dysuria. No hematuria. Positive dysuria. Has to strain to urinate. States penis and scrotum are reddened. Musculoskeletal: No myalgias. No arthralgias. Neurologic: No headaches. No dizziness. No lightheadedness. Skin: No rash. No change in color. Psychiatric: No depression. No anxiety. EXAM Physical Exam Narrative Exam Narrative: Afebrile. Vital signs noted. Nontoxic-appearing. Cardiovascular examination reveals a regular rate and rhythm. Lungs are clear to auscultation bilaterally. Abdomen is soft without guarding or rebound. Positive bowel sounds. Inspection of the genitals does show mild erythema and skin color changes consistent more with a candidal infection. No crepitance. Neurological examination is nonfocal and nonlateralizing. Const Vital Signs: 07/19/24 19:59 07/19/24 20:02 07/19/24 20:04 Temperature 98.8 F 98.8 F Temperature Source Oral Oral Pulse Rate 98 97 Respiratory Rate 21 H 21 H Respiratory Effort Short of Breath Respiratory Depth Normal Respiratory Pattern Normal Blood Pressure 124/87 H 124/87 H Blood Pressure Mean 99 99 Pulse Ox 94 93 Oxygen Delivery Method Room Air Room Air Room Air 07/19/24 20:05 07/19/24 20:32 07/19/24 21:02 Temperature 97.7 F L Temperature Source Oral Pulse Rate 82 Respiratory Rate 16 Respiratory Effort Short of Breath Respiratory Depth Respiratory Pattern Normal Blood Pressure 117/83 H Blood Pressure Mean 94 Pulse Ox 94 Oxygen Delivery Method Room Air Room Air 07/19/24 22:00 Temperature 97.9 F Temperature Source Oral Pulse Rate 83 Respiratory Rate 18 Respiratory Effort Respiratory Depth Respiratory Pattern Blood Pressure 135/85 H Blood Pressure Mean 101 Pulse Ox 94 Oxygen Delivery Method MDM MDM MDM Narrative Medical decision making narrative: Regarding his chest pain, differential diagnosis includes but not limited to ACS versus pneumothorax versus pneumonia. I have low suspicion for pulmonary embolism because the history and physical does not support this. Regarding his dysuria, he may have a UTI versus enlarged prostate versus urinary retention. Also regarding his constipation, he may have a bowel obstruction or diverticulitis, but history and physical does not support diverticulitis. Regarding his reddened genitals, he may have more of a candidal infection than cellulitis. I doubt Whit's gangrene. However, he does have past medical history of diabetes. Initially his chief complaint was the chest pain with shortness of breath. Protocol labs were entered. EKG obtained and interpreted by myself independently as normal sinus rhythm at 96 bpm without ectopy or acute ST changes. No STEMI. I reviewed his laboratory work and he has normal white count of 8.0, hemoglobin normal at 14.8, no anemia, platelet count normal at 241. Sodium is slightly low at 135 which I think is nonspecific, normal potassium of 3.6 and chloride 102. BUN slightly elevated 22 with a creatinine of 0.95. LFTs are grossly unremarkable. Initial high-sensitivity troponin is 5. Chest x-ray in 1 view interpreted by myself independently shows no evidence of pneumonia or pneumothorax. I reviewed the radiology report which confirms my independent interpretation. Patient was able to urinate and his postvoid residual was 41 mL. I do not feel he is in urinary retention. Urinalysis is negative for infection so I do not feel antibiotics are indicated. I reviewed the radiology report of the CT of the abdomen and pelvis and while appears he may have gastritis, there is no obstruction, no other acute process. No gas in the tissue so I doubt Whit's gangrene. As long as his second troponin is within normal limits I feel he can be discharged to follow-up with his primary care provider. His second troponin returned at 7 for an acceptable delta troponin. He will be treated with an antifungal cream for what I feel is probably more tinea or candidal infection. He will follow-up with his primary care provider. Return instructions were reviewed. Disposition is discharged home in stable condition. History & Record Review Discussion w/independent historian: Patient Lab Data Attestation: I reviewed the patient's lab results. Labs: Laboratory Results - last 24 hr 07/19/24 07/19/24 07/19/24 20:32 20:48 22:45 WBC 8.0 RBC 5.17 Hgb 14.8 Hct 43.9 MCV 84.9 MCH 28.6 MCHC 33.7 RDW Std Deviation 45.4 H RDW Coeff of Maddy 14.6 Plt Count 241 MPV 8.4 Immature Gran % (Auto) 0.400 Neut % (Auto) 64.0 Lymph % (Auto) 25.5 [place] % (Auto) 8.7 Eos % (Auto) 1.3 Baso % (Auto) 0.1 Absolute Neuts (auto) 5.1 Absolute Lymphs (auto) 2.03 Nucleated RBC % 0 Sodium 135 L Potassium 3.6 Chloride 102 Carbon Dioxide 25.0 Anion Gap 8 BUN 22 H Creatinine 0.95 Estim Creat Clear Calc 126.11 Est GFR (MDRD) Af Amer 107 Est GFR (MDRD) Non-Af 88 BUN/Creatinine Ratio 23.1 H Glucose 198 H Calcium 8.7 Total Bilirubin 0.50 AST 33 ALT 36 Alkaline Phosphatase 87 Troponin I High Sens 5 7 Total Protein 7.5 Albumin 3.8 Globulin 3.7 Albumin/Globulin Ratio 1.0 Urine Color Yellow Urine Clarity Clear Urine pH 6.0 Ur Specific [place] 1.025 Urine Protein 30 H Urine Glucose (UA) Normal Urine Ketones 5 H Urine Occult Blood Negative Urine Nitrite Negative Urine Bilirubin Negative Urine Urobilinogen Normal Ur Leukocyte Esterase Negative Urine RBC 0 SEEN Urine WBC 0-5 SEEN Ur Squamous Epith Cells 0-5 SEEN Urine Bacteria 0 SEEN Urine Mucus 0 SEEN Radiography Diagnostic Testing: Clinical Impression(s) from Imaging Studies Abdomen/Pelvis CT 07/19/24 20:27 IMPRESSION: Findings which may be consistent with nonspecific gastritis.. No evidence for small bowel obstruction or other acute abnormality Electronically Signed: Glenn Luong MD at 21:59 EST , Chest X-Ray 07/19/24 20:35 IMPRESSION: No acute cardiopulmonary pathology. Electronically Signed: Glenn Luong MD at 21:39 EST , Discharge Plan Triage Chief Complaint: Chest Pain Other Complaint: Cough ED Provider: Nick Gage Dx/Rx/DC Orders Clinical Impression: Chest pain, Candidiasis of scrotum, Gastritis Instructions: ED Mimi Skin Infection (Adult), ED Chest Pain, Uncertain Cause Prescriptions: New nystatin 100,000 unit/gram cream 1 applic topical BID Qty: 30 0RF Rx Instructions: To affected area No Action allopurinol 100 MG tablet 100 mg PO BIDCM Patient Comments: gout tamsulosin 0.4 MG capsule 0.4 mg PO DAILY Patient Comments: urine flow albuterol sulfate [Ventolin HFA] 1 INHALER inhaler 2 puff inhalation Q4H PRN PRN (Reason: Wheezing) Patient Comments: sob,wheezing trazodone 300 MG tablet 300 mg PO QHS diphenhydramine HCl 25 MG tablet 25 mg PO PRN PRN (Reason: Allergies) atorvastatin 40 mg Tablet 40 mg PO DAILY benztropine 0.5 mg tablet 0.5 mg PO BID PRN PRN (Reason: tremors) Patient Comments: Take 1 (ONE) Tablet By Oral Route 2 (TWO) times per day NEEDED pantoprazole [Protonix] 40 mg tablet,delayed release (DR/EC) 40 mg PO DAILY Qty: 14 0RF ondansetron 4 mg tablet,disintegrating 4 mg PO Q8H PRN PRN (Reason: Nausea) Qty: 10 0RF tizanidine [Zanaflex] 2 mg capsule 2 mg PO TID PRN (Reason: muscle spasticity) Qty: 9 0RF bupropion HCl 300 mg tablet extended release 24 hr 300 mg PO DAILY budesonide-formoterol [Symbicort] 80-4.5 mcg/actuation HFA aerosol inhaler 2 puff INHALATION BID gabapentin 800 mg tablet 800 mg PO 4X/DAY glipizide 2.5 mg tablet extended release 24hr 2.5 mg PO DAILY metformin 1,000 mg tablet 1,000 mg PO BID gabapentin 100 mg capsule 100 mg PO 4X/DAY fluticasone propionate 50 mcg/actuation spray,suspension 2 spray INTRANASAL DAILY Primary Care Provider: Fabian Palm Referrals: Fabian Palm MD [Primary Care Provider] - 3-5 Days Activity Restrictions/Additional Instructions: Follow-up with your primary care provider in the next 3 to 5 days if not the next week. Return with increased chest pain, new or worsening symptoms, especially spreading redness of your genital area. Print Language: [place] Disposition Disposition: Home, Self Care
[2024-07-19 20:54] LABS: Bacteria 0 SEEN /hpf (None Seen); Mucous, Urine 0 SEEN /hpf (<or=2+); Red Blood Cells-Urine 0 SEEN /hpf (0-5)
[2024-07-19 20:56] LABS: AST(SGOT) 33 U/L (15-37); Alanine Aminotransfer ALT/SGPT 36 U/L (16-61); Albumin, Serum 3.8 g/dL (3.2-5.0); Alkaline Phosphatase 87 U/L (45-117); Anion Gap 8 (5-15); BUN 22 mg/dL (7-18); BUN/Creat Ratio 23.1 RATIO (10-20); Calcium,Total 8.7 mg/dL (8.5-10.1); Chloride 102 mmol/L (98-107); Creatinine, Serum 0.95 mg/dL (0.70-1.30); EST Glomerular Filtration Rate 88 mL/min (>60); Est Glom Filt Rate - Afr Amer 107 mL/min (>60); Estimated Creatinine Clearance 126.11 ml/min; Globulin 3.7 g/dL (2.2-4.2); Glucose 198 mg/dL (74-106); Potassium 3.6 mmol/L (3.5-5.1); Protein, Total 7.5 g/dL (6.4-8.2); Sodium Level 135 mmol/L (136-145); Troponin-I HS (w/2H Reflex) 5 pg/mL (3.0-78.0)
[2024-07-19 20:57] LABS: Color, Urine Yellow (Yellow); Glucose, Dipstick Normal (Normal); Ketone-Dipstick 5 mg/dl (Negative); Leukocyte Esterase-Dipstick Negative /ul (Negative); Nitrite-Dipstick Negative (Negative); Occult Blood-Urine Negative /ul (Negative); Protein-Dipstick 30 mg/dl (Negative); Specific Gravity, Urine 1.025 (1.002-1.030); Urine Bilirubin Dipstick Negative (Negative); Urine Clarity Clear (Clear); Urine Urobilinogen Normal (Normal)
[2024-07-19 21:02] VITALS: BP 117/83; PULSE 82; RESP 16; TEMP 36.5; O2SAT 94
[2024-07-19 21:08] LABS: Squamous Epithelial Cells - UA 0-5 SEEN /hpf (0-5); White Blood Cells 0-5 SEEN /hpf (0-5)
[2024-07-19 22:00] VITALS: BP 135/85; PULSE 83; RESP 18; TEMP 36.6; O2SAT 94
[2024-07-19 22:33] LABS: Reflex Troponin-HS? (from REC) Y
[2024-07-19] MEDS: Famotidine 20 MG Tablet PO (22:41)
[2024-07-19] MEDS: Ondansetron ODT 4 MG Tablet PO (22:42)
[2024-07-19 23:09] LABS: Troponin-I HS 7 pg/mL (3.0-78.0)
[2024-07-19 23:17] VITALS: BP 117/79; PULSE 81; RESP 16; TEMP 36.6; O2SAT 99
== END 2024-07-19 23:17 | disposition home or self-care (01) ==
PROVIDERS: Emergency Provider Emergency Medicine; PCP Family Medicine; Visit Provider Emergency Medicine
DX: R07.89 Other chest pain (principal); E11.9 Type 2 diabetes mellitus without complications; K29.70 Gastritis, unspecified, without bleeding; B37.49 Other urogenital candidiasis; R05.9 Cough, unspecified; R06.02 Shortness of breath; K59.00 Constipation, unspecified; F41.9 Anxiety disorder, unspecified; F32.A Depression, unspecified; E78.5 Hyperlipidemia, unspecified; M10.9 Gout, unspecified; G47.30 Sleep apnea, unspecified; F17.200 Nicotine dependence, unspecified, uncomplicated; Z87.19 Personal history of other diseases of the digestive system; Z79.84 Long term (current) use of oral hypoglycemic drugs; Z79.899 Other long term (current) drug therapy
CPT/HCPCS: 71045; 74177; 80053; 81001; 84484; 85025; 93005; 99285; Q9967; A4216

== ENCOUNTER 2024-08-15 10:07 | Emergency (ER) | payer MEDICARE, MEDICAID, SELFPAY ==
[2024-08-15 10:08] VITALS: BP 131/93; PULSE 86; RESP 20; TEMP 36.6; O2SAT 100; BMI 31.7
--- NOTE | 2024-08-15 10:26 | RAD_ITS ---
PROCEDURE: ACUTE ABDOMEN INC CHEST REASON FOR EXAM: Pain. TECHNIQUE: PA chest and four view AP supine and upright abdomen. COMPARISON: Access Rep from the abdomen and pelvis CT of 07/10/2024. RAD/Acute Abdomen Inc Chest IMPRESSION: No evidence of pneumoperitoneum. Lungs appear clear throughout. No pleural effusion or pneumothorax is noted. The cardiomediastinal silhouette is within the normal range. Prior lower cervical surgery is also seen. Prominent degenerative changes are seen throughout the lower thoracic and espec ially lumbar spine. [id number] left hip degenerative changes are seen. Mild right hip degenerative changes are noted Air and stool are seen throughout the large bowel and rectum. Prominent small bowel loops are seen, but without significant dilation noted. This represents a nonspecific bowel-gas pattern. No mass or mass effect is seen. Reading Location: [id number]
--- NOTE | 2024-08-15 10:27 | ED.VIS.GI ---
HPI HPI - GI History of Present Illness Chief Complaint: Abd Pain Narrative Narrative: 54-year-old male past medical history of diabetes presents with epigastric to periumbilical abdominal pain that has had for the last few weeks. He was able to walk to the emergency department. Last night he took Zofran because he was nauseated. He denies any exacerbating or alleviating factors to his abdominal pain. Is hard for him to describe. He was concerned today because he states he had a bowel movement today, and he thought that maybe is straining came out. Additionally, he took used toilet paper roll and states that he pressed down on his feces and liquid came out. Of note, he states that he was seen in the emergency department a few weeks ago for shortness of breath and he was having the same abdominal pain that he has had for the last few weeks. It never really improved. [facility] Medical History Sleep apnea Barretts esophagus Smoker Gout Anxiety Depression Diabetes Hypertension Hyperlipidemia Home Medications ?Medication ?Instructions ?Recorded ?Last Taken ?Type allopurinol 100 mg tablet 100 mg PO BIDCM 11/02/14 08/03/19 History tamsulosin 0.4 mg capsule 0.4 mg PO DAILY 01/01/15 08/03/19 History albuterol sulfate 90 mcg/actuation 2 puff inhalation Q4H PRN PRN 06/18/15 08/03/19 History aerosol inhaler (Ventolin HFA) Wheezing trazodone 300 mg tablet 300 mg PO QHS 03/16/18 08/03/19 History diphenhydramine HCl 25 mg tablet 25 mg PO PRN PRN Allergies 08/01/19 08/03/19 History atorvastatin 40 mg tablet 40 mg PO DAILY 11/30/20 Unknown History benztropine 0.5 mg tablet 0.5 mg PO BID PRN PRN tremors 07/11/21 Unknown History pantoprazole 40 mg tablet,delayed 40 mg PO DAILY #14 tabs 05/08/23 Unknown Rx release (Protonix) tizanidine 2 mg capsule (Zanaflex) 2 mg PO TID PRN muscle spasticity 06/11/24 Unknown Rx #9 caps ondansetron 4 mg disintegrating 4 mg PO Q8H PRN PRN Nausea #10 tabs 07/10/24 Unknown Rx tablet budesonide-formoterol HFA 80 2 puff inhalation BID 07/19/24 Unknown History mcg-4.5 mcg/actuation aerosol inhaler (Symbicort) bupropion HCl 300 mg 24 hr tablet, 300 mg PO DAILY 07/19/24 Unknown History extended release fluticasone propionate 50 2 spray intranasal DAILY 07/19/24 Unknown History mcg/actuation nasal spray,suspension gabapentin 100 mg capsule 100 mg PO 4X/DAY 07/19/24 Unknown History gabapentin 800 mg tablet 800 mg PO 4X/DAY 07/19/24 Unknown History glipizide 2.5 mg tablet, extended 2.5 mg PO DAILY 07/19/24 Unknown History release 24 hr metformin 1,000 mg tablet 1,000 mg PO BID 07/19/24 Unknown History nystatin 100,000 unit/gram topical 1 applic topical BID #30 grams 07/19/24 Unknown Rx cream Allergy/AdvReac Type Severity Reaction Status Date / Time cyclobenzaprine HCl (From Allergy Hives Verified 08/15/24 10:08 Flexeril) dicyclomine HCl (From Bentyl) Allergy Rash Verified 08/15/24 10:08 duloxetine HCl (From Allergy Hives Verified 08/15/24 10:08 Cymbalta) meloxicam (From Mobic) Allergy Rash Verified 08/15/24 10:08 naproxen Allergy Hives Verified 08/15/24 10:08 quetiapine (From Seroquel) Allergy Rash Verified 08/15/24 10:08 tramadol HCl (From Ultram) Allergy Rash Verified 08/15/24 10:08 Surgical History History of eyelid surgery History of neck surgery Social History household members: none Smoking Status: Heavy Smoker (>10/day) substance use type: does not use ROS ROS ED ROS Narrative Constitutional: No fever, no chills. HEENT: No sore throat. No neck pain. No loss of vision. No rhinorrhea. Cardiovascular: No chest pain. No palpitations. No pedal edema. Respiratory: No cough, no shortness of breath. Abdominal: Epigastric to periumbilical abdominal pain. Last night had nausea. No vomiting. Questionable formed stool/liquid stool. Genitourinary: No dysuria. No hematuria. Musculoskeletal: No myalgias. No arthralgias. Neurologic: No headaches. No dizziness. No lightheadedness. Skin: No rash. No change in color. EXAM Physical Exam Narrative Exam Narrative: Afebrile. Vital signs noted. Nontoxic-appearing. Cardiovascular examination reveals a regular rate and rhythm. Lungs are clear to auscultation bilaterally. Abdomen is soft and nontender with positive bowel sounds. No guarding or rebound. Neurological examination is nonfocal and nonlateralizing. Patient has mild anxiety on examination. Const Vital Signs: 08/15/24 10:08 08/15/24 12:33 Temperature 97.8 F 98.5 F Temperature Source Oral Pulse Rate 86 74 Respiratory Rate 20 H 16 Blood Pressure 131/93 H 128/78 H Blood Pressure Mean 105 94 Pulse Ox 100 94 Oxygen Delivery Method Room Air MDM MDM MDM Narrative Medical decision making narrative: I reviewed the patient's prior records. Additionally, I do recall seeing him previously a few weeks ago where he was worked up for shortness of breath and he had a CT of the abdomen pelvis performed because of abdominal pain which showed gastritis. He is already taking Protonix. Differential diagnosis includes pancreatitis versus continued gastritis versus bowel obstruction. History and physical does not support bowel obstruction. He may have cholecystitis as well, but his abdominal pain is not necessarily in the right location. I do not feel he requires repeat CT scanning but abdominal x-rays will be obtained as well as basic laboratory work including CBC, CMP, and lipase. I reviewed his laboratory work and he has normal white count of 6.5 with hemoglobin 15.6, hematocrit 45.7, platelet count normal at 195. CMP is grossly unremarkable except for glucose elevated at 250 consistent with his diabetes but he has normal anion gap of 8 so I doubt diabetic ketoacidosis. LFTs are grossly normal. Lipase normal at 65 so I doubt acute pancreatitis. X-rays of the abdomen including chest x-ray interpreted by myself independently shows no evidence of acute process, no pneumonia or pneumothorax on the chest x-ray, large amount of stool with a nonspecific gas pattern in the abdominal series. I reviewed the radiology report which confirms my independent interpretation. He was told he should start cgde-ogz-dyhlyjg laxatives and stool softeners. While his urinalysis is pending, I do feel that he can be discharged to follow-up with his primary care provider regarding his continued abdominal pain. I reviewed his urinalysis as well and there is no evidence of infection. I do not feel antibiotics are indicated. At this point in time, I do feel he can be discharged. Return instructions were reviewed. Disposition is discharged home, in stable condition. History & Record Review Discussion w/independent historian: Patient Lab Data Attestation: I reviewed the patient's lab results. Labs: Laboratory Results - last 24 hr 08/15/24 08/15/24 10:40 12:20 WBC 6.5 RBC 5.19 Hgb 15.6 Hct 45.7 MCV 88.1 MCH 30.1 MCHC 34.1 RDW Std Deviation 49.1 H RDW Coeff of Maddy 15.2 H Plt Count 195 MPV 8.5 Immature Gran % (Auto) 0.600 Neut % (Auto) 70.2 H Lymph % (Auto) 20.5 [place] % (Auto) 7.3 Eos % (Auto) 1.2 Baso % (Auto) 0.2 Absolute Neuts (auto) 4.6 Absolute Lymphs (auto) 1.34 Nucleated RBC % 0 Sodium 137 Potassium 3.8 Chloride 105 Carbon Dioxide 24.0 Anion Gap 8 BUN 9 Creatinine 1.09 Estim Creat Clear Calc 108.53 Est GFR (MDRD) Af Amer 91 Est GFR (MDRD) Non-Af 76 BUN/Creatinine Ratio 8.3 L Glucose 250 H Calcium 8.6 Total Bilirubin 0.50 AST 15 ALT 25 Alkaline Phosphatase 101 Total Protein 7.9 Albumin 4.0 Globulin 3.9 Albumin/Globulin Ratio 1.0 Lipase 65 Urine Color Yellow Urine Clarity Clear Urine pH 6.0 Ur Specific Nichols 1.010 Urine Protein Negative Urine Glucose (UA) 50 H Urine Ketones Negative Urine Occult Blood Negative Urine Nitrite Negative Urine Bilirubin Negative Urine Urobilinogen Normal Ur Leukocyte Esterase Negative Urine RBC 0 SEEN Urine WBC 0 SEEN Ur Squamous Epith Cells 0 SEEN Urine Bacteria 0 SEEN Urine Mucus 0 SEEN Radiography Diagnostic Testing: Clinical Impression(s) from Imaging Studies Acute Abdomen Series 08/15/24 10:26 IMPRESSION: No evidence of pneumoperitoneum. Lungs appear clear throughout. No pleural effusion or pneumothorax is noted. The cardiomediastinal silhouette is within the normal range. Prior lower cervical surgery is also seen. Prominent degenerative changes are seen throughout the lower thoracic and especially lumbar spine. Bynw-tu-ijviypbe left hip degenerative changes are seen. Mild right hip degenerative changes are noted Air and stool are seen throughout the large bowel and rectum. Prominent small bowel loops are seen, but without significant dilation noted. This represents a nonspecific bowel-gas pattern. No mass or mass effect is seen. Reading Location: [address] Discharge Plan Triage Chief Complaint: Abd Pain Other Complaint: Lower Extremity Injury ED Provider: Nick Gage Dx/Rx/DC Orders Clinical Impression: Abdominal pain, Epigastric pain Instructions: ED Epigastric Pain Uncertain Cause, ED Abdominal Pain Unkn Cause Male... Prescriptions: No Action allopurinol 100 MG tablet 100 mg PO BIDCM Patient Comments: gout tamsulosin 0.4 MG capsule 0.4 mg PO DAILY Patient Comments: urine flow albuterol sulfate [Ventolin HFA] 1 INHALER inhaler 2 puff inhalation Q4H PRN PRN (Reason: Wheezing) Patient Comments: sob,wheezing trazodone 300 MG tablet 300 mg PO QHS diphenhydramine HCl 25 MG tablet 25 mg PO PRN PRN (Reason: Allergies) atorvastatin 40 mg Tablet 40 mg PO DAILY benztropine 0.5 mg tablet 0.5 mg PO BID PRN PRN (Reason: tremors) Patient Comments: Take 1 (ONE) Tablet By Oral Route 2 (TWO) times per day NEEDED pantoprazole [Protonix] 40 mg tablet,delayed release (DR/EC) 40 mg PO DAILY Qty: 14 0RF ondansetron 4 mg tablet,disintegrating 4 mg PO Q8H PRN PRN (Reason: Nausea) Qty: 10 0RF tizanidine [Zanaflex] 2 mg capsule 2 mg PO TID PRN (Reason: muscle spasticity) Qty: 9 0RF bupropion HCl 300 mg tablet extended release 24 hr 300 mg PO DAILY budesonide-formoterol [Symbicort] 80-4.5 mcg/actuation HFA aerosol inhaler 2 puff INHALATION BID gabapentin 800 mg tablet 800 mg PO 4X/DAY glipizide 2.5 mg tablet extended release 24hr 2.5 mg PO DAILY metformin 1,000 mg tablet 1,000 mg PO BID gabapentin 100 mg capsule 100 mg PO 4X/DAY fluticasone propionate 50 mcg/actuation spray,suspension 2 spray INTRANASAL DAILY nystatin 100,000 unit/gram cream 1 applic topical BID Qty: 30 0RF Rx Instructions: To affected area Primary Care Provider: Fabian Palm Referrals: Fabian Palm MD [Primary Care Provider] - 3-5 Days if not improving Activity Restrictions/Additional Instructions: Continue your previous medications. You may need to start jquo-gga-zboudiq stool softeners such as Colace or a gentle laxative such as MiraLAX. Return with fever, new or worsening symptoms. Print Language: Estonian Disposition Disposition: Home, Self Care
[2024-08-15 10:54] LABS: Absolute Lymphocyte Count 1.34 X10^3/uL (0.83-4.51); Absolute Neutrophil Count 4.6 X10^3/uL (2.0-7.7); Basophil# 0.01 X10^3/uL; Basophil% 0.2 % (0-1); Eosinophil# 0.08 X10^3/uL; Eosinophils% 1.2 % (0-5); Hematocrit 45.7 % (40-54); Hemoglobin 15.6 g/dL (13.0-16.5); Lymphocyte # 1.34 X10^3/ul (0.83-4.51); Lymphocyte % 20.5 % (19-41); Mean Corp Hgb Conc 34.1 g/dL (32-36); Mean Corpuscular Hgb 30.1 pg (27.0-32.0); Mean Corpuscular Volume 88.1 fL (80-94); Mean Platelet Vol. 8.5 fl (6.2-12.0); Monocyte# 0.48 X10^3/uL; Monocyte% 7.3 % (0-10); NRBC Flagged by Analyzer 0 % (0-5); Neutrophil # 4.59 X10^3/uL (2.7-7.7); Neutrophil % 70.2 % (47-70); Platelet Count 195 K/mm3 (150-450); RBC Distribution Width CV 15.2 % (11.6-14.6); RBC Distribution Width SD 49.1 fl (35.1-43.9); Red Blood Count 5.19 M/mm3 (4.6-6.2); White Blood Count 6.5 K/mm3 (4.4-11.0)
[2024-08-15 11:13] LABS: AST(SGOT) 15 U/L (15-37); Alanine Aminotransfer ALT/SGPT 25 U/L (16-61); Alkaline Phosphatase 101 U/L (45-117); Anion Gap 8 (5-15); BUN 9 mg/dL (7-18); BUN/Creat Ratio 8.3 RATIO (10-20); Calcium,Total 8.6 mg/dL (8.5-10.1); Chloride 105 mmol/L (98-107); Creatinine, Serum 1.09 mg/dL (0.70-1.30); EST Glomerular Filtration Rate 76 mL/min (>60); Est Glom Filt Rate - Afr Amer 91 mL/min (>60); Estimated Creatinine Clearance 108.53 ml/min; Globulin 3.9 g/dL (2.2-4.2); Glucose 250 mg/dL (74-106); Lipase 65 U/L (13-75); Potassium 3.8 mmol/L (3.5-5.1); Protein, Total 7.9 g/dL (6.4-8.2); Sodium Level 137 mmol/L (136-145)
[2024-08-15 12:28] LABS: Bacteria 0 SEEN /hpf (None Seen); Mucous, Urine 0 SEEN /hpf (<or=2+); Red Blood Cells-Urine 0 SEEN /hpf (0-5); Squamous Epithelial Cells - UA 0 SEEN /hpf (0-5); White Blood Cells 0 SEEN /hpf (0-5)
[2024-08-15 12:33] VITALS: BP 128/78; PULSE 74; RESP 16; TEMP 36.9; O2SAT 94
[2024-08-15 12:44] LABS: Color, Urine Yellow (Yellow); Glucose, Dipstick 50 mg/dl (Normal); Ketone-Dipstick Negative (Negative); Leukocyte Esterase-Dipstick Negative /ul (Negative); Nitrite-Dipstick Negative (Negative); Occult Blood-Urine Negative /ul (Negative); Protein-Dipstick Negative (Negative); Urine Bilirubin Dipstick Negative (Negative); Urine Clarity Clear (Clear); Urine Urobilinogen Normal (Normal)
== END 2024-08-15 13:16 | disposition home or self-care (01) ==
PROVIDERS: Emergency Provider Emergency Medicine; PCP Family Medicine; Visit Provider Emergency Medicine
DX: R10.13 Epigastric pain (principal); E11.9 Type 2 diabetes mellitus without complications; I10 Essential (primary) hypertension; F41.9 Anxiety disorder, unspecified; F32.A Depression, unspecified; E78.5 Hyperlipidemia, unspecified; M10.9 Gout, unspecified; G47.30 Sleep apnea, unspecified; Z87.19 Personal history of other diseases of the digestive system; Z79.84 Long term (current) use of oral hypoglycemic drugs; Z79.899 Other long term (current) drug therapy; F17.200 Nicotine dependence, unspecified, uncomplicated
CPT/HCPCS: 74022; 80053; 81001; 83690; 85025; 99284; A4216

== ENCOUNTER → 2024-08-22 | Outpatient (CLI) | payer MEDICARE, MEDICAID, SELFPAY ==
[2024-08-22 10:42] LABS: Absolute Lymphocyte Count 1.57 X10^3/uL (0.83-4.51); Absolute Neutrophil Count 3.8 X10^3/uL (2.0-7.7); Basophil# 0.02 X10^3/uL; Basophil% 0.3 % (0-1); Eosinophil# 0.13 X10^3/uL; Eosinophils% 2.1 % (0-5); Hematocrit 46.2 % (40-54); Hemoglobin 15.5 g/dL (13.0-16.5); Lymphocyte # 1.57 X10^3/ul (0.83-4.51); Lymphocyte % 25.8 % (19-41); Mean Corp Hgb Conc 33.5 g/dL (32-36); Mean Corpuscular Hgb 28.9 pg (27.0-32.0); Mean Platelet Vol. 8.3 fl (6.2-12.0); Monocyte# 0.53 X10^3/uL; Monocyte% 8.7 % (0-10); NRBC Flagged by Analyzer 0 % (0-5); Neutrophil # 3.78 X10^3/uL (2.7-7.7); Neutrophil % 62.1 % (47-70); Platelet Count 217 K/mm3 (150-450); RBC Distribution Width CV 15.3 % (11.6-14.6); Red Blood Count 5.37 M/mm3 (4.6-6.2); White Blood Count 6.1 K/mm3 (4.4-11.0)
[2024-08-22 10:50] LABS: Erythrocyte Sedimentation Rate 3 mm/hr (0-20)
[2024-08-22 11:08] LABS: CRP < 2.90 mg/L (0.0-3.0); Rheumatoid Factor < 10.0 IU/mL (<15); Uric Acid 5.3 mg/dL (3.5-7.2)
[2024-08-25 14:07] LABS: ANTINUCLEAR ANTIBODIES DIRECT Negative (Negative)
== END | disposition home or self-care (01) ==
LOC: LAB 10:24
PROVIDERS: PCP Family Medicine; Referring Provider Student in an Organized Health Care Education/Training Program; Visit Provider Student in an Organized Health Care Education/Training Program
DX: M79.642 Pain in left hand (principal); R20.2 Paresthesia of skin
CPT/HCPCS: 36415; 84550; 85025; 85652; 86038; 86140; 86431

== ENCOUNTER → 2024-08-27 | Outpatient (CLI) | payer MEDICARE, MEDICAID, SELFPAY ==
--- NOTE | 2024-08-27 15:02 | NEURO ---
NCS and/or EMG Patient Report Ordering Doctor: Steven Lake DATE OF SERVICE: 08/27/24 Fahad presents for electrodiagnostic testing of the left upper limb. He reports numbness and weakness in the left hand. Electrodiagnostic findings: Left median motor nerve demonstrates prolonged distal latency with reduced amplitude and reduced conduction velocity. Left ulnar motor nerve demonstrates prolonged latency with reduced amplitude. There is no significant drop in conduction across the elbow. Normal left median sensory latency. Absent left ulnar sensory response. Needle EMG testing was performed the left upper limb. Left abductor pollicis brevis demonstrated 1+ fibrillations with a decreased recruitment pattern. The left first dorsal interosseous demonstrates a decreased recruitment pattern with limited motor units. Electrodiagnostic impression: This is an abnormal study in the left upper limb. 1. 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 There is no evidence of conduction block. Recommend correlation with right upper extremity and lower extremity testing to evaluate for an axonal motor and sensory peripheral polyneuropathy. 2. There is no electrodiagnostic evidence for cervical radiculopathy. Multi Select Codes Neurology Neurology Interp Codes: 19762-46 Musc test done w/n test comp (interp) and 57476-05 Nrv cndj tst 5-6 studies (interp)
== END | disposition home or self-care (01) ==
LOC: PSN 13:46
PROVIDERS: PCP Family Medicine; Referring Provider Student in an Organized Health Care Education/Training Program; Visit Provider Student in an Organized Health Care Education/Training Program
DX: R20.2 Paresthesia of skin (principal); M79.622 Pain in left upper arm
CPT/HCPCS: 95886; 95909

== ENCOUNTER 2024-08-31 14:10 | Emergency (ER) | payer MEDICARE, MEDICAID, SELFPAY ==
[2024-08-31 14:11] VITALS: BP 161/89; PULSE 96; RESP 16; TEMP 36.8; O2SAT 96; BMI 32.6
[2024-08-31 15:28] LABS: Absolute Lymphocyte Count 1.95 X10^3/uL (0.83-4.51); Absolute Neutrophil Count 8.5 X10^3/uL (2.0-7.7); Basophil# 0.01 X10^3/uL; Basophil% 0.1 % (0-1); Eosinophils% 0.9 % (0-5); Hematocrit 46.4 % (40-54); Hemoglobin 15.6 g/dL (13.0-16.5); Lymphocyte # 1.95 X10^3/ul (0.83-4.51); Lymphocyte % 16.9 % (19-41); Mean Corp Hgb Conc 33.6 g/dL (32-36); Mean Corpuscular Hgb 28.9 pg (27.0-32.0); Mean Corpuscular Volume 86.1 fL (80-94); Mean Platelet Vol. 9.1 fl (6.2-12.0); Monocyte# 0.93 X10^3/uL; Monocyte% 8.1 % (0-10); NRBC Flagged by Analyzer 0 % (0-5); Neutrophil # 8.48 X10^3/uL (2.7-7.7); Neutrophil % 73.5 % (47-70); Platelet Count 224 K/mm3 (150-450); RBC Distribution Width CV 14.8 % (11.6-14.6); RBC Distribution Width SD 46.5 fl (35.1-43.9); Red Blood Count 5.39 M/mm3 (4.6-6.2); White Blood Count 11.5 K/mm3 (4.4-11.0)
--- NOTE | 2024-08-31 15:32 | EX.ED.DYSGE1 ---
HPI History of Present Illness Chief Complaint: Abd Pain Detail of Chief Complaint: Abdominal pain, distention, small stool Informant: patient Onset/Context/Timing Onset: Days (Patient reports symptoms over the past several days.) Context: Gradual Onset Timing: Continuous Quality: Abdominal distention and discomfort Location: entire abdomen Current Severity: Mild Maximum Severity: Moderate Worsened by: Nothing specific Relieved by: Nothing Associated Symptoms Associated Symptoms: Thin long stool mixed with water Narrative Narrative: Patient is a 54-year-old male. He has history of hyperlipidemia, obstructive sleep apnea, COPD, BPH, diverticulitis of the colon, Carey's esophagitis, prediabetes, essential hypertension and noncardiac chest pain. He has a BMI of 32.6. He states his last colonoscopy was performed by Dr. Dulce Villeda. He denies fever or chills. He has had night sweats past week. He denies weight gain or weight loss. He denies headache, visual, ocular auditory symptoms. He denies cardiac or respiratory symptoms. He does endorse report distended abdomen discomfort of his abdomen with thin long stool mixed with water. He became concerned this morning when he noted blood on the toilet paper. He does have history of hemorrhoids. He denies history of liver disease. He denies dysuria, frequency, urgency or hematuria. Prior similar symptoms: No Recent Illness/Hospitalization: No PFSH [facility] Medical History Shortness of breath Mixed hyperlipidemia Acute gastritis without hemorrhage Bone spur of other site LAKSHMI (obstructive sleep apnea) History of drug abuse COPD (chronic obstructive pulmonary disease) Collar bone fracture Carpal tunnel syndrome, right BPH (benign prostatic hyperplasia) Alcohol abuse, in remission Sleep apnea Barretts esophagus Smoker Gout Anxiety Depression Diabetes Hypertension Hyperlipidemia Home Medications ?Medication ?Instructions ?Recorded ?Last Taken ?Type allopurinol 100 mg tablet 100 mg PO BIDCM gout 11/02/14 08/03/19 History tamsulosin 0.4 mg capsule 0.4 mg PO DAILY 01/01/15 08/03/19 History albuterol sulfate 90 mcg/actuation 2 puff inhalation Q4H PRN PRN 06/18/15 08/03/19 History aerosol inhaler (Ventolin HFA) Wheezing trazodone 300 mg tablet 300 mg PO QHS PRN sleep 03/16/18 08/03/19 History atorvastatin 40 mg tablet 40 mg PO DAILY 11/30/20 Unknown History benztropine 0.5 mg tablet 0.5 mg PO BID PRN PRN tremors 07/11/21 Unknown History pantoprazole 40 mg tablet,delayed 40 mg PO DAILY #14 tabs 05/08/23 Unknown Rx release (Protonix) tizanidine 2 mg capsule (Zanaflex) 2 mg PO TID PRN muscle spasticity 06/11/24 Unknown Rx #9 caps ondansetron 4 mg disintegrating 4 mg PO Q8H PRN PRN Nausea #10 tabs 07/10/24 Unknown Rx tablet budesonide-formoterol HFA 80 2 puff inhalation BID 07/19/24 Unknown History mcg-4.5 mcg/actuation aerosol inhaler (Symbicort) bupropion HCl 300 mg 24 hr tablet, 300 mg PO DAILY 07/19/24 Unknown History extended release fluticasone propionate 50 2 spray intranasal DAILY 07/19/24 Unknown History mcg/actuation nasal spray,suspension gabapentin 100 mg capsule 100 mg PO 4X/DAY 07/19/24 Unknown History gabapentin 800 mg tablet 800 mg PO 4X/DAY 07/19/24 Unknown History glipizide 2.5 mg tablet, extended 2.5 mg PO DAILY 07/19/24 Unknown History release 24 hr metformin 1,000 mg tablet 1,000 mg PO BID 07/19/24 Unknown History nystatin 100,000 unit/gram topical 1 applic topical BID #30 grams 07/19/24 Unknown Rx cream aripiprazole 5 mg tablet 5 mg PO QDAY 08/21/24 Unknown History baclofen 5 mg tablet 5 mg PO Q8H PRN muscle spasm 08/21/24 Unknown History hydroxyzine pamoate 50 mg capsule 50 mg PO Q6H PRN anxiety 08/21/24 Unknown History Allergy/AdvReac Type Severity Reaction Status Date / Time cyclobenzaprine HCl (From Allergy Hives Verified 08/31/24 14:12 Flexeril) dicyclomine HCl (From Bentyl) Allergy Rash Verified 08/31/24 14:12 duloxetine HCl (From Allergy Hives Verified 08/31/24 14:12 Cymbalta) meloxicam (From Mobic) Allergy Rash Verified 08/31/24 14:12 naproxen Allergy Hives Verified 08/31/24 14:12 quetiapine (From Seroquel) Allergy Rash Verified 08/31/24 14:12 tramadol HCl (From Ultram) Allergy Rash Verified 08/31/24 14:12 Surgical History History of colonoscopy History of carpal tunnel surgery History of eyelid surgery History of neck surgery Social History household members: none Smoking Status: Current every day smoker tobacco type: cigarettes Electronic Cigarette Use: not used alcohol intake: former year quit: 2014 details: Hx of ETOH abuse, sober past few years as of 2014 substance use type: marijuana and other details: history of marijuana, cocaine, crack, meth ROS ROS ED Constitutional Constitutional ED: Reports sweats; Denies chills, fever(s), subjective or weight loss Eyes Eyes: Denies blurry vision or change in vision ENT ENT ED: Denies ear pain, rhinorrhea or sore throat Cardiovascular Cardiovascular: Denies chest pain, orthopnea, palpitations, paroxysmal nocturnal dyspnea or racing heartbeat Respiratory/Chest Respiratory/Chest: Denies cough, dyspnea, dyspnea on exertion, orthopnea or paroxysmal nocturnal dyspnea Gastrointestinal Gastrointestinal: Reports abdominal pain and other Details: Reports thin long stool. States is only present for 3 days, however. ; Denies constipation, diarrhea, melena or vomiting Genitourinary Genitourinary ED: Denies dysuria, hematuria or urinary frequency Musculoskeletal Musculoskeletal: Denies arthralgias, back pain or myalgias Integumentary Denies rash Neurologic Neurologic: Denies headache(s) or paresthesias Hematologic/Lymphatic Hematologic/Lymphatic: Reports systems reviewed and no addt'l complaints, except as documented EXAM Physical Exam Const Vital Signs: 08/31/24 14:11 08/31/24 16:10 Temperature 98.2 F Temperature Source Oral Pulse Rate 96 82 Respiratory Rate 16 16 Blood Pressure 161/89 H 145/68 H Blood Pressure Mean 113 93 Pulse Ox 96 94 Oxygen Delivery Method Room Air Room Air Positive well nourished and well developed Constitutional Narrative: BMI is 32.6. General Appearance ED: well developed and NAD; Negative for cyanotic, diaphoretic or pallor HEENT Reports moist mucous membranes HEENT Narrative: Head is atraumatic, cephalic. Ears normal. Nares patent. Eyes PERRL and EOMs intact bilaterally General Eye ED: Negative for pale conjunctiva or scleral icterus Neck no lymphadenopathy, supple and no JVD Chest Wall inspection of chest normal and palpation of chest normal Resp normal respiratory effort and clear to auscultation bilaterally Cardio regular rate, regular rhythm, S1 normal heart sound, S2 normal heart sound and no murmurs GI GI Narrative: Abdomen is distended tympanitic with some diffuse tenderness. There is no guarding or peritoneal findings. Patient has evidence of prior hemorrhoids. There is no fissures, fistulas or stenosis noted. Prostate is slightly enlarged on exam. Stool is brown in color. Palpation: soft Back/Spine no CVA tenderness Extremity normal to inspection General Extremety ED: Negative for edema or tenderness General Extremity: Negative for edema Neuro oriented x3, CN's II-XII intact bilaterally and no sensory deficits noted Sensorium / Orientation: alert Psych mental status grossly normal Skin no rashes or lesions noted, no wounds and skin turgor normal General Skin Exam: Negative for jaundice or pallor MDM MDM Lab Data Attestation: I reviewed the patient's lab results. Lab results narrative: White count is slightly elevated. There is slight increase in neutrophils. Competence of metabolic panel is unremarkable other than a glucose of 136 with normal CO2 anion gap. Sed rate is normal at 4. Labs: Laboratory Results - last 24 hr 08/31/24 14:20 WBC 11.5 H RBC 5.39 Hgb 15.6 Hct 46.4 MCV 86.1 MCH 28.9 MCHC 33.6 RDW Std Deviation 46.5 H RDW Coeff of Maddy 14.8 H Plt Count 224 MPV 9.1 Immature Gran % (Auto) 0.500 Neut % (Auto) 73.5 H Lymph % (Auto) 16.9 L [place] % (Auto) 8.1 Eos % (Auto) 0.9 Baso % (Auto) 0.1 Absolute Neuts (auto) 8.5 H Absolute Lymphs (auto) 1.95 Nucleated RBC % 0 ESR 4 Sodium 138 Potassium 3.9 Chloride 103 Carbon Dioxide 25.0 Anion Gap 9 BUN 17 Creatinine 0.95 Estim Creat Clear Calc 126.17 Est GFR (MDRD) Af Amer 107 Est GFR (MDRD) Non-Af 88 BUN/Creatinine Ratio 17.9 Glucose 136 H Calcium 9.0 Total Bilirubin 0.50 AST 23 ALT 31 Alkaline Phosphatase 92 Total Protein 7.9 Albumin 4.0 Globulin 3.9 Albumin/Globulin Ratio 1.0 Radiography Chest X-Ray - ED: Read by ED Physician (Three-view abdominal series obtained. The chest portion reveals normal cardiac silhouette size. Lung parenchyma normal. No effusion. No acute abnormality [place] structures. Abdominal portion reveals knots of a gas pattern. There is no evidence of ileus, obstruction or pneumoperitoneum. This is) Treatment and Re-Evaluation :: Patient believes has appointment to be seen in a month for EGD and colonoscopy at the hospital. He admits he is not sure. Procedures Other Procedures Procedure(s): Anoscopy. Anoscopy reveals evidence of bleeding from an internal and possibly external hemorrhoid. Stool that was noted is a green-brown in color. No other abnormalities noted. Discharge Plan Triage Chief Complaint: Abd Pain ED Provider: Samuel Johnson Dx/Rx/DC Orders Clinical Impression: Generalized abdominal discomfort, Borderline diabetes mellitus, Barretts esophagus, COPD (chronic obstructive pulmonary disease), LAKSHMI (obstructive sleep apnea), Mixed hyperlipidemia, Decreased stool caliber Instructions: ED Abd Pain Unknown ... Prescriptions: No Action hydroxyzine pamoate 50 mg capsule 50 mg PO Q6H PRN (Reason: anxiety) aripiprazole 5 mg tablet 5 mg PO QDAY baclofen 5 mg tablet 5 mg PO Q8H PRN (Reason: muscle spasm) allopurinol 100 MG tablet 100 mg PO BIDCM tamsulosin 0.4 MG capsule 0.4 mg PO DAILY Patient Comments: urine flow albuterol sulfate [Ventolin HFA] 1 INHALER inhaler 2 puff inhalation Q4H PRN PRN (Reason: Wheezing) Patient Comments: sob,wheezing trazodone 300 MG tablet 300 mg PO QHS PRN (Reason: sleep) atorvastatin 40 mg Tablet 40 mg PO DAILY benztropine 0.5 mg tablet 0.5 mg PO BID PRN PRN (Reason: tremors) Patient Comments: Take 1 (ONE) Tablet By Oral Route 2 (TWO) times per day NEEDED pantoprazole [Protonix] 40 mg tablet,delayed release (DR/EC) 40 mg PO DAILY Qty: 14 0RF ondansetron 4 mg tablet,disintegrating 4 mg PO Q8H PRN PRN (Reason: Nausea) Qty: 10 0RF tizanidine [Zanaflex] 2 mg capsule 2 mg PO TID PRN (Reason: muscle spasticity) Qty: 9 0RF bupropion HCl 300 mg tablet extended release 24 hr 300 mg PO DAILY budesonide-formoterol [Symbicort] 80-4.5 mcg/actuation HFA aerosol inhaler 2 puff INHALATION BID gabapentin 800 mg tablet 800 mg PO 4X/DAY glipizide 2.5 mg tablet extended release 24hr 2.5 mg PO DAILY metformin 1,000 mg tablet 1,000 mg PO BID gabapentin 100 mg capsule 100 mg PO 4X/DAY fluticasone propionate 50 mcg/actuation spray,suspension 2 spray INTRANASAL DAILY nystatin 100,000 unit/gram cream 1 applic topical BID Qty: 30 0RF Rx Instructions: To affected area Primary Care Provider: Fabian Palm Referrals: Fabian Palm MD [Primary Care Provider] - Blake Friedman DO [Med Staff - Active Staff] - 09/02/24 8:00 am Activity Restrictions/Additional Instructions: You are scheduled to follow-up with Dr. Friedman. The junior legal secretary is made an appointment for you.Your appointment is Sunday at 8 AM Print Language: Kiswahili Disposition Disposition: Home, Self Care
[2024-08-31 15:34] LABS: AST(SGOT) 23 U/L (15-37); Alanine Aminotransfer ALT/SGPT 31 U/L (16-61); Alkaline Phosphatase 92 U/L (45-117); Anion Gap 9 (5-15); BUN 17 mg/dL (7-18); BUN/Creat Ratio 17.9 RATIO (10-20); Chloride 103 mmol/L (98-107); Creatinine, Serum 0.95 mg/dL (0.70-1.30); EST Glomerular Filtration Rate 88 mL/min (>60); Est Glom Filt Rate - Afr Amer 107 mL/min (>60); Estimated Creatinine Clearance 126.17 ml/min; Globulin 3.9 g/dL (2.2-4.2); Glucose 136 mg/dL (74-106); Potassium 3.9 mmol/L (3.5-5.1); Protein, Total 7.9 g/dL (6.4-8.2); Sodium Level 138 mmol/L (136-145)
[2024-08-31 16:04] LABS: Erythrocyte Sedimentation Rate 4 mm/hr (0-20)
[2024-08-31 16:10] VITALS: BP 145/68; PULSE 82; RESP 16; O2SAT 94
--- NOTE | 2024-08-31 16:20 | RAD_ITS ---
PROCEDURE: ACUTE ABDOMEN INC CHEST REASON FOR EXAM: 54-year-old male, abdominal distention and discomfort, bright red blood per rectum, diarrhea. TECHNIQUE: Supine and upright views of the abdomen and chest. COMPARISON: Abdominal radiographs 08/15/2024. CT abdomen pelvis 07/19/2024. FINDINGS: ACDF hardware. The cardiomediastinal silhouette is normal size. No focal consolidation, pleural effusion or pneumothorax. The bowel loops are normal in caliber. No free air. No suspicious calcifications. There are degenerative changes of the spine. Bilateral hip arthrosis. RAD/Acute Abdomen Inc Chest IMPRESSION: NO ACUTE FINDINGS Reading Location: [id number]
[2024-08-31 17:00] VITALS: BP 140/78; PULSE 80; RESP 16; TEMP 36.9; O2SAT 94
== END 2024-08-31 17:01 | disposition home or self-care (01) ==
PROVIDERS: Emergency Provider Emergency Medicine; PCP Family Medicine; Visit Provider Emergency Medicine
DX: R14.0 Abdominal distension (gaseous) (principal); J44.9 Chronic obstructive pulmonary disease, unspecified; E11.9 Type 2 diabetes mellitus without complications; G47.33 Obstructive sleep apnea (adult) (pediatric); F17.210 Nicotine dependence, cigarettes, uncomplicated; R10.84 Generalized abdominal pain; E78.2 Mixed hyperlipidemia; I10 Essential (primary) hypertension; K22.70 Barrett's esophagus without dysplasia; N40.0 Benign prostatic hyperplasia without lower urinary tract symptoms; M10.9 Gout, unspecified; Z79.899 Other long term (current) drug therapy; F41.9 Anxiety disorder, unspecified; F32.A Depression, unspecified; R19.5 Other fecal abnormalities
CPT/HCPCS: 74022; 80053; 85025; 85652; 99283; A4216

== ENCOUNTER 2024-09-13 03:03 | Inpatient (IN) | payer MEDICARE, MEDICAID, SELFPAY ==
[2024-09-13] VITALS (19 sets, daily range): BP systolic 122–179; BP diastolic 68–94; PULSE 88–118; RESP 17–66; TEMP 36.6–37.4; O2SAT 86–96; BMI 32.8
--- NOTE | 2024-09-13 03:21 | EKG12_ITS ---
Test Reason : DYSRHYTHMIA Blood Pressure : */* mmHG Vent. Rate : 106 BPM Atrial Rate : 106 BPM P-R Int : 178 ms QRS Dur : 106 ms QT Int : 334 ms P-R-T Axes : 40 4 38 degrees QTcB Int : 443 ms Sinus tachycardia Incomplete right bundle branch block Borderline ECG Confirmed by Bry Plata ([id number]), editor in chief newspaper CECY SHER ([id number]) on 09/15/2024 6:58:02 AM Referred By: Confirmed By: Bry Plata
--- NOTE | 2024-09-13 03:22 | ED.VIS.DYS ---
HPI History of Present Illness Chief Complaint: Shortness of Breath Informant: patient Narrative Narrative: 54-year-old male presenting around 3 AM for dyspnea. He states this past evening he developed a cough, productive of white sputum no blood, and some mild shortness of breath and when he laid down to put his CPAP on which he does nightly for his sleep apnea, it got worse. He states he recently had some testing to see if maybe he has COPD but he does not know yet, he is on no home oxygen. He states he felt hot earlier but unknown if he had a fever or not. He states he has been coughing a lot now, and at 1 point he coughed and it felt like it gave him a migraine which he still has. He did have a couple episodes of vomiting tonight but no diarrhea. He has some upper abdominal pain that is all the way across his abdomen without radiation that hurts more when he breathes or coughs and did not start until after the vomiting but he denies having any chest pain with taking breaths. He denies any leg pain or swelling recently, immobilization, hospitalization, or long travel. No history of DVT or PE and takes no anticoagulants. [facility] Medical History Shortness of breath Mixed hyperlipidemia Acute gastritis without hemorrhage Bone spur of other site LAKSHMI (obstructive sleep apnea) History of drug abuse COPD (chronic obstructive pulmonary disease) Collar bone fracture Carpal tunnel syndrome, right BPH (benign prostatic hyperplasia) Alcohol abuse, in remission Sleep apnea Barretts esophagus Smoker Gout Anxiety Depression Diabetes Hypertension Hyperlipidemia Home Medications ?Medication ?Instructions ?Recorded ?Last Taken ?Type tamsulosin 0.4 mg capsule 0.4 mg PO DAILY 01/01/15 08/03/19 History ondansetron 4 mg disintegrating 4 mg PO Q8H PRN PRN Nausea #10 tabs 07/10/24 Unknown Rx tablet budesonide-formoterol HFA 80 2 puff inhalation BID 07/19/24 Unknown History mcg-4.5 mcg/actuation aerosol inhaler (Symbicort) bupropion HCl 300 mg 24 hr tablet, 300 mg PO DAILY 07/19/24 Unknown History extended release fluticasone propionate 50 2 spray intranasal DAILY 07/19/24 Unknown History mcg/actuation nasal spray,suspension gabapentin 100 mg capsule 100 mg PO 4X/DAY 07/19/24 Unknown History gabapentin 800 mg tablet 800 mg PO 4X/DAY 07/19/24 Unknown History glipizide 2.5 mg tablet, extended 2.5 mg PO DAILY 07/19/24 Unknown History release 24 hr metformin 1,000 mg tablet 1,000 mg PO BID 07/19/24 Unknown History baclofen 5 mg tablet 5 mg PO Q8H PRN muscle spasm 08/21/24 Unknown History hydroxyzine pamoate 50 mg capsule 50 mg PO Q6H PRN anxiety 08/21/24 Unknown History allopurinol 100 mg tablet 100 mg PO BIDCM gout 09/02/24 Unknown History hydrocortisone acetate 25 mg 25 mg NH QHS rectal bleeding #7 ea 09/02/24 Unknown Rx rectal suppository (Anusol-HC) linaclotide 145 mcg capsule 145 mcg PO QAM #90 caps 09/02/24 Unknown Rx (Linzess) pantoprazole 40 mg tablet,delayed 40 mg PO QDAY GERD #90 tabs 09/02/24 Unknown Rx release peg 3350-electrolytes 236 240 ml PO Q10M #4,000 mL 09/02/24 Unknown Rx gram-22.74 gram-6.74 gram-5.86 gram solution (Golytely) meloxicam 15 mg tablet 15 mg PO DAILY 09/13/24 Unknown History Allergy/AdvReac Type Severity Reaction Status Date / Time cyclobenzaprine HCl (From Allergy Hives Verified 09/13/24 03:04 Flexeril) dicyclomine HCl (From Bentyl) Allergy Rash Verified 09/13/24 03:04 duloxetine HCl (From Allergy Hives Verified 09/13/24 03:04 Cymbalta) meloxicam (From Mobic) Allergy Rash Verified 09/13/24 03:04 naproxen Allergy Hives Verified 09/13/24 03:04 quetiapine (From Seroquel) Allergy Rash Verified 09/13/24 03:04 tramadol HCl (From Ultram) Allergy Rash Verified 09/13/24 03:04 Family History Other Arthritis Colon cancer Diabetes High cholesterol Hypertension Surgical History History of colonoscopy History of carpal tunnel surgery History of eyelid surgery History of neck surgery Social History household members: none Smoking Status: Current every day smoker tobacco type: cigarettes Electronic Cigarette Use: not used alcohol intake: former year quit: 2014 details: Hx of ETOH abuse, sober past few years as of 2014 substance use type: marijuana and other details: history of marijuana, cocaine, crack, meth ROS ROS ED Constitutional Constitutional ED: Reports fever(s) and subjective; Denies chills Eyes Eyes: Denies change in vision or diplopia ENT ENT ED: Denies rhinorrhea or sore throat Cardiovascular Cardiovascular: Denies chest pain, orthopnea or palpitations Respiratory/Chest Respiratory/Chest: Reports cough, dyspnea and sputum; Denies hemoptysis or orthopnea Gastrointestinal Gastrointestinal: Reports abdominal pain, nausea and vomiting; Denies diarrhea Genitourinary Genitourinary ED: Denies dysuria or hematuria Musculoskeletal Musculoskeletal: Denies back pain or neck pain Integumentary Denies abscess or rash Neurologic Neurologic: Reports headache(s); Denies paresthesias or weakness Psychiatric Psychiatric: Denies anxiety or suicidal thoughts EXAM Physical Exam Const Vital Signs: 09/13/24 03:03 09/13/24 03:03 09/13/24 03:07 Temperature 98.7 F 98.7 F Temperature Source Oral Oral Pulse Rate 110 H 108 H Respiratory Rate 28 H 32 H Respiratory Effort Short of Breath Respiratory Depth Shallow Respiratory Pattern Tachypnea Blood Pressure 154/83 H 154/83 H Blood Pressure Mean 106 106 Pulse Ox 88 88 Oxygen Delivery Method Room Air Nasal Cannula Room Air Oxygen Flow Rate (L/min) 09/13/24 03:08 09/13/24 03:32 09/13/24 03:32 Temperature Temperature Source Pulse Rate 108 H 104 H Respiratory Rate 31 H 28 H Respiratory Effort Respiratory Depth Respiratory Pattern Tachypnea Blood Pressure Blood Pressure Mean Pulse Ox 88 95 Oxygen Delivery Method Nasal Cannula Nasal Cannula Oxygen Flow Rate (L/min) 2 2 09/13/24 04:03 09/13/24 04:07 09/13/24 04:28 Temperature 98.7 F Temperature Source Temporal Pulse Rate 111 H 111 H 109 H Respiratory Rate 28 H 28 H 28 H Respiratory Effort Respiratory Depth Respiratory Pattern Tachypnea Blood Pressure 169/87 H 169/87 H Blood Pressure Mean 114 114 Pulse Ox 93 94 Oxygen Delivery Method Nasal Cannula Nasal Cannula Oxygen Flow Rate (L/min) 2 2 09/13/24 05:00 09/13/24 05:04 09/13/24 05:13 Temperature 97.9 F Temperature Source Pulse Rate 118 H 117 H 116 H Respiratory Rate 30 H 66 H 29 H Respiratory Effort Respiratory Depth Respiratory Pattern Blood Pressure 179/94 H 179/94 H Blood Pressure Mean 122 122 Pulse Ox 87 94 92 Oxygen Delivery Method Room Air Nasal Cannula Oxygen Flow Rate (L/min) 2 Positive well nourished and well developed General Appearance ED: well developed and NAD HEENT Reports moist mucous membranes normocephalic and atraumatic Eyes PERRL and EOMs intact bilaterally Neck full ROM, no lymphadenopathy, supple and no JVD Resp clear to auscultation bilaterally Resp Narrative: Diffusely diminished but clear and symmetric otherwise. Mild tachypnea no respiratory distress. Effort and Inspection: able to speak in complete sentences Cardio regular rate, regular rhythm and no murmurs Cardio Narrative: Mildly tachycardic GI non-tender and non-distended Auscultation: normoactive bowel sounds Palpation: soft Back/Spine no CVA tenderness General Back: other FROM Extremity normal to inspection Extremity Narrative: No calf tenderness or palpable cords General Extremety ED: Negative for edema, pulses abnormal or tenderness General Extremity: Negative for edema or pulses abnormal Neuro oriented x3, CN's II-XII intact bilaterally and no sensory deficits noted Sensorium / Orientation: awake and alert Motor Exam: strength 5/5 throughout Psych mental status grossly normal Skin no rashes or lesions noted and no wounds MDM MDM MDM Narrative Medical decision making narrative: Patient appears already have a diagnosis of COPD, and is on maintenance inhalers. He is hypoxic here in triage at 88% on room air. He was placed on 2 L nasal cannula. In the meantime we gave him a couple of aerosols which helped his breathing, obtained a two-view chest x-ray which my interpretation shows no acute pneumonia but chronic COPD-related changes, radiology in agreement, and a viral swab which is positive for influenza A. His labs are noted, his lactate is slightly elevated which has been the case before, this is nonspecific and he does not appear to be clinically septic at this time. His initial troponin is slightly elevated, and his BNP is low ruling out acute decompensated congestive heart failure. I obtain liver enzymes and lipase given his upper abdominal discomfort and vomiting, those are normal. After the aerosols and feeling a little better with regards to his breathing I turned his oxygen off. He desatted down to 87%. We put his oxygen back on and he will need to be admitted to the hospital given all of this. Started Tamiflu, Solu-Medrol. His initial troponin was slightly abnormal, his EKG shows no signs of acute ischemia. Repeat troponin is scheduled. Lab Data Attestation: I reviewed the patient's lab results. Labs: Laboratory Results - last 24 hr 09/13/24 03:36 WBC 9.1 RBC 4.92 Hgb 14.7 Hct 42.0 MCV 85.4 MCH 29.9 MCHC 35.0 RDW Std Deviation 44.5 H RDW Coeff of Maddy 14.4 Plt Count 177 MPV 8.9 Immature Gran % (Auto) 0.700 Neut % (Auto) 85.2 H Lymph % (Auto) 6.1 L [place] % (Auto) 7.2 Eos % (Auto) 0.7 Baso % (Auto) 0.1 Absolute Neuts (auto) 7.7 Absolute Lymphs (auto) 0.55 L Nucleated RBC % 0 Sodium 138 Potassium 3.7 Chloride Direct 98 Carbon Dioxide 24.4 Anion Gap 15 BUN 8 Creatinine 0.90 Estim Creat Clear Calc 133.55 Est GFR (MDRD) Non-Af 102 BUN/Creatinine Ratio 8.6 L Glucose 174 H Lactic Acid 2.9 H* Calcium 9.3 Total Bilirubin 0.58 AST 26 ALT 18 Alkaline Phosphatase 82 Troponin T High Sens 29 H NT pro BNP II < 36 Total Protein 7.3 Albumin 4.4 Globulin 2.9 Albumin/Globulin Ratio 1.5 Lipase 53 Radiography Diagnostic Testing: Clinical Impression(s) from Imaging Studies Chest X-Ray 09/13/24 03:57 IMPRESSION: No evidence of acute disease. Reading Location: [facility] Rhythm Strip Rhythm Strip: Sinus Tach Rate: 108 Ectopy: None EKG Initial EKG: Attestation: I personally reviewed and interpreted this EKG as follows: Interpretation: No Acute Injury Pattern and Sinus Tachycardia Comments: Nml axis & intervals; nml EKG Management Discussion w/another healthcare provider: Hospitalist Discharge Plan Triage Chief Complaint: Shortness of Breath ED Provider: Kobi Kaiser Dx/Rx/DC Orders Clinical Impression: Influenza A, Acute exacerbation of chronic obstructive pulmonary disease (COPD), Hypoxemia Prescriptions: No Action hydroxyzine pamoate 50 mg capsule 50 mg PO Q6H PRN (Reason: anxiety) baclofen 5 mg tablet 5 mg PO Q8H PRN (Reason: muscle spasm) Linzess 145 mcg capsule 145 mcg PO QAM Qty: 90 1RF Rx Instructions: take 30 minutes before breakfast every morning peg 3350-electrolytes [Golytely] 236-22.74-6.74 -5.86 gram recon soln 240 ml PO Q10M Qty: 4000 0RF Rx Instructions: take as directed for split dose bowel prep hydrocortisone acetate [Anusol-HC] 25 mg suppository 25 mg NH QHS Qty: 7 0RF Rx Instructions: insert 1 suppository into rectum once daily at HS x7 days pantoprazole 40 mg tablet,delayed release (DR/EC) 40 mg PO QDAY Qty: 90 3RF Rx Instructions: take once daily 30 minutes before breakfast allopurinol 100 mg tablet 100 mg PO BIDCM tamsulosin 0.4 MG capsule 0.4 mg PO DAILY Patient Comments: urine flow ondansetron 4 mg tablet,disintegrating 4 mg PO Q8H PRN PRN (Reason: Nausea) Qty: 10 0RF meloxicam 15 mg tablet 15 mg PO DAILY bupropion HCl 300 mg tablet extended release 24 hr 300 mg PO DAILY budesonide-formoterol [Symbicort] 80-4.5 mcg/actuation HFA aerosol inhaler 2 puff INHALATION BID gabapentin 800 mg tablet 800 mg PO 4X/DAY glipizide 2.5 mg tablet extended release 24hr 2.5 mg PO DAILY metformin 1,000 mg tablet 1,000 mg PO BID gabapentin 100 mg capsule 100 mg PO 4X/DAY fluticasone propionate 50 mcg/actuation spray,suspension 2 spray INTRANASAL DAILY Primary Care Provider: Reynold Barlow Referrals: Fabian Palm MD [Non-Staff] - Print Language: Greenlandic
[2024-09-13] MEDS: Ipratropium/Albuterol Sulfate 3 ML AMPUL.NEB INHALATION (03:32)
[2024-09-13] MEDS: Ondansetron 4 MG/2 ML Vial IV (03:38)
--- NOTE | 2024-09-13 03:57 | RAD_ITS ---
PROCEDURE: CHEST PA AND LATERAL REASON FOR EXAM: Cough, shortness of breath TECHNIQUE: Frontal and lateral views of the chest. 3 total images, AP and 2 laterals to include the entire chest COMPARISON: 08/31/2024 FINDINGS: Low lung volumes. The lungs appear clear. No pleural effusion. Pulmonary vascularity appears within limits. The cardiac and mediastinal contours appear within limits. Previous anterior cervical disc fusion hardware partially imaged. RAD/Chest PA and Lateral IMPRESSION: No evidence of acute disease. Reading Location: [id number]
[2024-09-13 04:03] LABS: Absolute Lymphocyte Count 0.55 X10^3/uL (0.83-4.51); Absolute Neutrophil Count 7.7 X10^3/uL (2.0-7.7); Basophil# 0.01 X10^3/uL; Basophil% 0.1 % (0-1); Eosinophil# 0.06 X10^3/uL; Eosinophils% 0.7 % (0-5); Hemoglobin 14.7 g/dL (13.0-16.5); Lymphocyte # 0.55 X10^3/ul (0.83-4.51); Lymphocyte % 6.1 % (19-41); Mean Corpuscular Hgb 29.9 pg (27.0-32.0); Mean Corpuscular Volume 85.4 fL (80-94); Mean Platelet Vol. 8.9 fl (6.2-12.0); Monocyte# 0.65 X10^3/uL; Monocyte% 7.2 % (0-10); NRBC Flagged by Analyzer 0 % (0-5); Neutrophil # 7.72 X10^3/uL (2.7-7.7); Neutrophil % 85.2 % (47-70); POSITIVE DIFFERENTIAL YES; Platelet Count 177 K/mm3 (150-450); RBC Distribution Width CV 14.4 % (11.6-14.6); RBC Distribution Width SD 44.5 fl (35.1-43.9); Red Blood Count 4.92 M/mm3 (4.6-6.2); White Blood Count 9.1 K/mm3 (4.4-11.0)
[2024-09-13 04:21] LABS: ALB/GLOB Ratio 1.5 RATIO (0.9-2.4); AST(SGOT) 26 U/L (<=37); Alanine Aminotransfer ALT/SGPT 18 U/L (<=46); Albumin, Serum 4.4 g/dL (3.5-5.0); Alkaline Phosphatase 82 U/L (40-129); Anion Gap 15 (5-15); BUN 8 mg/dL (4-19); BUN/Creat Ratio 8.6 RATIO (10-20); Calcium 9.3 mg/dL (7.6-11.0); Carbon Dioxide 24.4 mmol/L (22.0-29.0); Chloride 98 mmol/L (96-108); EST Glomerular Filtration Rate 102 (>60); Estimated Creatinine Clearance 133.55 ml/min; Globulin 2.9 g/dL (2.2-4.2); Glucose 174 mg/dL (70-99); Lipase 53 U/L (13-75); Potassium 3.7 mmol/L (3.3-5.1); Protein, Total 7.3 g/dL (5.9-8.4); Sodium Level 138 mmol/L (133-145); Total Bilirubin 0.58 mg/dL (0.00-1.30)
[2024-09-13 04:22] LABS: Lactic Acid 2.9 mmol/L (0.0-2.0); Pro- Brain NATRIURETIC PEPTIDE < 36 pg/mL (<=900); Troponin T High Sensitivity 29 ng/L (<=22)
[2024-09-13] MEDS: Albuterol 2.5 MG/3 ML VIAL.NEB. INHALATION ×3 (04:28→20:42)
[2024-09-13] MEDS: Oseltamivir Phosphate 75 MG Capsule PO ×2 (05:07→21:50)
[2024-09-13] MEDS: Metoclopramide 10 MG/2 ML Vial 2.5 MG IV (05:07)
[2024-09-13] MEDS: MethylPREDNISolone 125 MG/2 ML Vial IV (05:07)
[2024-09-13] MEDS: Acetaminophen 500 MG Tablet 1000 MG PO (05:08)
--- NOTE | 2024-09-13 05:13 | PCM.HP.STD ---
[facility] - [facility] General Date of Admission: 09/13/24 Date of Service: 09/13/24 Chief Complaint: SOB, Cough and Headache. [facility] Narrative ROBER BROCK, is a 54 M with a past medical history of essential hypertension; currently not on treatment, history of mixed hyperlipidemia; currently not on treatment, obesity; with a BMI of 32.8 this admission, LAKSHMI; on CPAP, chronic tobacco abuse; with subsequent COPD, history of COVID-19, DM-2; of unknown control on glimepiride, glipizide and metformin, history of diabetic foot ulcer, diabetic neuropathy; on gabapentin 4 times daily, history of diverticulitis of the colon; s/p colonoscopy, BPH; on tamsulosin, IBS; of constipation-type on linaclotide and as needed hydrocortisone suppositories, GERD; with history of Carey's esophagus on pantoprazole, history of acute gastritis; without hemorrhage, remote history of EtOH abuse (quit 2014), history of polysubstance abuse with cannabis, crack cocaine and methamphetamine, history of depression with anxiety; on bupropion and as needed hydroxyzine 4 times daily, history of clavicular fracture, history of bilateral CTS; s/p release, history of gout; on allopurinol twice daily and OA; with history of neck surgery and chronic back pain with intermittent muscle spasms on meloxicam and as needed baclofen TID who presents to [facility] ER complaining of shortness of breath and cough. Mr. Brock reports his symptoms began at on the evening of September 12, 2024. He noted that when he laid down to sleep for the night to put on his CPAP his shortness of breath got acutely worse. He also admits to subjective fevers, cough productive of whitish sputum and migraine-like headache triggered by a fit of coughing that still persists at this time. He additionally complained of upper abdominal pain without radiation made worse with deep breathing and coughing followed by nausea with 2 episodes of bilious emesis but he denies diarrhea. He denies associated chills, runny nose, sore throat, ear pain, chest pain, dysuria, hematuria, rash, paresthesias or focal neurologic deficits. In the ER he was diagnosed with AECOPD; with suspected superimposed Acute Bacterial Bronchitis in the setting of chronic Tobacco Abuse complicated by viral assay positive for Influenza A with both combining to cause clinical evidence of respiratory Insufficiency with oxygen saturation dropping to 87% on RA requiring initiation of 2L NC compounded by Uncontrolled Hypertension of 179/94 mmHg noted shortly after admission in addition to laboratory evidence of Lactic Acidosis of 2.9 mmol/L present on admission suspected to be due to Adverse Drug Reaction to metformin. He was then admitted to the general medical floor for ongoing care for his state that is expected to extend beyond 2 midnights. [facility] Medical History Shortness of breath Mixed hyperlipidemia Acute gastritis without hemorrhage Bone spur of other site LAKSHMI (obstructive sleep apnea) History of drug abuse COPD (chronic obstructive pulmonary disease) Collar bone fracture Carpal tunnel syndrome, right BPH (benign prostatic hyperplasia) Alcohol abuse, in remission Sleep apnea Barretts esophagus Smoker Gout Anxiety Depression Diabetes Hypertension Hyperlipidemia Home Medications ?Medication ?Instructions ?Recorded ?Last Taken ?Type tamsulosin 0.4 mg capsule 0.4 mg PO DAILY bph 01/01/15 08/03/19 History ondansetron 4 mg disintegrating 4 mg PO Q8H PRN PRN Nausea #10 tabs 07/10/24 Unknown Rx tablet budesonide-formoterol HFA 80 2 puff inhalation BID sob 07/19/24 Unknown History mcg-4.5 mcg/actuation aerosol inhaler (Symbicort) bupropion HCl 300 mg 24 hr tablet, 300 mg PO DAILY mood 07/19/24 Unknown History extended release fluticasone propionate 50 2 spray intranasal DAILY airway 07/19/24 Unknown History mcg/actuation nasal spray,suspension gabapentin 100 mg capsule 100 mg PO 4X/DAY pain 07/19/24 Unknown History gabapentin 800 mg tablet 800 mg PO 4X/DAY pain 07/19/24 Unknown History glipizide 2.5 mg tablet, extended 2.5 mg PO DAILY dm 07/19/24 Unknown History release 24 hr metformin 1,000 mg tablet 1,000 mg PO BID dm 07/19/24 Unknown History baclofen 5 mg tablet 5 mg PO Q8H PRN muscle spasm 08/21/24 Unknown History hydroxyzine pamoate 50 mg capsule 50 mg PO Q6H PRN anxiety 08/21/24 Unknown History allopurinol 100 mg tablet 100 mg PO BIDCM gout 09/02/24 Unknown History hydrocortisone acetate 25 mg 25 mg MI QHS rectal bleeding #7 ea 09/02/24 Unknown Rx rectal suppository (Anusol-HC) linaclotide 145 mcg capsule 145 mcg PO QAM bowel movement #90 09/02/24 Unknown Rx (Linzess) caps pantoprazole 40 mg tablet,delayed 40 mg PO QDAY GERD #90 tabs 09/02/24 Unknown Rx release meloxicam 15 mg tablet 15 mg PO DAILY pain 09/13/24 Unknown History Allergy/AdvReac Type Severity Reaction Status Date / Time cyclobenzaprine HCl (From Allergy Hives Verified 09/13/24 03:04 Flexeril) dicyclomine HCl (From Bentyl) Allergy Rash Verified 09/13/24 03:04 duloxetine HCl (From Allergy Hives Verified 09/13/24 03:04 Cymbalta) meloxicam (From Mobic) Allergy Rash Verified 09/13/24 03:04 metformin Allergy lactic Verified 09/13/24 06:18 acidosis naproxen Allergy Hives Verified 09/13/24 03:04 quetiapine (From Seroquel) Allergy Rash Verified 09/13/24 03:04 tramadol HCl (From Ultram) Allergy Rash Verified 09/13/24 03:04 Family History Other Arthritis Colon cancer Diabetes High cholesterol Hypertension Surgical History History of colonoscopy History of carpal tunnel surgery History of eyelid surgery History of neck surgery Social History household members: none Smoking Status: Current every day smoker tobacco type: cigarettes Electronic Cigarette Use: not used alcohol intake: former year quit: 2014 details: Hx of ETOH abuse, sober past few years as of 2014 substance use type: marijuana and other details: history of marijuana, cocaine, crack, meth ROS ROS Narrative Review of Systems: Constitutional: Patient admits to subjective fever but denies chills. Eyes: Patient denies changes in vision or discharge from eyes. ENT: Patient denies runny nose, sore throat or ear pain. Resp: Patient admits to shortness of breath and cough with whitish sputum as per HPI. CV: Patient denies chest pain, palpitations, heart racing or lower extremity edema. GI: Patient admits to upper abdominal pain with nausea and 2 episodes of bilious emesis but he denies diarrhea. : Patient denies dysuria or hematuria. MSK: Patient denies arthralgias or myalgias. Skin: Patient denies rash, abscess, wounds or jaundice. Psych: Patient denies symptoms of uncontrolled depression or anxiety. Neuro: Patient admits to migraine-like headache triggered by fear of coughing as noted in HPI but he denies paresthesias or focal neurologic weakness. Allergy: Patient denies lip swelling, tongue swelling or urticaria. Hematology: Patient denies easy bleeding or easy bruisability. Endocrinology: Patient denies polyuria, polydipsia or polyphagia. 14 point ROS otherwise negative except for positives noted above in HPI. Vital Signs Vital Signs Vital Signs: 09/13/24 03:03 09/13/24 03:03 09/13/24 03:07 Temperature 98.7 F 98.7 F Temperature Source Oral Oral Pulse Rate 110 H 108 H Respiratory Rate 28 H 32 H Respiratory Effort Short of Breath Respiratory Depth Shallow Respiratory Pattern Tachypnea Blood Pressure 154/83 H 154/83 H Blood Pressure Mean 106 106 Pulse Ox 88 88 Oxygen Delivery Method Room Air Nasal Cannula Room Air Oxygen Flow Rate (L/min) 09/13/24 03:08 09/13/24 03:32 09/13/24 03:32 Temperature Temperature Source Pulse Rate 108 H 104 H Respiratory Rate 31 H 28 H Respiratory Effort Respiratory Depth Respiratory Pattern Tachypnea Blood Pressure Blood Pressure Mean Pulse Ox 88 95 Oxygen Delivery Method Nasal Cannula Nasal Cannula Oxygen Flow Rate (L/min) 2 2 09/13/24 04:03 09/13/24 04:07 09/13/24 04:28 Temperature 98.7 F Temperature Source Temporal Pulse Rate 111 H 111 H 109 H Respiratory Rate 28 H 28 H 28 H Respiratory Effort Respiratory Depth Respiratory Pattern Tachypnea Blood Pressure 169/87 H 169/87 H Blood Pressure Mean 114 114 Pulse Ox 93 94 Oxygen Delivery Method Nasal Cannula Nasal Cannula Oxygen Flow Rate (L/min) 2 2 09/13/24 05:00 09/13/24 05:04 Temperature Temperature Source Pulse Rate 118 H 117 H Respiratory Rate 30 H 66 H Respiratory Effort Respiratory Depth Respiratory Pattern Blood Pressure 179/94 H Blood Pressure Mean 122 Pulse Ox 87 94 Oxygen Delivery Method Room Air Nasal Cannula Oxygen Flow Rate (L/min) 2 Weight Weight: 262 lb 9.129 oz Body Mass Index (BMI) 32.8 Physical Exam Const alert and oriented x3 Constitutional Narrative: Labored respirations noted in obese patient who appears older than his stated age. General Appearance: cooperative HEENT normocephalic, head/scalp atraumatic, hearing grossly normal bilaterally and moist oral mucous membranes Eyes PERRL, EOMs intact bilaterally and conjunctivae normal Neck no lymphadenopathy, supple and no JVD Resp Resp Narrative: Diminished breath sounds with scattered rhonci that partially clear with cough. Auscultation: rhonchi Cardio regular rate and regular rhythm Cardio Narrative: Tachycardia in the ~116 bpm range noted. GI normal to inspection, nondistended, normoactive bowel sounds, soft to palpation, non-tender and non-distended Extremity normal to inspection, full ROM and no clubbing, cyanosis or edema Skin Skin Narrative: Patient has no evidence of rash, abscess, wounds or jaundice. Neuro oriented x3, CN's II-XII intact bilaterally, moves all extremities and no focal motor deficits Sensorium / Orientation: awake, alert, oriented to person, oriented to place and oriented to time Speech: speech normal Psych affect normal Results Medical Records Data Attestation: I reviewed the patient's medical records Lab / Micro Data Attestation: I reviewed the patient's lab results. 09/13/24 03:36 09/13/24 03:36 Labs: Laboratory Results - last 24 hr 09/13/24 03:36: WBC 9.1, RBC 4.92, Hgb 14.7, Hct 42.0, MCV 85.4, MCH 29.9, MCHC 35.0, RDW Std Deviation 44.5 H, RDW Coeff of Maddy 14.4, Plt Count 177, MPV 8.9, Immature Gran % (Auto) 0.700, Neut % (Auto) 85.2 H, Lymph % (Auto) 6.1 L, [place] % (Auto) 7.2, Eos % (Auto) 0.7, Baso % (Auto) 0.1, Absolute Neuts (auto) 7.7, Absolute Lymphs (auto) 0.55 L, Nucleated RBC % 0, Sodium 138, Potassium 3.7, Chloride Direct 98, Carbon Dioxide 24.4, Anion Gap 15, BUN 8, Creatinine 0.90, Estim Creat Clear Calc 133.55, Est GFR (MDRD) Non-Af 102, BUN/Creatinine Ratio 8.6 L, Glucose 174 H, Lactic Acid 2.9 H*, Calcium 9.3, Total Bilirubin 0.58, AST 26, ALT 18, Alkaline Phosphatase 82, Troponin T High Sens 29 H, NT pro BNP II < 36, Total Protein 7.3, Albumin 4.4, Globulin 2.9, Albumin/Globulin Ratio 1.5, Lipase 53 Micro: Microbiology 09/13/24 03:00 Mucosa - Nose SARS-CoV-2, Influenza & RSV (PCR) - Final Influenzae A Rhythm Strip Rhythm Strip: Sinus Tach Rate: 108 Ectopy: None Imaging Radiology Impression Chest X-Ray 09/13/24 03:57 IMPRESSION: No evidence of acute disease. Reading Location: [facility] Assessment & Plan Assessment/Plan (1) Acute exacerbation of chronic obstructive pulmonary disease (COPD): (2) Acute bacterial bronchitis: (3) Influenza A: (4) Tobacco abuse: (5) Respiratory insufficiency: (6) Uncontrolled hypertension: (7) Lactic acidosis: (8) Adverse drug reaction: QUALIFIERS: Encounter type: initial encounter Qualified Code(s): T50.905A - Adverse effect of unspecified drugs, medicaments and biological substances, initial encounter (9) Obesity (BMI 30.0-34.9): (10) LAKSHMI (obstructive sleep apnea): PLAN: Plan 1. AE COPD; with suspected superimposed Acute Bacterial Bronchitis in setting of chronic ongoing Tobacco Abuse - Admit to general medical floor. Continue IV Solu-Medrol began in the ER and add IV doxycycline plus probiotic. Give scheduled guaifenesin 600 mg p.o. twice daily. Maintain scheduled and as needed nebulizers as previous. Give acetaminophen as needed for [id number] (level 1-5/10) pain or fever. Give morphine IV as needed for severe (level 6-10/10) pain. Finally, tobacco cessation will be strongly encouraged with nicotine patch offered to control cravings. 2. Influenza A likely triggering #1 - Place on contact and droplet precautions plus continue Tamiflu begun in ER for 5 days per protocol. Give vitamin D3, vitamin C and zinc to help boost immunity and hopefully speed recovery. 3. Respiratory Insufficiency; evidenced by tachypnea of ~30 bpm and documented hypoxia of 87% on RA noted shortly after admission attributable to #1 & #2 - Wean supplemental oxygen as tolerated with a goal to maintain oxygen saturation ~92%. 4. Uncontrolled Hypertension of 179/94 mmHg noted shortly after admission complicating #1 - #3 - Give hydralazine IV prn for systolic blood pressure > 160 mmHg plus start amlodipine 10 mg PO daily. 5. Lactic Acidosis of 2.9 mmol/L present on admission suspected to be due to Adverse Drug Reaction to metformin compounding #1 - #4 - Stop metformin and add to list of allergies. Serialize lactate. Gently volume resuscitate and monitor for improvement. 6. Obesity; with a BMI of 32.8 this admission plus LAKSHMI; on CPAP adding to the burden of disease outlined for #1 - #5 - Weight loss will be recommended. Check TSH. Resume nocturnal CPAP. This complicates his case and may hamper recovery. 7. DM-2; of unknown control on glimepiride, glipizide and metformin - Hold oral hypoglycemics and stop metformin as noted in #6. ADA diet. FSBS q. AC/HS plus SSI. Check Hgb1c to objectively assess quality of diabetic control. 8. History of polysubstance abuse with cannabis, crack cocaine and methamphetamine - Check UDS to evaluate for recent use. 9. History of mixed hyperlipidemia; currently not on treatment - Check Lipid Profile this admission. 10. History of COVID-19 - Noted. 11. History of diabetic foot ulcer - Noted with no evidence of recurrence at this time. 12. Diabetic neuropathy; on gabapentin 4 times daily - Maintain gabapentin as previous. 13. History of diverticulitis of the colon; s/p colonoscopy - Noted. 14. BPH; on tamsulosin - Resume tamsulosin as before. 15. IBS; of constipation-type on linaclotide and as needed hydrocortisone suppositories - Continue current treatment. 16. GERD; with history of Carey's esophagus on pantoprazole - Maintain PPI. 17. History of acute gastritis; without hemorrhage - Noted. 18. Remote history of EtOH abuse (quit 2014) - Noted. Check EN to evaluate for possible relapse. 19. History of depression with anxiety; on bupropion and as needed hydroxyzine 4 times daily - Home regimen to continue. 20. History of clavicular fracture - Noted. 21. History of bilateral CTS; s/p release - Noted for the sake of completeness. 22. History of gout; on allopurinol twice daily - Chronic and stable with no evidence of acute flare at this time. 23. OA; with history of neck surgery and chronic back pain with intermittent muscle spasms on meloxicam and as needed baclofen TID - Continue prn baclofen as previous. Otherwise follow pain scale outlined above in #1. Total time: Approximately (but not less than) 75 minutes. Charges/Coding Visit Charges Inpatient E&M: 56881 Init Hosp L3
[2024-09-13 07:02] LABS: TROPONIN VARIANCE 2 HR 1; Troponin T High Sens 2 HR 28 ng/L (<=22)
[2024-09-13 08:52] LABS: Bedside Glucose 243 mg/dL (74-106)
[2024-09-13] MEDS: 0.9% Normal Saline (100mL Bag) 100 ML 15 ML IV (09:17)
[2024-09-13] MEDS: 0.9% Saline Lock 10 ML Syringe IV (09:17)
[2024-09-13] MEDS: Doxycycline 100 MG in 0.9% Normal Saline (250mL Bag) 250 ML 250 MG IV ×2 (09:17→21:52)
[2024-09-13 09:25] LABS: Cholesterol 141 mg/dL (<=200); High Density Lipoprotein 33 mg/dL; Low Density Lipoprotein Calc. 68 mg/dL; TROPONIN VARIANCE 4 HR 5; Thyroid Stim Hormone (TSH) 0.832 uIU/mL (0.300-4.200); Triglycerides 200 mg/dL; Troponin T High Sens 4 HR 24 ng/L (<=22); Very Low Density Lipoprotein 40 mg/dL (5-40); cholesterol:hdl ratio screen 4.26
[2024-09-13 09:27] LABS: Lactic Acid 2.6 mmol/L (0.0-2.0)
[2024-09-13 09:43] LABS: Alcohol, Blood (Medical)-Serum < 10.1 mg/dL (<=10.0)
--- NOTE | 2024-09-13 09:49 | PCM.PN.HOSP ---
Reason for Visit Reason for Visit: Diagnoses Other specified bacterial agents as the cause of diseases classified elsewhere (09/13/24) Obesity, class 1 (09/13/24) Acidosis, unspecified (09/13/24) Obstructive sleep apnea (adult) (pediatric) (09/13/24) Essential (primary) hypertension (09/13/24) Influenza due to other identified influenza virus with other respiratory manifestations (09/13/24) Acute bronchitis due to other specified organisms (09/13/24) Chronic obstructive pulmonary disease with (acute) exacerbation (09/13/24) Other abnormalities of breathing (09/13/24) Adverse effect of unspecified drugs, medicaments and biological substances, initial encounter (09/13/24) Tobacco use (09/13/24) Subjective Subjective Persistent air hunger, endorses no improvement with medications of Requiring 2 L of oxygen per minute Not on any home oxygen Objective Data Objective Data Vital Signs: Vital Signs Temp Pulse Resp BP Pulse Ox O2 Del Method O2 Flow Rate 99.3 F H 98 20 H 125/83 H 96 Nasal Cannula 2 09/13/24 07:47 09/13/24 07:47 09/13/24 07:47 09/13/24 07:47 09/13/24 07:47 09/13/24 07:47 09/13/24 07:47 Oxygen Flow Rate (L/min) 2 Oxygen Delivery Method Nasal Cannula Weight: 262 lb 9.129 oz Body Mass Index (BMI) 32.8 Intake & Output: Intake and Output for Last 24 Hours 09/11/24 09/12/24 09/13/24 23:59 23:59 23:59 Intake Total 0.25 / 0.25 Balance 0.25 / 0.25 Lab / Micro Data Attestation: I reviewed the patient's lab results. 09/13/24 03:36 09/13/24 03:36 Labs: Laboratory Results - last 24 hr 09/13/24 03:36: WBC 9.1, RBC 4.92, Hgb 14.7, Hct 42.0, MCV 85.4, MCH 29.9, MCHC 35.0, RDW Std Deviation 44.5 H, RDW Coeff of Maddy 14.4, Plt Count 177, MPV 8.9, Immature Gran % (Auto) 0.700, Neut % (Auto) 85.2 H, Lymph % (Auto) 6.1 L, [place] % (Auto) 7.2, Eos % (Auto) 0.7, Baso % (Auto) 0.1, Absolute Neuts (auto) 7.7, Absolute Lymphs (auto) 0.55 L, Nucleated RBC % 0, Sodium 138, Potassium 3.7, Chloride Direct 98, Carbon Dioxide 24.4, Anion Gap 15, BUN 8, Creatinine 0.90, Estim Creat Clear Calc 133.55, Est GFR (MDRD) Non-Af 102, BUN/Creatinine Ratio 8.6 L, Glucose 174 H, Lactic Acid 2.9 H*, Calcium 9.3, Total Bilirubin 0.58, AST 26, ALT 18, Alkaline Phosphatase 82, Troponin T High Sens 29 H, NT pro BNP II < 36, Total Protein 7.3, Albumin 4.4, Globulin 2.9, Albumin/Globulin Ratio 1.5, Lipase 53 09/13/24 06:00: Troponin T Hi Sens 2 Hr 28 H, Troponin T Hi Sens 2Hr Delta 1 09/13/24 08:33: POC Glucose 243 H 09/13/24 08:38: Lactic Acid 2.6 H*, Troponin T Hi Sens 4Hr 24 H, Troponin T Hi Sens 4Hr Delta 5, Triglycerides 200 H, Cholesterol 141, VLDL Cholesterol 40, HDL Cholesterol 33 L, Cholesterol/HDL Ratio 4.26, TSH 0.832, Ethyl Alcohol < 10.1 Micro: Microbiology 09/13/24 03:00 Mucosa - Nose SARS-CoV-2, Influenza & RSV (PCR) - Final Influenzae A Radiography Diagnostic Testing: Radiology Impression Chest X-Ray 09/13/24 03:57 IMPRESSION: No evidence of acute disease. Reading Location: [facility] Rhythm Strip Rhythm Strip: Sinus Tach Rate: 108 Ectopy: None Physical Exam Const alert and oriented x3 HEENT head/scalp atraumatic Eyes PERRL Neck no lymphadenopathy Resp Resp Narrative: Decreased left-sided breath sounds, persistent crackles present in the left infra scapular and interscapular region Cardio regular rate and regular rhythm GI normal to inspection, nondistended, normoactive bowel sounds Extremity normal to inspection Neuro oriented x3 Assessment & Plan Assessment/Plan (1) Acute bacterial bronchitis: PLAN: Plan 54-year-old male with history of LAKSHMI, COPD, hypertension, substance abuse in the past presents to the ED with concerns regarding worsening shortness of breath and was found to have influenza A infection. At the time of presentation his lactate was also elevated which was suspected because of metformin use, no features of sepsis hypertension was noted at presentation. History of dizziness typical for bacterial infection superadded on viral infection. There are very few WBCs followed by recovery and now worsening of his respiratory symptoms. Also there is localized findings on examination with predominant left-sided symptoms.Being managed for community-acquired pneumonia #Acute on chronic respiratory failure #Influenza A infection #Community-acquired pneumonia #AECOPD -Maintaining saturation with 2 L of nasal cannula per minute -Repeat lactic acid has improved to 2.6 -Continue albuterol, budesonide inhalation -On doxycycline, will add ceftriaxone -Continue with methylprednisone #Hypertension -IV hydralazine for systolic blood pressure greater than 160 -Start amlodipine 10 mg p.o. daily #Lactic acidosis-improving, last was 2.6 #Obesity -Continue nocturnal CPAP #Type 2 diabetes -A1c levels -Insulin as per sliding scale # Depression with anxiety -Continue bupropion # Active nicotine smoking #History of polysubstance abuse -Presently on nicotine patch, endorses will to quit smoking #Bilateral CTS: No acute concerns #Gout: Noted #Osteoarthritis: continue home medications Charges/Coding Visit Charges Inpatient E&M: 24673 Init Hosp L2
[2024-09-13] MEDS: Lactobacillis Acidophilus 1 CAP PO ×4 (10:36→21:49)
[2024-09-13] MEDS: Ascorbic Acid 500 MG Tablet 1000 MG PO ×2 (10:36→17:40)
[2024-09-13] MEDS: buPROPion (XL) 300 MG TABLET.XL PO (10:37)
[2024-09-13] MEDS: Pantoprazole Sodium 40 MG Tablet PO (10:37)
[2024-09-13] MEDS: Cholecalciferol (Vit D3) 125 MCG CAPSULE (5,000 UNITS) PO (10:37)
[2024-09-13] MEDS: guaiFENesin 600 MG Tablet PO ×2 (10:37→21:49)
[2024-09-13] MEDS: Zinc Sulfate 50 mg zinc (220 mg) ORAL capsule PO (10:37)
[2024-09-13] MEDS: Allopurinol 100 MG Tablet PO ×2 (10:37→17:40)
[2024-09-13] MEDS: amLODIPine 10 MG Tablet PO (10:38)
[2024-09-13] MEDS: Meloxicam 15 MG Tablet PO (10:38)
[2024-09-13] MEDS: Fluticasone 0.05% 1 SPRAY NASAL.SRY 2 SPRAY NASAL (10:38)
[2024-09-13] MEDS: Tamsulosin HCl 0.4 MG Capsule PO (10:38)
[2024-09-13] MEDS: Insulin Lispro 100 UNIT/ML INSULN.PEN SC ×3 (10:44→21:49)
[2024-09-13 12:01] LABS: Hemoglobin A1c 7.1 % (<=5.6)
--- NOTE | 2024-09-13 12:35 | CASEMGMT ---
RN CM DOUBLE CUT OFF SAW OPERATOR CM?to room to meet with patient for initial transition planning/care coordination assessment. RN CM?introduced self and role at [facility]. Pt voices understanding and consents to assessment?at this time. Pt resting in bed in no distress at this time. Pt is A/O at this time and answers all questions appropriately. Care providers, pharmacy, and demographics verified/updated at this time. PCP: Dr Barlow Specialists: Dr Lake-ortho, Dr Tari Moyer-fuse cup expander @ [facility]. Pt to get EMG and nerve conduction study done on Rt hand 09/24 and then on BLE 10/01. Preferred Pharmacy: [facility], [place] Insurance: [employer], [facility] Prescription Benefit: Yes Living Will/HPOA:Pt does not currently have LW/HCPOA. Would like to complete AD, stating he would like his brother, Rafita, to be his agent and his brother, Allen, to be 1st alternative. Made aware, if SW unable to complete this w/him while @ [facility], this can be completed w/SW as an OP. LNOK: 2 brothers, Rafita and Allen. One sister. Father is still living, but pt has not seen him since he was about 2 1/2 yrs old. Mother is . Living Arrangements: Lives with brother and brothers family. They live in a 2-story home w/basement and 5 steps to enter. Pt's bedroom is in the basement. He denies difficulty w/stairs. Independent w/ADL's and manages his own medications. Transportation:Pt does not drive. Brother takes him to get groceries. Pt uses [id number] for appts. DME: States has the following DME: CPAP, functioning glucomer w/supplies. Pt checks his BS's 2-3 x's/day. He does not have a pulse ox. Recommended to purchase one and made aware of locations that sell this. No home O2. Prefers [employer] if he qualifies for O2 @ dc. Made aware, if he qualifies for O2 @ discharge, to call [employer] prior to leaving the hospital to make arrangements for delivery of home O2. He voices understanding. Pt states no need for further DME at this time. HHC/SNF: No hx of either. Pt declines needs. 6 cl: 24. CCN: Discussed CCN and pt interested in referral. Referral placed. Pt wishes to return home and states has no concerns with going home at time of discharge. PLAN: Home w/CCN. Follow for possible need of home O2 @ dc Umberto BOWER RN CM
[2024-09-13 16:55] LABS: Amphetamine Urine NEGATIVE (<1000 ng/mL); Barbiturate Urine NEGATIVE (< 200 ng/mL); Benzodiazepine Urine NEGATIVE (< 200 ng/mL); Buprenorphine Urine NEGATIVE (< 200 ng/mL); Cocaine Urine NEGATIVE (< 300 ng/mL); Fentanyl, Urine NEGATIVE; Methadone Urine NEGATIVE (< 300 ng/mL); Opiates Urine NEGATIVE (< 300 ng/mL); Oxycodone, Urine NEGATIVE (< 100 ng/mL); PCP Urine NEGATIVE (< 25 ng/mL); THC Urine PREUMTIVE POSITIVE (< 50 ng/mL)
[2024-09-13] MEDS: Gabapentin 800 MG Tablet PO ×2 (17:39→21:49)
[2024-09-13] MEDS: Gabapentin 100 MG Capsule PO ×2 (17:39→21:49)
[2024-09-13] MEDS: Acetaminophen 325 MG Tablet 650 MG PO (17:42)
[2024-09-13 17:46] LABS: Bedside Glucose 292 mg/dL (74-106)
[2024-09-13] MEDS: Budesonide Respules 0.5 MG/2 ML AMPUL.NEB. INHALATION (20:43)
[2024-09-13] MEDS: MethylPREDNISolone 125 MG/2 ML Vial 60 MG IV (21:50)
[2024-09-13 22:38] LABS: Allen Test Positive; Base Excess 1 mmol/L (-2 to +2); Bicarbonate 25.9 mmol/L (22-26); Blood Gas Specimen Type ART; Mode Not entered; O2 Delivery Device Cannula; PO2 56 mmHG (75-100); SITE R Radial; SO2 89 % (95-99); Total Carbon Dioxide 27 mmol/L; pCO2 41.3 mmHg (35-45); pH 7.41 (7.35-7.45)
[2024-09-13 22:55] LABS: Bedside Glucose 270 mg/dL (74-106)
[2024-09-13] MEDS: Oxymetazoline 0.05% 1 SPRAY SPRAY.BTL 2 SPRAY NASAL (23:30)
[2024-09-14] VITALS (17 sets, daily range): BP systolic 123–153; BP diastolic 75–90; PULSE 78–105; RESP 18–22; TEMP 36.8–37.2; O2SAT 90–97
[2024-09-14] MEDS: Insulin Lispro 100 UNIT/ML INSULN.PEN SC ×4 (06:50→22:37)
[2024-09-14] MEDS: Budesonide Respules 0.5 MG/2 ML AMPUL.NEB. INHALATION ×2 (06:56→19:00)
[2024-09-14] MEDS: Albuterol 2.5 MG/3 ML VIAL.NEB. INHALATION ×3 (06:56→19:00)
[2024-09-14 07:10] LABS: Bedside Glucose 267 mg/dL (74-106)
[2024-09-14 10:25] LABS: Absolute Lymphocyte Count 0.55 X10^3/uL (0.83-4.51); Absolute Neutrophil Count 9.6 X10^3/uL (2.0-7.7); Basophil# 0.01 X10^3/uL; Basophil% 0.1 % (0-1); Hematocrit 40.6 % (40-54); Lymphocyte # 0.55 X10^3/ul (0.83-4.51); Mean Corp Hgb Conc 34.5 g/dL (32-36); Mean Corpuscular Hgb 29.9 pg (27.0-32.0); Mean Corpuscular Volume 86.8 fL (80-94); Mean Platelet Vol. 8.6 fl (6.2-12.0); Monocyte# 0.85 X10^3/uL; Monocyte% 7.7 % (0-10); NRBC Flagged by Analyzer 0 % (0-5); Neutrophil # 9.57 X10^3/uL (2.7-7.7); Neutrophil % 86.8 % (47-70); POSITIVE DIFFERENTIAL YES; Platelet Count 179 K/mm3 (150-450); RBC Distribution Width CV 14.6 % (11.6-14.6); RBC Distribution Width SD 46.7 fl (35.1-43.9); Red Blood Count 4.68 M/mm3 (4.6-6.2)
[2024-09-14] MEDS: Gabapentin 800 MG Tablet PO ×4 (10:44→22:37)
[2024-09-14] MEDS: Gabapentin 100 MG Capsule PO ×4 (10:45→22:36)
[2024-09-14] MEDS: Oseltamivir Phosphate 75 MG Capsule PO ×2 (10:45→22:39)
[2024-09-14] MEDS: Tamsulosin HCl 0.4 MG Capsule PO (10:45)
[2024-09-14] MEDS: Lactobacillis Acidophilus 1 CAP PO ×4 (10:45→22:37)
[2024-09-14] MEDS: Ascorbic Acid 500 MG Tablet 1000 MG PO ×2 (10:46→17:01)
[2024-09-14] MEDS: MethylPREDNISolone 125 MG/2 ML Vial 60 MG IV ×2 (10:46→22:38)
[2024-09-14] MEDS: Allopurinol 100 MG Tablet PO ×2 (10:46→17:01)
[2024-09-14] MEDS: guaiFENesin 600 MG Tablet PO ×2 (10:47→22:38)
[2024-09-14] MEDS: Fluticasone 0.05% 1 SPRAY NASAL.SRY 2 SPRAY NASAL (10:47)
[2024-09-14] MEDS: Oxymetazoline 0.05% 1 SPRAY SPRAY.BTL 2 SPRAY NASAL ×2 (10:47→22:37)
[2024-09-14] MEDS: Zinc Sulfate 50 mg zinc (220 mg) ORAL capsule PO (10:48)
[2024-09-14] MEDS: Cholecalciferol (Vit D3) 125 MCG CAPSULE (5,000 UNITS) PO (10:48)
[2024-09-14] MEDS: Pantoprazole Sodium 40 MG Tablet PO (10:48)
[2024-09-14] MEDS: buPROPion (XL) 300 MG TABLET.XL PO (10:48)
[2024-09-14] MEDS: amLODIPine 10 MG Tablet PO (10:48)
[2024-09-14 10:52] LABS: ALB/GLOB Ratio 1.4 RATIO (0.9-2.4); AST(SGOT) 38 U/L (<=37); Alanine Aminotransfer ALT/SGPT 22 U/L (<=46); Albumin, Serum 4.2 g/dL (3.5-5.0); Alkaline Phosphatase 77 U/L (40-129); Anion Gap 14 (5-15); BUN 16 mg/dL (4-19); BUN/Creat Ratio 20.1 RATIO (10-20); Calcium 9.1 mg/dL (7.6-11.0); Carbon Dioxide 23.9 mmol/L (22.0-29.0); Chloride 101 mmol/L (96-108); Creatinine, Serum 0.81 mg/dL (0.70-1.20); EST Glomerular Filtration Rate 106 (>60); Estimated Creatinine Clearance 148.39 ml/min (50-250); Glucose 182 mg/dL (70-99); Potassium 4.1 mmol/L (3.3-5.1); Protein, Total 7.3 g/dL (5.9-8.4); Sodium Level 139 mmol/L (133-145); Total Bilirubin 0.39 mg/dL (0.00-1.30)
[2024-09-14] MEDS: 0.9% Saline Lock 10 ML Syringe IV (10:53)
[2024-09-14] MEDS: Doxycycline 100 MG in 0.9% Normal Saline (250mL Bag) 250 ML 250 MG IV ×2 (11:10→22:36)
[2024-09-14 11:49] LABS: Bedside Glucose 181 mg/dL (74-106)
--- NOTE | 2024-09-14 13:41 | PN.HOSP_ITS ---
Reason for Visit Reason for Visit: Diagnoses Other specified bacterial agents as the cause of diseases classified elsewhere (09/13/24) Obesity, class 1 (09/13/24) Acidosis, unspecified (09/13/24) Obstructive sleep apnea (adult) (pediatric) (09/13/24) Essential (primary) hypertension (09/13/24) Influenza due to other identified influenza virus with other respiratory manifestations (09/13/24) Acute bronchitis due to other specified organisms (09/13/24) Chronic obstructive pulmonary disease with (acute) exacerbation (09/13/24) Other abnormalities of breathing (09/13/24) Adverse effect of unspecified drugs, medicaments and biological substances, initial encounter (09/13/24) Tobacco use (09/13/24) Subjective Subjective Subjective improvement in shortness of breath Objective Data Objective Data Vital Signs: Vital Signs Temp Pulse Resp BP Pulse Ox O2 Del Method O2 Flow Rate 98.3 F 78 22 H 128/88 H 91 High Flow 3 09/14/24 10:00 09/14/24 11:59 09/14/24 10:00 09/14/24 10:00 09/14/24 11:40 09/14/24 11:40 09/14/24 11:40 FiO2 60 09/14/24 06:50 Oxygen Flow Rate (L/min) 3 Oxygen Delivery Method High Flow Weight: 262 lb 9.129 oz Body Mass Index (BMI) 32.8 Intake & Output: Intake and Output for Last 24 Hours 09/12/24 09/13/24 09/14/24 23:59 23:59 23:59 Intake Total 870.25 / 870.25 260 / 260 Output Total 800 / 800 1350 / 1350 Balance 70.25 / 70.25 -1090 / -1090 Lab / Micro Data 09/14/24 10:08 09/14/24 10:08 Labs: Laboratory Results - last 24 hr 09/13/24 15:29: Urine Opiates Screen NEGATIVE, U Buprenorphine Qual NEGATIVE, Ur Oxycodone Screen NEGATIVE, Urine Methadone Screen NEGATIVE, Urine Fentanyl Screen NEGATIVE, Ur Barbiturates Screen NEGATIVE, Ur Phencyclidine Scrn NEGATIVE, Ur Amphetamines Screen NEGATIVE, U Benzodiazepines Scrn NEGATIVE, Urine Cocaine Screen NEGATIVE, U Cannabinoids Screen PREUMTIVE POSITIVE 09/13/24 17:28: POC Glucose 292 H 09/13/24 21:47: POC Glucose 270 H 09/14/24 06:47: POC Glucose 267 H 09/14/24 10:08: WBC 11.0, RBC 4.68, Hgb 14.0, Hct 40.6, MCV 86.8, MCH 29.9, MCHC 34.5, RDW Std Deviation 46.7 H, RDW Coeff of Maddy 14.6, Plt Count 179, MPV 8.6, Immature Gran % (Auto) 0.400, Neut % (Auto) 86.8 H, Lymph % (Auto) 5.0 L, [place] % (Auto) 7.7, Eos % (Auto) 0.0, Baso % (Auto) 0.1, Absolute Neuts (auto) 9.6 H, A bsolute Lymphs (auto) 0.55 L, Nucleated RBC % 0, Sodium 139, Potassium 4.1, Chloride Direct 101, Carbon Dioxide 23.9, Anion Gap 14, BUN 16, Creatinine 0.81, Estim Creat Clear Calc 148.39, Est GFR (MDRD) Non-Af 106, BUN/Creatinine Ratio 20.1 H, Glucose 182 H, Calcium 9.1, Total Bilirubin 0.39, AST 38, ALT 22, Alkaline Phosphatase 77, Total Protein 7.3, Albumin 4.2, Globulin 3.0, Albumin/Globulin Ratio 1.4 09/14/24 11:19: POC Glucose 181 H Micro: Microbiology 09/13/24 03:00 Mucosa - Nose SARS-CoV-2, Influenza & RSV (PCR) - Final Influenzae A ABG Data ABG results: ABG 09/13/24 22:35 Specimen Type ART Sample Site R Radial pH 7.41 Bicarbonate Actual 25.9 Total CO2 27 Base Excess 1 O2 Saturation 89 L O2 % 10.0 ABG pCO2 41.3 ABG pO2 56 L [place] Test Positive O2 Delivery Device Cannula Vent Mode Not entered Rhythm Strip Rhythm Strip: Sinus Tach Rate: 108 Ectopy: None Physical Exam Eyes PERRL Neck no lymphadenopathy Resp Resp Narrative: Intermittent wheezes noted on the right infrascapular, axillary region Cardio regular rate and regular rhythm GI normal to inspection, nondistended, normoactive bowel sounds Extremity normal to inspection Neuro oriented x3, CN's II-XII intact bilaterally, moves all extremities and no focal motor deficits Assessment & Plan Assessment/Plan (1) Acute bacterial bronchitis: PLAN: Plan 54-year-old male with history of LAKSHMI, COPD, hypertension, substance abuse in the past presents to the ED with concerns regarding worsening shortness of breath and was found to have influenza A infection. At the time of presentation his lactate was also elevated which was suspected because of metformin use, no features of sepsis hypertension was noted at presentation. History of dizziness typical for bacterial infection superadded on viral infection. Also there is localized findings on examination with predominant left-sided symptoms.Being managed for community-acquired pneumonia. #Acute on chronic respiratory failure #Influenza A infection #Community-acquired pneumonia #AECOPD -Maintaining saturation with 2 L of nasal cannula per minute -Repeat lactic acid has improved to 2.6 -Continue albuterol, budesonide inhalation -On doxycycline, will add ceftriaxone -Continue with methylprednisone -PT/OT evaluation, case management evaluation tomorrow regarding discharge with oxygen #Hypertension -IV hydralazine for systolic blood pressure greater than 160 -Continue amlodipine 10 mg p.o. daily #Obesity -Continue nocturnal CPAP #Type 2 diabetes -A1c levels: 7.1% -Insulin as per sliding scale # Depression with anxiety -Continue bupropion # Active nicotine smoking #History of polysubstance abuse -Presently on nicotine patch, endorses will to quit smoking # DVT prophylaxis: - start on enoxaparin subcu #Bilateral CTS: No acute concerns #Gout: Noted #Osteoarthritis: continue home medications
[2024-09-14 17:21] LABS: Bedside Glucose 351 mg/dL (74-106)
--- NOTE | 2024-09-14 18:21 | EKG12_ITS ---
Test Reason : CP Blood Pressure : */* mmHG Vent. Rate : 103 BPM Atrial Rate : 103 BPM P-R Int : 164 ms QRS Dur : 108 ms QT Int : 332 ms P-R-T Axes : 21 1 51 degrees QTcB Int : 434 ms Sinus tachycardia Incomplete right bundle branch block Borderline ECG When compared with ECG of 13-Sep-2024 03:32, MANUAL COMPARISON REQUIRED DATA IS UNCONFIRMED Confirmed by Bry Plata ([id number]), business editor CECY SHER ([id number]) on 09/15/2024 9:48:16 AM Referred By: MAYELA Confirmed By: Bry Plata
[2024-09-14] MEDS: Polyethylene Glycol 3350 17 GM PACKET PO (22:38)
[2024-09-15 02:37] LABS: Bedside Glucose 267 mg/dL (74-106)
[2024-09-15] MEDS: Ondansetron 4 MG/2 ML Vial IV (02:40)
[2024-09-15] MEDS: 0.9% Saline Lock 10 ML Syringe IV ×3 (02:40→10:37)
[2024-09-15 04:30] VITALS: BP 144/88; PULSE 96; RESP 18; TEMP 36.8; O2SAT 94
[2024-09-15 05:06] VITALS: PULSE 90
[2024-09-15] MEDS: Insulin Lispro 100 UNIT/ML INSULN.PEN SC ×2 (06:54→10:46)
[2024-09-15 07:10] VITALS: PULSE 99
[2024-09-15 07:11] VITALS: PULSE 88; RESP 16; O2SAT 91
[2024-09-15] MEDS: Albuterol 2.5 MG/3 ML VIAL.NEB. INHALATION (07:11)
[2024-09-15] MEDS: Budesonide Respules 0.5 MG/2 ML AMPUL.NEB. INHALATION (07:11)
[2024-09-15 07:13] LABS: Bedside Glucose 151 mg/dL (74-106)
[2024-09-15 07:32] VITALS: O2SAT 88; O2SAT 89; O2SAT 92
[2024-09-15 08:30] VITALS: BP 143/96; PULSE 90; RESP 17; TEMP 36.8; O2SAT 91
[2024-09-15] MEDS: MethylPREDNISolone 125 MG/2 ML Vial 60 MG IV (08:39)
[2024-09-15] MEDS: Enoxaparin 40 MG/0.4 ML Syringe SC (08:39)
[2024-09-15] MEDS: Allopurinol 100 MG Tablet PO (08:39)
[2024-09-15] MEDS: amLODIPine 10 MG Tablet PO (08:40)
[2024-09-15] MEDS: guaiFENesin 600 MG Tablet PO (08:40)
[2024-09-15] MEDS: Polyethylene Glycol 3350 17 GM PACKET PO (08:40)
[2024-09-15] MEDS: Gabapentin 100 MG Capsule PO (08:40)
[2024-09-15] MEDS: Gabapentin 800 MG Tablet PO (08:41)
[2024-09-15] MEDS: Ascorbic Acid 500 MG Tablet 1000 MG PO (08:41)
[2024-09-15] MEDS: Tamsulosin HCl 0.4 MG Capsule PO (08:41)
[2024-09-15] MEDS: Pantoprazole Sodium 40 MG Tablet PO (08:41)
[2024-09-15] MEDS: Oxymetazoline 0.05% 1 SPRAY SPRAY.BTL 2 SPRAY NASAL (08:43)
[2024-09-15] MEDS: Fluticasone 0.05% 1 SPRAY NASAL.SRY 2 SPRAY NASAL (08:43)
[2024-09-15] MEDS: Lactobacillis Acidophilus 1 CAP PO (08:43)
[2024-09-15] MEDS: Oseltamivir Phosphate 75 MG Capsule PO (08:44)
[2024-09-15] MEDS: Zinc Sulfate 50 mg zinc (220 mg) ORAL capsule PO (08:45)
[2024-09-15] MEDS: buPROPion (XL) 300 MG TABLET.XL PO (08:45)
[2024-09-15] MEDS: Cholecalciferol (Vit D3) 125 MCG CAPSULE (5,000 UNITS) PO (08:45)
--- NOTE | 2024-09-15 09:29 | DCINST_ITS ---
Discharge Instructions DC O2, CPAP, BIPAP needs Home O2 Discharge instructions: No Dressing / Incision Discharge Activity: Return to Normal Activity Dressing / Incision Call your doctor if you observe: Fever of 101 or Higher, Shortness of breath, Dizziness, Fainting spells, Swelling in the ankles, Chest pain and Increased palpitations (irregular heartbeat) Follow Up Care Test Results: Test results from this visit will be discussed in further detail at your follow- up appointment, if applicable. Discharge Plan Admission Admit Date/Time: 09/13/24 06:11 Attending Provider: Steven Jung Primary Care Provider: Reynold Barlow Consulting Providers: Cornell Limon; Gilberto Quinteros Instructions Additional Instructions / Restrictions: Follow-up with primary care doctor in 3 to 5 days to monitor your blood pressure she was started on Norvasc for it. Monitor your blood sugars as you will be on steroids for about a week make adjustments to your diet as best you can Discharge Orders/Prescriptions Prescriptions: New amlodipine 10 mg Tablet 10 mg PO DAILY 30 Days Qty: 30 0RF oseltamivir 75 mg Capsule 75 mg PO BID 2 Days Qty: 4 0RF prednisone 20 mg tablet 40 mg PO DAILY 7 Days Qty: 14 0RF Continued hydroxyzine pamoate 50 mg capsule 50 mg PO Q6H PRN (Reason: anxiety) baclofen 5 mg tablet 5 mg PO Q8H PRN (Reason: muscle spasm) Linzess 145 mcg capsule 145 mcg PO QAM Qty: 90 1RF Rx Instructions: take 30 minutes before breakfast every morning hydrocortisone acetate [Anusol-HC] 25 mg suppository 25 mg [place] QHS Qty: 7 0RF Rx Instructions: insert 1 suppository into rectum once daily at HS x7 days pantoprazole 40 mg tablet,delayed release (DR/EC) 40 mg PO QDAY Qty: 90 3RF Rx Instructions: take once daily 30 minutes before breakfast allopurinol 100 mg tablet 100 mg PO BIDCM tamsulosin 0.4 MG capsule 0.4 mg PO DAILY Patient Comments: urine flow ondansetron 4 mg tablet,disintegrating 4 mg PO Q8H PRN PRN (Reason: Nausea) Qty: 10 0RF meloxicam 15 mg tablet 15 mg PO DAILY bupropion HCl 300 mg tablet extended release 24 hr 300 mg PO DAILY budesonide-formoterol [Symbicort] 80-4.5 mcg/actuation HFA aerosol inhaler 2 puff INHALATION BID gabapentin 800 mg tablet 800 mg PO 4X/DAY glipizide 2.5 mg tablet extended release 24hr 2.5 mg PO DAILY metformin 1,000 mg tablet 1,000 mg PO BID gabapentin 100 mg capsule 100 mg PO 4X/DAY fluticasone propionate 50 mcg/actuation spray,suspension 2 spray INTRANASAL DAILY Referrals / Follow Up: Fabian Palm MD [Non-Staff] - Within 1 Week Reynold Barlow MD [Primary Care Provider] - Disposition Disposition (needs filled in before D/C Order can be placed): Home, Self Care
--- NOTE | 2024-09-15 09:37 | PCM.PN.BLA ---
Progress Note I have reviewed the oxygen testing, and this patient qualifies for the home equipment and portability. The patient is mobile in the home and the community.
[2024-09-15] MEDS: Doxycycline 100 MG in 0.9% Normal Saline (250mL Bag) 250 ML 250 MG IV (10:37)
[2024-09-15 11:11] LABS: Bedside Glucose 232 mg/dL (74-106)
--- NOTE | 2024-09-15 15:05 | DS.PCM_ITS ---
Providers Date of Admission: 09/13/24 Primary Care Physician: Dr. Reynold Barlow MD Reason For Visit: AE COPD, TOBACCO ABUSE, INFLUENZA A RESPIRATORY IN Diagnosis Discharge Diagnosis (1) Acute bacterial bronchitis: Status: Acute Code(s): J20.8 - Acute bronchitis due to other specified organisms; B96.89 - Other specified bacterial agents as the cause of diseases classified elsewhere Medications at Discharge Home Medications tamsulosin 0.4 mg capsule 0.4 mg PO DAILY bph 01/01/15 ondansetron 4 mg disintegrating tablet 4 mg PO Q8H PRN PRN Nausea #10 tabs 07/10/24 budesonide-formoterol HFA 80 mcg-4.5 mcg/actuation aerosol inhaler (Symbicort) 2 puff inhalation BID sob 07/19/24 bupropion HCl 300 mg 24 hr tablet, extended release 300 mg PO DAILY mood 07/19/24 fluticasone propionate 50 mcg/actuation nasal spray,suspension 2 spray intranasal DAILY airway 07/19/24 gabapentin 100 mg capsule 100 mg PO 4X/DAY pain 07/19/24 gabapentin 800 mg tablet 800 mg PO 4X/DAY pain 07/19/24 glipizide 2.5 mg tablet, extended release 24 hr 2.5 mg PO DAILY dm 07/19/24 metformin 1,000 mg tablet 1,000 mg PO BID dm 07/19/24 baclofen 5 mg tablet 5 mg PO Q8H PRN muscle spasm 08/21/24 hydroxyzine pamoate 50 mg capsule 50 mg PO Q6H PRN anxiety 08/21/24 allopurinol 100 mg tablet 100 mg PO BIDCM gout 09/02/24 hydrocortisone acetate 25 mg rectal suppository (Anusol-HC) 25 mg [place] QHS rectal bleeding #7 ea 09/02/24 linaclotide 145 mcg capsule (Linzess) 145 mcg PO QAM bowel movement #90 caps 09/02/24 pantoprazole 40 mg tablet,delayed release 40 mg PO QDAY GERD #90 tabs 09/02/24 meloxicam 15 mg tablet 15 mg PO DAILY pain 09/13/24 amlodipine 10 mg tablet 10 mg PO DAILY 30 days #30 tabs 09/15/24 oseltamivir 75 mg capsule 75 mg PO BID 2 days #4 caps 09/15/24 prednisone 20 mg tablet 40 mg (2 x 20 mg) PO DAILY 7 days #14 tabs 09/15/24 Hospital Course Operations None Procedures None Summary of Care Provided Minutes Spent on Discharge: 34 Hospital Course: Per HPI: ROBER BROCK, is a 54 M with a past medical history of essential hypertension; currently not on treatment, history of mixed hyperlipidemia; currently not on treatment, obesity; with a BMI of 32.8 this admission, LAKSHMI; on CPAP, chronic tobacco abuse; with subsequent COPD, history of COVID-19, DM-2; of unknown control on glimepiride, glipizide and metformin, history of diabetic foot ulcer, diabetic neuropathy; on gabapentin 4 times daily, history of diverticulitis of the colon; s/p colonoscopy, BPH; on tamsulosin, IBS; of constipation-type on linaclotide and as needed hydrocortisone suppositories, GERD; with history of Carey's esophagus on pantoprazole, history of acute gastritis; without hemorrhage, remote history of EtOH abuse (quit 2014), history of polysubstance abuse with cannabis, crack cocaine and methamphetamine, history of depression with anxiety; on bupropion and as needed hydroxyzine 4 times daily, history of clavicular fracture, history of bilateral CTS; s/p release, history of gout; on allopurinol twice daily and OA; with history of neck surgery and chronic back pain with intermittent muscle spasms on meloxicam and as needed baclofen TID who presents to [facility] ER complaining of shortness of breath and cough. Mr. Brock reports his symptoms began at on the evening of September 12, 2024. He noted that when he laid down to sleep for the night to put on his CPAP his shortness of breath got acutely worse. He also admits to subjective fevers, cough productive of whitish sputum and migraine-like headache triggered by a fit of coughing that still persists at this time. He additionally complained of upper abdominal pain without radiation made worse with deep breathing and coughing followed by nausea with 2 episodes of bilious emesis but he denies diarrhea. He denies associated chills, runny nose, sore throat, ear pain, chest pain, dysuria, hematuria, rash, paresthesias or focal neurologic deficits. In the ER he was diagnosed with AECOPD; with suspected superimposed Acute Bacterial Bronchitis in the setting of chronic Tobacco Abuse complicated by viral assay positive for Influenza A with both combining to cause clinical evidence of respiratory Insufficiency with oxygen saturation dropping to 87% on RA requiring initiation of 2L NC compounded by Uncontrolled Hypertension of 179/94 mmHg noted shortly after admission in addition to laboratory evidence of Lactic Acidosis of 2.9 mmol/L present on admission suspected to be due to Adverse Drug Reaction to metformin. He was then admitted to the general medical floor for ongoing care for his state that is expected to extend beyond 2 midnights. Hospital Course: 1. Acute hypoxic respiratory insufficiency secondary to a COPD exacerbation due to influenza A?54-year-old male presented with increasing shortness of breath and hypoxia. He was found to be influenza A positive and was started on Tamiflu and prednisone. He was maintaining saturations on 3 L nasal cannula and when he was ambulated today on the day of discharge and when needed 3 L nasal cannula to maintain his oxygen greater than 88%. He does not have community-acquired pneumonia or an infective bronchitis secondary to the lack of leukocytosis or consolidation on chest x-ray. No sputum culture was obtained to verify diagnosis regardless. He request to be discharged today expressed understanding of the risks and benefits of going home and would like to go home today. Will complete 2 more days of Tamiflu as well as 7 days of p.o. prednisone on discharge. 2. Essential hypertension, hyperlipidemia, type 2 diabetes, anxiety, depression are all chronic medical conditions which complicate his care. His home medications were continued where appropriate Physical Exam Narrative General: Alert, Oriented x3, Cooperative, No apparent distress HEENT: Atraumatic, PERRLA, EOMI, Normocephalic Oral: Moist Mucosa Neck: Supple, No JVD Lungs: Diminished, Normal air movement, No rhonchi, scattered wheeze, No rales Cardiovascular: Regular rate, Regular Rhythm, Normal S1, Normal S2, No murmurs Abdomen: Soft, Non Tender, Non-Distended, No Hepato-splenomegaly Extremities: No edema, Capillary Refill Less than 3 Seconds Skin: No rashes, No breakdown Musculoskeletal: No Tenderness to Palpation of Joints or Extremities Neurological: No focal neurological deficits, Motor Exam 5/5 strength throughout, Sensory exam intact to light touch and pain Psych/Mental Status: Normal Affect, Appropriate Weight / BMI Weight Weight: 262 lb 9.129 oz Body Mass Index (BMI) 32.8 ABG / Lab / Microbiology Data 09/14/24 10:08 09/14/24 10:08 Laboratory: Laboratory Results - last 24 hr 09/14/24 16:56: POC Glucose 351 H 09/14/24 22:30: POC Glucose 267 H 09/15/24 06:51: POC Glucose 151 H 09/15/24 10:45: POC Glucose 232 H Microbiology: Microbiology 09/13/24 03:00 Mucosa - Nose SARS-CoV-2, Influenza & RSV (PCR) - Final Influenzae A D/C Instructions Call your doctor if you observe: Fever of 101 or Higher, Shortness of breath, Dizziness, Fainting spells, Swelling in the ankles, Chest pain and Increased palpitations (irregular heartbeat) DC O2, CPAP, BIPAP Needs PSN CPAP & BiPAP: BiPAP & CPAP Settings per PSN Mode CPAP 09/14/24 06:50 Bipap Delivery Device Nasal Pillows 09/14/24 06:50 Fraction of Inspired Oxygen ( 60 09/14/24 06:50 FIO2) Total Flow Rate 60 09/14/24 06:50 Home O2 Discharge instructions: No Meaningful Use Info Meaningful Use Meaningful Use Diagnoses (Choose all that apply): None applicable Ischemic Stroke Statin Dosing Therapy Reference: STATIN DOSE THERAPY REFERENCE: * Patients > 75 years receive moderate or high dose statin therapy. * Patients 75 years or YOUNGER should receive HIGH intensity statin dose unless contraindicated. You will be required to document reason for non-treatment if statin daily dose does not meet guidelines. HIGH DOSE STATIN THERAPY DAILY Atorvastatin > than or = to 40 mg Rosuvastatin > than or = to 20 mg Amlodipine + Atorvastatin > than or = to 2.5/40 mg Ezetimibe + Simvastatin 10/80 mg Simvastatin 80mg Discharge Plan Admission Admit Date/Time: 09/13/24 06:11 Attending Provider: Steven Jung Primary Care Provider: Reynold Barlow Consulting Providers: Cornell Limon; Gilberto Quinteros Instructions Additional Instructions / Restrictions: Follow-up with primary care doctor in 3 to 5 days to monitor your blood pressure she was started on Norvasc for it. Monitor your blood sugars as you will be on steroids for about a week make adjustments to your diet as best you can Discharge Orders/Prescriptions Prescriptions: New amlodipine 10 mg Tablet 10 mg PO DAILY 30 Days Qty: 30 0RF oseltamivir 75 mg Capsule 75 mg PO BID 2 Days Qty: 4 0RF prednisone 20 mg tablet 40 mg PO DAILY 7 Days Qty: 14 0RF Continued hydroxyzine pamoate 50 mg capsule 50 mg PO Q6H PRN (Reason: anxiety) baclofen 5 mg tablet 5 mg PO Q8H PRN (Reason: muscle spasm) Linzess 145 mcg capsule 145 mcg PO QAM Qty: 90 1RF Rx Instructions: take 30 minutes before breakfast every morning hydrocortisone acetate [Anusol-HC] 25 mg suppository 25 mg [place] QHS Qty: 7 0RF Rx Instructions: insert 1 suppository into rectum once daily at HS x7 days pantoprazole 40 mg tablet,delayed release (DR/EC) 40 mg PO QDAY Qty: 90 3RF Rx Instructions: take once daily 30 minutes before breakfast allopurinol 100 mg tablet 100 mg PO BIDCM tamsulosin 0.4 MG capsule 0.4 mg PO DAILY Patient Comments: urine flow ondansetron 4 mg tablet,disintegrating 4 mg PO Q8H PRN PRN (Reason: Nausea) Qty: 10 0RF meloxicam 15 mg tablet 15 mg PO DAILY bupropion HCl 300 mg tablet extended release 24 hr 300 mg PO DAILY budesonide-formoterol [Symbicort] 80-4.5 mcg/actuation HFA aerosol inhaler 2 puff INHALATION BID gabapentin 800 mg tablet 800 mg PO 4X/DAY glipizide 2.5 mg tablet extended release 24hr 2.5 mg PO DAILY metformin 1,000 mg tablet 1,000 mg PO BID gabapentin 100 mg capsule 100 mg PO 4X/DAY fluticasone propionate 50 mcg/actuation spray,suspension 2 spray INTRANASAL DAILY Referrals / Follow Up: Fabian Palm MD [Non-Staff] - 09/22/24 1:00 pm Reynold Barlow MD [Primary Care Provider] - Disposition Disposition (needs filled in before D/C Order can be placed): Home, Self Care Charges/Coding Visit Charges Inpatient E&M: 48423 Disch Hosp >30min
--- NOTE | 2024-09-18 10:56 | CCN.REFER ---
PATIENT DECLINING CCN SERVICES. STATES NEEDS ARE MET BY BROTHER AND FAMILY AND DECLINES HOME VISITS FOR FURTHER EDUCATION AND MONITORING.
--- NOTE | 2024-10-10 10:58 | CASEMGMT ---
Received CMN from [employer], completed form with order per oxygen testing performed. Emailed [facility] [place] and confirmed pt order had not changed since hospitalization, it had not. TC to pt, he states he is still wearing his oxygen. Made aware of oxygen liter flow he should be wearing based on testing. Pt states he has not had a PCP f/u as he did not find his appt time until after the appt. He states he will call and reschedule. Pt does not have a pox but plans to get one. Pt aware of importance of this follow up. Pt verbalized understanding but states he has had multiple doctor appts and is overwhelmed. Pt denies any needs for RN CM to assist with. Faxed CMN to [employer]. Updated hospitalist.
== END 2024-09-15 12:41 | disposition home or self-care (01) | DRG 193 ==
LOC: ED 03:31 → MS3 06:56
PROVIDERS: Internal Medicine; Admitting Provider Internal Medicine; Emergency Provider Emergency Medicine; PCP Family Medicine; Visit Provider Family Medicine
DX: J10.1 Influenza due to other identified influenza virus with other respiratory manifestations (principal); J96.21 Acute and chronic respiratory failure with hypoxia; J44.1 Chronic obstructive pulmonary disease with (acute) exacerbation; E87.20 Acidosis, unspecified; E11.40 Type 2 diabetes mellitus with diabetic neuropathy, unspecified; I10 Essential (primary) hypertension; E66.811 Obesity, class 1; G47.33 Obstructive sleep apnea (adult) (pediatric); F41.8 Other specified anxiety disorders; M10.9 Gout, unspecified; F17.210 Nicotine dependence, cigarettes, uncomplicated; K58.1 Irritable bowel syndrome with constipation; M54.9 Dorsalgia, unspecified; M62.830 Muscle spasm of back; M19.90 Unspecified osteoarthritis, unspecified site; G56.03 Carpal tunnel syndrome, bilateral upper limbs; N40.0 Benign prostatic hyperplasia without lower urinary tract symptoms; G89.29 Other chronic pain; T38.3X5A Adverse effect of insulin and oral hypoglycemic [antidiabetic] drugs, initial encounter; Z88.1 Allergy status to other antibiotic agents; Z79.899 Other long term (current) drug therapy; Z79.84 Long term (current) use of oral hypoglycemic drugs; Z68.32 Body mass index [BMI] 32.0-32.9, adult; Z87.19 Personal history of other diseases of the digestive system; Z87.898 Personal history of other specified conditions; Z86.16 Personal history of COVID-19
CPT/HCPCS: 36415; 36600; 71046; 80053; 80061; 80307; 82077; 82803; 82962; 83036; 83605; 83690; 83880; 84443; 84484; 85025; 87631; 93005; 94640; 94660; 94668; 99285; 99406; A4216; J2405

== ENCOUNTER 2024-09-20 06:01 | Emergency (ER) | payer MEDICARE, MEDICAID, SELFPAY ==
[2024-09-20 06:01] VITALS: BP 165/90; PULSE 103; RESP 21; TEMP 36.6; O2SAT 93; BMI 31.9
--- NOTE | 2024-09-20 06:12 | CT_ITS ---
PROCEDURE: SOFT TISSUE NECK WITH CONTRAST REASON FOR EXAM: Sublingual swelling/pain, left, abscess versus sialolith TECHNIQUE: CT of the soft tissues of the neck from the orbits to the upper mediastinum with intravenous contrast. Coronal and sagittal reformatted images CONTRAST: 96 cc Isovue 370 COMPARISON: Cervical spine CT 09/07/2021. FINDINGS: Mild asymmetric prominence of left-sided submandibular nonenlarged by CT criteria lymph nodes for example axial 68. Submandibular glands appear symmetric without evidence of stone disease on contrast enhanced images. No abscess or soft tissue gas identified. Epiglottis and aryepiglottic folds appear within limits. Edentulous. Airway: Midline and patent. Salivary glands: Unremarkable. Lymph nodes: No cervical lymphadenopathy. Thyroid: Unremarkable. Vasculature: Carotid arteries and internal jugular veins are unremarkable. Orbits: Unremarkable at visualized levels. Paranasal sinuses and mastoids: Grossly clear at visualized levels. Lung apices: Motion artifact, grossly clear. Upper mediastinum: Visualized mediastinum is unremarkable. Bones: Cervical spondylosis status post C5 through C7 anterior cervical disc fusion and intervertebral disc spacers again noted.. CT/Soft Tissue Neck WITH Contrast IMPRESSION: Mild asymmetric prominence of left-sided submandibular nonenlarged by CT criter ia lymph nodes for example axial 68 may be reactive, nonspecific. No abscess, stone disease or soft tissue gas identified. One or more dose reduction techniques were used (e.g., Automated exposure contr ol, adjustment of the mA and/or kV according to patient size, use of iterative reconstruction technique). Reading Location: [id number]
--- NOTE | 2024-09-20 06:14 | EX.ED.DYSGE1 ---
HPI History of Present Illness Chief Complaint: Dental Informant: patient Narrative Narrative: 54-year-old male recently here and diagnosed with influenza states for the past couple days he has had gradual onset and progression of painful swelling in his left sublingual area. He denies any discharge or bleeding. No trouble swallowing or breathing. Was already having some fevers from when he was diagnosed with the flu but no new high fevers. [facility] Medical History Shortness of breath Mixed hyperlipidemia Acute gastritis without hemorrhage Bone spur of other site LAKSHMI (obstructive sleep apnea) History of drug abuse COPD (chronic obstructive pulmonary disease) Collar bone fracture Carpal tunnel syndrome, right BPH (benign prostatic hyperplasia) Alcohol abuse, in remission Sleep apnea Barretts esophagus Smoker Gout Anxiety Depression Diabetes Hypertension Hyperlipidemia Home Medications ?Medication ?Instructions ?Recorded ?Last Taken ?Type tamsulosin 0.4 mg capsule 0.4 mg PO DAILY bph 01/01/15 08/03/19 History ondansetron 4 mg disintegrating 4 mg PO Q8H PRN PRN Nausea #10 tabs 07/10/24 Unknown Rx tablet budesonide-formoterol HFA 80 2 puff inhalation BID sob 07/19/24 Unknown History mcg-4.5 mcg/actuation aerosol inhaler (Symbicort) bupropion HCl 300 mg 24 hr tablet, 300 mg PO DAILY mood 07/19/24 Unknown History extended release fluticasone propionate 50 2 spray intranasal DAILY airway 07/19/24 Unknown History mcg/actuation nasal spray,suspension gabapentin 100 mg capsule 100 mg PO 4X/DAY pain 07/19/24 Unknown History gabapentin 800 mg tablet 800 mg PO 4X/DAY pain 07/19/24 Unknown History glipizide 2.5 mg tablet, extended 2.5 mg PO DAILY dm 07/19/24 Unknown History release 24 hr metformin 1,000 mg tablet 1,000 mg PO BID dm 07/19/24 Unknown History baclofen 5 mg tablet 5 mg PO Q8H PRN muscle spasm 08/21/24 Unknown History hydroxyzine pamoate 50 mg capsule 50 mg PO Q6H PRN anxiety 08/21/24 Unknown History allopurinol 100 mg tablet 100 mg PO BIDCM gout 09/02/24 Unknown History hydrocortisone acetate 25 mg 25 mg MI QHS rectal bleeding #7 ea 09/02/24 Unknown Rx rectal suppository (Anusol-HC) linaclotide 145 mcg capsule 145 mcg PO QAM bowel movement #90 09/02/24 Unknown Rx (Linzess) caps pantoprazole 40 mg tablet,delayed 40 mg PO QDAY GERD #90 tabs 09/02/24 Unknown Rx release meloxicam 15 mg tablet 15 mg PO DAILY pain 09/13/24 Unknown History amlodipine 10 mg tablet 10 mg PO DAILY 30 days #30 tabs 09/15/24 Unknown Rx oseltamivir 75 mg capsule 75 mg PO BID 2 days #4 caps 09/15/24 Unknown Rx prednisone 20 mg tablet 40 mg (2 x 20 mg) PO DAILY 7 days 09/15/24 Unknown Rx #14 tabs amoxicillin 875 mg-potassium 875 mg PO Q12H #14 TABLETS 09/20/24 Unknown Rx clavulanate 125 mg tablet Allergy/AdvReac Type Severity Reaction Status Date / Time cyclobenzaprine HCl (From Allergy Hives Verified 09/20/24 06:06 Flexeril) dicyclomine HCl (From Bentyl) Allergy Rash Verified 09/20/24 06:06 duloxetine HCl (From Allergy Hives Verified 09/20/24 06:06 Cymbalta) meloxicam (From Mobic) Allergy Rash Verified 09/20/24 06:06 metformin Allergy lactic Verified 09/20/24 06:06 acidosis naproxen Allergy Hives Verified 09/20/24 06:06 quetiapine (From Seroquel) Allergy Rash Verified 09/20/24 06:06 tramadol HCl (From Ultram) Allergy Rash Verified 09/20/24 06:06 Family History Other Arthritis Colon cancer Diabetes High cholesterol Hypertension Surgical History History of colonoscopy History of carpal tunnel surgery History of eyelid surgery History of neck surgery Social History household members: none Smoking Status: Former smoker Electronic Cigarette Use: not used alcohol intake: former year quit: 2014 details: Hx of ETOH abuse, sober past few years as of 2014 substance use type: marijuana and other details: history of marijuana, cocaine, crack, meth ROS ROS ED Constitutional Constitutional ED: Reports malaise; Denies chills or fever(s) Eyes Eyes: Denies change in vision or double vision ENT ENT ED: Reports other Details: Sublingual pain and swelling ; Denies sinus pain, sore throat or throat swelling Cardiovascular Cardiovascular: Denies chest pain or palpitations Respiratory/Chest Respiratory/Chest: Reports cough; Denies dyspnea Gastrointestinal Gastrointestinal: Denies abdominal pain or vomiting Integumentary Denies abscess or rash Neurologic Neurologic: Denies headache(s), paresthesias or weakness EXAM Physical Exam Const Vital Signs: 09/20/24 06:01 09/20/24 06:58 Temperature 98 F Temperature Source Oral Pulse Rate 103 H Respiratory Rate 21 H Blood Pressure 165/90 H Blood Pressure Mean 115 Pulse Ox 93 96 Oxygen Delivery Method Nasal Cannula Room Air Oxygen Flow Rate (L/min) 2 Positive well nourished and well developed General Appearance ED: well developed and NAD HEENT HEENT Narrative: Edentulous. There is sublingual tissue fullness and tenderness on the left but not the right. There is no expressible discharge from salivary ducts. There is no discrete swelling of the salivary gland but there is some left submandibular tenderness. There is no submental fullness/tenderness externally. There is no stridor. Full range of motion of the neck without difficulty or trouble breathing. Tongue is otherwise normal. Gingiva are unremarkable. Face and Sinus: sinuses nontender Throat: posterior oropharynx normal Eyes PERRL and EOMs intact bilaterally Neck no lymphadenopathy and supple Resp normal respiratory effort Neuro oriented x3 and CN's II-XII intact bilaterally Sensorium / Orientation: alert Gait (Neuro): normal gait Psych mental status grossly normal and thought process normal Skin no rashes or lesions noted and no wounds MDM MDM MDM Narrative Medical decision making narrative: This could be a dental/gingival infection with developing abscess in the sublingual deep space soft tissues, versus sialolith versus sialoadenitis. I reviewed his prior labs. His renal function is normal and that was 7 days ago, so I sent him for a contrasted CT of the soft tissues of the neck. I reviewed the images as well as report which I agree with, it shows some mild swelling in the area of concern but there is no abscess/phlegmon/collection and there is no sialolithiasis or evidence of sialoadenitis. Given this, I am going to treat the patient as if this started from his gingiva and could be basically a dental infection. I am placing him on Augmentin which I started here, and given the prescription he is comfortable following up with dentistry or return if worse. History & Record Review Additional record(s) reviewed:: Prior ED visit and Prior labs Radiography Diagnostic Testing: Clinical Impression(s) from Imaging Studies Soft Tissue Neck CT 09/20/24 06:12 IMPRESSION: Mild asymmetric prominence of left-sided submandibular nonenlarged by CT criteria lymph nodes for example axial 68 may be reactive, nonspecific. No abscess, stone disease or soft tissue gas identified. One or more dose reduction techniques were used (e.g., Automated exposure control, adjustment of the mA and/or kV according to patient size, use of iterative reconstruction technique). Reading Location: [facility] Discharge Plan Triage Chief Complaint: Dental ED Provider: Kobi Kaiser Dx/Rx/DC Orders Clinical Impression: Dental infection Instructions: Dental Abscess Prescriptions: New amoxicillin-pot clavulanate 875-125 mg tablet 875 mg PO Q12H Qty: 14 0RF No Action hydroxyzine pamoate 50 mg capsule 50 mg PO Q6H PRN (Reason: anxiety) baclofen 5 mg tablet 5 mg PO Q8H PRN (Reason: muscle spasm) Linzess 145 mcg capsule 145 mcg PO QAM Qty: 90 1RF Rx Instructions: take 30 minutes before breakfast every morning hydrocortisone acetate [Anusol-HC] 25 mg suppository 25 mg MI QHS Qty: 7 0RF Rx Instructions: insert 1 suppository into rectum once daily at HS x7 days pantoprazole 40 mg tablet,delayed release (DR/EC) 40 mg PO QDAY Qty: 90 3RF Rx Instructions: take once daily 30 minutes before breakfast allopurinol 100 mg tablet 100 mg PO BIDCM tamsulosin 0.4 MG capsule 0.4 mg PO DAILY Patient Comments: urine flow ondansetron 4 mg tablet,disintegrating 4 mg PO Q8H PRN PRN (Reason: Nausea) Qty: 10 0RF meloxicam 15 mg tablet 15 mg PO DAILY amlodipine 10 mg Tablet 10 mg PO DAILY 30 Days Qty: 30 0RF oseltamivir 75 mg Capsule 75 mg PO BID 2 Days Qty: 4 0RF prednisone 20 mg tablet 40 mg PO DAILY 7 Days Qty: 14 0RF bupropion HCl 300 mg tablet extended release 24 hr 300 mg PO DAILY budesonide-formoterol [Symbicort] 80-4.5 mcg/actuation HFA aerosol inhaler 2 puff INHALATION BID gabapentin 800 mg tablet 800 mg PO 4X/DAY glipizide 2.5 mg tablet extended release 24hr 2.5 mg PO DAILY metformin 1,000 mg tablet 1,000 mg PO BID gabapentin 100 mg capsule 100 mg PO 4X/DAY fluticasone propionate 50 mcg/actuation spray,suspension 2 spray INTRANASAL DAILY Primary Care Provider: French Mcgee NP Referrals: Reynold Barlow MD [Non-Staff] - Dentist,Your [STAFF PHYSICIAN] - 3-5 Days if not improving Print Language: Georgian Disposition Disposition: Home, Self Care
[2024-09-20 06:58] VITALS: O2SAT 96
[2024-09-20 07:01] VITALS: BP 136/78; PULSE 64; RESP 18; TEMP 37.1; O2SAT 99
[2024-09-20] MEDS: Amox/Clavulanate 875 MG Tablet PO (07:44)
== END 2024-09-20 07:49 | disposition home or self-care (01) ==
PROVIDERS: Emergency Provider Emergency Medicine; PCP Nurse Practitioner Family; Visit Provider Emergency Medicine
DX: K04.7 Periapical abscess without sinus (principal); J44.9 Chronic obstructive pulmonary disease, unspecified; E11.9 Type 2 diabetes mellitus without complications; I10 Essential (primary) hypertension; N40.0 Benign prostatic hyperplasia without lower urinary tract symptoms; M10.9 Gout, unspecified; F41.9 Anxiety disorder, unspecified; F32.A Depression, unspecified; E78.5 Hyperlipidemia, unspecified; G47.33 Obstructive sleep apnea (adult) (pediatric); Z79.84 Long term (current) use of oral hypoglycemic drugs; Z79.899 Other long term (current) drug therapy; Z87.891 Personal history of nicotine dependence
CPT/HCPCS: 70491; 99284; Q9967; A4216

== ENCOUNTER → 2024-09-24 | Outpatient (CLI) | payer MEDICARE, MEDICAID, SELFPAY ==
--- NOTE | 2024-09-24 11:59 | NEURO ---
NCS and/or EMG Patient Report Ordering Doctor: Steven Lake DATE OF SERVICE: 09/24/24 Fahad presents for electrodiagnostic testing of the right upper limb. He reports intermittent numbness and tingling in the right hand. Electrodiagnostic findings: Right median motor nerve demonstrates normal distal latency, amplitude and conduction velocity. Normal right ulnar motor response, including conduction across the elbow. Prolonged right median F?wave. Prolonged right median sensory latency at the wrist and palm. Normal ulnar and radial sensory responses. Needle EMG testing was performed of the right upper limb. All muscles tested showed no evidence of denervation with normal motor unit action potentials. Electrodiagnostic impression: This is an abnormal study in the right upper limb 1. Electrodiagnostic findings suggestive of right-sided median mononeuropathy. This is consistent with a mild right carpal tunnel syndrome. Multi Select Codes Neurology Neurology Interp Codes: 72079-95 Musc test done w/n test comp (interp) and 23841-57 Nrv cndj test 7-8 studies (interp)
== END | disposition home or self-care (01) ==
LOC: PSN 10:41
PROVIDERS: PCP Nurse Practitioner Family; Referring Provider Student in an Organized Health Care Education/Training Program; Visit Provider Student in an Organized Health Care Education/Training Program
DX: G62.9 Polyneuropathy, unspecified (principal); R20.2 Paresthesia of skin
CPT/HCPCS: 95886; 95910

== ENCOUNTER → 2024-10-01 | Outpatient (CLI) | payer MEDICARE, MEDICAID, SELFPAY ==
--- NOTE | 2024-10-01 12:17 | NEURO ---
NCS and/or EMG Patient Report Ordering Doctor: Steven Lake DATE OF SERVICE: 10/01/24 Fahad presents with complaints of numbness and tingling in the feet. He has a history of diabetes. Pain is described as sharp. Electrodiagnostic findings: Left peroneal motor nerve demonstrates normal distal latency and amplitude reduced conduction velocity. No significant drop in conduction is noted across the fibular head. Right peroneal motor nerve demonstrates normal distal latency, amplitude and conduction velocity. Tibial motor responses within normal limits bilaterally. Prolonged tibial and peroneal F?waves. Sensory responses show some slowing of conduction velocity. H?reflexes prolonged bilaterally. Needle EMG testing was performed the lower limbs. All muscles tested showed no evidence of denervation with normal motor unit action potentials. Electrodiagnostic impression: This is an abnormal study in the lower limbs. 1. Findings are suggestive of polyneuropathy, likely demyelinating, with motor and sensory involvement. 2. Testing has been reviewed in conjunction with upper extremity testing which Fahad has had recently performed. 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 However, he likely also has a superimposed bilateral carpal tunnel syndrome, more significant on the left side. Multi Select Codes Neurology Neurology Interp Codes: 15713-13 Musc test done w/n test comp (interp) (2) and 99673-00 Nrv cndj test 9-10 studies (interp)
== END | disposition home or self-care (01) ==
LOC: PSN 08:16
PROVIDERS: PCP Nurse Practitioner Family; Referring Provider Student in an Organized Health Care Education/Training Program; Visit Provider Student in an Organized Health Care Education/Training Program
DX: G62.9 Polyneuropathy, unspecified (principal); R20.2 Paresthesia of skin
CPT/HCPCS: 95886; 95911

== ENCOUNTER 2024-10-02 18:25 | Emergency (ER) | payer MEDICARE, MEDICAID, SELFPAY ==
[2024-10-02 18:26] VITALS: BP 137/80; PULSE 95; RESP 17; TEMP 36.9; O2SAT 94; BMI 31.1
--- NOTE | 2024-10-02 18:33 | EKG12_ITS ---
Test Reason : CP Blood Pressure : */* mmHG Vent. Rate : 102 BPM Atrial Rate : 102 BPM P-R Int : 166 ms QRS Dur : 102 ms QT Int : 334 ms P-R-T Axes : 10 3 58 degrees QTcB Int : 435 ms Sinus tachycardia Incomplete right bundle branch block Borderline ECG Confirmed by ROBERTO HOROWITZ, ALEK ([id number]), assistant film editor JUANCHO MARTIN ([id number]) on 10/03/2024 9:14:06 AM Referred By: Confirmed By: ALEK MEJIA MD
[2024-10-02] MEDS: Ondansetron 4 MG/2 ML Vial IV (18:51)
[2024-10-02] MEDS: 0.9% Normal Saline (1000mL) 1,000 ML 1000 ML IV (18:51)
[2024-10-02] MEDS: Loperamide 2 MG Capsule 4 MG PO (18:51)
[2024-10-02 19:19] LABS: Absolute Neutrophil Count 5.6 X10^3/uL (2.0-7.7); Basophil# 0.02 X10^3/uL; Basophil% 0.2 % (0-1); Eosinophils% 1.2 % (0-5); Hematocrit 42.2 % (40-54); Hemoglobin 14.7 g/dL (13.0-16.5); Lymphocyte % 24.7 % (19-41); Mean Corp Hgb Conc 34.8 g/dL (32-36); Mean Corpuscular Hgb 30.1 pg (27.0-32.0); Mean Corpuscular Volume 86.3 fL (80-94); Mean Platelet Vol. 8.4 fl (6.2-12.0); Monocyte# 0.61 X10^3/uL; Monocyte% 7.2 % (0-10); NRBC Flagged by Analyzer 0 % (0-5); Neutrophil # 5.58 X10^3/uL (2.7-7.7); Neutrophil % 65.8 % (47-70); Platelet Count 239 K/mm3 (150-450); RBC Distribution Width CV 13.7 % (11.6-14.6); Red Blood Count 4.89 M/mm3 (4.6-6.2); White Blood Count 8.5 K/mm3 (4.4-11.0)
[2024-10-02 19:30] LABS: Anion Gap 14 (5-15); BUN 12 mg/dL (4-19); BUN/Creat Ratio 14.6 RATIO (10-20); Calcium,Total 8.8 mg/dL (7.6-11.0); Chloride 102 mmol/L (98-108); EST Glomerular Filtration Rate 107 (>60); Estimated Creatinine Clearance 146.48 ml/min (50-250); Glucose 219 mg/dL (70-99); Potassium 3.9 mmol/L (3.3-5.1); Sodium Level 139 mmol/L (133-145)
[2024-10-02 19:37] VITALS: BP 118/79; BP 126/83; BP 131/83; PULSE 106; PULSE 93; PULSE 97
[2024-10-02 20:38] VITALS: BP 121/85; PULSE 94; O2SAT 94
--- NOTE | 2024-10-02 21:38 | EX.ED.DYSGE1 ---
HPI History of Present Illness Chief Complaint: Chest Pain Detail of Chief Complaint: Chest pain after vomiting Informant: patient Onset/Context/Timing Onset: Yesterday Context: Sudden Onset Timing: Intermittent Quality: Abdominal pain with nausea vomiting diarrhea Location: Chest discomfort bilaterally after vomiting Current Severity: Gone Maximum Severity: Moderate Worsened by: After vomiting Relieved by: Duration less than 30 seconds Associated Symptoms Associated Symptoms: No constitutional symptoms Narrative Narrative: Patient is a 54-year-old gentleman with history of diastolic dysfunction without heart failure, dyslipidemia, atherosclerotic vascular disease, uncontrolled hypertension, tobacco use, GERD, obstructive sleep apnea and COPD. He presents because of nausea, vomit diarrhea. Has vomited 4 times since yesterday said 20 loose stools. Reported mucus in the diarrhea. He denied hematemesis or coffee-ground emesis. He has not been on antibiotic in the last month. He has had no ill contacts. He does endorse thirst and dry mouth. He denies orthostatic symptoms. He does endorse crampy abdominal pain that is generalized. He denies dysuria, frequency, urgency or hematuria. The chest pain occurs after vomiting. It is 30 to seconds at most. Sharp bilateral anterior chest. There is nothing that alleviates or makes the discomfort worse other than the vomiting. Prior similar symptoms: Yes Recent Illness/Hospitalization: No PFSH PFSH Medical History Wears glasses History of steroid therapy Arthritis History of diverticulitis Gastric reflux Former smoker CPAP (continuous positive airway pressure) dependence On home oxygen therapy Cardiology follow-up encounter Shortness of breath Mixed hyperlipidemia Acute gastritis without hemorrhage Bone spur of other site LAKSHMI (obstructive sleep apnea) History of drug abuse COPD (chronic obstructive pulmonary disease) Collar bone fracture Carpal tunnel syndrome, right BPH (benign prostatic hyperplasia) Alcohol abuse, in remission Sleep apnea Barretts esophagus Smoker Gout Anxiety Depression Diabetes Hypertension Hyperlipidemia Home Medications ?Medication ?Instructions ?Recorded ?Last Taken ?Type tamsulosin 0.4 mg capsule 0.4 mg PO DAILY bph 01/01/15 08/03/19 History bupropion HCl 300 mg 24 hr tablet, 300 mg PO DAILY mood 07/19/24 Unknown History extended release fluticasone propionate 50 2 spray intranasal DAILY airway 07/19/24 Unknown History mcg/actuation nasal spray,suspension gabapentin 100 mg capsule 100 mg PO 4X/DAY pain 07/19/24 Unknown History gabapentin 800 mg tablet 800 mg PO 4X/DAY pain 07/19/24 Unknown History glipizide 2.5 mg tablet, extended 2.5 mg PO DAILY dm 07/19/24 Unknown History release 24 hr metformin 1,000 mg tablet 1,000 mg PO BID dm 07/19/24 Unknown History baclofen 5 mg tablet 5 mg PO Q8H PRN muscle spasm 08/21/24 Unknown History hydroxyzine pamoate 50 mg capsule 50 mg PO Q6H PRN anxiety 08/21/24 Unknown History allopurinol 100 mg tablet 100 mg PO BIDCM gout 09/02/24 Unknown History linaclotide 145 mcg capsule 145 mcg PO QAM bowel movement #90 09/02/24 Unknown Rx (Linzess) caps pantoprazole 40 mg tablet,delayed 40 mg PO QDAY GERD #90 tabs 09/02/24 Unknown Rx release amlodipine 10 mg tablet 10 mg PO DAILY 30 days #30 tabs 09/15/24 Unknown Rx aspirin 81 mg tablet,delayed 81 mg PO QDAY #90 tabs 09/30/24 10/02/24 Rx release (Adult Aspirin Regimen) budesonide 160 mcg-glycopyr 9 2 inh inhalation BID 09/30/24 Unknown History mcg-formot 4.8 mcg/actuation HFA inhaler (Breztri Aerosphere) metoprolol tartrate 50 mg tablet 50 mg PO ONCE #1 TAB 09/30/24 Unknown Rx ondansetron 4 mg disintegrating 4 mg PO Q8H PRN PRN Nausea #5 tabs 10/02/24 Unknown Rx tablet Allergy/AdvReac Type Severity Reaction Status Date / Time cyclobenzaprine HCl (From Allergy Hives Verified 10/02/24 18:28 Flexeril) dicyclomine HCl (From Bentyl) Allergy Rash Verified 10/02/24 18:28 duloxetine HCl (From Allergy Hives Verified 10/02/24 18:28 Cymbalta) meloxicam (From Mobic) Allergy Rash Verified 10/02/24 18:28 naproxen Allergy Hives Verified 10/02/24 18:28 quetiapine (From Seroquel) Allergy Rash Verified 10/02/24 18:28 tramadol HCl (From Ultram) Allergy Rash Verified 10/02/24 18:28 Family History Other Arthritis Colon cancer Diabetes High cholesterol Hypertension Surgical History S/P rotator cuff repair History of colonoscopy History of carpal tunnel surgery History of eyelid surgery History of neck surgery Social History household members: none Smoking Status: Former smoker Electronic Cigarette Use: not used alcohol intake: former year quit: 2014 details: Hx of ETOH abuse, sober past few years as of 2014 substance use type: marijuana and other details: history of marijuana, cocaine, crack, meth ROS ROS ED Constitutional Constitutional ED: Denies chills, fever(s), subjective, sweats or weight loss Eyes Eyes: Denies blurry vision or change in vision ENT ENT ED: Denies ear pain, rhinorrhea or sore throat Cardiovascular Cardiovascular: Reports chest pain; Denies palpitations Respiratory/Chest Respiratory/Chest: Denies cough, dyspnea or dyspnea on exertion Gastrointestinal Gastrointestinal: Reports abdominal pain, diarrhea, nausea and vomiting; Denies constipation or melena Genitourinary Genitourinary ED: Denies dysuria, hematuria or urinary frequency Musculoskeletal Musculoskeletal: Denies back pain or neck pain Integumentary Reports Abrasions and other Details: Patient has abrasion top of his head. He hit it. He did not have loss of conscious. Is not on anticoagulant or antithrombotic. Neurologic Neurologic: Denies headache(s), paresthesias or weakness Hematologic/Lymphatic Hematologic/Lymphatic: Reports systems reviewed and no addt'l complaints, except as documented EXAM Physical Exam Const Vital Signs: 10/02/24 18:26 10/02/24 18:53 10/02/24 19:37 Temperature 98.4 F Temperature Source Temporal Pulse Rate 95 Pulse Rate [Lying] 93 Pulse Rate [Sitting (for 1 minute prior to obtaining)] 97 Pulse Rate [Standing (for 1 minute prior to obtaining)] 106 H Respiratory Rate 17 Respiratory Effort Normal Non-Labored Blood Pressure 137/80 H Blood Pressure [Lying] 131/83 H Blood Pressure [Sitting (for 1 minute prior to obtaining)] 126/83 H Blood Pressure [Standing (for 1 minute prior to obtaining)] 118/79 Blood Pressure Mean 99 Blood Pressure Mean [Lying] 99 Blood Pressure Mean [Sitting (for 1 minute prior to obtaining)] 97 Blood Pressure Mean [Standing (for 1 minute prior to obtaining)] 92 Pulse Ox 94 Oxygen Delivery Method Nasal Cannula 10/02/24 20:38 Temperature Temperature Source Pulse Rate 94 Pulse Rate [Lying] Pulse Rate [Sitting (for 1 minute prior to obtaining)] Pulse Rate [Standing (for 1 minute prior to obtaining)] Respiratory Rate Respiratory Effort Blood Pressure 121/85 H Blood Pressure [Lying] Blood Pressure [Sitting (for 1 minute prior to obtaining)] Blood Pressure [Standing (for 1 minute prior to obtaining)] Blood Pressure Mean 97 Blood Pressure Mean [Lying] Blood Pressure Mean [Sitting (for 1 minute prior to obtaining)] Blood Pressure Mean [Standing (for 1 minute prior to obtaining)] Pulse Ox 94 Oxygen Delivery Method Room Air Orthostatic vital signs were negative. Positive well nourished and well developed Constitutional Narrative: Patient appears ill but not toxic. He appears in no distress. General Appearance ED: well developed and NAD; Negative for cyanotic or diaphoretic HEENT HEENT Narrative: Patient has abrasion top of his head. Ears normal. Nares patent. No septal deviation hematoma. Posterior pharynx is normal. There is no palpable depression. Eyes PERRL and EOMs intact bilaterally Eyes Narrative: There is no nystagmus. There is no subconjunctival hemorrhage. General Eye ED: Negative for pale conjunctiva or scleral icterus Neck no lymphadenopathy, supple and no JVD Resp normal respiratory effort and clear to auscultation bilaterally Cardio regular rate, regular rhythm, S1 normal heart sound, S2 normal heart sound and no murmurs GI non-distended and no masses; Negative for non-tender or hepatosplenomegaly Auscultation: hypoactive bowel sounds Palpation: soft and tender other (Generalized); Negative for guarding, mass or rebound tenderness present Extremity normal to inspection Neuro oriented x3, CN's II-XII intact bilaterally and no sensory deficits noted Sensorium / Orientation: alert Skin no rashes or lesions noted, no wounds and skin turgor normal Trauma: abrasion MDM MDM MDM Narrative Medical decision making narrative: Patient with nausea vomiting diarrhea. Suspect viral illness. In light of his age symptoms BMP was obtained to assess renal function, CO2 anion gap and electrolytes and specifically assess for hypokalemia. CBC to assess white count differential. He was treated with Zofran for his nausea. He was given Imodium for his diarrhea. He also received 1 L of normal saline wide open. History & Record Review Additional record(s) reviewed:: Prior ED visit (Seen earlier this month for dental infection and acute bacterial bronchitis.) and Prior labs Lab Data Attestation: I reviewed the patient's lab results. Labs: Laboratory Results - last 24 hr 10/02/24 18:53 WBC 8.5 RBC 4.89 Hgb 14.7 Hct 42.2 MCV 86.3 MCH 30.1 MCHC 34.8 RDW Std Deviation 43.0 RDW Coeff of Maddy 13.7 Plt Count 239 MPV 8.4 Immature Gran % (Auto) 0.900 Neut % (Auto) 65.8 Lymph % (Auto) 24.7 [place] % (Auto) 7.2 Eos % (Auto) 1.2 Baso % (Auto) 0.2 Absolute Neuts (auto) 5.6 Absolute Lymphs (auto) 2.10 Nucleated RBC % 0 Sodium 139 Potassium 3.9 Chloride 102 Carbon Dioxide 23.0 Anion Gap 14 BUN 12 Creatinine 0.80 Estim Creat Clear Calc 146.48 Est GFR (MDRD) Non-Af 107 BUN/Creatinine Ratio 14.6 Glucose 219 H Calcium 8.8 CBC is unremarkable. BMP is remarked for elevated glucose of 219. Patient does have history of diabetes. He is on metformin. Treatment and Re-Evaluation :: Patient did pass p.o. challenge. He was reassessed at 2141. He states he feels better. He does feel comfortable going home. Discharge Plan Triage Chief Complaint: Chest Pain ED Provider: Samuel Johnson Dx/Rx/DC Orders Clinical Impression: Nausea, vomiting and diarrhea, Uncontrolled hypertension, Barretts esophagus, Mixed hyperlipidemia, Acute generalized abdominal pain, Acute dehydration Instructions: ED Diet Vomiting Diarrhea Prescriptions: New ondansetron 4 mg tablet,disintegrating 4 mg PO Q8H PRN PRN (Reason: Nausea) Qty: 5 0RF No Action hydroxyzine pamoate 50 mg capsule 50 mg PO Q6H PRN (Reason: anxiety) baclofen 5 mg tablet 5 mg PO Q8H PRN (Reason: muscle spasm) Breztri Aerosphere 160-9-4.8 mcg/actuation HFA aerosol inhaler 2 inh inhalation BID aspirin [Adult Aspirin Regimen] 81 mg tablet,delayed release (DR/EC) 81 mg PO QDAY Qty: 90 3RF Patient Comments: PT KNOWS TO STOP 3 DAYS PRIOR TO PRECEDURE metoprolol tartrate 50 mg tablet 50 mg PO ONCE Qty: 1 0RF Rx Instructions: Take (1) tablet by mouth (1) hour prior to Coronary CTA diagnostic testing. Linzess 145 mcg capsule 145 mcg PO QAM Qty: 90 1RF Rx Instructions: take 30 minutes before breakfast every morning pantoprazole 40 mg tablet,delayed release (DR/EC) 40 mg PO QDAY Qty: 90 3RF Rx Instructions: take once daily 30 minutes before breakfast allopurinol 100 mg tablet 100 mg PO BIDCM tamsulosin 0.4 MG capsule 0.4 mg PO DAILY Patient Comments: urine flow amlodipine 10 mg Tablet 10 mg PO DAILY 30 Days Qty: 30 0RF bupropion HCl 300 mg tablet extended release 24 hr 300 mg PO DAILY gabapentin 800 mg tablet 800 mg PO 4X/DAY glipizide 2.5 mg tablet extended release 24hr 2.5 mg PO DAILY metformin 1,000 mg tablet 1,000 mg PO BID gabapentin 100 mg capsule 100 mg PO 4X/DAY fluticasone propionate 50 mcg/actuation spray,suspension 2 spray INTRANASAL DAILY Primary Care Provider: Fabian Palm Referrals: Fabian Palm MD [Primary Care Provider] - As Needed Print Language: Lithuanian Disposition Disposition: Home, Self Care
[2024-10-02 21:54] VITALS: BP 125/90; PULSE 98; RESP 20; TEMP 36.9; O2SAT 92
== END 2024-10-02 21:59 | disposition home or self-care (01) ==
PROVIDERS: Emergency Provider Emergency Medicine; PCP Family Medicine; Visit Provider Emergency Medicine
DX: R11.2 Nausea with vomiting, unspecified (principal); J44.9 Chronic obstructive pulmonary disease, unspecified; E11.9 Type 2 diabetes mellitus without complications; E78.2 Mixed hyperlipidemia; R19.7 Diarrhea, unspecified; R10.84 Generalized abdominal pain; K22.70 Barrett's esophagus without dysplasia; I10 Essential (primary) hypertension; K21.9 Gastro-esophageal reflux disease without esophagitis; N40.0 Benign prostatic hyperplasia without lower urinary tract symptoms; F41.9 Anxiety disorder, unspecified; F32.A Depression, unspecified; I70.90 Unspecified atherosclerosis; M10.9 Gout, unspecified; G47.33 Obstructive sleep apnea (adult) (pediatric); Z87.19 Personal history of other diseases of the digestive system; Z79.84 Long term (current) use of oral hypoglycemic drugs; Z79.82 Long term (current) use of aspirin; Z79.899 Other long term (current) drug therapy; Z87.891 Personal history of nicotine dependence
CPT/HCPCS: 80048; 85025; 93005; 96361; 96374; 99285; A4216; J2405

== ENCOUNTER 2024-10-06 06:24 | Day surgery (SDC) | payer MEDICARE, MEDICAID, SELFPAY ==
--- NOTE | 2024-10-02 15:22 | PAT.ANESEVAL ---
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 When Was Last Pacemaker Check QUESTION #4 FULL TEXT: You/Your Family Experience fever (hyperthermia) with Anesthesia Last Oral Intake Last Oral intake: Last Oral Intake NPO since Meds taken in AM with sips of water? Meds patient instructed to take am of surgery PONV PONV - supervisor benzene refining: PONV - supervisor benzene refining Female No 10/02/24 09:12 HX of Motion Sickness No 10/02/24 09:12 HX of N/V After Surgery No 10/02/24 09:12 Non-Smoker Yes 10/02/24 09:12 Duration of Surgery greater No 10/02/24 09:12 than 60 minutes Number of Risk Factors 1 10/02/24 09:12 PONV Score Low Risk 10/02/24 09:12 Height & Weight Height & Weight: Anesthesia: Height & Weight Height 6 ft 3 in 07/19/24 19:59 Respiratory Assessment Respiratory Assessment - supervisor benzene refining: Respiratory Tract Infection Hx - supervisor benzene refining Hx Respiratory Tract Infection No: . 10/02/24 09:12 STOP Sleep Apnea STOP Sleep Apnea - supervisor benzene refining: STOP Sleep Apnea - supervisor benzene refining Hx Hypertension Yes: CONTROLLED ON MED 10/02/24 09:12 Hx Sleep Apnea Yes 10/02/24 09:12 CPAP Yes 10/02/24 09:12 BIPAP No 10/02/24 09:12 Do you snore loudly (louder than talking or can be heard Do you often feel tired/ fatigued/ sleepy during daytime? Has anyone observed you stop breathing during sleep? STOP Results Positive 10/02/24 09:12 QUESTION #5 FULL TEXT : Do you snore loudly (louder than talking or can be heard through closed doors)? 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 Specify any problems Hx of Preganancy in last 3 N/A 10/02/24 09:12 Months Nurse Filling Out Transfusion VCHRISTIN 10/02/24 09:12 & Questions: Date: 10/02/24 10/02/24 09:12 Time: 09:13 10/02/24 09:12 Patient unable to answer at this time (ie. confused, unrespo /Reproduction History /Reproductive History - supervisor benzene refining: /Reproductive Hx- supervisor benzene refining Hx Now Gestational Age (in weeks): EDC: Hx Hx Para Hx Section SAB PFSH Medical History (Updated 10/02/24 @ 09:12 by Cammie Sanchez) Wears glasses History of steroid therapy Arthritis History of diverticulitis Gastric reflux Former smoker CPAP (continuous positive airway pressure) dependence On home oxygen therapy Cardiology follow-up encounter Shortness of breath Mixed hyperlipidemia Acute gastritis without hemorrhage Bone spur of other site LAKSHMI (obstructive sleep apnea) History of drug abuse COPD (chronic obstructive pulmonary disease) Collar bone fracture Carpal tunnel syndrome, right BPH (benign prostatic hyperplasia) Alcohol abuse, in remission Sleep apnea Barretts esophagus Smoker Gout Anxiety Depression Diabetes Hypertension Hyperlipidemia Home Medications ?Medication ?Instructions ?Recorded ?Last Taken ?Type tamsulosin 0.4 mg capsule 0.4 mg PO DAILY bph 01/01/15 08/03/19 History ondansetron 4 mg disintegrating 4 mg PO Q8H PRN PRN Nausea #10 tabs 07/10/24 Unknown Rx tablet bupropion HCl 300 mg 24 hr tablet, 300 mg PO DAILY mood 07/19/24 Unknown History extended release fluticasone propionate 50 2 spray intranasal DAILY airway 07/19/24 Unknown History mcg/actuation nasal spray,suspension gabapentin 100 mg capsule 100 mg PO 4X/DAY pain 07/19/24 Unknown History gabapentin 800 mg tablet 800 mg PO 4X/DAY pain 07/19/24 Unknown History glipizide 2.5 mg tablet, extended 2.5 mg PO DAILY dm 07/19/24 Unknown History release 24 hr metformin 1,000 mg tablet 1,000 mg PO BID dm 07/19/24 Unknown History baclofen 5 mg tablet 5 mg PO Q8H PRN muscle spasm 08/21/24 Unknown History hydroxyzine pamoate 50 mg capsule 50 mg PO Q6H PRN anxiety 08/21/24 Unknown History allopurinol 100 mg tablet 100 mg PO BIDCM gout 09/02/24 Unknown History linaclotide 145 mcg capsule 145 mcg PO QAM bowel movement #90 09/02/24 Unknown Rx (Linzess) caps pantoprazole 40 mg tablet,delayed 40 mg PO QDAY GERD #90 tabs 09/02/24 Unknown Rx release amlodipine 10 mg tablet 10 mg PO DAILY 30 days #30 tabs 09/15/24 Unknown Rx aspirin 81 mg tablet,delayed 81 mg PO QDAY #90 tabs 09/30/24 10/02/24 Rx release (Adult Aspirin Regimen) budesonide 160 mcg-glycopyr 9 2 inh inhalation BID 09/30/24 Unknown History mcg-formot 4.8 mcg/actuation HFA inhaler (Breztri Aerosphere) metoprolol tartrate 50 mg tablet 50 mg PO ONCE #1 TAB 09/30/24 Unknown Rx albuterol sulfate 90 mcg/actuation 2 puff inhalation Q6H PRN wheezing 10/02/24 Unknown History aerosol inhaler Allergy/AdvReac Type Severity Reaction Status Date / Time cyclobenzaprine HCl (From Allergy Hives Verified 10/01/24 10:18 Flexeril) dicyclomine HCl (From Bentyl) Allergy Rash Verified 10/01/24 10:18 duloxetine HCl (From Allergy Hives Verified 10/01/24 10:18 Cymbalta) meloxicam (From Mobic) Allergy Rash Verified 10/01/24 10:18 naproxen Allergy Hives Verified 09/30/24 09:32 quetiapine (From Seroquel) Allergy Rash Verified 10/01/24 10:18 tramadol HCl (From Ultram) Allergy Rash Verified 10/01/24 10:18 Family History Other Arthritis Colon cancer Diabetes High cholesterol Hypertension Surgical History (Updated 10/02/24 @ 09:12 by Cammie Sanchez) S/P rotator cuff repair History of colonoscopy History of carpal tunnel surgery History of eyelid surgery History of neck surgery Social History household members: none Smoking Status: Former smoker Electronic Cigarette Use: not used alcohol intake: former year quit: 2014 details: Hx of ETOH abuse, sober past few years as of 2014 substance use type: marijuana and other details: history of marijuana, cocaine, crack, meth Audit: Pertinent Findings Pertinent Findings EKG Perinent findings: September 30, 2024. Sinus rhythm within normal limits. Stress test pertinent findings: September 27, 2020. SPECT perfusion study is normal. No inducible ischemia noted. No infarct noted. Ejection fraction 67%. Echo (EF%) pertinent findings: August 11, 2024. Ejection fraction 61%. No significant valvular abnormalities. Dilated aorta maximal dimension of 4.7 cm. Consult pertinent findings: September 30, 2024. Dr. Almanza. 1. Chest pain?resolved. Atypical likely noncardiac. Possibly musculoskeletal with COPD exacerbation. 2. Dyspnea on exertion-history of COPD. Check CT angiography to rule out significant coronary artery disease. 3. Aortic root dilation to 4.[address] scan. Recommendation Anesthesia Recommendation Anesthesia recommendation: OPTIMIZED for anesthesia
[2024-10-06] VITALS (7 sets, daily range): BP systolic 112–129; BP diastolic 81–88; PULSE 76–86; RESP 16; TEMP 36.2–36.4; O2SAT 95–100; BMI 30.2
--- NOTE | 2024-10-06 06:52 | PCM.PRE.AN2 ---
ASA Classification* ASA Classification ASA Classification: 3 Assessment & Plan Anesthesia* Anesthesia Assessment Anesthesia Assessment: Discussed sedation and/or anesthesia options, risks, benefits, and alternatives with patient/parents/legal guardian/POA. Questions invited. The patient/parents/legal guardian/POA seems to understand and agrees to proceed with anesthesia plan. Reviewed the physical assessment, medical history, allergy history and patient home medications list prior to surgery/procedure/anesthetic and documented any changes. Performed airway and anesthesia risk assessments. Anesthesia Type Anesthesia Type: MAC History Source History Obtained from:: Patient and Chart Anesthesia Focused Assessment* Temperature: 97.3 F Pulse Rate: 81 Blood Pressure: 129/82 Respiratory Rate: 16 Pulse Ox: 100 Oxygen Delivery Method: Nasal Cannula Oxygen Flow Rate (L/min): 2 Airway Assessment Mouth opens: >3 cm Mallampati Score: I Teeth Condition: Missing (Patient is edentulous.) Neck Range of motion (ROM): Limited ROM (Slight decrease in extension) Focused Labs Anesthesia Preop lab: CBC WBC 8.5 K/mm3 (4.4-11.0) 10/02/24 18:53 10/02/24 RBC 4.89 M/mm3 (4.6-6.2) 10/02/24 18:53 10/02/24 Hgb 14.7 g/dL (13.0-16.5) 10/02/24 18:53 10/02/24 Hct 42.2 % (40-54) 10/02/24 18:53 10/02/24 Plt Count 239 K/mm3 (150-450) 10/02/24 18:53 10/02/24 CHEMISTRY Potassium 3.9 mmol/L (3.3-5.1) 10/02/24 18:53 10/02/24 Sodium 139 mmol/L (133-145) 10/02/24 18:53 10/02/24 Magnesium 1.3 mg/dL (1.8-2.4) L 11/27/14 03:15 11/27/14 Phosphorus 2.4 mg/dL (2.5-4.9) L 11/27/14 03:15 11/27/14 BUN 12 mg/dL (4-19) 10/02/24 18:53 10/02/24 Creatinine 0.80 mg/dL (0.70-1.20) 10/02/24 18:53 10/02/24 Glucose 219 mg/dL (70-99) H 10/02/24 18:53 10/02/24 POC Glucose 232 mg/dL (74-106) H 09/15/24 10:45 09/15/24 TSH 0.832 uIU/mL (0.300-4.200) 09/13/24 08:38 09/13/24 COAG PT 14.0 SECONDS (11.7-14.9) 11/27/14 03:15 11/27/14 Pre-Assessment Diagnosis/Proposed Procedure Planned Operative Procedure(s): COLONOSCOPY/EGD Anesthesia History 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 When Was Last Pacemaker Check QUESTION #4 FULL TEXT: You/Your Family Experience fever (hyperthermia) with Anesthesia Last Oral Intake Last Oral intake: Last Oral Intake NPO since 00:00 10/06/24 06:41 Meds taken in AM with sips of Yes 10/06/24 06:41 water? 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 technician Female No 10/02/24 09:12 HX of Motion Sickness No 10/02/24 09:12 HX of N/V After Surgery No 10/02/24 09:12 Non-Smoker Yes 10/02/24 09:12 Duration of Surgery greater No 10/02/24 09:12 than 60 minutes Number of Risk Factors 1 10/02/24 09:12 PONV Score Low Risk 10/02/24 09:12 Height & Weight Height & Weight: Anesthesia: Height & Weight Height 6 ft 3 in 10/06/24 06:41 Weight: 109.951 kg 10/06/24 06:41 Body Mass Index (BMI) 30.2 10/06/24 06:41 Respiratory Assessment Respiratory Assessment - geothermal technician: Respiratory Tract Infection Hx - geothermal technician Hx Respiratory Tract Infection No: . 10/02/24 09:12 Any additional information?: Yes Hx Respiratory Tract Infection: Yes (Patient had pneumonia 3 weeks ago. Resolved at this time.) STOP Sleep Apnea STOP Sleep Apnea - geothermal technician: STOP Sleep Apnea - geothermal technician Hx Hypertension Yes: CONTROLLED ON MED 10/02/24 09:12 Hx Sleep Apnea Yes 10/02/24 09:12 CPAP Yes 10/02/24 09:12 BIPAP No 10/02/24 09:12 Do you snore loudly (louder than talking or can be heard Do you often feel tired/ fatigued/ sleepy during daytime? Has anyone observed you stop breathing during sleep? STOP Results Positive 10/02/24 09:12 QUESTION #5 FULL TEXT : Do you snore loudly (louder than talking or can be heard through closed doors)? 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 Specify any problems Hx of Preganancy in last 3 N/A 10/02/24 09:12 Months Nurse Filling Out Transfusion VCHRISTIN 10/02/24 09:12 & Questions: Date: 10/02/24 10/02/24 09:12 Time: 09:13 10/02/24 09:12 Patient unable to answer at this time (ie. 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: /Reproductive Hx- geothermal technician Hx Now Gestational Age (in weeks): EDC: Hx Hx Para Hx [facility] Medical History Wears glasses History of steroid therapy Arthritis History of diverticulitis Gastric reflux Former smoker CPAP (continuous positive airway pressure) dependence On home oxygen therapy Cardiology follow-up encounter Shortness of breath Mixed hyperlipidemia Acute gastritis without hemorrhage Bone spur of other site LAKSHMI (obstructive sleep apnea) History of drug abuse COPD (chronic obstructive pulmonary disease) Collar bone fracture Carpal tunnel syndrome, right BPH (benign prostatic hyperplasia) Alcohol abuse, in remission Sleep apnea Barretts esophagus Smoker Gout Anxiety Depression Diabetes Hypertension Hyperlipidemia Home Medications ?Medication ?Instructions ?Recorded ?Last Taken ?Type tamsulosin 0.4 mg capsule 0.4 mg PO DAILY bph 01/01/15 08/03/19 History bupropion HCl 300 mg 24 hr tablet, 300 mg PO DAILY mood 07/19/24 Unknown History extended release fluticasone propionate 50 2 spray intranasal DAILY airway 07/19/24 Unknown History mcg/actuation nasal spray,suspension gabapentin 100 mg capsule 100 mg PO 4X/DAY pain 07/19/24 10/06/24 History gabapentin 800 mg tablet 800 mg PO 4X/DAY pain 07/19/24 10/06/24 History glipizide 2.5 mg tablet, extended 2.5 mg PO DAILY dm 07/19/24 Unknown History release 24 hr metformin 1,000 mg tablet 1,000 mg PO BID dm 07/19/24 Unknown History baclofen 5 mg tablet 5 mg PO Q8H PRN muscle spasm 08/21/24 Unknown History hydroxyzine pamoate 50 mg capsule 50 mg PO Q6H PRN anxiety 08/21/24 Unknown History allopurinol 100 mg tablet 100 mg PO BIDCM gout 09/02/24 Unknown History linaclotide 145 mcg capsule 145 mcg PO QAM bowel movement #90 09/02/24 Unknown Rx (Linzess) caps pantoprazole 40 mg tablet,delayed 40 mg PO QDAY GERD #90 tabs 09/02/24 Unknown Rx release amlodipine 10 mg tablet 10 mg PO DAILY 30 days #30 tabs 09/15/24 10/06/24 Rx aspirin 81 mg tablet,delayed 81 mg PO QDAY #90 tabs 09/30/24 10/02/24 Rx release (Adult Aspirin Regimen) budesonide 160 mcg-glycopyr 9 2 inh inhalation BID 09/30/24 Unknown History mcg-formot 4.8 mcg/actuation HFA inhaler (Breztri Aerosphere) metoprolol tartrate 50 mg tablet 50 mg PO ONCE #1 TAB 09/30/24 10/05/24 Rx ondansetron 4 mg disintegrating 4 mg PO Q8H PRN PRN Nausea #5 tabs 10/02/24 Unknown Rx tablet Allergy/AdvReac Type Severity Reaction Status Date / Time cyclobenzaprine HCl (From Allergy Hives Verified 10/02/24 18:28 Flexeril) dicyclomine HCl (From Bentyl) Allergy Rash Verified 10/02/24 18:28 duloxetine HCl (From Allergy Hives Verified 10/02/24 18:28 Cymbalta) meloxicam (From Mobic) Allergy Rash Verified 10/02/24 18:28 naproxen Allergy Hives Verified 10/02/24 18:28 quetiapine (From Seroquel) Allergy Rash Verified 10/02/24 18:28 tramadol HCl (From Ultram) Allergy Rash Verified 10/02/24 18:28 Family History Other Arthritis Colon cancer Diabetes High cholesterol Hypertension Surgical History S/P rotator cuff repair History of colonoscopy History of carpal tunnel surgery History of eyelid surgery History of neck surgery Social History household members: none Smoking Status: Former smoker Electronic Cigarette Use: not used alcohol intake: former year quit: 2014 details: Hx of ETOH abuse, sober past few years as of 2014 substance use type: marijuana and other details: history of marijuana, cocaine, crack, meth Review of Systems (Anesthesia) ROS Narrative System reviewed and no additional complaints, except as documented.
[2024-10-06 07:05] LABS: Bedside Glucose 181 mg/dL (74-106)
--- NOTE | 2024-10-06 07:15 | EGD_PTH ---
PATIENT: ROBER BROCK LOC: EN U#:[id number] AGE/SX: 54/M ROOM: RE10/06/[address]: Dr. Blake Friedman DO : 1970 BED: DIS: 10/06/2024 SPEC #: [id number] RECD: 10/06/24 12:56 STATUS: MICHAEL MORALES #: [id number] JASVIR: 10/06/24 07:[address]: Blake Friedman DEPT: SURGICAL PATHOLOGY RECD BY: Michael Goodwin ENTERED: 10/06/24 12:57 SP TYPE: EGD BIOPSY DEDRA DR: Dr. Fabian Palm MD Tissues: A - Gastric mucous membrane B - Duodenum, NOS C - Esophagus, NOS D - COLON BIOPSY Procedures: Immunohistochemical Stains Surgery Specimen Level IV HEADER OPERATION: Colonoscopy with biopsy, EGD with biopsy PRE-OP DIAGNOSIS: Acute generalized abdominal pain, nausea, vomiting and diarrhea TISSUE SUBMITTED: A- Gastric body biopsy, B- Duodenum biopsy, C- Distal esophagus biopsy, D- Random colon biopsy MICROSCOPIC DIAGNOSIS A. GASTRIC BODY, GASTRIC BODY BIOPSY: -Oxyntic mucosa with no histopathologic abnormality -No intestinal metaplasia, exudate, ulcer, gastritis, polyps, or dysplasia-An immunohistochemical stain for H pylori organisms with appropriate controls is negative for H. pylori organisms. B. DUODENUM, DUODENUM BIOPSY: -Small intestinal mucosa with no dysplasiaC. DISTAL ESOPHAGUS, DISTAL ESOPHAGUS BIOPSY -Squamous and glandular mucosa mucosa with intestinal metaplasia (goblet cells) and fragments of oxyntic mucosa (see comment) D. RANDOM COLON, RANDOM COLON BIOPSY: -Colonic mucosa with no histopathological abnormalityJessica Nolasco MD, 10/12/2024 COMMENT C. If this specimen is truly taken from the tubular esophagus then this finding may indicate the presence of Carey's metaplasia. MICROSCOPIC DESCRIPTION Slides are reviewed. These tests were developed and their performance characteristics determined by [facility]. They may not have been cleared or approved by the [place]. Food and Drug Administration. The FDA has determined that such clearance or approval is not necessary. The above immunohistochemical/dualISH markers are ordered and reviewed by the Pathologist. GROSS DESCRIPTION Specimen A. Received in formalin labeled Rober rBock, and designated biopsy gastric body for H. pylori, are multiple [place]una tissue fragments aggregating to 0.7 x 0.5 x 0.2 cm. Totally submitted in one cassette.Specimen B. Received in formalin, labeled Rober Brock and designate duodenal biopsy, are multiple [place] tissue fragments aggregating to 0.5 x 0.5 x 0.2 cm. Totally submitted in one cassette.Specimen C. Received in formalin labeled Rober Brock, and designated esophagus biopsy, are three laguna tissue fragments aggregating to 0.5 x 0.5 x 0.2 cm. Totally submitted in one cassette.Specimen D. Received in formalin labeled Rober Brock, and designated biopsy random colon, are four laguna tissue fragments aggregating to 0.6 x 0.5 x 0.2 cm. Totally submitted in one cassette. YANELY 10/06/2024 CPT:[id number]
--- NOTE | 2024-10-06 07:36 | PCM.HP.STD ---
HPI - General General Date of Admission: 10/06/24 Date of Service: 10/06/24 Chief Complaint: abdominal pain HPI Narrative ROBER GILMAN, is a 54 M who presents for the evaluation of abdominal pain LABS 08/31/2024 WBC 11.5, HGB 15.6, CMP unremarkable except for glucose 136, ESR WNL 08/22/2024 HOLLEY negative Diverticulitis on CT 03/27/2024, 07/10/2024 CT 05/08/2023 Hepatosplenomegaly and fatty liver. Prominent but patent main portal vein, correlate with risk factors for portal hypertension. Small suspected recanalized left umbilical vein, presumably due to portal hypertension. - Marijuana use daily - since 17-20 y/o - Tobacco use daily - H/O meth, crack, cocaine - he c/o sharp stabbing abdominal pain, LUQ and epigastric pain - pain worsens with movement, denies worsening of this pain with PO intake - no improvement in pain with Tylenol - denies any N/V - weight is stable - pantoprazole 40mg Qday - he reports resolution of diverticulitis pain - LLQ - reports this was a sharp pain - c/o intermittent BRBPR - reports going up to 4-5 days without a BM - reports stools alternate from hard balls to watery stools B: rosanna charms, fruit loops or eggs and sparrow L: sandwich or skips D: starch and meat Vegetables: corn or peas - reports very little water intake - Caffeine - mountain dew 6-8 cans a day -IBU 400-600mg 3-4x a week for abdominal pain or headaches - Failed Miralax and MOM - reports multiple colonoscopy in the past with failed bowel prep [facility] Medical History Wears glasses History of steroid therapy Arthritis History of diverticulitis Gastric reflux Former smoker CPAP (continuous positive airway pressure) dependence On home oxygen therapy Cardiology follow-up encounter Shortness of breath Mixed hyperlipidemia Acute gastritis without hemorrhage Bone spur of other site LAKSHMI (obstructive sleep apnea) History of drug abuse COPD (chronic obstructive pulmonary disease) Collar bone fracture Carpal tunnel syndrome, right BPH (benign prostatic hyperplasia) Alcohol abuse, in remission Sleep apnea Barretts esophagus Smoker Gout Anxiety Depression Diabetes Hypertension Hyperlipidemia Home Medications ?Medication ?Instructions ?Recorded ?Last Taken ?Type tamsulosin 0.4 mg capsule 0.4 mg PO DAILY bph 01/01/15 08/03/19 History bupropion HCl 300 mg 24 hr tablet, 300 mg PO DAILY mood 07/19/24 Unknown History extended release fluticasone propionate 50 2 spray intranasal DAILY airway 07/19/24 Unknown History mcg/actuation nasal spray,suspension gabapentin 100 mg capsule 100 mg PO 4X/DAY pain 07/19/24 10/06/24 History gabapentin 800 mg tablet 800 mg PO 4X/DAY pain 07/19/24 10/06/24 History glipizide 2.5 mg tablet, extended 2.5 mg PO DAILY dm 07/19/24 Unknown History release 24 hr metformin 1,000 mg tablet 1,000 mg PO BID dm 07/19/24 Unknown History baclofen 5 mg tablet 5 mg PO Q8H PRN muscle spasm 08/21/24 Unknown History hydroxyzine pamoate 50 mg capsule 50 mg PO Q6H PRN anxiety 08/21/24 Unknown History allopurinol 100 mg tablet 100 mg PO BIDCM gout 09/02/24 Unknown History linaclotide 145 mcg capsule 145 mcg PO QAM bowel movement #90 09/02/24 Unknown Rx (Linzess) caps pantoprazole 40 mg tablet,delayed 40 mg PO QDAY GERD #90 tabs 09/02/24 Unknown Rx release amlodipine 10 mg tablet 10 mg PO DAILY 30 days #30 tabs 09/15/24 10/06/24 Rx aspirin 81 mg tablet,delayed 81 mg PO QDAY #90 tabs 09/30/24 10/02/24 Rx release (Adult Aspirin Regimen) budesonide 160 mcg-glycopyr 9 2 inh inhalation BID 09/30/24 Unknown History mcg-formot 4.8 mcg/actuation HFA inhaler (Breztri Aerosphere) metoprolol tartrate 50 mg tablet 50 mg PO ONCE #1 TAB 09/30/24 10/05/24 Rx ondansetron 4 mg disintegrating 4 mg PO Q8H PRN PRN Nausea #5 tabs 10/02/24 Unknown Rx tablet Allergy/AdvReac Type Severity Reaction Status Date / Time cyclobenzaprine HCl (From Allergy Hives Verified 10/02/24 18:28 Flexeril) dicyclomine HCl (From Bentyl) Allergy Rash Verified 10/02/24 18:28 duloxetine HCl (From Allergy Hives Verified 10/02/24 18:28 Cymbalta) meloxicam (From Mobic) Allergy Rash Verified 10/02/24 18:28 naproxen Allergy Hives Verified 10/02/24 18:28 quetiapine (From Seroquel) Allergy Rash Verified 10/02/24 18:28 tramadol HCl (From Ultram) Allergy Rash Verified 10/02/24 18:28 Family History Other Arthritis Colon cancer Diabetes High cholesterol Hypertension Surgical History S/P rotator cuff repair History of colonoscopy History of carpal tunnel surgery History of eyelid surgery History of neck surgery Social History household members: none Smoking Status: Former smoker Electronic Cigarette Use: not used alcohol intake: former year quit: 2014 details: Hx of ETOH abuse, sober past few years as of 2014 substance use type: marijuana and other details: history of marijuana, cocaine, crack, meth ROS Constitutional Constitutional: Denies fatigue, fever(s), poor appetite, weight gain or weight loss Gastrointestinal Gastrointestinal: Denies belching, bloating, change in bowel habits, change in stool character, chewing difficulty, coffee ground emesis, constipation, cramping, diarrhea, dyspepsia, dysphagia, early satiety, excessive flatus, fecal incontinence, heartburn, hematemesis, hematochezia, hemorrhoids, loose stools, melena, nausea, odynophagia, rectal bleeding, tenesmus, vomiting or weight changes Vital Signs Vital Signs Vital Signs: 10/06/24 06:37 10/06/24 06:41 10/06/24 06:58 Temperature 97.3 F L 97.3 F L Temperature Source Temporal Pulse Rate 81 81 Respiratory Rate 16 16 Respiratory Pattern Normal Blood Pressure 129/82 H 129/82 H Blood Pressure Mean 97 Blood Pressure Source Monitor Blood Pressure Position Semi-Fowlers Blood Pressure Location Right Arm Pulse Ox 100 100 Oxygen Delivery Method Nasal Cannula Nasal Cannula Oxygen Flow Rate (L/min) 2 2 Weight Weight: 242 lb 6.4 oz Body Mass Index (BMI) 30.2 Physical Exam Const alert, oriented x3, no apparent distress and healthy appearing General Appearance: cooperative GI normal to inspection, nondistended, normoactive bowel sounds, soft to palpation, non-tender and non-distended Percussion: normal to percussion Rectal Exam: deferred Results Lab / Micro Data Labs: Laboratory Results - last 24 hr 10/06/24 06:45: POC Glucose 181 H Assessment & Plan Assessment/Plan (1) Acute generalized abdominal pain: (2) Nausea, vomiting and diarrhea: PLAN: Assessment and Plan Assessment and Plan (1) Decreased stool caliber: Status: Acute Plan: Increase fiber intake (2) Generalized abdominal discomfort: Status: Acute Plan: treat constipation (3) Constipation: Status: Acute Qualifiers: Constipation type: chronic idiopathic constipation Qualified Code(s): K59.04 - Chronic idiopathic constipation Plan: Linzess 145mcg daily (4) Rectal bleeding: Status: Acute Plan: Anusol supp. x7 days Medications: New linaclotide (Linzess) take 30 minutes before breakfast every morning 145 mcg PO QAM 90 caps 1RF peg 3350-electrolytes 236-22.74-6.74 -5.86 gram (Golytely) take as directed for split dose bowel prep 240 mL PO Q10M 4,000 mL 0RF hydrocortisone acetate (Anusol-HC) insert 1 suppository into rectum once daily at HS x7 days 25 mg KS QHS 7 ea 0RF rectal bleeding pantoprazole take once daily 30 minutes before breakfast 40 mg PO QDAY 90 tabs 3RF GERD Plan 54y/o male presents for consultation post ED visit. He has been to the ED for abdominal pain four times in the past six weeks. 07/10/2024 (N/V/D, generalized abdominal tenderness on exam). CT scan shows acute descending and sigmoid colon diverticulitis, no focal fluid collection. He will be started on Augmentin with first dose here. 07/19/2024 (SOB, CP) CT revealing findings which may be consistent with nonspecific gastritis, ileus with colonic fecal retention, resolution of diverticulitis. No evidence for small bowel obstruction or other acute abnormality 08/15/2024 (periumbilical abdominal pain). ABD x-ray Air and stool are seen throughout the large bowel and rectum. Prominent small bowel loops are seen, but without significant dilation noted. This represents a nonspecific bowel-gas pattern. 08/31/2024 (abdominal pain). ABD x-ray reveals knots of a gas pattern. There is no evidence of ileus, obstruction or pneumoperitoneum. Anoscopy reveals evidence of bleeding from an internal and possibly external hemorrhoid. Stool that was noted is a green-brown in color. No other abnormalities noted. He was seen in the office by DEVEN Weiss on 07/30/2024 and is scheduled for EGD and colonoscopy on 10/06/2024. He is scheduled for follow-up with cardiology on 09/30/2024 for CP and abnormal ECHO. He presents today with complains of sharp stabbing epigastric and LUQ pain, intermittent, non-radiating and worsens with movement. He also complains of generalized abdominal discomfort. He complains of intermittent BRBPR and alternating constipation and diarrhea. He will go up to 5 days without a BM, and reports stools are hard balls or watery diarrhea. I suspect he is experiencing overflow diarrhea and I have started him on Linzess 145mcg once daily and he will call office in 3 weeks with symptom update. If he fails Linzess, I recommend IBSrela 50mg BID, if not covered by insurance we can enroll him in PAP through [employer]. Hepatosplenomegaly and fatty liver noted on a prior CT. He will need follow-up to review these findings and additional work-up including ABD US, FibroScan, ELF, and Hepatitis serologies with vaccination of Ab are nul. A total of 60 minutes was spent on this visit reviewing [facility] and/or [facility] for associated records; previous notes (ER records 07/10/2024, 07/19/2024, 08/15/2024, 08/31/2024, ABD xrays, CT), counseling the patient on (importance of smoking cessation (tobacco and marijuana), high fiber diet, limiting caffeine and non-steroidal medications), adjusting meds (bowel prep change to GoLytely, start Linzess, FiberCon and probiotic), importance of compliance with treatment and documenting the findings in the note. Patient Instructions: Start a probiotic (Effektif, NLT SPINE or [employer] [place]) once daily. These are all multispecies probiotics, pick the cheapest one. FiberCon 2 tablets once daily with 8 ounces of water after a meal. May take up to 3 weeks for symptom improvement. Colonoscopy and EGD 10/06/2024 - Robert bowel prep - RX sent to pharmacy [address] take one tablet every morning 30 minutes before breakfast. This medication may cause diarrhea if taken with food and is more likely to cause diarrhea in the first two weeks you are taking. If you do develop diarrhea in the first two weeks on this medication, the diarrhea should subside after week 2. Limit use of non-steroidal medications (Ibuprofen) as these medications increase GI distress. Limit use of caffeine intake (mountain dew). Caffeine increases GI distress, contributes to gastritis and may also contribute to diarrhea. Plan Details Follow Up: 3 Months
--- NOTE | 2024-10-06 08:35 | PCM.POST.ANE ---
Anesthesia: Postop Eval I Current Vital Signs Temperature: 97.6 F Pulse Rate: 86 Blood Pressure: 112/85 Respiratory Rate: 16 Pulse Ox: 96 Oxygen Delivery Method: Room Air Assessment Airway patent: Yes Spontaneous unlabored respirations: Yes Mental status: Awake and Calm nausea: No Vomiting: No Anesthesia Complication: No Fluid Hydration Crystalloid volume administer (ml): 100 Total IV fluid infused: 100 Progress Note Anesthesia document: Postop Eval 1 completed: Yes
--- NOTE | 2024-10-06 08:39 | OP.EGD_ITS ---
Patient Name: Fahad Brock Procedure Date: 10/06/2024 7:42 AM Date of : 1970 Age: 54 Procedure: Upper GI endoscopy Indications: Epigastric abdominal pain, Abdominal pain in the left upper quadrant Providers: Blake Friedman DO Referring MD: Fabian Palm Medicines: Monitored Anesthesia Care Patient Profile: This is a 54 year old male. Refer to note in patient chart for documentation of history and physical. Patient has symptoms of chronic abdominal cramping, chronic abdominal distention, chronic left upper quadrant abdominal pain and chronic epigastric abdominal pain. Complications: No immediate complications. Procedure: Pre-Anesthesia Assessment: - Prior to the procedure, a History and Physical was performed, and patient medications and allergies were reviewed. The patient is competent. The risks and benefits of the procedure and the sedation options and risks were discussed with the patient. All questions were answered and informed consent was obtained. Patient identification and proposed procedure were verified by the physician in the pre-procedure area. Mental Status Examination: alert and oriented. Airway Examination: normal oropharyngeal airway and neck mobility. Respiratory Examination: clear to auscultation. CV Examination: normal. Prophylactic Antibiotics: The patient does not require prophylactic antibiotics. Prior Anticoagulants: The patient has taken no anticoagulant or antiplatelet agents except for NSAID medication. ASA Grade Assessment: II - A patient with mild systemic disease. After reviewing the risks and benefits, the patient was deemed in satisfactory condition to undergo the procedure. The anesthesia plan was to use monitored anesthesia care (MAC). Immediately prior to administration of medications, the patient was re-assessed for adequacy to receive sedatives. The heart rate, respiratory rate, oxygen saturations, blood pressure, adequacy of pulmonary ventilation, and response to care were monitored throughout the procedure. The physical status of the patient was re-assessed after the procedure. After obtaining informed consent, the endoscope was passed under direct vision. Throughout the procedure, the patient's blood pressure, pulse, and oxygen saturations were monitored continuously. The colonoscope was introduced through the mouth, and advanced to the second part of duodenum. The upper GI endoscopy was accomplished without difficulty. The patient tolerated the procedure well. Scope In: 7:52:58 AM Scope Out: 7:57:52 AM Total Procedure Duration Time 0 hours 4 minutes 54 seconds Findings: The Z-line was irregular and was found 39 cm from the incisors. Biopsies were taken with a cold forceps for histology. Verification of patient identification for the specimen was done. Estimated blood loss was minimal. Small (< 5 mm) varices were found in the lower third of the esophagus. They were 5 mm in largest diameter. Severe portal hypertensive gastropathy was found in the entire examined stomach. Biopsies were taken with a cold forceps for Helicobacter pylori testing. Verification of patient identification for the specimen was done. Biopsies were taken with a cold forceps for histology. Verification of patient identification for the specimen was done. Estimated blood loss was minimal. No gross lesions were noted in the second portion of the duodenum. Biopsies were taken with a cold forceps for histology. Verification of patient identification for the specimen was done. Estimated blood loss was minimal. Impression: - Z-line irregular, 39 cm from the incisors. Biopsied. - Small (< 5 mm) esophageal varices. - Portal hypertensive gastropathy. Biopsied. - No gross lesions in the second portion of the duodenum. Biopsied. Recommendation: - Discharge patient to home. - Resume previous diet. - Continue present medications. - Await pathology results. - Repeat upper endoscopy. Procedure Code(s): --- Professional --- 37999, Esophagogastroduodenoscopy, flexible, transoral; with biopsy, single or multiple CPT copyright 2021 [employer]. All rights reserved. The codes documented in this report are preliminary and upon health information coder review may be revised to meet current compliance requirements. Blake Friedman DO 10/06/2024 8:38:46 AM This report has been signed electronically. Number of Addenda: 0 Note Initiated On: 10/06/2024 7:42 AM
--- NOTE | 2024-10-06 08:39 | OP.CCLET_ITS ---
10/06/2024 Fabian Palm [address] [place] [address] Re : Upper GI endoscopy procedure for Fahad Brock Dear Dr. Palm This procedure was performed on Sunday, October 06, 2024. My impressions and recommendations are as follows: Impressions : - Z-line irregular, 39 cm from the incisors. Biopsied. - Small (< 5 mm) esophageal varices. - Portal hypertensive gastropathy. Biopsied. - No gross lesions in the second portion of the duodenum. Biopsied. Recommendations : - Discharge patient to home. - Resume previous diet. - Continue present medications. - Await pathology results. - Repeat upper endoscopy. My findings are described in the full procedure note, which is enclosed. If I can be of further assistance, please feel free to contact me at . Sincerely, Blake Friedman, 10/06/2024 8:38:46 AM This report has been signed electronically.
--- NOTE | 2024-10-06 08:41 | OP.COLON_ITS ---
Patient Name: Fahad Brock Procedure Date: 10/06/2024 7:58 AM Date of : 1970 Age: 54 Procedure: Colonoscopy Indications: Clinically significant diarrhea of unexplained origin Providers: Blake Friedman DO Referring MD: Fabian Palm Medicines: Monitored Anesthesia Care Patient Profile: This is a 54 year old male. Refer to note in patient chart for documentation of history and physical. Patient has symptoms of chronic abdominal cramping, chronic abdominal distention, chronic left upper quadrant abdominal pain and chronic epigastric abdominal pain. Last Colonoscopy: several years ago. Complications: No immediate complications. Procedure: Pre-Anesthesia Assessment: - Prior to the procedure, a History and Physical was performed, and patient medications and allergies were reviewed. The patient is competent. The risks and benefits of the procedure and the sedation options and risks were discussed with the patient. All questions were answered and informed consent was obtained. Patient identification and proposed procedure were verified by the physician in the pre-procedure area. Mental Status Examination: alert and oriented. Airway Examination: normal oropharyngeal airway and neck mobility. Respiratory Examination: clear to auscultation. CV Examination: normal. Prophylactic Antibiotics: The patient does not require prophylactic antibiotics. Prior Anticoagulants: The patient has taken no anticoagulant or antiplatelet agents except for NSAID medication. ASA Grade Assessment: II - A patient with mild systemic disease. After reviewing the risks and benefits, the patient was deemed in satisfactory condition to undergo the procedure. The anesthesia plan was to use monitored anesthesia care (MAC). Immediately prior to administration of medications, the patient was re-assessed for adequacy to receive sedatives. The heart rate, respiratory rate, oxygen saturations, blood pressure, adequacy of pulmonary ventilation, and response to care were monitored throughout the procedure. The physical status of the patient was re-assessed after the procedure. After I obtained informed consent, the scope was passed under direct vision. Throughout the procedure, the patient's blood pressure, pulse, and oxygen saturations were monitored continuously. The colonoscope was introduced through the anus and advanced to the hepatic flexure. The colonoscopy was performed without difficulty. The patient tolerated the procedure well. The quality of the bowel preparation was adequate. Hepatic flexure were photographed. Scope In: 7:59:04 AM Scope Out: 8:27:52 AM Total Procedure Duration Time 0 hours 28 minutes 48 seconds Findings: The perianal and digital rectal examinations were normal. An area of significantly congested mucosa was found in the entire colon. Biopsies were taken with a cold forceps for histology. Verification of patient identification for the specimen was done. Estimated blood loss was minimal. A benign-appearing, intrinsic severe stenosis was found at the hepatic flexure and was non-traversed. Impression: - Congested mucosa in the entire examined colon. Biopsied. - Stricture at the hepatic flexure. Recommendation: - Discharge patient to home. - Resume previous diet. - Continue present medications. - Await pathology results. - Repeat colonoscopy is recommended. The colonoscopy date will be determined after pathology results from today's exam become available for review. Procedure Code(s): --- Professional --- 18718, 54, Colonoscopy, flexible; with biopsy, single or multiple CPT copyright 2021 [employer]. All rights reserved. The codes documented in this report are preliminary and upon chemistry technician review may be revised to meet current compliance requirements. Blake Friedman DO 10/06/2024 8:41:18 AM This report has been signed electronically. Number of Addenda: 0 Note Initiated On: 10/06/2024 7:58 AM
--- NOTE | 2024-10-06 08:42 | OP.CCLET_ITS ---
10/06/2024 Fabian Palm [address] [place] [address] Re : Colonoscopy procedure for Fahad Brock Dear Dr. Palm This procedure was performed on Sunday, October 06, 2024. My impressions and recommendations are as follows: Impressions : - Congested mucosa in the entire examined colon. Biopsied. - Stricture at the hepatic flexure. Recommendations : - Discharge patient to home. - Resume previous diet. - Continue present medications. - Await pathology results. - Repeat colonoscopy is recommended. The colonoscopy date will be determined after pathology results from today's exam become available for review. My findings are described in the full procedure note, which is enclosed. If I can be of further assistance, please feel free to contact me at . Sincerely, Blake Friedman, 10/06/2024 8:41:18 AM This report has been signed electronically.
--- NOTE | 2024-10-06 10:14 | PCM.POSTANE2 ---
Anesthesia Postop Eval I Sum Postop Eval Completion status Anesthesia document: Postop Eval 1 completed: Yes Anesthesia Postop Eval I Summary Anesthesia Postop Eval I Summary: Anesthesia Postop Eval I: Assessment Summary Airway patent Yes 10/06/24 08:36 [email or web address] Spontaneous unlabored Yes 10/06/24 08:36 [email or web address] respirations Mental status Awake,Calm 10/06/24 08:36 [email or web address] nausea No 10/06/24 08:36 [email or web address] Vomiting No 10/06/24 08:36 [email or web address] Anesthesia Postop Eval I: Fluid Summary Crystalloid volume administer 100 10/06/24 08:36 [email or web address] (ml) Colloids volume administered ( ml) Blood Product volume administered (ml) Total IV fluid infused 100 10/06/24 08:36 [email or web address] Anesthesia Postop Eval I: Summary Notes Anesthesia Complication No 10/06/24 08:36 [email or web address] Anesthesia Complication Comment: Post-operative progress note Anesthesia: Postop Eval II Evaluation Mental status: Awake Pain Level: 0 nausea: No Vomiting: No
== END 2024-10-06 09:08 | disposition home or self-care (01) ==
LOC: EN 06:24 → AC 06:25
PROVIDERS: PCP Family Medicine; Referring Provider Family Medicine; Visit Provider Internal Medicine Gastroenterology
PROC: 0DJD8ZZ Inspection of Lower Intestinal Tract, Via Natural or Artificial Opening Endoscopic (ICD-10-PCS; CPT 45378; principal; 2024-10-06 07:10)
DX: K22.70 Barrett's esophagus without dysplasia (principal); K76.6 Portal hypertension; I85.00 Esophageal varices without bleeding; K56.609 Unspecified intestinal obstruction, unspecified as to partial versus complete obstruction; J44.9 Chronic obstructive pulmonary disease, unspecified; E11.9 Type 2 diabetes mellitus without complications; R11.2 Nausea with vomiting, unspecified; Z87.891 Personal history of nicotine dependence; R19.7 Diarrhea, unspecified; E78.2 Mixed hyperlipidemia; K21.9 Gastro-esophageal reflux disease without esophagitis; I10 Essential (primary) hypertension; Z79.899 Other long term (current) drug therapy; R10.84 Generalized abdominal pain; K31.89 Other diseases of stomach and duodenum
CPT/HCPCS: 45380; 43239; 82962; 88305; 88342; A4216; J2405

== ENCOUNTER 2024-10-17 23:28 | Emergency (ER) | payer MEDICARE, MEDICAID, SELFPAY ==
[2024-10-17 23:28] VITALS: BP 138/83; PULSE 88; RESP 24; TEMP 36.6; O2SAT 90; BMI 33.3
[2024-10-17 23:31] VITALS: BP 144/83; PULSE 91; RESP 20; TEMP 36.6; O2SAT 90
--- NOTE | 2024-10-17 23:59 | RAD_ITS ---
PROCEDURE: CHEST PA AND LATERAL 10/18/2024 REASON FOR EXAM: COUGH TECHNIQUE: Frontal and lateral views of the chest. COMPARISON: 09/13/2024 FINDINGS: Ill-defined patchy opacity at the left base may represent developing infiltrate. The lungs otherwise appear clear. Pulmonary vascularity appears within limits. No pleural effusion or pneumothorax. The cardiac and mediastinal contours appear within limits. Previous anterior cervical disc fusion. RAD/Chest PA and Lateral IMPRESSION: Ill-defined patchy opacity at the left base may represent developing infiltrate . The lungs otherwise appear clear. Reading Location: [id number]
[2024-10-18 00:15] VITALS: O2SAT 91
[2024-10-18] MEDS: predniSONE 20 MG Tablet 60 MG PO (00:16)
[2024-10-18 00:34] VITALS: PULSE 90; RESP 18
[2024-10-18] MEDS: Ipratropium/Albuterol Sulfate 3 ML AMPUL.NEB INHALATION (00:34)
[2024-10-18 01:28] VITALS: BP 154/81; PULSE 91; RESP 20; TEMP 36.8; O2SAT 92
--- NOTE | 2024-10-18 01:35 | EX.ED.DYSGE1 ---
HPI History of Present Illness Chief Complaint: Cough Informant: patient Narrative Narrative: Patient is a 54-year-old male with past medical history of COPD hypertension hyperlipidemia and [id number] diabetes. He states that he was admitted roughly 6 weeks ago secondary to influenza which led to hypoxia. He states that after the hospital stay he was placed on home oxygen 05/02. He states he typically wears 2 L. He reports he has been doing well but in the last 2 to 3 days has now developed congestion and cough. He states that he is concerned for repeat pneumonia and secondary to this comes in for evaluation. Of note he states that he does still smoke but he is decreased to approximately 4 cigarettes a day. [facility] Medical History Wears glasses History of steroid therapy Arthritis History of diverticulitis Gastric reflux Former smoker CPAP (continuous positive airway pressure) dependence On home oxygen therapy Cardiology follow-up encounter Shortness of breath Mixed hyperlipidemia Acute gastritis without hemorrhage Bone spur of other site LAKSHMI (obstructive sleep apnea) History of drug abuse COPD (chronic obstructive pulmonary disease) Collar bone fracture Carpal tunnel syndrome, right BPH (benign prostatic hyperplasia) Alcohol abuse, in remission Sleep apnea Barretts esophagus Smoker Gout Anxiety Depression Diabetes Hypertension Hyperlipidemia Home Medications ?Medication ?Instructions ?Recorded ?Last Taken ?Type tamsulosin 0.4 mg capsule 0.4 mg PO DAILY bph 01/01/15 08/03/19 History bupropion HCl 300 mg 24 hr tablet, 300 mg PO DAILY mood 07/19/24 Unknown History extended release fluticasone propionate 50 2 spray intranasal DAILY airway 07/19/24 Unknown History mcg/actuation nasal spray,suspension gabapentin 100 mg capsule 100 mg PO 4X/DAY pain 07/19/24 10/06/24 History gabapentin 800 mg tablet 800 mg PO 4X/DAY pain 07/19/24 10/06/24 History glipizide 2.5 mg tablet, extended 2.5 mg PO DAILY dm 07/19/24 Unknown History release 24 hr metformin 1,000 mg tablet 1,000 mg PO BID dm 07/19/24 Unknown History baclofen 5 mg tablet 5 mg PO Q8H PRN muscle spasm 08/21/24 Unknown History hydroxyzine pamoate 50 mg capsule 50 mg PO Q6H PRN anxiety 08/21/24 Unknown History allopurinol 100 mg tablet 100 mg PO BIDCM gout 09/02/24 Unknown History linaclotide 145 mcg capsule 145 mcg PO QAM bowel movement #90 09/02/24 Unknown Rx (Linzess) caps pantoprazole 40 mg tablet,delayed 40 mg PO QDAY GERD #90 tabs 09/02/24 Unknown Rx release amlodipine 10 mg tablet 10 mg PO DAILY 30 days #30 tabs 09/15/24 10/06/24 Rx aspirin 81 mg tablet,delayed 81 mg PO QDAY #90 tabs 09/30/24 10/02/24 Rx release (Adult Aspirin Regimen) budesonide 160 mcg-glycopyr 9 2 inh inhalation BID 09/30/24 Unknown History mcg-formot 4.8 mcg/actuation HFA inhaler (Breztri Aerosphere) metoprolol tartrate 50 mg tablet 50 mg PO ONCE #1 TAB 09/30/24 10/05/24 Rx ondansetron 4 mg disintegrating 4 mg PO Q8H PRN PRN Nausea #5 tabs 10/02/24 Unknown Rx tablet codeine 10 mg-guaifenesin 100 mg/5 10 ml PO 4X/DAY PRN cough 7 days 10/18/24 Unknown Rx mL oral liquid (Guaifenesin AC) #280 mL levofloxacin 500 mg tablet 500 mg PO DAILY 7 days #7 tabs 10/18/24 Unknown Rx prednisone 20 mg tablet 40 mg (2 x 20 mg) PO DAILY 5 days 10/18/24 Unknown Rx #10 tabs Allergy/AdvReac Type Severity Reaction Status Date / Time cyclobenzaprine HCl (From Allergy Hives Verified 10/17/24 23:29 Flexeril) dicyclomine HCl (From Bentyl) Allergy Rash Verified 10/17/24 23:29 duloxetine HCl (From Allergy Hives Verified 10/17/24 23:29 Cymbalta) meloxicam (From Mobic) Allergy Rash Verified 10/17/24 23:29 naproxen Allergy Hives Verified 10/17/24 23:29 quetiapine (From Seroquel) Allergy Rash Verified 10/17/24 23:29 tramadol HCl (From Ultram) Allergy Rash Verified 10/17/24 23:29 Family History Other Arthritis Colon cancer Diabetes High cholesterol Hypertension Surgical History S/P rotator cuff repair History of colonoscopy History of carpal tunnel surgery History of eyelid surgery History of neck surgery Social History household members: none Smoking Status: Light Smoker (<10/day) Electronic Cigarette Use: not used alcohol intake: former year quit: 2014 details: Hx of ETOH abuse, sober past few years as of 2014 substance use type: marijuana and other details: history of marijuana, cocaine, crack, meth ROS ROS ED Constitutional Constitutional ED: Denies chills or fever(s) ENT ENT ED: Reports rhinorrhea and sore throat Cardiovascular Cardiovascular: Denies chest pain Respiratory/Chest Respiratory/Chest: Reports cough and dyspnea Gastrointestinal Gastrointestinal: Denies abdominal pain, diarrhea, nausea or vomiting Genitourinary Genitourinary ED: Denies dysuria Musculoskeletal Musculoskeletal: Reports myalgias Integumentary Denies rash Neurologic Neurologic: Denies headache(s) Hematologic/Lymphatic Hematologic/Lymphatic: Denies easy bleeding or easy bruising Allergic/Immunologic Allergic/Immunologic ED: Denies mouth swelling or tongue swelling EXAM Physical Exam Const Vital Signs: 10/17/24 23:28 10/17/24 23:31 10/18/24 00:15 Temperature 97.8 F 97.8 F Temperature Source Oral Oral Pulse Rate 88 91 Respiratory Rate 24 H 20 H Respiratory Effort Short of Breath Respiratory Depth Normal Respiratory Pattern Normal Blood Pressure 138/83 H 144/83 H Blood Pressure Mean 101 103 Pulse Ox 90 90 Oxygen Delivery Method Nasal Cannula Nasal Cannula Oxygen Flow Rate (L/min) 2 10/18/24 00:34 10/18/24 01:28 Temperature 98.3 F Temperature Source Oral Pulse Rate 90 91 Respiratory Rate 18 20 H Respiratory Effort Respiratory Depth Respiratory Pattern Normal Blood Pressure 154/81 H Blood Pressure Mean 105 Pulse Ox 92 Oxygen Delivery Method Nasal Cannula Oxygen Flow Rate (L/min) 3 Positive well nourished and well developed General Appearance ED: well developed; Negative for pallor HEENT HEENT Narrative: Cobblestoning is noted in the posterior pharynx consistent with sinus drainage; no secondary findings to suggest infection No tongue or lip swelling no oral lesions no airway edema or compromise Eyes PERRL and EOMs intact bilaterally General Eye ED: Negative for scleral icterus Neck supple and no JVD Chest Wall palpation of chest normal Resp normal respiratory effort Resp Narrative: Breath sounds are diminished throughout with diffuse expiratory wheeze and faint rhonchi noted in the bilateral bases slightly greater on the left However no nasal flaring retractions or accessory muscle use Cardio regular rate and regular rhythm Rate: other Other Details: Radial and carotid pulses are equal and symmetric Extremity normal to inspection Extremity Narrative: No asymmetric edema no pitting edema negative Homans' sign bilaterally Neuro oriented x3, CN's II-XII intact bilaterally and no sensory deficits noted Sensorium / Orientation: alert Motor Exam: strength 5/5 throughout Psych mental status grossly normal Skin no rashes or lesions noted General Skin Exam: Negative for jaundice or pallor MDM MDM MDM Narrative Medical decision making narrative: Patient presented to the ER afebrile satting in the mid to low 90s on his normal 2 L. He reported 2 to 3 days of congestion cough and increasing shortness of breath. History and exam is most concerning for viral infection such as COVID versus influenza versus RSV. Patient may also have developed a secondary pneumonia. Therefore the patient underwent a viral swab and chest x-ray. As he is afebrile and in no acute distress and not requiring significant increase in oxygen demand my concern for sepsis is low and therefore I do not feel need for blood work. Patient's viral swab was negative but x-ray did show changes concerning for developing left lung infection. He did have improvement of symptoms after receiving DuoNeb in the ER as well as prednisone. Patient is a type II diabetic but he is not on insulin and with his history of COPD and diffuse wheeze I do feel he would benefit from a short course despite the elevation to the blood sugar. The hyperglycemia is transient and I do not feel that 5 days will cause significant derangement or predispose him to DKA. Therefore at this time as the patient is satting in the low to mid 90s on his normal home oxygen and does not have physical exam findings concerning for sepsis I will simply place him on antibiotics and he is otherwise safe for discharge. History & Record Review Discussion w/independent historian: Patient Radiography Diagnostic Testing: Clinical Impression(s) from Imaging Studies Chest X-Ray 10/17/24 23:59 IMPRESSION: Ill-defined patchy opacity at the left base may represent developing infiltrate. The lungs otherwise appear clear. Reading Location: [facility] Chest x-ray as interpreted by the emergency medicine physician reveals hazy opacity in the left lung base concerning for developing pneumonia Discharge Plan Triage Chief Complaint: Cough ED Provider: Rogelio Candelaria Dx/Rx/DC Orders Clinical Impression: Left lower lobe pneumonia, COPD (chronic obstructive pulmonary disease), Tobacco abuse, Hypertension, Diabetes mellitus type 2, noninsulin dependent Instructions: COPD: Wheezing and Chest Tightness, ED Pneumonia (Adult) Prescriptions: New levofloxacin 500 mg tablet 500 mg PO DAILY 7 Days Qty: 7 0RF prednisone 20 mg tablet 40 mg PO DAILY 5 Days Qty: 10 0RF codeine-guaifenesin [Guaifenesin AC] 10-100 mg/5 mL liquid 10 ml PO 4X/DAY PRN (Reason: cough) 7 Days Qty: 280 0RF No Action hydroxyzine pamoate 50 mg capsule 50 mg PO Q6H PRN (Reason: anxiety) baclofen 5 mg tablet 5 mg PO Q8H PRN (Reason: muscle spasm) Breztri Aerosphere 160-9-4.8 mcg/actuation HFA aerosol inhaler 2 inh inhalation BID aspirin [Adult Aspirin Regimen] 81 mg tablet,delayed release (DR/EC) 81 mg PO QDAY Qty: 90 3RF Patient Comments: PT KNOWS TO STOP 3 DAYS PRIOR TO PRECEDURE metoprolol tartrate 50 mg tablet 50 mg PO ONCE Qty: 1 0RF Rx Instructions: Take (1) tablet by mouth (1) hour prior to Coronary CTA diagnostic testing. Linzess 145 mcg capsule 145 mcg PO QAM Qty: 90 1RF Rx Instructions: take 30 minutes before breakfast every morning pantoprazole 40 mg tablet,delayed release (DR/EC) 40 mg PO QDAY Qty: 90 3RF Rx Instructions: take once daily 30 minutes before breakfast allopurinol 100 mg tablet 100 mg PO BIDCM tamsulosin 0.4 MG capsule 0.4 mg PO DAILY Patient Comments: urine flow amlodipine 10 mg Tablet 10 mg PO DAILY 30 Days Qty: 30 0RF bupropion HCl 300 mg tablet extended release 24 hr 300 mg PO DAILY gabapentin 800 mg tablet 800 mg PO 4X/DAY glipizide 2.5 mg tablet extended release 24hr 2.5 mg PO DAILY metformin 1,000 mg tablet 1,000 mg PO BID gabapentin 100 mg capsule 100 mg PO 4X/DAY fluticasone propionate 50 mcg/actuation spray,suspension 2 spray INTRANASAL DAILY ondansetron 4 mg tablet,disintegrating 4 mg PO Q8H PRN PRN (Reason: Nausea) Qty: 5 0RF Primary Care Provider: Fabian Palm Referrals: Fabian Palm MD [Primary Care Provider] - Activity Restrictions/Additional Instructions: Your x-ray showed changes suggesting you have left lower lobe pneumonia. Take the antibiotic as directed to help resolve this. Continue with your home breathing medications. It will typically take 2 to 3 days before you notice improvement. Return to the ER should you have any further concerns or worsening of symptoms Print Language: French Disposition Disposition: Home, Self Care Discharge Date/Time: 10/18/24 01:47
[2024-10-18] MEDS: levoFLOXacin 750 MG Tablet PO (01:46)
== END 2024-10-18 01:47 | disposition home or self-care (01) ==
PROVIDERS: Emergency Provider Emergency Medicine; PCP Family Medicine; Visit Provider Emergency Medicine
DX: J18.9 Pneumonia, unspecified organism (principal); J44.0 Chronic obstructive pulmonary disease with (acute) lower respiratory infection; E11.65 Type 2 diabetes mellitus with hyperglycemia; I10 Essential (primary) hypertension; E78.2 Mixed hyperlipidemia; F17.210 Nicotine dependence, cigarettes, uncomplicated; K21.9 Gastro-esophageal reflux disease without esophagitis; N40.0 Benign prostatic hyperplasia without lower urinary tract symptoms; F41.9 Anxiety disorder, unspecified; F32.A Depression, unspecified; M10.9 Gout, unspecified; G47.33 Obstructive sleep apnea (adult) (pediatric); Z87.19 Personal history of other diseases of the digestive system; Z79.84 Long term (current) use of oral hypoglycemic drugs; Z79.82 Long term (current) use of aspirin; Z79.899 Other long term (current) drug therapy
CPT/HCPCS: 71046; 87631; 94640; 99283

== ENCOUNTER → 2024-10-28 | Outpatient (CLI) | payer MEDICARE, MEDICAID, SELFPAY ==
[2024-10-28 14:04] LABS: Absolute Lymphocyte Count 1.79 X10^3/uL (0.83-4.51); Absolute Neutrophil Count 5.4 X10^3/uL (2.0-7.7); Basophil# 0.02 X10^3/uL; Basophil% 0.2 % (0-1); Eosinophils% 2.4 % (0-5); Hematocrit 43.9 % (40-54); Hemoglobin 15.1 g/dL (13.0-16.5); Lymphocyte # 1.79 X10^3/ul (0.83-4.51); Lymphocyte % 21.5 % (19-41); Mean Corp Hgb Conc 34.4 g/dL (32-36); Mean Corpuscular Hgb 29.9 pg (27.0-32.0); Mean Corpuscular Volume 86.9 fL (80-94); Mean Platelet Vol. 8.9 fl (6.2-12.0); Monocyte# 0.83 X10^3/uL; NRBC Flagged by Analyzer 0 % (0-5); Neutrophil % 65.1 % (47-70); Platelet Count 234 K/mm3 (150-450); RBC Distribution Width CV 14.2 % (11.6-14.6); RBC Distribution Width SD 45.1 fl (35.1-43.9); Red Blood Count 5.05 M/mm3 (4.6-6.2); White Blood Count 8.3 K/mm3 (4.4-11.0)
[2024-10-28 14:11] LABS: International Normalized Ratio 0.9; Prothrombin Time (Protime)PT. 12.7 SECONDS (11.7-14.9)
[2024-10-28 15:25] LABS: Hepatitis B Surface Antibody Nonreactive
[2024-10-28 15:44] LABS: AST(SGOT) 29 U/L (<=37); Alanine Aminotransfer ALT/SGPT 24 U/L (<=46); Albumin, Serum 4.4 g/dL (3.5-5.0); Alkaline Phosphatase 92 U/L (40-129); Bilirubin, Direct 0.16 mg/dL (0.00-0.30); Globulin 3.3 g/dL (2.2-4.2); Hepatitis B Surface Antigen Nonreactive (Nonreactive); Hepatitis C Antibody Nonreactive (Nonreactive); Protein, Total 7.7 g/dL (5.9-8.4); Total Bilirubin 0.41 mg/dL (0.00-1.30); Vitamin B12 411 pg/mL (180-914)
[2024-10-30 06:08] LABS: Hepatitis A AB, Total Negative (Negative); Hepatitis B Core Ab Total Negative (Negative)
== END | disposition home or self-care (01) ==
LOC: LAB 11:53
PROVIDERS: PCP Family Medicine; Referring Provider Nurse Practitioner Acute Care; Visit Provider Nurse Practitioner Acute Care
DX: K31.89 Other diseases of stomach and duodenum (principal); K76.6 Portal hypertension; I85.00 Esophageal varices without bleeding
CPT/HCPCS: 36415; 80076; 82607; 85025; 85610; 86704; 86706; 86708; 86803; 87340

== ENCOUNTER → 2024-11-13 | Outpatient (CLI) | payer MEDICARE, MEDICAID, SELFPAY ==
--- NOTE | 2024-11-13 10:03 | US_ITS ---
PROCEDURE: ABDOMEN LIMITED (USABDL), 11/13/2024 REASON FOR EXAM: ESOPHAGEAL VARICES COMPARISON: 07/19/2024 FINDINGS: Liver: Echogenic. No overt serosal nodularity. 19.6 cm in length. Hypoechoic area along the gallbladder fossa measures 2.6 x 1.9 x 1.6 cm. Gallbladder: Underdistended and suboptimally evaluated. Layering sludge and/or tiny stones. No significant wall thickening or pericholecystic fluid. Reportedly, sonographic Bailey's was negative. Biliary tree: CBD mildly dilated to 8 mm, similar to prior exams dating back to 03/27/2024. Pancreas: Partially obscured by shadowing bowel gas, grossly unremarkable as visualized. Right kidney: Unremarkable. 11.2 cm in length. Other: Splenomegaly, 16.4 cm maximum dimension. US/Abdomen Limited IMPRESSION: 1. Appearance of the hepatic parenchyma typically associated with steatosis alt mindy early fibrosis/cirrhosis may appear similarly. No overt serosal nodularity to confirm cirrhosis. Correlate with c linical and laboratory evaluation and consider ultrasound elastography as indicated. 2. 2.6 cm hepatic lesion along the gallbladder fossa, a location suggestive of focal fatty sparing, however this is not definite. Given suspected hepatocellular disease, this probably warrants multiphase hepat ic protocol MRI with and without contrast for confirmation, unless there is a contraindication in which case CT could be perf ormed. 3. Minimal biliary dilatation is similar to prior exams dating back to 03/27/20 24. Correlate with serum bilirubin and consider inclusion of MRCP during above recommended MRI as indicated. 4. Underdistended gallbladder is suboptimally evaluated. Layering sludge and/o r tiny stones without evidence of cholecystitis. 5. Additional description as above. Reading Location: [id number]
== END | disposition home or self-care (01) ==
LOC: US 10:02
PROVIDERS: PCP Family Medicine; Referring Provider Nurse Practitioner Acute Care; Visit Provider Nurse Practitioner Acute Care
DX: I85.00 Esophageal varices without bleeding (principal); K76.6 Portal hypertension; K31.89 Other diseases of stomach and duodenum
CPT/HCPCS: 76705

== ENCOUNTER → 2024-12-10 | Outpatient (CLI) | payer MEDICARE, MEDICAID, SELFPAY ==
--- NOTE | 2024-12-10 17:13 | CT_ITS ---
PROCEDURE: CTA CHEST W/WO CONTRAST 12/10/2024 REASON FOR EXAM: TORRES, EVALUATE THORACIC AORTA, CHEST PAIN TECHNIQUE: CTA imaging of the chest with intravenous contrast. Multiplanar and multisequence images were obtained. CONTRAST: 100 mL of Isovue 370 One or more dose reduction techniques were used (e.g., Automated exposure control, adjustment of the mA and/or kV according to patient size, use of iterative reconstruction technique). RADIATION DOSE SUMMARY: DLP: 718 mGycm COMPARISON: None FINDINGS: Hardware: None Lymph nodes: Prominent bilateral axillary lymph nodes. Heart: Mild coronary atherosclerosis. No significant pericardial effusion. Within normal limits in size. Thoracic Aorta: Ascending thoracic aorta measures diameter of 4.3 cm. Aortic arch measures 2.7 cm and descending thoracic aorta measures 2.7 cm. Lungs and Airways: Bibasilar subsegmental atelectasis. Mild bibasilar bronchiectasis. No focal consolidations. Pleura: No pleural effusion or pneumothorax. Upper Abdomen: Hepatic steatosis. Bones: No acute fractures. Cervical ACDF partially visualized. CT/CTA Chest W/WO Contrast IMPRESSION: Aneurysmal ascending thoracic aorta measuring up to 4.3 cm in diameter. No aortic dissection. No acute aortic abnormalities. No focal consolidations. Bibasilar subsegmental atelectasis. Reading Location: [id number]
== END | disposition home or self-care (01) ==
LOC: CT 17:12
PROVIDERS: PCP Family Medicine; Referring Provider Internal Medicine Cardiovascular Disease; Visit Provider Internal Medicine Cardiovascular Disease
DX: I77.810 Thoracic aortic ectasia (principal); R06.09 Other forms of dyspnea; R07.9 Chest pain, unspecified
CPT/HCPCS: 71275; Q9967; A4216

== ENCOUNTER 2025-03-05 17:50 | Emergency (ER) | payer MEDICARE, MEDICAID, SELFPAY ==
[2025-03-05 17:51] VITALS: BP 136/86; PULSE 94; RESP 17; TEMP 36.7; O2SAT 96; BMI 31.7
--- NOTE | 2025-03-05 18:34 | EX.ED.DYSGE1 ---
HPI History of Present Illness Chief Complaint: Abscess Informant: patient Narrative Narrative: Tender swollen area x 3 right medial buttock that he noticed yesterday and tried to drain them himself with a needle although he is not able to see the area. He states he had some bloody discharge but nothing else. No systemic symptoms such as fevers, chills. Has never had to have a boil I&D'd before. He is a diabetic. [facility] Medical History Wears glasses History of steroid therapy Arthritis History of diverticulitis Gastric reflux Former smoker CPAP (continuous positive airway pressure) dependence On home oxygen therapy Cardiology follow-up encounter Shortness of breath Mixed hyperlipidemia Acute gastritis without hemorrhage Bone spur of other site LAKSHMI (obstructive sleep apnea) History of drug abuse COPD (chronic obstructive pulmonary disease) Collar bone fracture Carpal tunnel syndrome, right BPH (benign prostatic hyperplasia) Alcohol abuse, in remission Sleep apnea Barretts esophagus Smoker Gout Anxiety Depression Diabetes Hypertension Hyperlipidemia Home Medications ?Medication ?Instructions ?Recorded ?Last Taken ?Type tamsulosin 0.4 mg capsule 0.4 mg PO DAILY bph 01/01/15 08/03/19 History bupropion HCl 300 mg 24 hr tablet, 300 mg PO DAILY mood 07/19/24 Unknown History extended release fluticasone propionate 50 2 spray intranasal DAILY airway 07/19/24 Unknown History mcg/actuation nasal spray,suspension gabapentin 100 mg capsule 100 mg PO 4X/DAY pain 07/19/24 10/06/24 History gabapentin 800 mg tablet 800 mg PO 4X/DAY pain 07/19/24 10/06/24 History glipizide 2.5 mg tablet, extended 2.5 mg PO DAILY dm 07/19/24 Unknown History release 24 hr metformin 1,000 mg tablet 1,000 mg PO BID dm 07/19/24 Unknown History baclofen 5 mg tablet 5 mg PO Q8H PRN muscle spasm 08/21/24 Unknown History hydroxyzine pamoate 50 mg capsule 50 mg PO Q6H PRN anxiety 08/21/24 Unknown History allopurinol 100 mg tablet 100 mg PO BIDCM gout 09/02/24 Unknown History aspirin 81 mg tablet,delayed 81 mg PO QDAY #90 tabs 09/30/24 10/02/24 Rx release (Adult Aspirin Regimen) budesonide 160 mcg-glycopyr 9 2 inh inhalation BID 09/30/24 Unknown History mcg-formot 4.8 mcg/actuation HFA inhaler (Breztri Aerosphere) metoprolol tartrate 50 mg tablet 50 mg PO ONCE #1 TAB 09/30/24 10/05/24 Rx ondansetron 4 mg disintegrating 4 mg PO Q8H PRN PRN Nausea #5 tabs 10/02/24 Unknown Rx tablet codeine 10 mg-guaifenesin 100 mg/5 10 ml PO 4X/DAY PRN cough 7 days 10/18/24 Unknown Rx mL oral liquid (Guaifenesin AC) #280 mL linaclotide 145 mcg capsule 145 mcg PO QAM #90 caps 03/02/25 Unknown Rx (Linzess) pantoprazole 40 mg tablet,delayed 40 mg PO QDAY GERD #90 tabs 03/02/25 Unknown Rx release sulfamethoxazole 800 1 tab PO BID #20 TABLETS 03/05/25 Unknown Rx mg-trimethoprim 160 mg tablet Allergy/AdvReac Type Severity Reaction Status Date / Time cyclobenzaprine HCl (From Allergy Hives Verified 03/05/25 17:53 Flexeril) dicyclomine HCl (From Bentyl) Allergy Rash Verified 03/05/25 17:53 duloxetine HCl (From Allergy Hives Verified 03/05/25 17:53 Cymbalta) meloxicam (From Mobic) Allergy Rash Verified 03/05/25 17:53 naproxen Allergy Hives Verified 03/05/25 17:53 quetiapine (From Seroquel) Allergy Rash Verified 03/05/25 17:53 tramadol HCl (From Ultram) Allergy Rash Verified 03/05/25 17:53 Family History Other Arthritis Colon cancer Diabetes High cholesterol Hypertension Surgical History S/P rotator cuff repair History of colonoscopy History of carpal tunnel surgery History of eyelid surgery History of neck surgery Social History household members: none Smoking Status: Former smoker Electronic Cigarette Use: not used alcohol intake: former year quit: 2014 details: Hx of ETOH abuse, sober past few years as of 2014 substance use type: marijuana and other details: history of marijuana, cocaine, crack, meth ROS ROS ED Constitutional Constitutional ED: Denies chills or fever(s) Respiratory/Chest Respiratory/Chest: Denies dyspnea Gastrointestinal Gastrointestinal: Denies abdominal pain, nausea or vomiting Genitourinary Genitourinary ED: Denies dysuria, hematuria or urinary frequency Integumentary Reports abscess Neurologic Neurologic: Denies headache(s), paresthesias or weakness EXAM Physical Exam Const Vital Signs: 03/05/25 17:51 Temperature 98.1 F Temperature Source Temporal Pulse Rate 94 Respiratory Rate 17 Blood Pressure 136/86 H Blood Pressure Mean 102 Pulse Ox 96 Oxygen Delivery Method Room Air Positive well nourished and well developed General Appearance ED: well developed and NAD Eyes PERRL and EOMs intact bilaterally Neck supple Resp normal respiratory effort Neuro oriented x3, CN's II-XII intact bilaterally and no sensory deficits noted Motor Exam: strength 5/5 throughout Psych mental status grossly normal Skin Skin Narrative: There are 2 small nondraining abscesses about 2 to 3 cm in diameter each, with surrounding cellulitis that surrounds both of them as they are only 4-5 cm apart, and the medial right buttock near the scrotum/perineum, there is no perianal involvement. There is another 1 closer to the scrotum that there is only a little bit of induration and cellulitis that, no abscess. MDM MDM MDM Narrative Medical decision making narrative: I&D reasonable, the abscesses were opened, deloculated, packed with gauze see the procedure note. There were 2 of them. The third 1 does not feel like an abscess, just some induration so we started him on Bactrim and will give him a prescription appropriate discharge instructions for wick withdrawal and reasons to return. Comfortable with that plan. Procedures Other Procedures Procedure(s): Incision and drainage complex abscess x2, right medial buttock: After informed consent from the patient after discussing pros and cons, the area was locally anesthetized with 6 cc of plain 1% lidocaine after Proprinal and chlorhexidine prep, incised with a #11 blade into each of the 2 abscesses, there is only some bloody discharge no significant pus but there is abscess cavities in both of them. These cavities were both deloculated and probed, at this point cavities do not communicate both of them were irrigated with sterile saline separately, packed with sterile gauze separately, and dressed with sterile dressing. Tolerated well no complications. Nothing to culture. Discharge Plan Triage Chief Complaint: Abscess ED Provider: Kobi Kaiser Dx/Rx/DC Orders Clinical Impression: Abscess of right buttock Instructions: Taking a Sitz Bath, ED Abscess Incision And Drainage Prescriptions: New sulfamethoxazole-trimethoprim 800-160 mg tablet 1 tab PO BID Qty: 20 0RF Continued hydroxyzine pamoate 50 mg capsule 50 mg PO Q6H PRN (Reason: anxiety) baclofen 5 mg tablet 5 mg PO Q8H PRN (Reason: muscle spasm) Breztri Aerosphere 160-9-4.8 mcg/actuation HFA aerosol inhaler 2 inh inhalation BID aspirin [Adult Aspirin Regimen] 81 mg tablet,delayed release (DR/EC) 81 mg PO QDAY Qty: 90 3RF Patient Comments: PT KNOWS TO STOP 3 DAYS PRIOR TO PRECEDURE metoprolol tartrate 50 mg tablet 50 mg PO ONCE Qty: 1 0RF Rx Instructions: Take (1) tablet by mouth (1) hour prior to Coronary CTA diagnostic testing. Linzess 145 mcg capsule 145 mcg PO QAM Qty: 90 1RF Rx Instructions: take once daily 30 minutes before breakfast every morning pantoprazole 40 mg tablet,delayed release (DR/EC) 40 mg PO QDAY Qty: 90 3RF Rx Instructions: take once daily 30 minutes before breakfast allopurinol 100 mg tablet 100 mg PO BIDCM tamsulosin 0.4 MG capsule 0.4 mg PO DAILY Patient Comments: urine flow codeine-guaifenesin [Guaifenesin AC] 10-100 mg/5 mL liquid 10 ml PO 4X/DAY PRN (Reason: cough) 7 Days Qty: 280 0RF bupropion HCl 300 mg tablet extended release 24 hr 300 mg PO DAILY gabapentin 800 mg tablet 800 mg PO 4X/DAY glipizide 2.5 mg tablet extended release 24hr 2.5 mg PO DAILY metformin 1,000 mg tablet 1,000 mg PO BID gabapentin 100 mg capsule 100 mg PO 4X/DAY fluticasone propionate 50 mcg/actuation spray,suspension 2 spray INTRANASAL DAILY ondansetron 4 mg tablet,disintegrating 4 mg PO Q8H PRN PRN (Reason: Nausea) Qty: 5 0RF Discontinued levofloxacin 500 mg tablet 500 mg PO DAILY 7 Days Qty: 7 0RF Primary Care Provider: Fabian Palm Referrals: Elmo Pugh MD [Med Staff - Active Staff] - 1 Week if not improving Activity Restrictions/Additional Instructions: Try to leave packing intact for 48 hours and then remove and discard. If it falls out earlier than that, do not worry about it, just continue dressing changes. If there is any water that gets into the area after a shower or what not, you may gently apply pressure to the surrounding area to express it prior to a new dressing change. Antibiotic ointment on the area with these dressing changes okay as well. If you are concerned about it recurring or getting worse, return to the ER for reevaluation. Print Language: [place] Disposition Disposition: Home, Self Care
[2025-03-05] MEDS: Smz/Tmp Ds Tablet 1 TABLET PO (18:35)
[2025-03-05] MEDS: Lidocaine 1% (20 ml mdv) 20 ML Vial INFILT (18:35)
[2025-03-05 18:39] VITALS: BP 128/84; PULSE 91; RESP 16; TEMP 36.9; O2SAT 97
== END 2025-03-05 19:06 | disposition home or self-care (01) ==
PROVIDERS: Emergency Provider Emergency Medicine; PCP Family Medicine; Visit Provider Emergency Medicine
DX: L02.31 Cutaneous abscess of buttock (principal); J44.9 Chronic obstructive pulmonary disease, unspecified; E11.9 Type 2 diabetes mellitus without complications; Z87.891 Personal history of nicotine dependence; E78.2 Mixed hyperlipidemia; I10 Essential (primary) hypertension; K21.9 Gastro-esophageal reflux disease without esophagitis; Z79.899 Other long term (current) drug therapy
CPT/HCPCS: 10061; 10060; 99283

== ENCOUNTER 2025-03-10 13:36 | Emergency (ER) | payer MEDICARE, MEDICAID, SELFPAY ==
[2025-03-10 13:37] VITALS: BP 141/83; PULSE 74; RESP 16; TEMP 36.6; O2SAT 99
--- NOTE | 2025-03-10 15:45 | EX.ED.DYSGE1 ---
HPI History of Present Illness Chief Complaint: Abscess Informant: patient Narrative Narrative: Presents for wound check right gluteal. Seen 5 days ago with incision and drainage. States still draining. States a friend help the wound dressing reported appeared infected therefore he came back. Is currently on Bactrim. He is diabetic. Denies any worsening pain. Prior similar symptoms: Yes [facility] Medical History Wears glasses History of steroid therapy Arthritis History of diverticulitis Gastric reflux Former smoker CPAP (continuous positive airway pressure) dependence On home oxygen therapy Cardiology follow-up encounter Shortness of breath Mixed hyperlipidemia Acute gastritis without hemorrhage Bone spur of other site LAKSHMI (obstructive sleep apnea) History of drug abuse COPD (chronic obstructive pulmonary disease) Collar bone fracture Carpal tunnel syndrome, right BPH (benign prostatic hyperplasia) Alcohol abuse, in remission Sleep apnea Barretts esophagus Smoker Gout Anxiety Depression Diabetes Hypertension Hyperlipidemia Home Medications ?Medication ?Instructions ?Recorded ?Last Taken ?Type tamsulosin 0.4 mg capsule 0.4 mg PO DAILY bph 01/01/15 08/03/19 History bupropion HCl 300 mg 24 hr tablet, 300 mg PO DAILY mood 07/19/24 Unknown History extended release fluticasone propionate 50 2 spray intranasal DAILY airway 07/19/24 Unknown History mcg/actuation nasal spray,suspension gabapentin 100 mg capsule 100 mg PO 4X/DAY pain 07/19/24 10/06/24 History gabapentin 800 mg tablet 800 mg PO 4X/DAY pain 07/19/24 10/06/24 History glipizide 2.5 mg tablet, extended 2.5 mg PO DAILY dm 07/19/24 Unknown History release 24 hr metformin 1,000 mg tablet 1,000 mg PO BID dm 07/19/24 Unknown History baclofen 5 mg tablet 5 mg PO Q8H PRN muscle spasm 08/21/24 Unknown History hydroxyzine pamoate 50 mg capsule 50 mg PO Q6H PRN anxiety 08/21/24 Unknown History allopurinol 100 mg tablet 100 mg PO BIDCM gout 09/02/24 Unknown History aspirin 81 mg tablet,delayed 81 mg PO QDAY #90 tabs 09/30/24 10/02/24 Rx release (Adult Aspirin Regimen) budesonide 160 mcg-glycopyr 9 2 inh inhalation BID 09/30/24 Unknown History mcg-formot 4.8 mcg/actuation HFA inhaler (Breztri Aerosphere) metoprolol tartrate 50 mg tablet 50 mg PO ONCE #1 TAB 09/30/24 10/05/24 Rx ondansetron 4 mg disintegrating 4 mg PO Q8H PRN PRN Nausea #5 tabs 10/02/24 Unknown Rx tablet codeine 10 mg-guaifenesin 100 mg/5 10 ml PO 4X/DAY PRN cough 7 days 10/18/24 Unknown Rx mL oral liquid (Guaifenesin AC) #280 mL linaclotide 145 mcg capsule 145 mcg PO QAM #90 caps 03/02/25 Unknown Rx (Linzess) pantoprazole 40 mg tablet,delayed 40 mg PO QDAY GERD #90 tabs 03/02/25 Unknown Rx release sulfamethoxazole 800 1 tab PO BID #20 TABLETS 03/05/25 Unknown Rx mg-trimethoprim 160 mg tablet Allergy/AdvReac Type Severity Reaction Status Date / Time cyclobenzaprine HCl (From Allergy Hives Verified 03/10/25 13:38 Flexeril) dicyclomine HCl (From Bentyl) Allergy Rash Verified 03/10/25 13:38 duloxetine HCl (From Allergy Hives Verified 03/10/25 13:38 Cymbalta) meloxicam (From Mobic) Allergy Rash Verified 03/10/25 13:38 naproxen Allergy Hives Verified 03/10/25 13:38 quetiapine (From Seroquel) Allergy Rash Verified 03/10/25 13:38 tramadol HCl (From Ultram) Allergy Rash Verified 03/10/25 13:38 Family History Other Arthritis Colon cancer Diabetes High cholesterol Hypertension Surgical History S/P rotator cuff repair History of colonoscopy History of carpal tunnel surgery History of eyelid surgery History of neck surgery Social History household members: none Smoking Status: Former smoker Electronic Cigarette Use: not used alcohol intake: former year quit: 2014 details: Hx of ETOH abuse, sober past few years as of 2014 substance use type: marijuana and other details: history of marijuana, cocaine, crack, meth ROS ROS ED Constitutional Constitutional ED: Denies fever(s) Cardiovascular Cardiovascular: Denies chest pain Respiratory/Chest Respiratory/Chest: Denies cough Gastrointestinal Gastrointestinal: Denies diarrhea or vomiting Musculoskeletal Musculoskeletal: Denies none Integumentary Reports abscess and wounds; Denies rash Neurologic Neurologic: Denies weakness EXAM Physical Exam Const Vital Signs: 03/10/25 13:37 Temperature 97.9 F Temperature Source Temporal Pulse Rate 74 Respiratory Rate 16 Blood Pressure 141/83 H Blood Pressure Mean 102 Pulse Ox 99 Oxygen Delivery Method Nasal Cannula Oxygen Flow Rate (L/min) 2 Positive well nourished and well developed Constitutional Narrative: Chronic oxygenation. General Appearance ED: well developed HEENT normocephalic and atraumatic Eyes General Eye ED: Yes normal appearance of both eyes Neck full ROM Resp normal respiratory effort and normal air movement Cardio regular rate and regular rhythm GI soft to palpation Extremity normal to inspection and full ROM Neuro oriented x3 Skin Skin Narrative: Wound check right gluteal 2 areas noted induration that still open. Medial aspect 2 cm, more lateral aspect was 3.5 cm open wounds isolated erythema to the induration. No surrounding erythema. Slight drainage from larger wound. Additional pea-sized nodule inferiorly. No perennial or scrotal involvement. MDM MDM MDM Narrative Medical decision making narrative: Interventions / MDM: Differential diagnosis: Wound check, status post incision and drainage of abscesses. Diagnosis considered but do not suspect: N/A My EKG interpretation: N/A Imaging independently reviewed and interpreted by myself: N/A External documents reviewed: Visit from 5 days ago 2 abscesses were drained there was reported surrounding erythematous area. Test considered but not ordered:N/A ED course: Patient nontoxic afebrile. Evaluation of the wound appears to be draining appropriately isolated redness currently to the induration and not surrounding. Clinical appears to be healing and improving. The wounds are still open therefore still draining. Patient reassured. He will finish antibiotics. Continue daily wound care. Outpatient follow-up with his doctor. All questions were answered. Re-evaluation: stable Disposition discussed with patient/family/significant other: Patient Case discussed with consulting clinician: N/A This note was generated with [employer] dictation software. It may contain incorrect words, spelling, and punctuation that were not noted in checking the note before signing. Discharge Plan Triage Chief Complaint: Abscess ED Provider: Kevyn Rodriguez Dx/Rx/DC Orders Clinical Impression: Visit for wound check, Abscess Instructions: ED Abscess Incision And Drainage Prescriptions: No Action hydroxyzine pamoate 50 mg capsule 50 mg PO Q6H PRN (Reason: anxiety) baclofen 5 mg tablet 5 mg PO Q8H PRN (Reason: muscle spasm) Mallytri Aerosphere 160-9-4.8 mcg/actuation HFA aerosol inhaler 2 inh inhalation BID aspirin [Adult Aspirin Regimen] 81 mg tablet,delayed release (DR/EC) 81 mg PO QDAY Qty: 90 3RF Patient Comments: PT KNOWS TO STOP 3 DAYS PRIOR TO PRECEDURE metoprolol tartrate 50 mg tablet 50 mg PO ONCE Qty: 1 0RF Rx Instructions: Take (1) tablet by mouth (1) hour prior to Coronary CTA diagnostic testing. Linzess 145 mcg capsule 145 mcg PO QAM Qty: 90 1RF Rx Instructions: take once daily 30 minutes before breakfast every morning pantoprazole 40 mg tablet,delayed release (DR/EC) 40 mg PO QDAY Qty: 90 3RF Rx Instructions: take once daily 30 minutes before breakfast allopurinol 100 mg tablet 100 mg PO BIDCM tamsulosin 0.4 MG capsule 0.4 mg PO DAILY Patient Comments: urine flow codeine-guaifenesin [Guaifenesin AC] 10-100 mg/5 mL liquid 10 ml PO 4X/DAY PRN (Reason: cough) 7 Days Qty: 280 0RF bupropion HCl 300 mg tablet extended release 24 hr 300 mg PO DAILY gabapentin 800 mg tablet 800 mg PO 4X/DAY glipizide 2.5 mg tablet extended release 24hr 2.5 mg PO DAILY metformin 1,000 mg tablet 1,000 mg PO BID gabapentin 100 mg capsule 100 mg PO 4X/DAY fluticasone propionate 50 mcg/actuation spray,suspension 2 spray INTRANASAL DAILY ondansetron 4 mg tablet,disintegrating 4 mg PO Q8H PRN PRN (Reason: Nausea) Qty: 5 0RF sulfamethoxazole-trimethoprim 800-160 mg tablet 1 tab PO BID Qty: 20 0RF Primary Care Provider: Fabian Palm Referrals: Fabian Palm MD [Primary Care Provider] - 3-5 Days Activity Restrictions/Additional Instructions: Wound evaluation draining appropriately. Comparison of your wound to the explain no appears to be improving. Continue to drain. Continue your daily wound care. Continue antibiotics. Follow-up with your doctor. Print Language: Kyrgyz Disposition Disposition: Home, Self Care Discharge Date/Time: 03/10/25 16:07
== END 2025-03-10 16:07 | disposition home or self-care (01) ==
LOC: ED 15:50
PROVIDERS: Emergency Provider Emergency Medicine; PCP Family Medicine; Visit Provider Emergency Medicine
DX: Z51.89 Encounter for other specified aftercare (principal); J44.9 Chronic obstructive pulmonary disease, unspecified; E11.9 Type 2 diabetes mellitus without complications; Z87.891 Personal history of nicotine dependence; E78.2 Mixed hyperlipidemia; I10 Essential (primary) hypertension; G47.33 Obstructive sleep apnea (adult) (pediatric); Z99.89 Dependence on other enabling machines and devices; N40.0 Benign prostatic hyperplasia without lower urinary tract symptoms; Z79.51 Long term (current) use of inhaled steroids; Z79.899 Other long term (current) drug therapy; Z79.84 Long term (current) use of oral hypoglycemic drugs; F32.A Depression, unspecified; L02.31 Cutaneous abscess of buttock
CPT/HCPCS: 99282

== ENCOUNTER 2025-04-06 16:53 | Emergency (ER) | payer MEDICARE, MEDICAID, SELFPAY ==
[2025-04-06 19:51] VITALS: BP 143/91; PULSE 87; RESP 18; TEMP 36.6; O2SAT 97; BMI 32.1
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
--- OUTSIDE RECORDS SUMMARY | 2025-04-06 20:52 | XMS RPT_ITS | CCD ---
Author Organization [facility] Care Team Providers Care Molasses Preparer Name Role Phone Neeru Salgado MD Primary Care Provider Buddy Call Unavailable Neeru Salgado MD Primary Care Provider Buddy Call Unavailable Giancarlo RN, Cass Vaca Unavailable Neeru Salgado MD Primary Care Provider Buddy Call Unavailable Giancarlo MANDEL, Cass Vaca Unavailable Monica Aburto RN Unavailable Unavailable Silvano RN, Laura Caldera Unavailable Unavailchun Schaefer RN, Laura Caldera Unavailable UnavailSCOT Yost Referring Unavailable NEERU SALGADO Primary Care Unavailable Neeru Salgado MD Primary Care Provider Silvano MANDEL, Laura Caldera Unavailable UnavailBuddy Pierre MD Unavailable Reba Mcpherson RN Unavailable Cristiana Lizarraga RN Unavailable Jumana C IRON WORKER.TYPEWRITER MECHANICFord Unavailable Everardo C IRON WORKER.Tracee MARQUEZ Unavailable Dr. Neeru Salgado MD Primary Care Provider Dr. Nico Tran DO Attending Provider Dr. Nico Tran DO Emergency Provider Dr. Kevyn Rodriguez DO Attending Provider Dr. Kevyn Rodriguez DO Emergency Provider Nick Gage MD Attending Provider Nick Gage MD Emergency Provider Dr. Neeru Salgado MD Referring Provider Sania Cooper Attending Provider Aleksandra SAHNI, Dr. Harris Attending Provider Aleksandra SAHNI, Dr. Harris Referring Provider Aleksandra SAHNI, Dr. Harris Other Provider Rosales HOROWITZ, Dr. Babcock Attending Provider Alex HOROWITZ, Dr. Baker Attending Provider Alex HOROWITZ, Dr. Baker Emergency Provider Elmo FURNITURE AND BEDDING INSPECTOR-CTraci Attending Provider Awilda HOROWITZ, Dr. Peace Emergency Provider Cain HOROWITZ, Dr. Flaherty Primary Care Provider Unava ilable de Jonathan DO, Dr. Sarabia Admit Provider Unavail able de Jonathan DO, Dr. Sarabia Other Provider Unavail able Fabiana HOROWITZ, Dr. Steven Luna Attending Provider Dr. Gilberto Quinteros MD Other Provider Unavailab candida Quinteros MD, Dr. Macias Attending Provider Unavai lisa Jung MD, Dr. Steven Luna Other Provider Everardo FURNITURE AND BEDDING INSPECTOR-CTracee Primary Care Provider Dr. Neeru Salgado MD Primary Care Provider [phone] Dr. Nico Tran DO Attending Provider Dr. Nico Tran DO Emergency Provider Dr. Kevyn Rodriguez DO Attending Provider Dr. Kevyn Rodriguez DO Emergency Provider Nick Gage MD Attending Provider Nick Gage MD Emergency Provider Dr. Neeru Salgado MD Referring Provider Sania Cooper Attending Provider Aleksandra SAHNI, Dr. Harris Attending Provider Aleksandra SAHNI, Dr. Harris Referring Provider Aleksandra SAHNI, Dr. Harris Other Provider Rosales HOROWITZ, Dr. Babcock Attending Provider [phone] Alex HOROWITZ, Dr. Baker Attending Provider Alex HOROWITZ, Dr. Baker Emergency Provider Elmo FURNITURE AND BEDDING INSPECTOR-CTraci Attending Provider Dr. Kobi Kaiser MD Emergency Provider Cani HOROWITZ, Dr. Flaherty Primary Care Provider Unava ilable Limon DO, Dr. Sarabia Admit Provider Unavail able de Jonathan SAHNI, Dr. Sarabia Other Provider Unavail able Dr. Steven Jung MD Attending Provider Aldair HOROWITZ, Dr. Macias Other Provider Unavailab candida Quinteros MD, Dr. Macias Attending Provider Sashavai lisa Jung MD, Dr. Steven Luna Other Provider Everardo FURNITURE AND BEDDING INSPECTOR-CTracee Primary Care Provider Archie HOROWITZ, Dr. Griffin Attending Provider Dr. Kobi Kaiser MD Attending Provider Elder SAHNI, Dr. Lozano Attending Provider Elder SAHNI, Dr. Lozano Other Provider Dio HOROWITZ, Rajesh Mcpherson Unavailable Unavailab candida Denney APRN.ALMA, Ford Unavailable Unavail able Néstor HOROWITZ, Dr. Peralta Primary Care Provider [phone] Dr. Neftali Nolasco MD Attending Provider Dr. Neftali Nolasco MD Referring Provider Dr. Rogelio Candelaria DO Attending Provider Andes DO, Dr. Rogelio Emergency Provider Elmo MATHIS-CTraci Referring Provider [facility] C IRON WORKER.TYPEWRITER MECHANIC, Ford Unavailable Néstor HOROWITZ, Dr. Peralta Primary Care Provider Néstor HOROWITZ, Dr. Peralta Referring Provider Archie HOROWITZ, Dr. Griffin Referring Provider Tannf C IRON WORKER.TYPEWRITER MECHANIC, Ford Shanna Unavailable NEERU SALGADO Primary Care Unavailable NEERU SALGADO Attending Unavailable NEERU SALGADO Primary Care Unavailable TRACEE KIDD Attending Unavailable NEERU SALGADO Primary Care Unavailable BAHNTBEATA PEREZ Referring Unava ilable NEERU SALGADO Primary Care Unavailable BEATA BARCLAY Referring Unava ilable NEERU SALGADO Primary Care Unavailable DEREKNTBEATA PEREZ Referring Unava ilable NEERU SALGADO Primary Care Unavailable SMOOTH SUH Referring Unavailable BAHBEATA MOTRON Attending Unava ilable NEERU SALGADO Primary Care Unavailable TANNVIVEKF, FORD SHANNA Referring Unavailabl e RAJESH FERNANDES Attending Unavailable NEERU SALGADO Primary Care Unavailable NEERU SALGADO Primary Care Unavailable JUMANA, FORDBLANQUITA PAGANE Referring Unavailabl e NEERU SALGADO Primary Care Unavailable TANNKENYATTA, FORD SHANNA Referring Unavailabl e NEERU SALGADO Primary Care Unavailable TANNVIVEKF, FORD PAGANE Attending Unavailabl e ELDERNEERU TOMLINSON Primary Care Unavailable NEERU SALGADO Attending Unavailable NEERU SALGADO Primary Care Unavailable TANNHOF, FORD SHANNA Referring Unavailabl e NEERU SALGADO Primary Care Unavailable TANNHOF, FORD SHANNA Referring Unavailabl e SHAYY GARRIDO Attending Unavailable NEERU SALGADO Primary Care Unavailable TANNHOF, FORD SHANNA Referring Unavailabl e NEERU SALGADO Primary Care Unavailable TANNVIVEKF, FORDBLANQUITA PAGANE Referring Unavailabl e NEERU SALGADO Primary Care Unavailable STEVEN MARTINEZ Referring Unavailable ELDERBROCK, NEERU D Primary Care Unavailable STEVEN MARTINEZ Referring Unavailable DELMIS WILLIAMSON Attending Unavailable ELDERBROCK, NEERU D Primary Care Unavailable DESFFORD Attending Unavailabl e ELDERBROCK, NEERU D Primary Care Unavailable ELDERBROCK, NEERU D Attending Unavailable ELDERBROCK, NEERU D Primary Care Unavailable TANNHOFFORD Referring Unavailabl e ELDERBROCK, NEERU D Primary Care Unavailable TANNHOFFORD Referring Unavailabl e ELDERBROCK, NEERU D Primary Care Unavailable ELDERBROCK, NEERU D Referring Unavailable ELDERBROCK, NEERU D Primary Care Unavailable BAHBEATA MORTON Referring Unava ilable ELDERBROCK, NEERU D Primary Care Unavailable ELDERBROCK, NEERU D Referring Unavailable CAMERON BLUEA Attending Unavailable ELDERBROCK, NEERU D Primary Care Unavailable HARPSCAMERON SNEEDA Referring Unavailable ELDERBROCK, NEERU D Primary Care Unavailable ELDERBROCK, NEERU D Primary Care Unavailable FORD DENNEY Referring Unavailabl e ELDERBROCK, NEERU D Primary Care Unavailable SHAYY GARRIDO Referring Unavailable SHAYY GARRIDO Attending Unavailable ELDERJJCK, NEERU D Primary Care Unavailable BAHBEATA MORTON Referring Unava ilable ELDERBROCK, NEERU D Primary Care Unavailable TRACEE KIDD Referring Unavailable KEE CHRISTENSEN Attending Unavailable Néstor HOROWITZ, Dr. Peralta Primary Care Provider [phone] Elmo FURNITURE AND BEDDING INSPECTOR-CTrcai Attending Provider Elmo FURNITURE AND BEDDING INSPECTOR-CTraci Referring Provider Dr. Gaby Almanza MD Attending Provider Dr. Gaby Almanza MD Referring Provider Dr. Neeru Salgado MD Referring Provider Awilda HOROWITZ, Dr. Peace Emergency Provider Dr. Kobi Kaiser MD Attending Provider Dr. Kevyn Rodriguez DO Emergency Provider Kevyn Rodriguez Attending Unavailable Neeru Salgado Primary Care Unavailable Kobi Kaiser Attending Unavailable Neeru Salgado Primary Care Unavailable Traci Borrego Attending Unavailable Traci Borrego Referring Unavailable Néstor, Neeru Primary Care Unavailable Néstor, Neeru Primary Care Unavailable Rogelio Candelaria Attending Unavailable Néstor, Neeru Primary Care Unavailable Nick Gage Attending Unavailable Steven Martinez Referring Unavailable
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
[2025-04-06] MEDS: fentaNYL 100 MCG/2 ML Ampul 50 MCG IV (21:08)
[2025-04-06 21:20] LABS: AST(SGOT) 27 U/L (<=37); Alanine Aminotransfer ALT/SGPT 28 U/L (<=46); Albumin, Serum 4.3 g/dL (3.5-5.0); Alkaline Phosphatase 89 U/L (40-129); Anion Gap 12 (5-15); BUN 13 mg/dL (4-19); BUN/Creat Ratio 16.9 RATIO (10-20); Calcium,Total 9.7 mg/dL (7.6-11.0); Carbon Dioxide 26.8 mmol/L (21.0-32.0); Chloride 98 mmol/L (98-108); Estimated Creatinine Clearance 156.48 ml/min (50-250); Globulin 3.5 g/dL (2.2-4.2); Glucose 167 mg/dL (70-99); Potassium 3.6 mmol/L (3.3-5.1)
[2025-04-06 21:27] LABS: Hematocrit 48.4 % (40-54); Hemoglobin 16.5 g/dL (13.0-16.5); Immature Granulocytes Count 0.040 X10^3/uL (0.0-0.0); Mean Corp Hgb Conc 34.1 g/dL (32-36); Mean Corpuscular Volume 84.8 fL (80-94); Mean Platelet Vol. 8.7 fl (6.2-12.0); NRBC Flagged by Analyzer 0 % (0-5); Platelet Count 212 K/mm3 (150-450); RBC Distribution Width CV 14.2 % (11.6-14.6); RBC Distribution Width SD 43.7 fl (35.1-43.9); Red Blood Count 5.71 M/mm3 (4.6-6.2); White Blood Count 10.0 K/mm3 (4.4-11.0)
[2025-04-06 21:56] LABS: Mucous, Urine 0 SEEN /hpf (<or=2+); Red Blood Cells-Urine 0 SEEN /hpf (0-5)
[2025-04-06 21:57] LABS: Color, Urine Yellow (Yellow); Glucose, Dipstick 50 mg/dl (Normal); Ketone-Dipstick Negative (Negative); Leukocyte Esterase-Dipstick Negative /ul (Negative); Nitrite-Dipstick Negative (Negative); Occult Blood-Urine Negative /ul (Negative); Protein-Dipstick 30 mg/dl (Negative); Specific Gravity, Urine 1.015 (1.002-1.030); Urine Bilirubin Dipstick Negative (Negative)
[2025-04-06 22:09] LABS: Squamous Epithelial Cells - UA 0-5 SEEN /hpf (0-5)
[2025-04-06 23:00] VITALS: BP 144/99; PULSE 74; RESP 18; O2SAT 99
[2025-04-06 23:52] VITALS: BP 144/99; PULSE 74; RESP 18; TEMP 36.4; O2SAT 99
== END 2025-04-06 23:52 | disposition home or self-care (01) ==
PROVIDERS: Emergency Provider Student in an Organized Health Care Education/Training Program; PCP Family Medicine; Visit Provider Student in an Organized Health Care Education/Training Program
DX: S22.31XA Fracture of one rib, right side, initial encounter for closed fracture (principal); J44.9 Chronic obstructive pulmonary disease, unspecified; E11.9 Type 2 diabetes mellitus without complications; S30.811A Abrasion of abdominal wall, initial encounter; F17.200 Nicotine dependence, unspecified, uncomplicated; G47.33 Obstructive sleep apnea (adult) (pediatric); V19.3XXA Pedal cyclist (driver) (passenger) injured in unspecified nontraffic accident, initial encounter
CPT/HCPCS: 71260; 74177; 80053; 81001; 85025; 96374; 99284; Q9967; A4216

== ENCOUNTER 2025-05-03 18:19 | Emergency (ER) | payer MEDICARE, MEDICAID, SELFPAY ==
[2025-05-03 18:20] VITALS: BP 162/100; PULSE 106; RESP 18; TEMP 36.8; O2SAT 99; BMI 22.8
[2025-05-03 20:09] LABS: Hematocrit 46.3 % (40-54); Hemoglobin 15.7 g/dL (13.0-16.5); Immature Granulocytes Count 0.040 X10^3/uL (0.0-0.0); Mean Corp Hgb Conc 33.9 g/dL (32-36); Mean Corpuscular Volume 84.8 fL (80-94); Mean Platelet Vol. 8.6 fl (6.2-12.0); NRBC Flagged by Analyzer 0 % (0-5); Platelet Count 227 K/mm3 (150-450); RBC Distribution Width CV 14.2 % (11.6-14.6); RBC Distribution Width SD 43.5 fl (35.1-43.9); Red Blood Count 5.46 M/mm3 (4.6-6.2); White Blood Count 7.4 K/mm3 (4.4-11.0)
[2025-05-03] MEDS: 0.9% Normal Saline (1000mL) 1,000 ML 999 ML IV (20:10)
[2025-05-03 20:20] VITALS: BP 127/90; PULSE 92; O2SAT 96
[2025-05-03 20:37] LABS: AST(SGOT) 30 U/L (<=37); Alanine Aminotransfer ALT/SGPT 32 U/L (<=46); Albumin, Serum 4.6 g/dL (3.5-5.0); Alkaline Phosphatase 112 U/L (40-129); Anion Gap 14 (5-15); BUN 15 mg/dL (4-19); BUN/Creat Ratio 17.7 RATIO (10-20); Calcium,Total 9.1 mg/dL (7.6-11.0); Carbon Dioxide 24.2 mmol/L (21.0-32.0); Chloride 102 mmol/L (98-108); Estimated Creatinine Clearance 126.63 ml/min (50-250); Globulin 3.2 g/dL (2.2-4.2); Glucose 143 mg/dL (70-99); Lipase 74 U/L (13-75); Potassium 3.6 mmol/L (3.3-5.1)
[2025-05-03 20:40] LABS: Mucous, Urine 0 SEEN /hpf (<or=2+); Red Blood Cells-Urine 0 SEEN /hpf (0-5); Squamous Epithelial Cells - UA 0 SEEN /hpf (0-5)
[2025-05-03 20:43] LABS: Color, Urine Yellow (Yellow); Glucose, Dipstick Normal (Normal); Ketone-Dipstick Negative (Negative); Leukocyte Esterase-Dipstick Negative /ul (Negative); Nitrite-Dipstick Negative (Negative); Occult Blood-Urine Negative /ul (Negative); Protein-Dipstick 30 mg/dl (Negative); Specific Gravity, Urine 1.025 (1.002-1.030); Urine Bilirubin Dipstick Negative (Negative)
[2025-05-03 22:00] VITALS: BP 154/101; PULSE 93; O2SAT 98
[2025-05-03 22:26] VITALS: BP 154/98; PULSE 88; RESP 18; TEMP 36.8; O2SAT 98
[2025-05-04 00:09] LABS: Reflex Lactate? Y
== END 2025-05-03 22:29 | disposition home or self-care (01) ==
PROVIDERS: Emergency Provider Surgery; PCP Family Medicine; Visit Provider Surgery
DX: K92.1 Melena (principal); I85.00 Esophageal varices without bleeding; J44.9 Chronic obstructive pulmonary disease, unspecified; E11.9 Type 2 diabetes mellitus without complications; K63.89 Other specified diseases of intestine; I10 Essential (primary) hypertension; E78.2 Mixed hyperlipidemia; K21.9 Gastro-esophageal reflux disease without esophagitis; N40.0 Benign prostatic hyperplasia without lower urinary tract symptoms; F41.9 Anxiety disorder, unspecified; F32.A Depression, unspecified; M10.9 Gout, unspecified; G47.33 Obstructive sleep apnea (adult) (pediatric); F17.210 Nicotine dependence, cigarettes, uncomplicated; Z99.81 Dependence on supplemental oxygen; Z87.19 Personal history of other diseases of the digestive system; Z79.84 Long term (current) use of oral hypoglycemic drugs; Z79.51 Long term (current) use of inhaled steroids; Z79.82 Long term (current) use of aspirin; Z79.899 Other long term (current) drug therapy
CPT/HCPCS: 74177; 80053; 81001; 82274; 83605; 83690; 85025; 96361; 96374; 96375; 99283; Q9967; J2405